=== PATIENT | female | born 1945 | race Caucasian/White ===

== ENCOUNTER 2016-05-12 02:02 | Inpatient (IN) | payer MEDICARE ==
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
[2016-05-12 02:45] LABS: Anisocytosis Slight; Basophils # (A) 0.1 k/uL (0-0.2); Basophils % (A) 1 %; CHCM 29.7; Eosinophils # (A) 0.2 k/uL (0-0.7); Eosinophils % (A) 2 %; HCT 31.5 % (34.0-46.0); HGB 9.1 gm/dL (11.4-16.0); Hypochromasia Marked; Luc # (Auto) 0.08; Luc % (Auto) 1; Lymphocytes # (A) 0.5 k/uL (1.0-4.8); Lymphocytes % (A) 6 %; MCH 24.5 pg (25.0-35.0); MCHC 28.9 g/dL (31.0-37.0); MCV 84.6 fL (80.0-100.0); Mean Platelet Volume 7.8; Monocytes # (A) 0.4 k/uL (0-1.0); Monocytes % (A) 6 %; Neutrophils # (A) 6.1 k/uL (1.3-7.7); Neutrophils % (A) 84 %; Poikilocytosis Moderate; RBC 3.72 m/uL (3.80-5.40); RDW 16.5 % (11.5-15.5); WBC 7.2 k/uL (3.8-10.6); WBC (Perox) 7.31
[2016-05-12 02:51] LABS: Glucose,Whole Blood 188 mg/dL (75-99)
[2016-05-12 02:54] LABS: Calcium 8.5 mg/dL (8.4-10.2); Potassium 5.1 mmol/L (3.5-5.1); Total Bilirubin 0.4 mg/dL (0.2-1.3); Total Protein 6.3 g/dL (6.3-8.2)
[2016-05-12 03:01] LABS: Appearance,Urine Cloudy (Clear); Bacteria,Urine Many /hpf; Bilirubin,Urine Negative (Negative); Glucose,Urine (UA) Negative (Negative); Ketones,Urine Negative (Negative); Leukocyte Esterase,Urine Large (Negative); Mucus,Urine Many /hpf; Nitrite,Urine Negative (Negative); Particle Count 13182; Protein,Urine 1+ (Negative); RBC,Urine 179 /hpf (0-5); Specific Gravity,Urine 1.011 (1.001-1.035); Squamous Epithelial Cell,Urine 2 /hpf (0-4); UA Billing (MACRO vs. MICRO) MICRO; Urobilinogen,Urine <2.0 mg/dL (<2.0); WBC,Urine 42 /hpf (0-5)
[2016-05-12 03:05] LABS: Creatine Kinase 41 U/L (30-135)
[2016-05-12 03:06] LABS: INR 1.1 (<1.1); Partial Thromboplastin Time 22.6 sec (22.0-30.0); Prothrombin Time 10.7 sec (9.0-12.0)
--- NOTE | 2016-05-12 03:16 | CT ---
EXAMINATION TYPE: CT brain wo con DATE OF EXAM: 05/12/2016 3:10 AM COMPARISON: 02/26/2016 HISTORY: AMS Pt. Uncooperative and combative CT DLP: 3308 mGycm Automated exposure control for dose reduction was used. FINDINGS: Exam is limited by motion. There is hypodensity in the large area of the right cerebral hemisphere co nsistent with old right middle cerebral artery infarct. There is no mass effect or midline shift. The re is no sign of intracranial hemorrhage. Calvarium appears intact. IMPRESSION: Old right hemispheric infarct. No acute intracranial abnormality. No change.
--- NOTE | 2016-05-12 03:17 | XR ---
EXAMINATION TYPE: XR chest 1V portable DATE OF EXAM: 05/12/2016 3:10 AM COMPARISON: 04/24/2016 HISTORY: Altered mental status TECHNIQUE: Single frontal view of the chest is obtained. FINDINGS: Heart is enlarged. There is pulmonary vascular mild congestion. There is slight blunting o f costophrenic angles. There are chest leads. IMPRESSION: Mild congestive heart failure with pleural effusions. No change compared to 04/24/2016.
[2016-05-12 03:18] LABS: Creatine Kinase MB 1.3 ng/mL (0.0-2.4); Troponin I <0.012 ng/mL (0.000-0.034)
[2016-05-12] MEDS ORDERED: LORazepam 2 MG/ML SYRINGE IV PRN (03:51)
[2016-05-12] MEDS ORDERED: ALPRAZolam 0.25 MG TAB PO PRN (03:51)
[2016-05-12] MEDS ORDERED: NALOXONE 0.4 MG/ML 1 ML VIAL IV PRN (03:51)
[2016-05-12] MEDS: SODIUM CHLORIDE 0.9% 1,000 ML IV SCH (04:00)
[2016-05-12] MEDS ORDERED: IPRATROPIUM-ALBUTEROL 3 ML NEB INHALATION STA (05:29)
[2016-05-12 05:47] VITALS: BMI 26.8
[2016-05-12] MEDS ORDERED: DAPTOmycin 500 MG in SODIUM CHLORIDE 0.9% 50 ML IV SCH (06:00)
[2016-05-12] MEDS ORDERED: HYDROcodone/APAP 10-325MG 1 EACH TAB PO PRN (08:34)
[2016-05-12] MEDS ORDERED: NON-FORMULARY DRUG (Menthol [Biofreeze] 1 APPLIC) TOPICAL PRN (08:34)
[2016-05-12] MEDS ORDERED: IPRATROPIUM-ALBUTEROL 3 ML NEB INHALATION PRN (08:34)
[2016-05-12] MEDS ORDERED: DOCUSATE 100 MG CAP PO PRN (08:34)
[2016-05-12] MEDS: levETIRAcetam 500 MG TAB PO SCH ×2 (09:31→20:30)
[2016-05-12] MEDS: hydrALAZINE HCL 25 MG TAB PO SCH ×2 (09:31→18:04)
[2016-05-12] MEDS: HEPARIN SODIUM,PORCINE 5,000 UNIT/ML 1 ML VIAL SQ SCH ×2 (09:32→20:30)
[2016-05-12] MEDS: ALLOPURINOL 100 MG TAB PO SCH ×2 (09:32→09:41)
[2016-05-12] MEDS: SODIUM POLYSTYRENE SULFONATE 15 GM/60 ML BOTTLE PO SCH ×2 (09:32→09:42)
[2016-05-12] MEDS: METOPROLOL TARTRATE 50 MG TAB PO SCH ×2 (09:32→20:30)
[2016-05-12] MEDS: SERTRALINE 100 MG TAB PO SCH ×2 (09:32→09:42)
[2016-05-12] MEDS: ASPIRIN 81 MG CHEW PO SCH ×2 (09:32→09:42)
[2016-05-12] MEDS: FAMOTIDINE 20 MG TAB PO SCH ×2 (09:32→09:42)
[2016-05-12] MEDS: DILTIAZEM ORAL 60 MG TAB PO SCH ×3 (09:33→22:52)
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
[2016-05-12] MEDS: IPRATROPIUM-ALBUTEROL 3 ML NEB INHALATION SCH ×2 (10:40→18:54)
[2016-05-12 10:55] LABS: Glucose,Whole Blood 237 mg/dL (75-99)
[2016-05-12 11:49] LABS: % Iron Saturation 8.5 % (20-50)
[2016-05-12] MEDS ORDERED: FUROSEMIDE 10 MG/ML 4 ML VIAL IV STA (11:59)
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
[2016-05-12] MEDS ORDERED: NALOXONE 0.4 MG/ML 1 ML VIAL IV STA (12:12)
[2016-05-12 12:24] LABS: ABG Base Excess 0.4 mmol/L; ABG HCO3 26 mmol/L (21-25); ABG Oxygen Saturation 82.3 % (94-97); ABG PCO2 48 mmHg (35-45); ABG PH 7.34 (7.35-7.45); ABG PO2 50 mmHg (83-108); ABG TCO2 27 mmol/L (19-24)
[2016-05-12] MEDS ORDERED: INSULIN LISPRO (humaLOG) 300 UNIT/3 ML VIAL SQ SCH (12:30)
--- NOTE | 2016-05-12 12:38 | XR ---
EXAMINATION TYPE: XR chest 1V DATE OF EXAM: 05/12/2016 12:32 PM HISTORY: Shortness of breath. COMPARISON: 05/12/2016 TECHNIQUE: Single view of the chest is submitted. FINDINGS: Demonstrated are scattered senescent parenchymal change. I suspect underlying fibrosis. There is increasing patchy density right lower lobe which may reflect atelectasis or developing infil trate. The heart is stable. Hilar and mediastinal structures are within normal limits. Degenerative changes are seen of the dorsal spine. IMPRESSION: 1. There is increasing patchy density right lower lobe which may reflect atelectasis or developing i nfiltrate. Superimposed fibrosis.
[2016-05-12] MEDS: MEROPENEM 1 GM in SODIUM CHLORIDE 0.9% 100 ML IVPB SCH ×3 (12:42→23:08)
[2016-05-12] MEDS ORDERED: HALOPERIDOL LACTATE 5 MG/ML 1 ML VIAL IVP PRN (13:21)
[2016-05-12 13:36] LABS: Hemoglobin A1C 6.6 % (4.2-6.1)
[2016-05-12 13:46] LABS: Glucose,Whole Blood 211 mg/dL (75-99)
[2016-05-12] MEDS ORDERED: HYDROmorphone 1 MG/ML 1 ML SYRINGE ONE (14:39)
[2016-05-12] MEDS: methylPREDNISolone SOD SUCCI 125 MG/2 ML VIAL IV SCH ×3 (15:18→23:26)
[2016-05-12] MEDS: INSULIN LISPRO (humaLOG) 300 UNIT/3 ML VIAL SQ SCH ×3 (16:11→23:26)
[2016-05-12 16:12] LABS: Glucose,Whole Blood 146 mg/dL (75-99)
[2016-05-12] MEDS ORDERED: glipiZIDE 5 MG TAB PO SCH (17:30)
[2016-05-12] MEDS: hydrALAZINE HCL 20 MG/ML 1 ML VIAL IVP PRN ×2 (18:23→23:08)
[2016-05-12] MEDS: BUDESONIDE 0.5 MG/2 ML NEBU INHALATION SCH (18:54)
[2016-05-12 20:30] LABS: Glucose,Whole Blood 178 mg/dL (75-99)
[2016-05-12] MEDS: FUROSEMIDE 10 MG/ML 4 ML VIAL IV SCH (20:30)
[2016-05-12] MEDS ORDERED: INSULIN GLARGINE 100 UNIT/ML 10 ML VIAL SQ SCH (21:00)
[2016-05-12] MEDS: HYDROmorphone 1 MG/ML 1 ML SYRINGE IVP PRN (23:25)
[2016-05-12 23:27] LABS: Glucose,Whole Blood 208 mg/dL (75-99)
[2016-05-13] MEDS: INSULIN LISPRO (humaLOG) 300 UNIT/3 ML VIAL SQ SCH ×5 (03:10→20:49)
[2016-05-13 03:11] LABS: Glucose,Whole Blood 161 mg/dL (75-99)
[2016-05-13] MEDS: SODIUM CHLORIDE 0.9% 1,000 ML IV SCH (03:12)
[2016-05-13] MEDS: hydrALAZINE HCL 20 MG/ML 1 ML VIAL IVP PRN (04:42)
[2016-05-13] MEDS: HYDROmorphone 1 MG/ML 1 ML SYRINGE IVP PRN ×3 (04:42→17:59)
[2016-05-13 05:09] LABS: Anisocytosis Slight; Basophils % (A) 0 %; CH 25.1; CHCM 29.5; Eosinophils # (A) 0.1 k/uL (0-0.7); Eosinophils % (A) 2 %; HCT 36.3 % (34.0-46.0); HDW 3.92; HGB 10.3 gm/dL (11.4-16.0); Hypochromasia Marked; Luc # (Auto) 0.02; Luc % (Auto) 0; Lymphocytes # (A) 0.2 k/uL (1.0-4.8); Lymphocytes % (A) 3 %; MCH 24.3 pg (25.0-35.0); MCHC 28.5 g/dL (31.0-37.0); MCV 85.3 fL (80.0-100.0); Mean Platelet Volume 7.1; Monocytes # (A) 0.1 k/uL (0-1.0); Monocytes % (A) 1 %; Neutrophils # (A) 5.6 k/uL (1.3-7.7); Neutrophils % (A) 94 %; Poikilocytosis Slight; RBC 4.25 m/uL (3.80-5.40); RDW 16.7 % (11.5-15.5); WBC 5.9 k/uL (3.8-10.6); WBC (Perox) 6.59
[2016-05-13 05:23] LABS: ALT 26 U/L (9-52); AST 16 U/L (14-36); Alkaline Phosphatase 103 U/L (38-126); Anion Gap 13 mmol/L; Blood Urea Nitrogen 25 mg/dL (7-17); Calcium 8.9 mg/dL (8.4-10.2); Carbon Dioxide 31 mmol/L (22-30); Chloride 102 mmol/L (98-107); Glucose 140 mg/dL (74-99); Magnesium 1.9 mg/dL (1.6-2.3); Non-African American GFR(MDRD) 55 (>60 ml/min/1.73 sqM); Phosphorous 3.9 mg/dL (2.5-4.5); Potassium 4.2 mmol/L (3.5-5.1); Sodium 146 mmol/L (137-145); Total Bilirubin 0.7 mg/dL (0.2-1.3)
[2016-05-13] MEDS ORDERED: MAGNESIUM SULFATE-D5W PMX 1 GM in DEXTROSE/WATER 1 100ML.BAG IVPB ONE (05:54)
[2016-05-13] MEDS: FERROUS SULFATE 325 MG TAB PO SCH (05:55)
[2016-05-13] MEDS ORDERED: FUROSEMIDE 40 MG TAB PO SCH (06:00)
[2016-05-13] MEDS ORDERED: PANTOPRAZOLE 40 MG TABLET PO SCH (06:00)
[2016-05-13] MEDS: methylPREDNISolone SOD SUCCI 125 MG/2 ML VIAL IV SCH ×3 (06:26→17:54)
--- NOTE | 2016-05-13 07:26 | XR ---
EXAMINATION TYPE: XR chest 1V DATE OF EXAM: 05/13/2016 6:34 AM COMPARISON: 05/12/2016 HISTORY: 70-year-old female CHF TECHNIQUE: Single frontal view of the chest is obtained. FINDINGS: Heart remains moderately enlarged. Atherosclerotic arch calcifications. Diffuse interstitial opacitie s persist. Slight increasing right basilar opacity. IMPRESSION: 1. Continued moderate cardiomegaly and interstitial opacities suggest CHF with pulmonary vascular con gestion. 2. Increasing small right pleural effusion with adjacent atelectasis and/or consolidation.
[2016-05-13] MEDS: BUDESONIDE 0.5 MG/2 ML NEBU INHALATION SCH ×2 (07:49→20:36)
[2016-05-13] MEDS: IPRATROPIUM-ALBUTEROL 3 ML NEB INHALATION SCH ×3 (07:49→20:36)
[2016-05-13 08:37] LABS: Glucose,Whole Blood 112 mg/dL (75-99)
[2016-05-13] MEDS: MEROPENEM 1 GM in SODIUM CHLORIDE 0.9% 100 ML IVPB SCH ×2 (08:40→16:14)
[2016-05-13] MEDS: HEPARIN SODIUM,PORCINE 5,000 UNIT/ML 1 ML VIAL SQ SCH ×2 (08:44→20:43)
[2016-05-13] MEDS: FUROSEMIDE 10 MG/ML 4 ML VIAL IV SCH ×2 (08:44→20:43)
[2016-05-13] MEDS: PANTOPRAZOLE 40 MG/10 ML VIAL IVP SCH (08:44)
[2016-05-13 12:06] LABS: Glucose,Whole Blood 134 mg/dL (75-99)
[2016-05-13] MEDS: DILTIAZEM ORAL 60 MG TAB PO SCH ×3 (12:09→20:45)
[2016-05-13] MEDS: ASPIRIN 81 MG CHEW PO SCH (12:09)
[2016-05-13] MEDS: ALLOPURINOL 100 MG TAB PO SCH (12:09)
[2016-05-13] MEDS: METOPROLOL TARTRATE 50 MG TAB PO SCH ×2 (12:10→20:44)
[2016-05-13] MEDS: levETIRAcetam 500 MG TAB PO SCH ×2 (12:10→20:44)
[2016-05-13] MEDS: SODIUM POLYSTYRENE SULFONATE 15 GM/60 ML BOTTLE PO SCH (12:11)
[2016-05-13] MEDS: SERTRALINE 100 MG TAB PO SCH (12:11)
--- NOTE | 2016-05-13 12:18 | P.PN ---
Subjective Principal diagnosis: Acute metabolic encephalopathy with altered mental status Patient is doing better she is more alert this morning she is answering questions appropriately She had evidence of acute metabolic encephalopathy and acute hypercapnic respiratory failure requiring BiPAP through the night At this time she is doing better she is more alert. She has evidence of urinary tract infection she is maintained on IV antibiotic. Due to her mental status changes and and responsiveness she was admitted to intensive care unit, At this time she is doing better she will be transferred to medical floor with remote telemetry. Objective - Vital Signs Vital signs: Vital Signs Temp 97.7 F 05/13/16 12:00 Pulse 109 H 05/13/16 12:00 Resp 15 05/13/16 12:00 BP 181/97 05/13/16 12:00 Pulse Ox 94 L 05/13/16 12:00 Intake & Output 05/12/16 05/13/16 05/13/16 18:59 06:59 18:59 Intake Total 100 440 200 Output Total 1445 2075 1185 Balance -1345 -1635 -985 Weight 75.4 kg 77.6 kg 77.6 kg Intake: IV 100 440 200 Meropenem 1 gm In Sodium 200 100 Chloride 0.9% 100 ml @ 200 mls/hr IVPB Q8HR МАРИЯ Rx#:[id number] Sodium Chloride 0.9% 1, 100 240 100 000 ml @ 20 mls/hr IV . Q24H МАРИЯ Rx#:[id number] Output: Urine 1445 2075 1160 Stool 25 Other: Voiding Method Indwelling Catheter Indwelling Catheter Indwelling Catheter - Exam HEENT head normocephalic and atraumatic Neck is supple no JVD no goiter no lymphadenopathy Chest exam reveals a few scattered crackles no wheezing Cardiac exam reveals irregular heart sounds no gallops no murmurs Abdomen is soft nontender no organomegaly with normal bowel sounds Extremity exam reveals no edema no cyanosis or clubbing Neurological examination reveals no gross focal deficit. - Labs CBC & Chem 7: 05/13/16 04:55 05/13/16 04:55 Labs: Abnormal Lab Results - Last 24 Hours (Table) 05/12/16 05/12/16 05/12/16 Range/Units 13:44 16:10 20:28 Hgb (11.4-16.0) gm/dL MCH (25.0-35.0) pg MCHC (31.0-37.0) g/dL RDW (11.5-15.5) % Lymphocytes # (1.0-4.8) k/uL Sodium (137-145) mmol/L Carbon Dioxide (22-30) mmol/L BUN (7-17) mg/dL Glucose (74-99) mg/dL POC Glucose (mg/dL) 211 H 146 H 178 H (75-99) mg/dL 05/12/16 05/13/16 05/13/16 Range/Units 23:24 03:09 04:55 Hgb 10.3 L (11.4-16.0) gm/dL MCH 24.3 L (25.0-35.0) pg MCHC 28.5 L (31.0-37.0) g/dL RDW 16.7 H (11.5-15.5) % Lymphocytes # 0.2 L (1.0-4.8) k/uL Sodium (137-145) mmol/L Carbon Dioxide (22-30) mmol/L BUN (7-17) mg/dL Glucose (74-99) mg/dL POC Glucose (mg/dL) 208 H 161 H (75-99) mg/dL 05/13/16 05/13/16 05/13/16 Range/Units 04:55 08:35 12:05 Hgb (11.4-16.0) gm/dL MCH (25.0-35.0) pg MCHC (31.0-37.0) g/dL RDW (11.5-15.5) % Lymphocytes # (1.0-4.8) k/uL Sodium 146 H (137-145) mmol/L Carbon Dioxide 31 H (22-30) mmol/L BUN 25 H (7-17) mg/dL Glucose 140 H (74-99) mg/dL POC Glucose (mg/dL) 112 H 134 H (75-99) mg/dL Assessment and Plan Plan: 1. Altered mental status changes: Possibly a metabolic and toxic metabolic encephalopathy secondary to UTI and medications in the form of Ativan and [place]. 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 Ativan and Xanax discontinued. Drug screen positive for opiates and benzodiazepine. Also check a Keppra level 2. UTI patient started on daptomycin. Await urine culture. 3. Chronic persistent atrial fibrillation: Heart rate stable. Not on anticoagulation due to previous GI bleed. Continue her Cardizem and metoprolol for rate control. We'll place patient on telemetry monitoring 4. History of diabetes mellitus type 2: Continue her Lantus and glipizide. Add sliding scale coverage. 5. Known iron deficiency anemia: Hemoglobin 9.1. Continue iron supplement. Check iron studies 6. Mild acute COPD exacerbation patient does have some wheezing. Continue nebulizer treatments 4 times a day. Chest x-ray showing mild CHF with no change from previous chest x-ray. Check BNP level 7. History of myocardial infarction with coronary artery disease and previous cardiac stents 8. History of chronic kidney disease stage IV. Creatinine close to baseline. Creatinine at admission 1.60 improved today to 0.99 9. History of seizure disorder: Check Keppra level, still pending 10. GI prophylaxis Pepcid and DVT prophylaxis on subcu heparin
--- NOTE | 2016-05-13 14:06 | P.PN ---
Subjective 68-year-old here patient was admitted to the hospital yesterday through emergency department because of change in mental status. The patient was unable to volunteer any information. 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 The patient was admitted to the medical floor and the patient was given daptomycin treating an underlying urine checked infection. Earlier this morning, the patient was found quite unresponsive and and obtunded and in the same time her breathing was quite shallow and agonal. At that point the patient was brought into the intensive care unit where he mutation was placed on a BiPAP at a pressure of 10 over 5 cm of water and FiO2 of 75%. A chest x-ray from 2 AM showed mild CHF with pleural effusion and there was no major significant interval change compared to previous chest x-ray from 04/24/2016. ABGs that was done on 2 L of oxygen nasal cannula showed a pH of 7.34 with a pCO2 of 48 and pO2 of 50. Cardiac enzymes are negative. ProBNP level is elevated at 3720. No hypoglycemia. Renal function is chronically impaired with a creatinine of 1.6. CAT scan of the brain that was done at time of admission showed old hemispheric CVA and there was no acute abnormalities noted. No leukocytosis. No reported aspiration. No emesis. Hemodynamically stable and the patient has developed no hypotension. She is afebrile at this point. On 05/13/2016 the patient is being seen in follow-up in intensive care unit. She is significantly improved. She is off the BiPAP this morning. She is on high flow oxygen 5 L per minute nasal cannula. Less short of breath compared to yesterday. Today's chest x-ray shows improvement in the breath and pulmonary infiltrates discussed earlier. There is obvious improvement in the volume status. The patient has diabetes more than 3 L over the past 24 hours. She is also covered with broad-spectrum antibiotics and she is still on a combination of daptomycin and Merrem. The choice of antibiotics were done to cover for gram-negative, and anaerobes and VRE in the urine. No hypotension. No leukocytosis. Renal function is stable with a creatinine of 0.9. Objective - Vital Signs Vital signs: Vital Signs Temp 97.7 F 05/13/16 12:00 Pulse 132 H 05/13/16 13:00 Resp 44 H 05/13/16 13:00 BP 138/82 05/13/16 13:00 Pulse Ox 90 L 05/13/16 13:00 Intake & Output 05/12/16 05/13/16 05/13/16 18:59 06:59 18:59 Intake Total 100 440 460 Output Total 1445 2075 1245 Balance -7755 -0513 -785 Weight 75.4 kg 77.6 kg 77.6 kg Intake: IV 100 440 220 Meropenem 1 gm In Sodium 200 100 Chloride 0.9% 100 ml @ 200 mls/hr IVPB Q8HR [facility] Rx#:[id number] Sodium Chloride 0.9% 1, 100 240 120 000 ml @ 20 mls/hr IV . Q24H [facility] Rx#:[id number] Oral 240 Output: Urine 1445 2075 1220 Stool 25 Other: Voiding Method Indwelling Catheter Indwelling Catheter Indwelling Catheter - Exam Head exam was generally normal. There was no scleral icterus or corneal arcus. Mucous membranes were moist.Neck was supple and without jugular venous distension, thyromegaly, or carotid bruits. Carotids were easily palpable bilaterally. There was no adenopathy. Lung sounds are diminished bilaterally along with some few scattered external wheeze and crackles in lung bases.Cardiac exam revealed the PMI to be normally situated and sized. The rhythm was regular and no extrasystoles were noted during several minutes of auscultation. The first and second heart sounds were normal and physiologic splitting of the second heart sound was noted. There were no murmurs, rubs, clicks, or gallops.Abdominal exam revealed normal bowel sounds. The abdomen was soft, non-tender, and without masses, organomegaly, or appreciable enlargement of the abdominal aorta.Examination of the extremities revealed easily palpable radial, femoral and pedal pulses. There was no cyanosis, clubbing or edema. Neurologically patient is awake and alert and patient is following commands and answering questions appropriately. - Labs CBC & Chem 7: 05/13/16 04:55 05/13/16 04:55 Labs: Abnormal Lab Results - Last 24 Hours (Table) 05/12/16 05/12/16 05/12/16 Range/Units 16:10 20:28 23:24 Hgb (11.4-16.0) gm/dL MCH (25.0-35.0) pg MCHC (31.0-37.0) g/dL RDW (11.5-15.5) % Lymphocytes # (1.0-4.8) k/uL Sodium (137-145) mmol/L Carbon Dioxide (22-30) mmol/L BUN (7-17) mg/dL Glucose (74-99) mg/dL POC Glucose (mg/dL) 146 H 178 H 208 H (75-99) mg/dL 05/13/16 05/13/16 05/13/16 Range/Units 03:09 04:55 04:55 Hgb 10.3 L (11.4-16.0) gm/dL MCH 24.3 L (25.0-35.0) pg MCHC 28.5 L (31.0-37.0) g/dL RDW 16.7 H (11.5-15.5) % Lymphocytes # 0.2 L (1.0-4.8) k/uL Sodium 146 H (137-145) mmol/L Carbon Dioxide 31 H (22-30) mmol/L BUN 25 H (7-17) mg/dL Glucose 140 H (74-99) mg/dL POC Glucose (mg/dL) 161 H (75-99) mg/dL 05/13/16 05/13/16 Range/Units 08:35 12:05 Hgb (11.4-16.0) gm/dL MCH (25.0-35.0) pg MCHC (31.0-37.0) g/dL RDW (11.5-15.5) % Lymphocytes # (1.0-4.8) k/uL Sodium (137-145) mmol/L Carbon Dioxide (22-30) mmol/L BUN (7-17) mg/dL Glucose (74-99) mg/dL POC Glucose (mg/dL) 112 H 134 H (75-99) mg/dL Assessment and Plan Plan: Assessment 1 acute change in mental status, rule out toxic metabolic encephalopathy probably this patient with an underlying septicemia. On 05/13/2016, the patient's encephalopathy improved and the patient is much more awake and alert and following commands and answering questions appropriately. Neurologic exam is nonfocal. 2 acute hypoxic respiratory failure with a component of hypercapnia. The patient is currently BiPAP dependent. Exact cause is not clear. There may be a component of an underlying CHF, yet I suspect that there is an alternative cause for respiratory failure which is probably sepsis/toxic metabolic encephalopathy. The patient's chest x-ray is revealing a component of CHF with limited infiltration of the lung bases bilaterally. On 05/13/2016 ,The patient is being treated for pneumonia and CHF although CHF is more likely. The patient was diuresis IV Lasix and the patient is negative fluid balance and today's chest examination shows improvement in the volume status. Furthermore the patient was taken off the BiPAP and currently she is on 5 L of oxygen by nasal cannula. 3 acute kidney injury, improved and the patient's creatinine is normalized 4 large anterior abdominal wall hernia 5 obstructive proximal right ureteral calculus status post cystoscopy and insertion of a double-J stent in the right kidney, 6 CVA, history of with a large infarct involving the left hemisphere 7 vertebral fracture involving the C1 and C2 spine with chronic neck pain 8 hypertension 9 diabetes mellitus 10 coronary artery disease with previous coronary intervention and stenting 11 paroxysmal atrial fibrillation 12 severe pulmonary hypertension related to COPD and diastolic dysfunction 13 peptic ulcer disease 14 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 19 recurrent urine checked infection with VRE and the repeat cultures from 05/06 is showing enterococcal infection which is a VRE organism 20 history of MRSA wound infection involving the sacral ulcers. Plan Continue IV Lasix. Repeat chest x-ray in the morning. Continue Merrem and daptomycin. Monitor mental status. May use BiPAP on and off intermittently during the day. Close monitoring of her mental status. Will follow make further recommendations based on her progress.
[2016-05-13] MEDS: DICLOFENAC SODIUM GEL 100 GM TUBE TOPICAL PRN (16:14)
[2016-05-13 17:43] LABS: Glucose,Whole Blood 240 mg/dL (75-99)
[2016-05-13 20:49] LABS: Glucose,Whole Blood 227 mg/dL (75-99)
[2016-05-14 01:03] LABS: Glucose,Whole Blood 225 mg/dL (75-99)
[2016-05-14] MEDS: INSULIN LISPRO (humaLOG) 300 UNIT/3 ML VIAL SQ SCH ×7 (01:04→21:33)
[2016-05-14] MEDS: methylPREDNISolone SOD SUCCI 125 MG/2 ML VIAL IV SCH ×3 (01:05→13:05)
[2016-05-14] MEDS: MEROPENEM 1 GM in SODIUM CHLORIDE 0.9% 100 ML IVPB SCH ×4 (01:05→23:20)
[2016-05-14] MEDS: HYDROmorphone 1 MG/ML 1 ML SYRINGE IVP PRN ×3 (04:52→19:37)
[2016-05-14] MEDS: FERROUS SULFATE 325 MG TAB PO SCH (04:53)
[2016-05-14 04:59] LABS: Glucose,Whole Blood 137 mg/dL (75-99)
[2016-05-14 05:05] LABS: Anisocytosis Slight; Basophils % (A) 0 %; CHCM 29.6; Eosinophils % (A) 0 %; HCT 33.8 % (34.0-46.0); HDW 3.78; HGB 9.7 gm/dL (11.4-16.0); Hypochromasia Marked; Luc # (Auto) 0.02; Luc % (Auto) 0; Lymphocytes # (A) 0.2 k/uL (1.0-4.8); Lymphocytes % (A) 2 %; MCH 24.4 pg (25.0-35.0); MCHC 28.8 g/dL (31.0-37.0); MCV 84.7 fL (80.0-100.0); Mean Platelet Volume 7.9; Monocytes # (A) 0.2 k/uL (0-1.0); Monocytes % (A) 2 %; Neutrophils # (A) 8.1 k/uL (1.3-7.7); Neutrophils % (A) 95 %; Poikilocytosis Slight; RBC 3.99 m/uL (3.80-5.40); RDW 16.6 % (11.5-15.5); WBC 8.5 k/uL (3.8-10.6); WBC (Perox) 9.17
[2016-05-14 05:20] LABS: Phosphorous 4.5 mg/dL (2.5-4.5); Total Bilirubin 0.4 mg/dL (0.2-1.3); Total Protein 6.1 g/dL (6.3-8.2)
[2016-05-14] MEDS: SODIUM CHLORIDE 0.9% 1,000 ML IV SCH (06:00)
[2016-05-14] MEDS ORDERED: DAPTOmycin 500 MG in SODIUM CHLORIDE 0.9% 50 ML IV SCH (06:00)
--- NOTE | 2016-05-14 07:43 | XR ---
EXAMINATION TYPE: XR chest 1V DATE OF EXAM: 05/14/2016 6:31 AM COMPARISON: 05/12/2016 HISTORY: 70-year-old female CHF follow-up TECHNIQUE: Single frontal view of the chest is obtained. FINDINGS: Moderate cardiomegaly persists with diffuse interstitial opacities. Continued small, now small to mod erate right pleural effusion. IMPRESSION: Continued moderate cardiomegaly and findings suggesting CHF with pulmonary vascular congestion. A sma ll to moderate right pleural effusion is slightly increased.
[2016-05-14 07:55] LABS: Glucose,Whole Blood 138 mg/dL (75-99)
[2016-05-14] MEDS: METOPROLOL TARTRATE 50 MG TAB PO SCH ×2 (08:37→20:29)
[2016-05-14] MEDS: HEPARIN SODIUM,PORCINE 5,000 UNIT/ML 1 ML VIAL SQ SCH ×2 (08:38→20:28)
[2016-05-14] MEDS: PANTOPRAZOLE 40 MG/10 ML VIAL IVP SCH (08:38)
[2016-05-14] MEDS: FUROSEMIDE 10 MG/ML 4 ML VIAL IV SCH ×2 (08:38→20:28)
[2016-05-14] MEDS: DILTIAZEM ORAL 60 MG TAB PO SCH ×3 (08:38→21:33)
[2016-05-14] MEDS: ALLOPURINOL 100 MG TAB PO SCH (08:38)
[2016-05-14] MEDS: ASPIRIN 81 MG CHEW PO SCH (08:38)
[2016-05-14] MEDS: levETIRAcetam 500 MG TAB PO SCH ×2 (08:39→20:29)
[2016-05-14] MEDS: SODIUM POLYSTYRENE SULFONATE 15 GM/60 ML BOTTLE PO SCH (08:40)
[2016-05-14] MEDS: SERTRALINE 100 MG TAB PO SCH (08:40)
[2016-05-14] MEDS: BUDESONIDE 0.5 MG/2 ML NEBU INHALATION SCH ×2 (09:03→20:46)
[2016-05-14] MEDS: IPRATROPIUM-ALBUTEROL 3 ML NEB INHALATION SCH ×3 (09:03→20:44)
[2016-05-14 12:13] LABS: Glucose,Whole Blood 231 mg/dL (75-99)
--- NOTE | 2016-05-14 13:20 | P.PN ---
Subjective Principal diagnosis: Acute metabolic encephalopathy with altered mental status Patient is doing better she is more alert this morning she is answering questions appropriately She had evidence of acute metabolic encephalopathy and acute hypercapnic respiratory failure requiring BiPAP through the night At this time she is doing better she is more alert. She has evidence of urinary tract infection she is maintained on IV antibiotic. Due to her mental status changes and and responsiveness she was admitted to intensive care unit, At this time she is doing better she will be transferred to medical floor with remote telemetry. Objective - Vital Signs Vital signs: Vital Signs Temp 97.3 F L 05/14/16 08:00 Pulse 96 05/14/16 13:00 Resp 9 L 05/14/16 13:00 BP 129/59 05/14/16 13:00 Pulse Ox 96 05/14/16 13:00 Intake & Output 05/13/16 05/14/16 05/14/16 18:59 06:59 18:59 Intake Total 1120 540 460 Output Total 1515 780 965 Balance -395 -240 -505 Weight 77.6 kg 79.1 kg 79.1 kg Intake: IV 400 440 220 Meropenem 1 gm In Sodium 200 200 100 Chloride 0.9% 100 ml @ 200 mls/hr IVPB Q8HR [facility] Rx#:[id number] Sodium Chloride 0.9% 1, 200 240 120 000 ml @ 20 mls/hr IV . Q24H [facility] Rx#:[id number] Intake, IV Titration 100 Amount DAPTOmycin 500 mg In 100 Sodium Chloride 0.9% 50 ml @ 100 mls/hr IV Q48H [facility] Rx#:[id number] Oral 720 240 Output: Urine 1490 780 965 Stool 25 Other: Voiding Method Indwelling Catheter Indwelling Catheter Indwelling Catheter - Exam HEENT head normocephalic and atraumatic Neck is supple no JVD no goiter no lymphadenopathy Chest exam reveals a few scattered crackles no wheezing Cardiac exam reveals irregular heart sounds no gallops no murmurs Abdomen is soft nontender no organomegaly with normal bowel sounds Extremity exam reveals no edema no cyanosis or clubbing Neurological examination reveals no gross focal deficit. - Labs CBC & Chem 7: 05/14/16 04:07 05/14/16 04:07 Labs: Abnormal Lab Results - Last 24 Hours (Table) 05/13/16 05/13/16 05/14/16 Range/Units 17:41 20:48 01:02 Hgb (11.4-16.0) gm/dL Hct (34.0-46.0) % MCH (25.0-35.0) pg MCHC (31.0-37.0) g/dL RDW (11.5-15.5) % Neutrophils # (1.3-7.7) k/uL Lymphocytes # (1.0-4.8) k/uL BUN (7-17) mg/dL Creatinine (0.52-1.04) mg/dL Glucose (74-99) mg/dL POC Glucose (mg/dL) 240 H 227 H 225 H (75-99) mg/dL AST (14-36) U/L Total Protein (6.3-8.2) g/dL Albumin (3.5-5.0) g/dL 05/14/16 05/14/16 05/14/16 Range/Units 04:07 04:07 04:57 Hgb 9.7 L (11.4-16.0) gm/dL Hct 33.8 L (34.0-46.0) % MCH 24.4 L (25.0-35.0) pg MCHC 28.8 L (31.0-37.0) g/dL RDW 16.6 H (11.5-15.5) % Neutrophils # 8.1 H (1.3-7.7) k/uL Lymphocytes # 0.2 L (1.0-4.8) k/uL BUN 44 H (7-17) mg/dL Creatinine 1.40 H (0.52-1.04) mg/dL Glucose 149 H (74-99) mg/dL POC Glucose (mg/dL) 137 H (75-99) mg/dL AST 12 L (14-36) U/L Total Protein 6.1 L (6.3-8.2) g/dL Albumin 3.4 L (3.5-5.0) g/dL 05/14/16 05/14/16 Range/Units 07:53 12:11 Hgb (11.4-16.0) gm/dL Hct (34.0-46.0) % MCH (25.0-35.0) pg MCHC (31.0-37.0) g/dL RDW (11.5-15.5) % Neutrophils # (1.3-7.7) k/uL Lymphocytes # (1.0-4.8) k/uL BUN (7-17) mg/dL Creatinine (0.52-1.04) mg/dL Glucose (74-99) mg/dL POC Glucose (mg/dL) 138 H 231 H (75-99) mg/dL AST (14-36) U/L Total Protein (6.3-8.2) g/dL Albumin (3.5-5.0) g/dL Assessment and Plan Plan: 1. Altered mental status changes: Possibly a metabolic and toxic metabolic encephalopathy secondary to UTI and medications in the form of Ativan and [place]. 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 Ativan and Xanax discontinued. Drug screen positive for opiates and benzodiazepine. Also check a Keppra level 2. UTI patient started on daptomycin. And merrem Await urine culture. 3. Chronic persistent atrial fibrillation: Heart rate stable. Not on anticoagulation due to previous GI bleed. Continue her Cardizem and metoprolol for rate control. We'll place patient on telemetry monitoring 4. Acute hypoxic respiratory failure patient required BiPAP treatment in ICU currently she improved she is scheduled to be transferred out of ICU today cause of respiratory failure is multifactorial including congestive heart failure and limited infiltrate in both lung bases. 5. Known iron deficiency anemia: Hemoglobin 9.1. Continue iron supplement. Check iron studies 6. Mild acute COPD exacerbation patient does have some wheezing. Continue nebulizer treatments 4 times a day. Chest x-ray showing mild CHF with no change from previous chest x-ray. Check BNP level 7. History of myocardial infarction with coronary artery disease and previous cardiac stents 8. Acute kidney injury, Creatinine close to baseline. Creatinine at admission 1.60 improved today to 0.99 9. History of seizure disorder: Check Keppra level, still pending 10. Underlying history of diabetes mellitus 11. Underlying history of severe pulmonary hypertension 12. Underlying history of partial colectomy with colostomy placement due to history of perforated gangrenous bowel no history of malignancy 13. GI prophylaxis Pepcid and DVT prophylaxis on subcu heparin
--- NOTE | 2016-05-14 13:44 | P.PN ---
Subjective 68-year-old here patient was admitted to the hospital yesterday through emergency department because of change in mental status. The patient was unable to volunteer any information. 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 The patient was admitted to the medical floor and the patient was given daptomycin treating an underlying urine checked infection. Earlier this morning, the patient was found quite unresponsive and and obtunded and in the same time her breathing was quite shallow and agonal. At that point the patient was brought into the intensive care unit where he mutation was placed on a BiPAP at a pressure of 10 over 5 cm of water and FiO2 of 75%. A chest x-ray from 2 AM showed mild CHF with pleural effusion and there was no major significant interval change compared to previous chest x-ray from 04/24/2016. ABGs that was done on 2 L of oxygen nasal cannula showed a pH of 7.34 with a pCO2 of 48 and pO2 of 50. Cardiac enzymes are negative. ProBNP level is elevated at 3720. No hypoglycemia. Renal function is chronically impaired with a creatinine of 1.6. CAT scan of the brain that was done at time of admission showed old hemispheric CVA and there was no acute abnormalities noted. No leukocytosis. No reported aspiration. No emesis. Hemodynamically stable and the patient has developed no hypotension. She is afebrile at this point. On 05/13/2016 the patient is being seen in follow-up in intensive care unit. She is significantly improved. She is off the BiPAP this morning. She is on high flow oxygen 5 L per minute nasal cannula. Less short of breath compared to yesterday. Today's chest x-ray shows improvement in the breath and pulmonary infiltrates discussed earlier. There is obvious improvement in the volume status. The patient has diabetes more than 3 L over the past 24 hours. She is also covered with broad-spectrum antibiotics and she is still on a combination of daptomycin and Merrem. The choice of antibiotics were done to cover for gram-negative, and anaerobes and VRE in the urine. No hypotension. No leukocytosis. Renal function is stable with a creatinine of 0.9. On 05/14/2016 the patient is being seen in follow-up. There is a remarkable improvement in the patient's chest x-ray. The patient has diabetes nicely with IV Lasix. No significant respiratory distress. Mentation is improved. No cough or sputum production. No chest pain. No swelling in lower extremities. Renal function remains stable. The creatinine today is at 1.4. The patient remains on a combination of Merrem and daptomycin as a broad-spectrum antibiotic coverage covering for pneumonia and VRE urinary tract infection. The patient on IV Lasix 40 mg every 12 hours. The patient is on IV Solu-Medrol 60 every 6 hours. Objective - Vital Signs Vital signs: Vital Signs Temp 97.3 F L 05/14/16 08:00 Pulse 99 05/14/16 13:33 Resp 9 L 05/14/16 13:00 BP 129/59 05/14/16 13:00 Pulse Ox 96 05/14/16 13:00 Intake & Output 05/13/16 05/14/16 05/14/16 18:59 06:59 18:59 Intake Total 1120 540 460 Output Total 1515 780 965 Balance -395 -240 -505 Weight 77.6 kg 79.1 kg 79.1 kg Intake: IV 400 440 220 Meropenem 1 gm In Sodium 200 200 100 Chloride 0.9% 100 ml @ 200 mls/hr IVPB Q8HR [facility] Rx#:[id number] Sodium Chloride 0.9% 1, 200 240 120 000 ml @ 20 mls/hr IV . Q24H [facility] Rx#:[id number] Intake, IV Titration 100 Amount DAPTOmycin 500 mg In 100 Sodium Chloride 0.9% 50 ml @ 100 mls/hr IV Q48H [facility] Rx#:[id number] Oral 720 240 Output: Urine 1490 780 965 Stool 25 Other: Voiding Method Indwelling Catheter Indwelling Catheter Indwelling Catheter - Exam Head exam was generally normal. There was no scleral icterus or corneal arcus. Mucous membranes were moist.Neck was supple and without jugular venous distension, thyromegaly, or carotid bruits. Carotids were easily palpable bilaterally. There was no adenopathy. Lung sounds are diminished bilaterally along with some few scattered external wheeze and crackles in lung bases.Cardiac exam revealed the PMI to be normally situated and sized. The rhythm was regular and no extrasystoles were noted during several minutes of auscultation. The first and second heart sounds were normal and physiologic splitting of the second heart sound was noted. There were no murmurs, rubs, clicks, or gallops.Abdominal exam revealed normal bowel sounds. The abdomen was soft, non-tender, and without masses, organomegaly, or appreciable enlargement of the abdominal aorta.Examination of the extremities revealed easily palpable radial, femoral and pedal pulses. There was no cyanosis, clubbing or edema. Neurologically patient is awake and alert and patient is following commands and answering questions appropriately. - Labs CBC & Chem 7: 05/14/16 04:07 05/14/16 04:07 Labs: Abnormal Lab Results - Last 24 Hours (Table) 05/13/16 05/13/16 05/14/16 Range/Units 17:41 20:48 01:02 Hgb (11.4-16.0) gm/dL Hct (34.0-46.0) % MCH (25.0-35.0) pg MCHC (31.0-37.0) g/dL RDW (11.5-15.5) % Neutrophils # (1.3-7.7) k/uL Lymphocytes # (1.0-4.8) k/uL BUN (7-17) mg/dL Creatinine (0.52-1.04) mg/dL Glucose (74-99) mg/dL POC Glucose (mg/dL) 240 H 227 H 225 H (75-99) mg/dL AST (14-36) U/L Total Protein (6.3-8.2) g/dL Albumin (3.5-5.0) g/dL 05/14/16 05/14/16 05/14/16 Range/Units 04:07 04:07 04:57 Hgb 9.7 L (11.4-16.0) gm/dL Hct 33.8 L (34.0-46.0) % MCH 24.4 L (25.0-35.0) pg MCHC 28.8 L (31.0-37.0) g/dL RDW 16.6 H (11.5-15.5) % Neutrophils # 8.1 H (1.3-7.7) k/uL Lymphocytes # 0.2 L (1.0-4.8) k/uL BUN 44 H (7-17) mg/dL Creatinine 1.40 H (0.52-1.04) mg/dL Glucose 149 H (74-99) mg/dL POC Glucose (mg/dL) 137 H (75-99) mg/dL AST 12 L (14-36) U/L Total Protein 6.1 L (6.3-8.2) g/dL Albumin 3.4 L (3.5-5.0) g/dL 05/14/16 05/14/16 Range/Units 07:53 12:11 Hgb (11.4-16.0) gm/dL Hct (34.0-46.0) % MCH (25.0-35.0) pg MCHC (31.0-37.0) g/dL RDW (11.5-15.5) % Neutrophils # (1.3-7.7) k/uL Lymphocytes # (1.0-4.8) k/uL BUN (7-17) mg/dL Creatinine (0.52-1.04) mg/dL Glucose (74-99) mg/dL POC Glucose (mg/dL) 138 H 231 H (75-99) mg/dL AST (14-36) U/L Total Protein (6.3-8.2) g/dL Albumin (3.5-5.0) g/dL Assessment and Plan Plan: Assessment 1 acute change in mental status, rule out toxic metabolic encephalopathy probably this patient with an underlying septicemia. On 05/13/2016, the patient's encephalopathy improved and the patient is much more awake and alert and following commands and answering questions appropriately. Neurologic exam is nonfocal. 2 acute hypoxic respiratory failure with a component of hypercapnia. The patient is currently BiPAP dependent. Exact cause is not clear. There may be a component of an underlying CHF, yet I suspect that there is an alternative cause for respiratory failure which is probably sepsis/toxic metabolic encephalopathy. The patient's chest x-ray is revealing a component of CHF with limited infiltration of the lung bases bilaterally. On 05/13/2016 ,The patient is being treated for pneumonia and CHF although CHF is more likely. The patient was diuresis IV Lasix and the patient is negative fluid balance and today's chest examination shows improvement in the volume status. Furthermore the patient was taken off the BiPAP and currently she is on 5 L of oxygen by nasal cannula. On 05/14/2016, the patient is significantly improved and the patient is currently off BiPAP. The working diagnosis still remains CHF over pneumonia. The patient was diuresed nicely with IV Lasix and will continue IV Lasix for another 24 hours. Continue the current antibiotic coverage. We'll taper of the Solu-Medrol. 3 acute kidney injury, improved and the patient's creatinine is normalized 4 large anterior abdominal wall hernia 5 obstructive proximal right ureteral calculus status post cystoscopy and insertion of a double-J stent in the right kidney, 6 CVA, history of with a large infarct involving the left hemisphere 7 vertebral fracture involving the C1 and C2 spine with chronic neck pain 8 hypertension 9 diabetes mellitus 10 coronary artery disease with previous coronary intervention and stenting 11 paroxysmal atrial fibrillation 12 severe pulmonary hypertension related to COPD and diastolic dysfunction 13 peptic ulcer disease 14 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 19 recurrent urine checked infection with VRE and the repeat cultures from 05/06 is showing enterococcal infection which is a VRE organism 20 history of MRSA wound infection involving the sacral ulcers. Plan Continue IV Lasix. Continue Merrem and daptomycin. This continued IV Solu- Medrol and put the patient prednisone burst taper. The patient will continue the bronchodilators. Discontinue the BiPAP. Wean off FiO2. Transfer this patient to [facility] with telemetry.
[2016-05-14 15:44] LABS: Glucose,Whole Blood 213 mg/dL (75-99)
[2016-05-14 17:20] LABS: Glucose,Whole Blood 172 mg/dL (75-99)
[2016-05-14 21:38] LABS: Glucose,Whole Blood 255 mg/dL (75-99)
[2016-05-15] MEDS: INSULIN LISPRO (humaLOG) 300 UNIT/3 ML VIAL SQ SCH ×5 (02:11→21:45)
[2016-05-15 02:18] LABS: Glucose,Whole Blood 243 mg/dL (75-99)
[2016-05-15] MEDS: HYDROmorphone 1 MG/ML 1 ML SYRINGE IVP PRN ×2 (04:19→09:46)
[2016-05-15] MEDS: SODIUM CHLORIDE 0.9% 1,000 ML IV SCH (04:22)
[2016-05-15] MEDS: FERROUS SULFATE 325 MG TAB PO SCH (06:19)
[2016-05-15 07:07] LABS: Glucose,Whole Blood 211 mg/dL (75-99)
[2016-05-15 08:13] LABS: Anisocytosis Slight; Basophils % (A) 0 %; CH 24.9; CHCM 29.7; Eosinophils % (A) 0 %; HCT 35.5 % (34.0-46.0); HDW 3.88; HGB 10.2 gm/dL (11.4-16.0); Hypochromasia Marked; Luc # (Auto) 0.09; Luc % (Auto) 1; Lymphocytes # (A) 0.2 k/uL (1.0-4.8); Lymphocytes % (A) 3 %; MCH 24.3 pg (25.0-35.0); MCHC 28.8 g/dL (31.0-37.0); MCV 84.2 fL (80.0-100.0); Mean Platelet Volume 7.8; Monocytes # (A) 0.5 k/uL (0-1.0); Monocytes % (A) 6 %; Neutrophils # (A) 7.6 k/uL (1.3-7.7); Neutrophils % (A) 90 %; Poikilocytosis Slight; RBC 4.22 m/uL (3.80-5.40); RDW 16.2 % (11.5-15.5); WBC 8.4 k/uL (3.8-10.6); WBC (Perox) 9.34
[2016-05-15] MEDS: BUDESONIDE 0.5 MG/2 ML NEBU INHALATION SCH ×2 (08:19→19:40)
[2016-05-15] MEDS: IPRATROPIUM-ALBUTEROL 3 ML NEB INHALATION SCH ×3 (08:19→19:42)
[2016-05-15 08:25] LABS: Magnesium 1.8 mg/dL (1.6-2.3); Phosphorous 4.4 mg/dL (2.5-4.5); Potassium 3.8 mmol/L (3.5-5.1); Total Bilirubin 0.6 mg/dL (0.2-1.3); Total Protein 6.6 g/dL (6.3-8.2)
[2016-05-15] MEDS: FUROSEMIDE 10 MG/ML 4 ML VIAL IV SCH ×2 (09:25→21:42)
[2016-05-15] MEDS: HEPARIN SODIUM,PORCINE 5,000 UNIT/ML 1 ML VIAL SQ SCH ×2 (09:27→21:42)
[2016-05-15] MEDS: levETIRAcetam 500 MG TAB PO SCH ×2 (09:28→21:45)
[2016-05-15] MEDS: ASPIRIN 81 MG CHEW PO SCH (09:28)
[2016-05-15] MEDS: METOPROLOL TARTRATE 50 MG TAB PO SCH ×2 (09:28→21:46)
[2016-05-15] MEDS: SERTRALINE 100 MG TAB PO SCH (09:28)
[2016-05-15] MEDS: SODIUM POLYSTYRENE SULFONATE 15 GM/60 ML BOTTLE PO SCH (09:29)
[2016-05-15] MEDS: predniSONE 20 MG TAB PO SCH (09:29)
[2016-05-15] MEDS: DILTIAZEM ORAL 60 MG TAB PO SCH ×3 (09:29→23:15)
[2016-05-15] MEDS: ALLOPURINOL 100 MG TAB PO SCH (09:29)
[2016-05-15] MEDS: PANTOPRAZOLE 40 MG/10 ML VIAL IVP SCH (09:30)
[2016-05-15] MEDS: MEROPENEM 1 GM in SODIUM CHLORIDE 0.9% 100 ML IVPB SCH ×2 (09:40→21:48)
--- NOTE | 2016-05-15 10:11 | XR ---
EXAMINATION TYPE: XR chest 1V DATE OF EXAM: 05/15/2016 10:05 AM COMPARISON: 05/14/2016 INDICATION: CHF TECHNIQUE: Single frontal view of the chest is obtained. FINDINGS: Heart size is mildly prominent but stable The pulmonary vasculature is normal. Mild right lower lobe infiltrate is present. A small right pleural effusion is likely present. IMPRESSION: 1. Right lower lobe infiltrate and right pleural effusion
[2016-05-15 11:44] LABS: Glucose,Whole Blood 276 mg/dL (75-99)
--- NOTE | 2016-05-15 13:21 | P.PN ---
Subjective Patient is doing well today. No events overnight. Objective - Vital Signs Vital signs: Vital Signs Temp 97.2 F L 05/15/16 07:00 Pulse 100 05/15/16 08:32 Resp 16 05/15/16 07:00 BP 158/94 05/15/16 07:00 Pulse Ox 96 05/15/16 07:00 Intake & Output 05/14/16 05/15/16 05/15/16 18:59 06:59 18:59 Intake Total 460 200 Output Total 965 Balance -505 200 Weight 79.1 kg 72 kg Intake: IV 220 Meropenem 1 gm In Sodium 100 Chloride 0.9% 100 ml @ 200 mls/hr IVPB Q8HR МАРИЯ Rx#:[id number] Sodium Chloride 0.9% 1, 120 000 ml @ 20 mls/hr IV . Q24H МАРИЯ Rx#:[id number] Oral 240 200 Output: Urine 965 Other: Voiding Method Indwelling Catheter Bedside Commode # Voids 2 1 - Exam General: The patient is awake and alert, in no distress Eye: there is normal conjunctiva bilaterally. Neck: The neck is supple, there is no JVD. Cardiovascular: Normal S1-S2, no S3-S4, no murmurs. Respiratory: Lungs clear to auscultation bilaterally Gastrointestinal: Abdomen is soft, nontender Musculoskeletal: There is no pedal edema. Neurological:. Speech is normal. Skin: Skin is warm and dry - Labs CBC & Chem 7: 05/15/16 07:38 05/15/16 07:38 Labs: Abnormal Lab Results - Last 24 Hours (Table) 05/14/16 05/14/16 05/14/16 Range/Units 15:42 17:11 21:05 Hgb (11.4-16.0) gm/dL MCH (25.0-35.0) pg MCHC (31.0-37.0) g/dL RDW (11.5-15.5) % Lymphocytes # (1.0-4.8) k/uL Chloride (98-107) mmol/L Carbon Dioxide (22-30) mmol/L BUN (7-17) mg/dL Creatinine (0.52-1.04) mg/dL Glucose (74-99) mg/dL POC Glucose (mg/dL) 213 H 172 H 255 H (75-99) mg/dL 05/15/16 05/15/16 05/15/16 Range/Units 02:06 06:55 07:38 Hgb 10.2 L (11.4-16.0) gm/dL MCH 24.3 L (25.0-35.0) pg MCHC 28.8 L (31.0-37.0) g/dL RDW 16.2 H (11.5-15.5) % Lymphocytes # 0.2 L (1.0-4.8) k/uL Chloride (98-107) mmol/L Carbon Dioxide (22-30) mmol/L BUN (7-17) mg/dL Creatinine (0.52-1.04) mg/dL Glucose (74-99) mg/dL POC Glucose (mg/dL) 243 H 211 H (75-99) mg/dL 05/15/16 05/15/16 Range/Units 07:38 11:42 Hgb (11.4-16.0) gm/dL MCH (25.0-35.0) pg MCHC (31.0-37.0) g/dL RDW (11.5-15.5) % Lymphocytes # (1.0-4.8) k/uL Chloride 95 L (98-107) mmol/L Carbon Dioxide 35 H (22-30) mmol/L BUN 51 H (7-17) mg/dL Creatinine 1.15 H (0.52-1.04) mg/dL Glucose 201 H (74-99) mg/dL POC Glucose (mg/dL) 276 H (75-99) mg/dL Assessment and Plan Plan: 1. Altered mental status changes: Now resolved back to normal baseline. Possibly a metabolic and toxic metabolic encephalopathy secondary to UTI and medications in the form of Ativan and Sweeny. 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 2. UTI patient started on daptomycin. And merrem: I would consult infectious disease for antibiotic management 3. Chronic persistent atrial fibrillation: Heart rate stable. Not on anticoagulation due to previous GI bleed. Continue her Cardizem and metoprolol for rate control. We'll place patient on telemetry monitoring 4. Acute hypoxic respiratory failure patient required BiPAP on presentation 5. Known iron deficiency anemia: Hemoglobin 9.1. Continue iron supplement 6. Mild acute COPD exacerbation patient does have some wheezing. Continue nebulizer treatments 4 times a day. Chest x-ray showing mild CHF with no change from previous chest x-ray. Check BNP level 7. History of myocardial infarction with coronary artery disease and previous cardiac stents 8. Acute kidney injury, Creatinine close to baseline. Creatinine at admission 1.60 improved today to 0.99 9. History of seizure disorder: Check Keppra level, still pending 10. Underlying history of diabetes mellitus 11. Underlying history of severe pulmonary hypertension 12. Underlying history of partial colectomy with colostomy placement due to history of perforated gangrenous bowel no history of malignancy 13. GI prophylaxis Pepcid and DVT prophylaxis on subcu heparin Plan for today: Consult infectious disease for antibiotic management and recommendations. Continue supportive care otherwise. Repeat lab work in the morning.
[2016-05-15] MEDS ORDERED: DAPTOmycin 500 MG in SODIUM CHLORIDE 0.9% 50 ML IV SCH (16:00)
--- NOTE | 2016-05-15 16:21 | P.PN ---
Subjective Principal diagnosis: Acute hypoxic respiratory failure and acute metabolic encephalopathy. Acute pneumonia and urinary tract infection. 68-year-old here patient was admitted to the hospital yesterday through emergency department because of change in mental status. The patient was unable to volunteer any information. 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 The patient was admitted to the medical floor and the patient was given daptomycin treating an underlying urine checked infection. Earlier this morning, the patient was found quite unresponsive and and obtunded and in the same time her breathing was quite shallow and agonal. At that point the patient was brought into the intensive care unit where he mutation was placed on a BiPAP at a pressure of 10 over 5 cm of water and FiO2 of 75%. A chest x-ray from 2 AM showed mild CHF with pleural effusion and there was no major significant interval change compared to previous chest x-ray from 04/24/2016. ABGs that was done on 2 L of oxygen nasal cannula showed a pH of 7.34 with a pCO2 of 48 and pO2 of 50. Cardiac enzymes are negative. ProBNP level is elevated at 3720. No hypoglycemia. Renal function is chronically impaired with a creatinine of 1.6. CAT scan of the brain that was done at time of admission showed old hemispheric CVA and there was no acute abnormalities noted. No leukocytosis. No reported aspiration. No emesis. Hemodynamically stable and the patient has developed no hypotension. She is afebrile at this point. On 05/14/2016 the patient is being seen in follow-up. There is a remarkable improvement in the patient's chest x-ray. The patient has diabetes nicely with IV Lasix. No significant respiratory distress. Mentation is improved. No cough or sputum production. No chest pain. No swelling in lower extremities. Renal function remains stable. The creatinine today is at 1.4. The patient remains on a combination of Merrem and daptomycin as a broad-spectrum antibiotic coverage covering for pneumonia and VRE urinary tract infection. The patient on IV Lasix 40 mg every 12 hours. The patient is on IV Solu-Medrol 60 every 6 hours. On 05/05/2016, patient continues to do quite well, and responding well to treatment of her pneumonia, and urinary tract infection. Secondary to VRE. Objective - Vital Signs Vital signs: Vital Signs Temp 97.2 F L 05/15/16 07:00 Pulse 100 05/15/16 08:32 Resp 16 05/15/16 07:00 BP 158/94 05/15/16 07:00 Pulse Ox 96 05/15/16 07:00 Intake & Output 05/14/16 05/15/16 05/15/16 18:59 06:59 18:59 Intake Total 460 200 Output Total 965 Balance -505 200 Weight 79.1 kg 72 kg Intake: IV 220 Meropenem 1 gm In Sodium 100 Chloride 0.9% 100 ml @ 200 mls/hr IVPB Q8HR МАРИЯ Rx#:[id number] Sodium Chloride 0.9% 1, 120 000 ml @ 20 mls/hr IV . Q24H МАРИЯ Rx#:[id number] Oral 240 200 Output: Urine 965 Other: Voiding Method Indwelling Catheter Bedside Commode # Voids 2 1 - Exam Head exam was generally normal. There was no scleral icterus or corneal arcus. Mucous membranes were moist.Neck was supple and without jugular venous distension, thyromegaly, or carotid bruits. Carotids were easily palpable bilaterally. There was no adenopathy. Lung sounds are diminished bilaterally along with some few scattered external wheeze and crackles in lung bases.Cardiac exam revealed the PMI to be normally situated and sized. The rhythm was regular and no extrasystoles were noted during several minutes of auscultation. The first and second heart sounds were normal and physiologic splitting of the second heart sound was noted. There were no murmurs, rubs, clicks, or gallops.Abdominal exam revealed normal bowel sounds. The abdomen was soft, non-tender, and without masses, organomegaly, or appreciable enlargement of the abdominal aorta.Examination of the extremities revealed easily palpable radial, femoral and pedal pulses. There was no cyanosis, clubbing or edema. Neurologically patient is awake and alert and patient is following commands and answering questions appropriately. - Labs CBC & Chem 7: 05/15/16 07:38 05/15/16 07:38 Labs: Abnormal Lab Results - Last 24 Hours (Table) 05/14/16 05/14/16 05/15/16 Range/Units 17:11 21:05 02:06 Hgb (11.4-16.0) gm/dL MCH (25.0-35.0) pg MCHC (31.0-37.0) g/dL RDW (11.5-15.5) % Lymphocytes # (1.0-4.8) k/uL Chloride (98-107) mmol/L Carbon Dioxide (22-30) mmol/L BUN (7-17) mg/dL Creatinine (0.52-1.04) mg/dL Glucose (74-99) mg/dL POC Glucose (mg/dL) 172 H 255 H 243 H (75-99) mg/dL 05/15/16 05/15/16 05/15/16 Range/Units 06:55 07:38 07:38 Hgb 10.2 L (11.4-16.0) gm/dL MCH 24.3 L (25.0-35.0) pg MCHC 28.8 L (31.0-37.0) g/dL RDW 16.2 H (11.5-15.5) % Lymphocytes # 0.2 L (1.0-4.8) k/uL Chloride 95 L (98-107) mmol/L Carbon Dioxide 35 H (22-30) mmol/L BUN 51 H (7-17) mg/dL Creatinine 1.15 H (0.52-1.04) mg/dL Glucose 201 H (74-99) mg/dL POC Glucose (mg/dL) 211 H (75-99) mg/dL 05/15/16 Range/Units 11:42 Hgb (11.4-16.0) gm/dL MCH (25.0-35.0) pg MCHC (31.0-37.0) g/dL RDW (11.5-15.5) % Lymphocytes # (1.0-4.8) k/uL Chloride (98-107) mmol/L Carbon Dioxide (22-30) mmol/L BUN (7-17) mg/dL Creatinine (0.52-1.04) mg/dL Glucose (74-99) mg/dL POC Glucose (mg/dL) 276 H (75-99) mg/dL Assessment and Plan Plan: acute hypoxic respiratory failure with a component of hypercapnia. The patient is currently BiPAP dependent. Exact cause is not clear. There may be a component of an underlying CHF, yet I suspect that there is an alternative cause for respiratory failure which is probably sepsis/toxic metabolic encephalopathy. The patient's chest x-ray is revealing a component of CHF with limited infiltration of the lung bases bilaterally. 2 acute change in mental status, rule out toxic metabolic encephalopathy probably this patient with an underlying septicemia. 3 acute kidney injury, improved and the patient's creatinine is normalized 4 large anterior abdominal wall hernia 5 obstructive proximal right ureteral calculus status post cystoscopy and insertion of a double-J stent in the right kidney, 6 CVA, history of with a large infarct involving the left hemisphere 7 vertebral fracture involving the C1 and C2 spine with chronic neck pain 8 hypertension 9 diabetes mellitus 10 coronary artery disease with previous coronary intervention and stenting 11 paroxysmal atrial fibrillation 12 severe pulmonary hypertension related to COPD and diastolic dysfunction 13 peptic ulcer disease 14 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 19 recurrent urine checked infection with VRE and the repeat cultures from 05/06 is showing enterococcal infection which is a VRE organism 20 history of MRSA wound infection involving the sacral ulcers. Plan Continue IV Lasix. Continue Merrem and daptomycin. This continued IV Solu- Medrol and put the patient prednisone burst taper. The patient will continue the bronchodilators. Discontinue the BiPAP. Consult infectious disease was initiated for antibiotics management. We will continue to follow. Time with Patient: Less than 30
[2016-05-15] MEDS: TRIAMCINOLONE 0.1% CREAM 80 GM TUBE TOPICAL SCH ×2 (16:58→21:47)
[2016-05-15 17:40] LABS: Glucose,Whole Blood 211 mg/dL (75-99)
[2016-05-15 21:06] LABS: Glucose,Whole Blood 239 mg/dL (75-99)
[2016-05-15] MEDS: INSULIN GLARGINE 100 UNIT/ML 10 ML VIAL SQ SCH (21:43)
[2016-05-16 01:58] LABS: Glucose,Whole Blood 191 mg/dL (75-99)
[2016-05-16] MEDS: INSULIN LISPRO (humaLOG) 300 UNIT/3 ML VIAL SQ SCH ×6 (02:11→21:05)
[2016-05-16] MEDS: SODIUM CHLORIDE 0.9% 1,000 ML IV SCH (04:16)
[2016-05-16] MEDS: FERROUS SULFATE 325 MG TAB PO SCH (05:04)
[2016-05-16] MEDS: ACETAMINOPHEN TAB 325 MG TAB PO PRN ×2 (05:11→23:53)
[2016-05-16] MEDS: IPRATROPIUM-ALBUTEROL 3 ML NEB INHALATION SCH ×3 (07:31→19:57)
[2016-05-16] MEDS: BUDESONIDE 0.5 MG/2 ML NEBU INHALATION SCH ×2 (07:31→19:57)
[2016-05-16 07:37] LABS: Glucose,Whole Blood 144 mg/dL (75-99)
[2016-05-16] MEDS: HYDROcodone/APAP 5-325MG 1 EACH TAB PO PRN ×3 (08:33→20:20)
[2016-05-16 08:41] LABS: Anisocytosis Slight; Basophils % (A) 0 %; CH 24.7; CHCM 30.1; Eosinophils % (A) 0 %; HCT 37.1 % (34.0-46.0); HDW 4.07; HGB 10.7 gm/dL (11.4-16.0); Hypochromasia Marked; Luc # (Auto) 0.16; Luc % (Auto) 2; Lymphocytes # (A) 0.6 k/uL (1.0-4.8); Lymphocytes % (A) 7 %; MCH 23.8 pg (25.0-35.0); MCHC 28.9 g/dL (31.0-37.0); MCV 82.4 fL (80.0-100.0); Mean Platelet Volume 7.6; Monocytes # (A) 0.7 k/uL (0-1.0); Monocytes % (A) 9 %; Neutrophils # (A) 6.4 k/uL (1.3-7.7); Neutrophils % (A) 81 %; Poikilocytosis Moderate; WBC 7.9 k/uL (3.8-10.6); WBC (Perox) 8.15
--- NOTE | 2016-05-16 09:06 | XR ---
EXAMINATION TYPE: XR chest 1V DATE OF EXAM: 05/16/2016 8:59 AM HISTORY: Shortness of breath. COMPARISON: 05/15/2016 TECHNIQUE: Single view of the chest is submitted. FINDINGS: Demonstrated are scattered senescent parenchymal change. The heart is mildly enlarged. Pulmonary venous congestion persists with small right-sided effusion an d infiltrate and/or atelectasis. Hilar and mediastinal structures are within normal limits. Degenerative changes are seen of the dorsal spine. IMPRESSION: 1. The heart is mildly enlarged. Pulmonary venous congestion persists with small right-sided effusio n and infiltrate and/or atelectasis.
[2016-05-16 09:09] LABS: ALT 29 U/L (9-52); AST 17 U/L (14-36); Alkaline Phosphatase 97 U/L (38-126); Anion Gap 11 mmol/L; Blood Urea Nitrogen 38 mg/dL (7-17); Calcium 9.3 mg/dL (8.4-10.2); Carbon Dioxide 39 mmol/L (22-30); Chloride 94 mmol/L (98-107); Glucose 141 mg/dL (74-99); Magnesium 1.6 mg/dL (1.6-2.3); Non-African American GFR(MDRD) 55 (>60 ml/min/1.73 sqM); Phosphorous 2.9 mg/dL (2.5-4.5); Potassium 3.2 mmol/L (3.5-5.1); Sodium 144 mmol/L (137-145); Total Bilirubin 0.7 mg/dL (0.2-1.3); Total Protein 6.7 g/dL (6.3-8.2)
[2016-05-16] MEDS: ALLOPURINOL 100 MG TAB PO SCH (10:01)
[2016-05-16] MEDS: HEPARIN SODIUM,PORCINE 5,000 UNIT/ML 1 ML VIAL SQ SCH ×2 (10:01→20:05)
[2016-05-16] MEDS: METOPROLOL TARTRATE 50 MG TAB PO SCH ×2 (10:01→20:05)
[2016-05-16] MEDS: DILTIAZEM ORAL 60 MG TAB PO SCH ×3 (10:01→20:05)
[2016-05-16] MEDS: SERTRALINE 100 MG TAB PO SCH (10:01)
[2016-05-16] MEDS: FUROSEMIDE 10 MG/ML 4 ML VIAL IV SCH (10:01)
[2016-05-16] MEDS: SODIUM POLYSTYRENE SULFONATE 15 GM/60 ML BOTTLE PO SCH (10:02)
[2016-05-16] MEDS: predniSONE 20 MG TAB PO SCH (10:02)
[2016-05-16] MEDS: TRIAMCINOLONE 0.1% CREAM 80 GM TUBE TOPICAL SCH ×3 (10:02→21:05)
[2016-05-16] MEDS: PANTOPRAZOLE 40 MG/10 ML VIAL IVP SCH (10:02)
[2016-05-16] MEDS: levETIRAcetam 500 MG TAB PO SCH ×2 (10:02→20:05)
[2016-05-16] MEDS: ASPIRIN 81 MG CHEW PO SCH (10:03)
--- NOTE | 2016-05-16 10:24 | CDI ---
In responding to this query, please exercise your independent professional judgment. The [facility] Coding Staff and Clinical Documentation Specialists appreciate your assistance in clarifying documentation, maintaining compliance with coding guidelines, accurately documenting patients condition and capturing severity of illness. The fact that a question is asked does not imply that any particular answer is desired or expected. Communication forms are a method of clarifying documentation and are not made part of the Legal Health Record. Thank you in advance for your clarification. Last Revision, February 2015 Ericksonalejandra Steward [address] [place] [address] Documentation Clarification Form Date: 05/16/2016 10:06:00 AM From: Sheron Saavedra Admit Date: 05/12/2016 1:12:00 PM Patient Name: Kylah Velazco Visit Number: [id number] Dr. Helen Gonzalez 'Probable Sepsis' and 'Underlying Septicemia' documented by Pulmonary. History/Risk Factors: CHF Atrial Fibrillation Diabetes Mellitus Renal Disease UTI on admission Clinical Indicators: WBC on presentation 7.2 Urine cultures: positive for Enterococcus faecalis Blood cultures: not done Vitals signs on admission: temp 97.9, hr 78, rr 16, bp 137/73, sats 99% on 4L nasal cannula Vitals later on the day of admission: temp 96.6, hr 102, rr 31, bp 184/94, sats 100% on bipap Multi organ failure: Encephalopathy, Acute Respiratory Failure, Acute Kidney Injury Treatment: IV Antibiotics: Daptomycin, Meropenem O2: nasal cannula, Bipap PO Tylenol In your professional opinion, can you please clarify if these findings signify one or more of the following conditions, whether the condition is POA, and cause , if known? Sepsis Severe Sepsis Unable to determine Other, please specify Please document in your progress notes and discharge summary in order to capture severity of illness and risk of mortality. Include clinical findings that support your diagnosis. FYI: Press F11 to launch patient chart. Place X here if this finding has no clinical significance, is not applicable or if you are not able to provide any additional documentation. BETTE
--- NOTE | 2016-05-16 10:40 | CDI ---
In responding to this query, please exercise your independent professional judgment. The [facility] Coding Staff and Clinical Documentation Specialists appreciate your assistance in clarifying documentation, maintaining compliance with coding guidelines, accurately documenting patients condition and capturing severity of illness. The fact that a question is asked does not imply that any particular answer is desired or expected. Communication forms are a method of clarifying documentation and are not made part of the Legal Health Record. Thank you in advance for your clarification. Last Revision, February 2015 Ericksonalejandra Steward [address] [facility] [place] [address] Documentation Clarification Form Date: 05/16/2016 10:26:00 AM From: Sheronafsaneh Arorafarhan Admit Date: 05/12/2016 1:12:00 PM Patient Name: Kylah Velazco Visit Number: [id number] Dr. Helen Gonzalez Patient is receiving IV Lasix. Patient history/risk factors CHF Pleural effusion Diabetes Mellitus CKD stage 4 Clinical Indicators: Lab findings: BNP on 05/12 was 3720 Radiology findings: CXR on 05/12 shows 'mild CHF with pleural effusions. No change compared to 04/14/2016.' Vital Signs on 05/12: temp 96.6, hr 102, rr 31, sats 100% on bipap 'Acute Hypoxic Respiratory Failure' documented by pulmonary on 05/12 Echo on 02/03/2016: ef 50-55%, mild left ventricular hypertrophy, large pleural effusion Treatment: Consults: Pulmonary IV Lasix q 12 hrs In your professional opinion, can you please clarify why the patient is receiving IV Lasix? Acute CHF exacerbation (if yes, please specify if systolic or diastolic) Other Reason? (please specify) Unable to determine Please document in your progress notes and discharge summary in order to capture severity of illness and risk of mortality. Include clinical findings that support your diagnosis. FYI: Press F11 to launch patient chart. Place X here if this finding has no clinical significance, is not applicable or if you are not able to provide any additional documentation. KIRSTEND
[2016-05-16] MEDS: MEROPENEM 1 GM in SODIUM CHLORIDE 0.9% 100 ML IVPB SCH (11:07)
[2016-05-16 12:07] LABS: Glucose,Whole Blood 201 mg/dL (75-99)
--- NOTE | 2016-05-16 12:47 | P.PN ---
Subjective 68-year-old here patient was admitted to the hospital through emergency department because of change in mental status. The patient was unable to volunteer any information. 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 At one point the patient was found quite unresponsive and obtunded and was brought into the intensive care unit where she was placed on a BiPAP at a pressure of 10 over 5 cm of water and FiO2 of 75% . A chest x-ray showed mild CHF with pleural effusion and there was no major significant interval change compared to previous chest x-ray from 04/24/2016. ABGs that was done on 2 L of oxygen nasal cannula showed a pH of 7.34 with a pCO2 of 48 and pO2 of 50. Cardiac enzymes are negative. ProBNP level is elevated at 3720. No hypoglycemia. Renal function is chronically impaired with a creatinine of 1.6. CAT scan of the brain that was done at time of admission showed old hemispheric CVA and there was no acute abnormalities noted. She is seen again today 05/16/2016 in follow-up on the regular medical floor. She is awake and alert in no acute distress. Her mentation is improving. She denies any worsening shortness of breath, cough or congestion. No chest pain dizziness or lightheadedness. She's been maintained on Merrem and daptomycin. She's also been diuresed with IV Lasix. She is currently maintaining good O2 saturations in the upper 90s on 2 L/m per nasal cannula. She is afebrile. Hemodynamically stable. Urine culture was again positive for Enterococcus faecalis. Objective - Vital Signs Vital signs: Vital Signs Temp 97.1 F L 05/16/16 07:00 Pulse 92 05/16/16 07:45 Resp 22 05/16/16 07:00 BP 160/89 05/16/16 07:00 Pulse Ox 99 05/16/16 07:00 Intake & Output 05/15/16 05/16/16 05/16/16 18:59 06:59 18:59 Intake Total 200 Output Total 300 Balance -100 Weight 69 kg Intake: Oral 200 Output: Stool 300 Other: Voiding Method Bedside Commode Bedside Commode # Voids 2 3 # Bowel Movements 1 - Exam GENERAL EXAM: Alert, comfortable in no apparent distress. HEAD: Normocephalic. EYES: Normal reaction of pupils, equal size. NOSE: Clear with pink turbinates. THROAT: No erythema or exudates. NECK: No masses, no JVD. CHEST: No chest wall deformity. LUNGS: Equal air entry with faint crackles in the bilateral posterior bases. Diminished. CVS: S1 and S2 normal with no audible murmurs, regular rhythm. ABDOMEN: Obese, normal bowel sounds, no guarding or rigidity. Extremities there is trace peripheral edema. No clubbing, no cyanosis. Peripheral pulses are intact. - Labs CBC & Chem 7: 05/16/16 07:55 05/16/16 07:55 Labs: Abnormal Lab Results - Last 24 Hours (Table) 05/15/16 05/15/16 05/16/16 Range/Units 17:38 21:04 01:57 Hgb (11.4-16.0) gm/dL MCH (25.0-35.0) pg MCHC (31.0-37.0) g/dL RDW (11.5-15.5) % Lymphocytes # (1.0-4.8) k/uL Potassium (3.5-5.1) mmol/L Chloride (98-107) mmol/L Carbon Dioxide (22-30) mmol/L BUN (7-17) mg/dL Glucose (74-99) mg/dL POC Glucose (mg/dL) 211 H 239 H 191 H (75-99) mg/dL 05/16/16 05/16/16 05/16/16 Range/Units 07:30 07:55 07:55 Hgb 10.7 L (11.4-16.0) gm/dL MCH 23.8 L (25.0-35.0) pg MCHC 28.9 L (31.0-37.0) g/dL RDW 16.0 H (11.5-15.5) % Lymphocytes # 0.6 L (1.0-4.8) k/uL Potassium 3.2 L (3.5-5.1) mmol/L Chloride 94 L (98-107) mmol/L Carbon Dioxide 39 H (22-30) mmol/L BUN 38 H (7-17) mg/dL Glucose 141 H (74-99) mg/dL POC Glucose (mg/dL) 144 H (75-99) mg/dL 01/17/17 Range/Units 12:06 Hgb (11.4-16.0) gm/dL MCH (25.0-35.0) pg MCHC (31.0-37.0) g/dL RDW (11.5-15.5) % Lymphocytes # (1.0-4.8) k/uL Potassium (3.5-5.1) mmol/L Chloride (98-107) mmol/L Carbon Dioxide (22-30) mmol/L BUN (7-17) mg/dL Glucose (74-99) mg/dL POC Glucose (mg/dL) 201 H (75-99) mg/dL Assessment and Plan Plan: 1 acute change in mental status, rule out toxic metabolic encephalopathy probably this patient with an underlying septicemia. Improved and recovered. 2 acute hypoxic respiratory failure with a component of hypercapnia. Improved and maintaining good O2 saturations in the upper 90s on 2 L/m per nasal cannula. 3 acute kidney injury, improved and the patient's creatinine is normalized at 1.00. 4 large anterior abdominal wall hernia 5 obstructive proximal right ureteral calculus status post cystoscopy and insertion of a double-J stent in the right kidney, 6 CVA, history of with a large infarct involving the left hemisphere 7 vertebral fracture involving the C1 and C2 spine with chronic neck pain 8 hypertension 9 diabetes mellitus 10 coronary artery disease with previous coronary intervention and stenting 11 paroxysmal atrial fibrillation 12 severe pulmonary hypertension related to COPD and diastolic dysfunction 13 peptic ulcer disease 14 colostomy for a previous history of perforated/gangrenous bowel 15 chronic anemia 16 peripheral vascular disease 17 previous carotid endarterectomy for carotid artery disease 18 about thickeners and that has been the. 19 recurrent urinary tract infection with VRE and the repeat cultures from 05/12 revealed Enterococcus faecalis 20 history of MRSA wound infection involving the sacral ulcers. Plan: The patient was seen and evaluated by Dr. Garcia. Her chest x-rays and labs were reviewed. The patient is improved clinically and radiographically with both antibiotics and diuretics. We'll continue with her bronchodilators 4 times a day and when necessary along with Pulmicort inhalations twice a day. She remains on antibiotics in the form of daptomycin and meropenem. We'll continue with IV Lasix. She is on subcutaneous heparin for DVT prophylaxis and Protonix for GI prophylaxis. We'll increase her activity as tolerated. We'll continue to follow make further recommendations based on her clinical status.
--- NOTE | 2016-05-16 13:02 | P.PN ---
Subjective Patient is doing well today. No events overnight. Objective - Vital Signs Vital signs: Vital Signs Temp 97.1 F L 05/16/16 07:00 Pulse 92 05/16/16 07:45 Resp 22 05/16/16 07:00 BP 160/89 05/16/16 07:00 Pulse Ox 99 05/16/16 07:00 Intake & Output 05/15/16 05/16/16 05/16/16 18:59 06:59 18:59 Intake Total 200 Output Total 300 Balance -100 Weight 69 kg Intake: Oral 200 Output: Stool 300 Other: Voiding Method Bedside Commode Bedside Commode # Voids 2 3 # Bowel Movements 1 - Exam General: The patient is awake and alert, in no distress Eye: there is normal conjunctiva bilaterally. Neck: The neck is supple, there is no JVD. Cardiovascular: Normal S1-S2, no S3-S4, no murmurs. Respiratory: Lungs clear to auscultation bilaterally Gastrointestinal: Abdomen is soft, nontender Musculoskeletal: There is no pedal edema. Neurological:. Speech is normal. Skin: Skin is warm and dry - Labs CBC & Chem 7: 05/16/16 07:55 05/16/16 07:55 Labs: Abnormal Lab Results - Last 24 Hours (Table) 05/15/16 05/15/16 05/16/16 Range/Units 17:38 21:04 01:57 Hgb (11.4-16.0) gm/dL MCH (25.0-35.0) pg MCHC (31.0-37.0) g/dL RDW (11.5-15.5) % Lymphocytes # (1.0-4.8) k/uL Potassium (3.5-5.1) mmol/L Chloride (98-107) mmol/L Carbon Dioxide (22-30) mmol/L BUN (7-17) mg/dL Glucose (74-99) mg/dL POC Glucose (mg/dL) 211 H 239 H 191 H (75-99) mg/dL 05/16/16 05/16/16 05/16/16 Range/Units 07:30 07:55 07:55 Hgb 10.7 L (11.4-16.0) gm/dL MCH 23.8 L (25.0-35.0) pg MCHC 28.9 L (31.0-37.0) g/dL RDW 16.0 H (11.5-15.5) % Lymphocytes # 0.6 L (1.0-4.8) k/uL Potassium 3.2 L (3.5-5.1) mmol/L Chloride 94 L (98-107) mmol/L Carbon Dioxide 39 H (22-30) mmol/L BUN 38 H (7-17) mg/dL Glucose 141 H (74-99) mg/dL POC Glucose (mg/dL) 144 H (75-99) mg/dL 05/16/16 Range/Units 12:06 Hgb (11.4-16.0) gm/dL MCH (25.0-35.0) pg MCHC (31.0-37.0) g/dL RDW (11.5-15.5) % Lymphocytes # (1.0-4.8) k/uL Potassium (3.5-5.1) mmol/L Chloride (98-107) mmol/L Carbon Dioxide (22-30) mmol/L BUN (7-17) mg/dL Glucose (74-99) mg/dL POC Glucose (mg/dL) 201 H (75-99) mg/dL Assessment and Plan Plan: 1. Altered mental status changes: Now resolved back to normal baseline. Possibly a metabolic and toxic metabolic encephalopathy secondary to UTI and medications in the form of Ativan and Embarrass. 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 2. UTI patient started on daptomycin and merrem: Infectious disease for antibiotic management 3. Chronic persistent atrial fibrillation: Heart rate stable. Not on anticoagulation due to previous GI bleed. Continue her Cardizem and metoprolol for rate control. We'll place patient on telemetry monitoring 4. Acute hypoxic respiratory failure patient required BiPAP on presentation 5. Known iron deficiency anemia: Hemoglobin 9.1. Continue iron supplement 6. Mild acute COPD exacerbation patient does have some wheezing. Continue nebulizer treatments 4 times a day. Chest x-ray showing mild CHF with no change from previous chest x-ray. Check BNP level 7. History of myocardial infarction with coronary artery disease and previous cardiac stents 8. Acute kidney injury, Creatinine close to baseline. Creatinine at admission 1.60 improved today to 0.99 9. History of seizure disorder: Check Keppra level, still pending 10. Underlying history of diabetes mellitus 11. Underlying history of severe pulmonary hypertension/cor pulmonale 12. Underlying history of partial colectomy with colostomy placement due to history of perforated gangrenous bowel no history of malignancy 13. GI prophylaxis Pepcid and DVT prophylaxis on subcu heparin 14. Mild diastolic heart failure exacerbation: Treated with IV Lasix for the past several days. We'll switch Lasix to oral once a day in the morning which is her home dose 15. Sepsis on presentation secondary to underlying UTI improved with IV fluid hydration and antibiotic Plan for today: appreciate infectious disease for antibiotic management and recommendations. Continue supportive care otherwise. Repeat lab work in the morning. Discharge planning back to [facility]
[2016-05-16] MEDS ORDERED: IV VANCOMYCIN PER PHARMACY 1 EACH MISC MISCELLANE PRN (14:24)
[2016-05-16] MEDS ORDERED: VANCOMYCIN 1,250 MG in SODIUM CHLORIDE 0.9% 250 ML IVPB ONE (15:00)
--- NOTE | 2016-05-16 15:55 | CONS ---
DATE OF CONSULTATION: 05/16/2016 REASON FOR CONSULTATION: Recurrent urinary tract infection. HISTORY OF PRESENT ILLNESS: The patient is a 70-year-old female who was brought into the ER on 05/29/2016 with a chief complaints of altered mental status changes, apparently the patient was more lethargic than normal. Patient herself denies any significant symptoms, as to on arrival to the ER. The patient subsequently has been evaluated by the ER physician. The patient did have a chest x-ray which did show pulmonary vascular congestion but no definite pneumonia. She did have a positive UA with large leukocyte esterase, 140, WBC with many bacteria. Cultures finalized with Enterococcus faecalis that was vancomycin sensitive. The patient has been treated with broad spectrum antibiotics in the form of Vanco and Meropenem. I was asked to see the patient last evening for further recommendations regarding antibiotic therapy. The patient remains to be afebrile. She has been breathing comfortably. She has some cough, but denies any sputum production. Denies any chest pain. No abdominal pain. Denies significant burning or frequency of urine and no diarrhea. Apparently, history of right-sided hydronephrosis and right ureteral calculus for which the patient did have cystoscopy with placement of right double-J catheter placement on February 16, 2016. REVIEW OF SYSTEMS: CONSTITUTIONAL: Positive for weakness. No fever has been recorded. EYES: No complaint. ENT: No complaint. RESPIRATORY: As per HPI. CARDIOVASCULAR: No complaint. GENITOURINARY: As per HPI. GASTROINTESTINAL: No complaint. MUSCULOSKELETAL: No complaint. INTEGUMENTARY: No complaint. PSYCHOLOGICAL: No complaint. ENDOCRINE: No complaint. NEUROLOGICAL: No complaint. Past medical history significant for atrial fibrillation, coronary artery disease and heart failure, COPD, CVA, TIA, diabetes mellitus, GI bleed, hypertension, myocardial infarction, osteoarthritis, pneumonia, seizure disorder and right renal calculus. PAST SURGICAL HISTORY: Bowel resection, heart catheterization with stent, hernia repair, hysterectomy, subtotal colectomy and cystoscopy with double-J catheter placement right kidney. SOCIAL HISTORY: Remote history of smoking. No drinking or drug use. FAMILY HISTORY: Mother with history of congestive heart failure, father with history of liver disease, was an alcoholic, in his 90s. ALLERGIES: BENZOCAINE, IODINE, PENICILLIN, AMBIEN. Medications currently include the patient is on: 1. Tylenol. 2. Pollock. 3. DuoNeb. 4. Zyloprim. 5. Aspirin. 6. Pulmicort. 7. Diclofenac. 8. Cardizem. 9. Colace. 10. Lasix. 11. Iron sulfate. 12. Hydralazine. 13. Lantus. 14. Humalog R. 15. Keppra. 16. Narcan. 17. Protonix. 18. Requip. 19. Daptomycin. 20. Meropenem. On examination, blood pressure is 160/89 with a pulse 103, temperature is 97.1. He is 99% on 2 liters nasal cannula. General description is an elderly female lying in bed in no distress. No tachypnea or accessory muscle of respiration use. HEENT examination shows slight pallor. There is no scleral icterus. Oral mucous membrane dry. NECK: Trachea is central. No thyromegaly. LUNGS: Unlabored breathing. Decreased breath sounds at the base. No wheeze or crackles. HEART: S1, S2 regular rate and rhythm. ABDOMEN: Soft, no tenderness. EXTREMITIES: No edema of feet. SKIN: Examination, no rash or mass palpable. NEUROLOGICAL: Patient awake, alert, oriented x2. Mood and affect normal. LABS: Hemoglobin is 10.7, white count 7.9 with a BUN of 38, creatinine 1.0. Admission creatinine was slightly elevated at 1.60. Electrolytes are normal. Liver enzymes are normal. Urine was positive. Culture with enterococcus. Unfortunately no blood cultures was done. DIAGNOSTIC IMPRESSION AND PLAN: 1. Patient with history of recurrent urinary tract infection. The patient also history of the stone on the right side with placement of a double-J catheter placement likely underlying complicated urinary tract infection. 2. The patient did have a PENICILLIN ALLERGY limiting the antibiotics safe to use. PLAN: 1. Discontinue the Daptomycin and Meropenem. 2. Vancomycin pharmacy to dose with a target trough of 15, and watch her kidney function closely. 3. We will repeat a straight catheter UA and culture. 4. Will obtain ultrasound of the kidney to make sure no evidence of any persistent hydronephrosis on the right side. 5. Will follow up with clinical condition and cultures to further adjust the medication if needed. Thank you for this consultation. I will follow this patient along with you. BETTE
[2016-05-16 16:29] LABS: Appearance,Urine Clear (Clear); Bilirubin,Urine Negative (Negative); Glucose,Urine (UA) Negative (Negative); Ketones,Urine Negative (Negative); Leukocyte Esterase,Urine Negative (Negative); Mucus,Urine Rare /hpf; Nitrite,Urine Negative (Negative); Particle Count 1289; Protein,Urine Negative (Negative); RBC,Urine 14 /hpf (0-5); Specific Gravity,Urine 1.007 (1.001-1.035); Squamous Epithelial Cell,Urine <1 /hpf (0-4); UA Billing (MACRO vs. MICRO) MICRO; Urobilinogen,Urine <2.0 mg/dL (<2.0); WBC,Urine 1 /hpf (0-5)
[2016-05-16 17:13] LABS: Glucose,Whole Blood 206 mg/dL (75-99)
[2016-05-16] MEDS: DICLOFENAC SODIUM GEL 100 GM TUBE TOPICAL PRN (20:05)
[2016-05-16 21:00] LABS: Glucose,Whole Blood 249 mg/dL (75-99)
[2016-05-16] MEDS: INSULIN GLARGINE 100 UNIT/ML 10 ML VIAL SQ SCH (21:05)
[2016-05-17 01:51] LABS: Glucose,Whole Blood 196 mg/dL (75-99)
[2016-05-17] MEDS: INSULIN LISPRO (humaLOG) 300 UNIT/3 ML VIAL SQ SCH ×5 (02:01→22:21)
[2016-05-17] MEDS: SODIUM CHLORIDE 0.9% 1,000 ML IV SCH (05:07)
[2016-05-17] MEDS: FERROUS SULFATE 325 MG TAB PO SCH (05:08)
[2016-05-17 07:31] LABS: Glucose,Whole Blood 89 mg/dL (75-99)
[2016-05-17] MEDS: DICLOFENAC SODIUM GEL 100 GM TUBE TOPICAL PRN ×2 (07:54→22:20)
[2016-05-17] MEDS: HYDROcodone/APAP 5-325MG 1 EACH TAB PO PRN ×3 (07:54→21:13)
[2016-05-17] MEDS: SODIUM POLYSTYRENE SULFONATE 15 GM/60 ML BOTTLE PO SCH (07:55)
[2016-05-17] MEDS: levETIRAcetam 500 MG TAB PO SCH ×2 (07:56→22:20)
[2016-05-17] MEDS: SERTRALINE 100 MG TAB PO SCH (07:56)
[2016-05-17] MEDS: DILTIAZEM ORAL 60 MG TAB PO SCH ×3 (07:56→22:20)
[2016-05-17] MEDS: HEPARIN SODIUM,PORCINE 5,000 UNIT/ML 1 ML VIAL SQ SCH ×2 (07:56→22:20)
[2016-05-17] MEDS: PANTOPRAZOLE 40 MG TABLET PO SCH (07:57)
[2016-05-17] MEDS: FUROSEMIDE 40 MG TAB PO SCH (07:57)
[2016-05-17] MEDS: ALLOPURINOL 100 MG TAB PO SCH (07:57)
[2016-05-17] MEDS: METOPROLOL TARTRATE 50 MG TAB PO SCH ×2 (07:57→22:20)
[2016-05-17] MEDS: predniSONE 20 MG TAB PO SCH (07:57)
[2016-05-17] MEDS: ASPIRIN 81 MG CHEW PO SCH (07:57)
[2016-05-17] MEDS: TRIAMCINOLONE 0.1% CREAM 80 GM TUBE TOPICAL SCH ×3 (07:58→22:23)
[2016-05-17] MEDS: BUDESONIDE 0.5 MG/2 ML NEBU INHALATION SCH ×2 (08:29→20:46)
[2016-05-17] MEDS: IPRATROPIUM-ALBUTEROL 3 ML NEB INHALATION SCH ×3 (08:29→20:47)
[2016-05-17 08:45] LABS: Basophils % (A) 0 %; CH 24.9; Eosinophils # (A) 0.1 k/uL (0-0.7); Eosinophils % (A) 1 %; HCT 39.6 % (34.0-46.0); HDW 4.08; HGB 11.4 gm/dL (11.4-16.0); Hypochromasia Marked; Luc # (Auto) 0.15; Luc % (Auto) 2; Lymphocytes # (A) 0.6 k/uL (1.0-4.8); Lymphocytes % (A) 7 %; MCH 23.9 pg (25.0-35.0); MCHC 28.8 g/dL (31.0-37.0); Mean Platelet Volume 7.6; Monocytes # (A) 0.8 k/uL (0-1.0); Monocytes % (A) 9 %; Neutrophils # (A) 6.9 k/uL (1.3-7.7); Neutrophils % (A) 81 %; Poikilocytosis Moderate; RBC 4.77 m/uL (3.80-5.40); RDW 15.8 % (11.5-15.5); WBC 8.4 k/uL (3.8-10.6); WBC (Perox) 9.07
[2016-05-17] MEDS ORDERED: ERGOCALCIFEROL 50,000 UNIT CAP PO SCH (09:00)
--- NOTE | 2016-05-17 10:11 | US ---
EXAMINATION TYPE: US kidneys/renal and bladder DATE OF EXAM: 05/17/2016 8:27 AM COMPARISON: CT abdomen and pelvis February 16, 2016. Renal ultrasound December 27, 2015 CLINICAL HISTORY: . UTI, right sided hydronephrosis EXAM MEASUREMENTS: Right Kidney: 9.1 x 5.0 x 6.0cm Left Kidney: 9.7 x 3.6 x 4.6cm ANATOMY: TECHNOLOGIST IMPRESSION: Right Kidney: no hydronephrosis seen, several shadowing hyperechoic foci centrally are consistent wit h renal calculi seen best on prior recent CT. Left Kidney: A shadowing calculus seen inferior pole on images saved. Additional smaller calculi on CT are less well seen on ultrasound images saved. Bladder: not distended thus suboptimally evaluated. There is no evidence for hydronephrosis at this point in time. No masses are identified on images sa christine. IMPRESSION: Bilateral nephrolithiasis redemonstrated. No hydronephrosis is evident currently.
--- NOTE | 2016-05-17 11:30 | P.PN ---
Subjective This is a very pleasant 70-year-old female patient who was admitted to the hospital through emergency department because of change in mental status. The patient was unable to volunteer any information. 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 At one point the patient was found quite unresponsive and obtunded and was brought into the intensive care unit where she was placed on a BiPAP at a pressure of 10 over 5 cm of water and FiO2 of 75%. A chest x-ray showed mild CHF with pleural effusion and there was no major significant interval change compared to previous chest x-ray from 04/24/2016. ABGs that was done on 2 L of oxygen nasal cannula showed a pH of 7.34 with a pCO2 of 48 and pO2 of 50. Cardiac enzymes are negative. ProBNP level is elevated at 3720. No hypoglycemia. Renal function is chronically impaired with a creatinine of 1.6. CAT scan of the brain that was done at time of admission showed old hemispheric CVA and there was no acute abnormalities noted. She is seen again today 05/17/2016 in follow-up on the regular medical floor. She is more awake and alert in no acute distress. Her mentation is improving. She denies any worsening shortness of breath, cough or congestion. No chest pain dizziness or lightheadedness. She's been maintained on vancomycin. She's been converted to oral Lasix. She is currently maintaining good O2 saturations in the upper 90s on 2 L/m per nasal cannula. She is afebrile. Hemodynamically stable. Urine culture was positive for Enterococcus faecalis. Objective - Vital Signs Vital signs: Vital Signs Temp 97.4 F L 05/17/16 07:00 Pulse 99 05/17/16 07:00 Resp 20 05/17/16 07:00 BP 147/92 05/17/16 07:00 Pulse Ox 98 05/17/16 07:00 Intake & Output 05/16/16 05/17/16 05/17/16 18:59 06:59 18:59 Intake Total 220 360 Balance 220 360 Intake: IV 220 Sodium Chloride 0.9% 1, 220 000 ml @ 20 mls/hr IV . Q24H [facility] Rx#:[id number] Oral 360 Other: Voiding Method Bedside Commode Bedside Commode # Voids 1 - Exam GENERAL EXAM: Alert, comfortable in no apparent distress. HEAD: Normocephalic. EYES: Normal reaction of pupils, equal size. NOSE: Clear with pink turbinates. THROAT: No erythema or exudates. NECK: No masses, no JVD. CHEST: No chest wall deformity. LUNGS: Equal air entry with faint crackles in the bilateral posterior bases. Diminished. CVS: S1 and S2 normal with no audible murmurs, regular rhythm. ABDOMEN: Obese, normal bowel sounds, no guarding or rigidity. Extremities there is trace peripheral edema. No clubbing, no cyanosis. Peripheral pulses are intact. - Labs CBC & Chem 7: 05/17/16 08:14 05/16/16 07:55 Labs: Abnormal Lab Results - Last 24 Hours (Table) 05/16/16 05/16/16 05/16/16 Range/Units 12:06 15:30 17:10 MCH (25.0-35.0) pg MCHC (31.0-37.0) g/dL RDW (11.5-15.5) % Lymphocytes # (1.0-4.8) k/uL POC Glucose (mg/dL) 201 H 206 H (75-99) mg/dL Urine Blood Moderate H (Negative) Urine RBC 14 H (0-5) /hpf Urine Mucus Rare H (None) /hpf 05/16/16 05/17/16 05/17/16 Range/Units 20:59 01:50 08:14 MCH 23.9 L (25.0-35.0) pg MCHC 28.8 L (31.0-37.0) g/dL RDW 15.8 H (11.5-15.5) % Lymphocytes # 0.6 L (1.0-4.8) k/uL POC Glucose (mg/dL) 249 H 196 H (75-99) mg/dL Urine Blood (Negative) Urine RBC (0-5) /hpf Urine Mucus (None) /hpf Microbiology - Last 24 Hours (Table) 05/16/16 15:30 Urine Culture - Preliminary Urine,Catheterized Assessment and Plan Plan: #1 Acute change in mental status, rule out toxic metabolic encephalopathy probably this patient with an underlying septicemia. Improved and recovered. #2 Acute hypoxic respiratory failure with a component of hypercapnia. Improved and maintaining good O2 saturations in the upper 90s on 2 L/m per nasal cannula. #3 Acute kidney injury, improved and the patient's creatinine is normalized at 1.00. An ultrasound of the kidneys and bladder revealed bilateral nephrolithiasis without hydronephrosis. #4 Large anterior abdominal wall hernia #5 Obstructive proximal right ureteral calculus status post cystoscopy and insertion of a double-J stent in the right kidney, #6 CVA, history of with a large infarct involving the left hemisphere #7 Vertebral fracture involving the C1 and C2 spine with chronic neck pain #8 Hypertension #9 Diabetes mellitus #10 Coronary artery disease with previous coronary intervention and stenting #11 Paroxysmal atrial fibrillation #12 Severe pulmonary hypertension related to COPD and diastolic dysfunction #13 Peptic ulcer disease #14 Colostomy for a previous history of perforated/gangrenous bowel #15 Chronic anemia #16 Peripheral vascular disease #17 Previous carotid endarterectomy for carotid artery disease #18 Recurrent urinary tract infection with VRE and the repeat cultures from revealed Enterococcus faecalis #19 History of MRSA wound infection involving the sacral ulcers. Plan: The patient was seen and evaluated by Dr. Garcia. The patient is improved clinically and radiographically with both antibiotics and diuretics. We'll continue with her bronchodilators 4 times a day and when necessary along with Pulmicort inhalations twice a day. She remains on antibiotics in the form of vancomycin per infectious disease. We'll continue with oral Lasix. She is on subcutaneous heparin for DVT prophylaxis and Protonix for GI prophylaxis. We' ll increase her activity as tolerated. If not transferred back to [facility] care facility today we'll continue to follow make further recommendations based on her clinical status.
[2016-05-17 12:15] LABS: Glucose,Whole Blood 296 mg/dL (75-99)
--- NOTE | 2016-05-17 12:56 | P.PN ---
Subjective Patient is doing well today. She does not have any concerns. Objective - Vital Signs Vital signs: Vital Signs Temp 97.4 F L 05/17/16 07:00 Pulse 80 05/17/16 12:28 Resp 20 05/17/16 07:00 BP 147/92 05/17/16 07:00 Pulse Ox 98 05/17/16 07:00 Intake & Output 05/16/16 05/17/16 05/17/16 18:59 06:59 18:59 Intake Total 220 360 Balance 220 360 Intake: IV 220 Sodium Chloride 0.9% 1, 220 000 ml @ 20 mls/hr IV . Q24H [facility] Rx#:[id number] Oral 360 Other: Voiding Method Bedside Commode Bedside Commode # Voids 1 1 - Exam General: The patient is awake and alert, in no distress Eye: there is normal conjunctiva bilaterally. Neck: The neck is supple, there is no JVD. Cardiovascular: Normal S1-S2, no S3-S4, no murmurs. Respiratory: Lungs clear to auscultation bilaterally Gastrointestinal: Abdomen is soft, nontender. Colostomy bag in place Musculoskeletal: There is no pedal edema. Neurological:. Speech is normal. Skin: Skin is warm and dry - Labs CBC & Chem 7: 05/17/16 08:14 05/16/16 07:55 Labs: Abnormal Lab Results - Last 24 Hours (Table) 05/16/16 05/16/16 05/16/16 Range/Units 15:30 17:10 20:59 MCH (25.0-35.0) pg MCHC (31.0-37.0) g/dL RDW (11.5-15.5) % Lymphocytes # (1.0-4.8) k/uL POC Glucose (mg/dL) 206 H 249 H (75-99) mg/dL Urine Blood Moderate H (Negative) Urine RBC 14 H (0-5) /hpf Urine Mucus Rare H (None) /hpf 05/17/16 05/17/16 05/17/16 Range/Units 01:50 08:14 12:09 MCH 23.9 L (25.0-35.0) pg MCHC 28.8 L (31.0-37.0) g/dL RDW 15.8 H (11.5-15.5) % Lymphocytes # 0.6 L (1.0-4.8) k/uL POC Glucose (mg/dL) 196 H 296 H (75-99) mg/dL Urine Blood (Negative) Urine RBC (0-5) /hpf Urine Mucus (None) /hpf Microbiology - Last 24 Hours (Table) 05/16/16 15:30 Urine Culture - Preliminary Urine,Catheterized Assessment and Plan Plan: 1. Altered mental status changes: Now resolved back to normal baseline. Possibly a metabolic and toxic metabolic encephalopathy secondary to UTI and medications in the form of Ativan and Aniwa. 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 2. UTI patient started on daptomycin and merrem: Infectious disease for antibiotic management 3. Chronic persistent atrial fibrillation: Heart rate stable. Not on anticoagulation due to previous GI bleed. Continue her Cardizem and metoprolol for rate control. We'll place patient on telemetry monitoring 4. Acute hypoxic respiratory failure patient required BiPAP on presentation 5. Known iron deficiency anemia: Hemoglobin 9.1. Continue iron supplement 6. Mild acute COPD exacerbation patient does have some wheezing. Continue nebulizer treatments 4 times a day. Chest x-ray showing mild CHF with no change from previous chest x-ray. Check BNP level 7. History of myocardial infarction with coronary artery disease and previous cardiac stents 8. Acute kidney injury, Creatinine close to baseline. Creatinine at admission 1.60 improved today to 0.99 9. History of seizure disorder: Check Keppra level, still pending 10. Underlying history of diabetes mellitus 11. Underlying history of severe pulmonary hypertension/cor pulmonale 12. Underlying history of partial colectomy with colostomy placement due to history of perforated gangrenous bowel no history of malignancy 13. GI prophylaxis Pepcid and DVT prophylaxis on subcu heparin 14. Mild diastolic heart failure exacerbation: Treated with IV Lasix for the past several days. We'll switch Lasix to oral once a day in the morning which is her home dose 15. Sepsis on presentation secondary to underlying UTI improved with IV fluid hydration and antibiotic Plan for today: appreciate infectious disease for antibiotic management and recommendations. Awaiting repeat urine cultures to finalize. Continue supportive care otherwise. Repeat lab work in the morning. Discharge planning back to [facility]
[2016-05-17] MEDS: VANCOMYCIN 1,250 MG in SODIUM CHLORIDE 0.9% 250 ML IVPB SCH (13:24)
[2016-05-17 17:06] LABS: Glucose,Whole Blood 284 mg/dL (75-99)
[2016-05-17] MEDS: ARTIFICIAL TEARS-HYPROMELLOSE DROPS 15 ML BTL BOTH EYES PRN ×2 (17:47→22:36)
--- NOTE | 2016-05-17 20:46 | PN ---
DATE OF SERVICE: 05/17/2016 Reason for follow-up: Enterococcus urinary tract infection. INTERVAL HISTORY: The patient is afebrile. She is breathing slightly comfortably. Denies any chest pain or cough. No abdominal pain or any diarrhea. On examination, blood pressure 147/92 with a pulse of 84, temperature 97.4. She is 98% on 2 L nasal cannula. General description is an elderly female, lying in bed in no distress. RESPIRATORY SYSTEM: Unlabored breathing. Clear to auscultation anteriorly. HEART: S1, S2 regular rate and rhythm. ABDOMEN: Soft, no tenderness. LABS: Hemoglobin is 11.4, white count 8.4. Repeat urine is not significantly positive. Ultrasound was negative for any hydronephrosis. DIAGNOSTIC IMPRESSION AND PLAN: Patient enterococcus urinary tract infection with history of recurrent urinary tract infection and nephrolithiasis that may be contributing to some of the recurrent infection. However, no hydronephrosis has been noticed. Patient organism is sensitive to nitrofurantoin and kidney function is normal. She will be able to finish therapy with p.o. Macrobid for at least 10 more days and cannot use the amoxicillin because of her PENICILLIN ALLERGIES. No need for PICC line or IV antibiotic therapy . MTDD
[2016-05-17 21:28] LABS: Glucose,Whole Blood 250 mg/dL (75-99)
[2016-05-17] MEDS: INSULIN GLARGINE 100 UNIT/ML 10 ML VIAL SQ SCH (22:21)
[2016-05-18 02:09] LABS: Glucose,Whole Blood 238 mg/dL (75-99)
[2016-05-18] MEDS: INSULIN LISPRO (humaLOG) 300 UNIT/3 ML VIAL SQ SCH ×3 (02:25→12:39)
[2016-05-18] MEDS: SODIUM CHLORIDE 0.9% 1,000 ML IV SCH (05:35)
[2016-05-18] MEDS: FERROUS SULFATE 325 MG TAB PO SCH (07:03)
[2016-05-18 07:19] LABS: Glucose,Whole Blood 109 mg/dL (75-99)
[2016-05-18 07:25] VITALS: BP 145/75; RESP 20; TEMP 97.3
[2016-05-18] MEDS: BUDESONIDE 0.5 MG/2 ML NEBU INHALATION SCH (07:32)
[2016-05-18] MEDS: IPRATROPIUM-ALBUTEROL 3 ML NEB INHALATION SCH ×2 (07:32→11:49)
[2016-05-18] MEDS: levETIRAcetam 500 MG TAB PO SCH (07:49)
[2016-05-18] MEDS: METOPROLOL TARTRATE 50 MG TAB PO SCH (07:49)
[2016-05-18] MEDS: SERTRALINE 100 MG TAB PO SCH (07:49)
[2016-05-18] MEDS: ASPIRIN 81 MG CHEW PO SCH (07:50)
[2016-05-18] MEDS: predniSONE 20 MG TAB PO SCH (07:50)
[2016-05-18] MEDS: HEPARIN SODIUM,PORCINE 5,000 UNIT/ML 1 ML VIAL SQ SCH (07:50)
[2016-05-18] MEDS: PANTOPRAZOLE 40 MG TABLET PO SCH (07:50)
[2016-05-18] MEDS: DILTIAZEM ORAL 60 MG TAB PO SCH (07:50)
[2016-05-18] MEDS: FUROSEMIDE 40 MG TAB PO SCH (07:50)
[2016-05-18] MEDS: ALLOPURINOL 100 MG TAB PO SCH (07:50)
[2016-05-18] MEDS: TRIAMCINOLONE 0.1% CREAM 80 GM TUBE TOPICAL SCH (07:50)
[2016-05-18] MEDS: HYDROcodone/APAP 5-325MG 1 EACH TAB PO PRN (08:07)
[2016-05-18 09:07] LABS: Anion Gap 10 mmol/L; Blood Urea Nitrogen 36 mg/dL (7-17); Calcium 9.1 mg/dL (8.4-10.2); Carbon Dioxide 38 mmol/L (22-30); Chloride 94 mmol/L (98-107); Glucose 94 mg/dL (74-99); Non-African American GFR(MDRD) >60 (>60 ml/min/1.73 sqM); Potassium 3.6 mmol/L (3.5-5.1); Sodium 142 mmol/L (137-145)
[2016-05-18 09:40] LABS: Basophils % (A) 0 %; CH 24.3; CHCM 29.1; Eosinophils # (A) 0.1 k/uL (0-0.7); Eosinophils % (A) 1 %; HCT 41.1 % (34.0-46.0); HDW 4.16; HGB 11.8 gm/dL (11.4-16.0); Hypochromasia Marked; Luc # (Auto) 0.16; Luc % (Auto) 2; Lymphocytes # (A) 0.8 k/uL (1.0-4.8); Lymphocytes % (A) 10 %; MCH 24.1 pg (25.0-35.0); MCHC 28.7 g/dL (31.0-37.0); MCV 83.8 fL (80.0-100.0); Mean Platelet Volume 8.1; Monocytes # (A) 0.7 k/uL (0-1.0); Monocytes % (A) 9 %; Neutrophils # (A) 6.3 k/uL (1.3-7.7); Neutrophils % (A) 78 %; Poikilocytosis Moderate; RBC 4.91 m/uL (3.80-5.40); RDW 15.4 % (11.5-15.5); WBC 8.1 k/uL (3.8-10.6)
[2016-05-18] MEDS: VANCOMYCIN 1,250 MG in SODIUM CHLORIDE 0.9% 250 ML IVPB SCH (10:08)
[2016-05-18 11:49] LABS: Glucose,Whole Blood 185 mg/dL (75-99)
[2016-05-18 11:51] VITALS: PULSE 88
--- NOTE | 2016-05-18 12:38 | P.DS ---
Providers Date of admission: 05/12/16 13:12 Expected date of discharge: 05/18/16 Attending physician: Vicky Arreguin Consults: 05/15/16 11:47 Consult Physician Routine Consulting Provider: Teo Du Consult Reason/Comments: abx management Do you want consulting provider notified?: Yes Primary care physician: [facility] Course: 1. Altered mental status changes: Now resolved back to normal baseline. Metabolic and toxic metabolic encephalopathy secondary to UTI and medications in the form of Ativan and [place]. 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 2. UTI patient was seen and evaluated by infectious disease. To finish antibiotic course with Macrobid 3. Chronic persistent atrial fibrillation: Heart rate stable. Not on anticoagulation due to previous GI bleed. 4. Acute hypoxic respiratory failure patient required BiPAP on presentation 5. Known iron deficiency anemia 6. Mild acute COPD exacerbation patient does have some wheezing. Continue nebulizer treatments 4 times a day. Chest x-ray showing mild CHF with no change from previous chest x-ray 7. History of myocardial infarction with coronary artery disease and previous cardiac stents 8. Acute kidney injury, Creatinine close to baseline. 9. History of seizure disorder 10. Underlying history of diabetes mellitus 11. Underlying history of severe pulmonary hypertension/cor pulmonale 12. Underlying history of partial colectomy with colostomy placement due to history of perforated gangrenous bowel no history of malignancy 13. GI prophylaxis Pepcid and DVT prophylaxis on subcu heparin 14. Mild diastolic heart failure exacerbation 15. Sepsis on presentation secondary to underlying UTI improved with IV fluid hydration and antibiotic Patient Condition at Discharge: Stable Plan - Discharge Summary New Discharge Prescriptions: Nitrofurantoin Monohyd/M-Cryst [Macrobid] 100 mg PO Q12HR #20 cap predniSONE 40 mg PO DAILY #10 tab Discharge Medication List Docusate [Colace] 100 mg PO Q24H PRN 08/10/14 [History] Omeprazole [PriLOSEC] 20 mg PO DAILY@0608/10/14 [History] Ferrous Sulfate [Iron (65 MG Elemental)] 325 mg PO DAILY@0608/31/14 [History] Sertraline HCl [Zoloft] 100 mg PO DAILY@0908/31/14 [History] Diclofenac Sodium [Voltaren Gel] 1 gm TOPICAL Q12H PRN 06/27/15 [History] Aspirin 81 mg PO DAILY@0900 08/25/15 [History] Ergocalciferol [Vitamin D2 (DRISDOL)] 50,000 unit PO WE@0908/25/15 [History] levETIRAcetam [Keppra] 500 mg PO BID #60 tab 09/13/15 [Rx] glipiZIDE [Glucotrol XL] 10 mg PO DAILY@0612/24/15 [History] Furosemide [Lasix] 40 mg PO DAILY@0602/02/16 [History] rOPINIRole HCL [Requip] 3 mg PO HS@209902/02/16 [History] Insulin Aspart [NovoLOG Flexpen] See Protocol SQ ACHS PRN 02/16/16 [History] Insulin Glargine,Hum.rec.anlog [Lantus Solostar] 20 unit SQ HS@209902/16/16 [ History] Allopurinol [Zyloprim] 100 mg PO DAILY@0900 04/23/16 [History] Budesonide [Pulmicort] 0.5 mg INHALATION RT-BID 04/23/16 [History] Diltiazem Oral [Cardizem*] 60 mg PO TID tab 04/27/16 [Rx] Metoprolol Tartrate [Lopressor] 50 mg PO BID tab 04/27/16 [Rx] Sodium Polystyrene Sulfonate [Kayexalate] 15 gm PO DAILY 05/12/16 [History] hydrALAZINE HCL [Apresoline] 25 mg PO Q8H 05/12/16 [History] HYDROcodone/APAP 10-325MG [[place] 10-325] 1 tab PO Q8HR PRN #30 tab 05/18/16 [Rx] Ipratropium-Albuterol Nebulize [Duoneb 0.5 mg-3 mg/3 ml Soln] 3 ml INHALATION RT -TID PRN ampul.neb 05/18/16 [Rx] Nitrofurantoin Monohyd/M-Cryst [Macrobid] 100 mg PO Q12HR #20 cap 05/18/16 [Rx] predniSONE 40 mg PO DAILY #10 tab 05/18/16 [Rx] Follow up Appointment(s)/Referral(s): Helen Gonzalez MD [Primary Care Provider] - 1-2 days Patient Instructions/Handouts: Heart Failure (DC), Type 2 Diabetes in Adults ( DC) Discharge Disposition: TRANSFER TO SNF/ECF
--- NOTE | 2016-05-18 13:05 | P.PN ---
Subjective Principal diagnosis: Acute hypoxic respiratory failure and acute metabolic encephalopathy. Acute pneumonia and urinary tract infection. 68-year-old here patient was admitted to the hospital yesterday through emergency department because of change in mental status. The patient was unable to volunteer any information. 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 The patient was admitted to the medical floor and the patient was given daptomycin treating an underlying urine checked infection. Earlier this morning, the patient was found quite unresponsive and and obtunded and in the same time her breathing was quite shallow and agonal. At that point the patient was brought into the intensive care unit where he mutation was placed on a BiPAP at a pressure of 10 over 5 cm of water and FiO2 of 75%. A chest x-ray from 2 AM showed mild CHF with pleural effusion and there was no major significant interval change compared to previous chest x-ray from 04/24/2016. ABGs that was done on 2 L of oxygen nasal cannula showed a pH of 7.34 with a pCO2 of 48 and pO2 of 50. Cardiac enzymes are negative. ProBNP level is elevated at 3720. No hypoglycemia. Renal function is chronically impaired with a creatinine of 1.6. CAT scan of the brain that was done at time of admission showed old hemispheric CVA and there was no acute abnormalities noted. No leukocytosis. No reported aspiration. No emesis. Hemodynamically stable and the patient has developed no hypotension. She is afebrile at this point. On 05/14/2016 the patient is being seen in follow-up. There is a remarkable improvement in the patient's chest x-ray. The patient has diabetes nicely with IV Lasix. No significant respiratory distress. Mentation is improved. No cough or sputum production. No chest pain. No swelling in lower extremities. Renal function remains stable. The creatinine today is at 1.4. The patient remains on a combination of Merrem and daptomycin as a broad-spectrum antibiotic coverage covering for pneumonia and VRE urinary tract infection. The patient on IV Lasix 40 mg every 12 hours. The patient is on IV Solu-Medrol 60 every 6 hours. On 05/15/2016, patient continues to do quite well, and responding well to treatment of her pneumonia, and urinary tract infection. Secondary to VRE. Seen today on 05/18/2016, patient is doing well, and she is being considered for discharge today on Macrodantin. Objective - Vital Signs Vital signs: Vital Signs Temp 97.3 F L 05/18/16 07:00 Pulse 88 05/18/16 12:04 Resp 20 05/18/16 07:00 BP 145/75 05/18/16 07:00 Pulse Ox 91 L 05/18/16 07:00 Intake & Output 05/17/16 05/18/16 05/18/16 18:59 06:59 18:59 Intake Total 600 Output Total 600 300 Balance 0 -300 Weight 66.5 kg Intake: Oral 600 Output: Stool 600 300 Other: Voiding Method Bedside Commode Bedside Commode # Voids 1 1 - Exam Physical Exam: Revealed a 70-year-old female in no distress HEENT:[Neck is supple.] [No neck masses.] [No thyromegaly.] [No JVD.] Chest: [Clear throughout, no crackles, no rhonchi, no wheezes.] Cardiac Exam: [Normal S1 and S2, no S3 gallop, no murmur.] Abdomen: [Soft, nontender, no megaly, no rebound, no guarding, normal bowel sounds.] Extremities: [No clubbing, no edema, no cyanosis.] Neurological Exam: [No focal neurologic deficit.] - Labs CBC & Chem 7: 05/18/16 08:13 05/18/16 08:13 Labs: Abnormal Lab Results - Last 24 Hours (Table) 05/17/16 05/17/16 05/18/16 Range/Units 17:04 21:26 02:05 MCH (25.0-35.0) pg MCHC (31.0-37.0) g/dL Lymphocytes # (1.0-4.8) k/uL Chloride (98-107) mmol/L Carbon Dioxide (22-30) mmol/L BUN (7-17) mg/dL POC Glucose (mg/dL) 284 H 250 H 238 H (75-99) mg/dL 05/18/16 05/18/16 05/18/16 Range/Units 07:16 08:13 08:13 MCH 24.1 L (25.0-35.0) pg MCHC 28.7 L (31.0-37.0) g/dL Lymphocytes # 0.8 L (1.0-4.8) k/uL Chloride 94 L (98-107) mmol/L Carbon Dioxide 38 H (22-30) mmol/L BUN 36 H (7-17) mg/dL POC Glucose (mg/dL) 109 H (75-99) mg/dL 05/18/16 Range/Units 11:41 MCH (25.0-35.0) pg MCHC (31.0-37.0) g/dL Lymphocytes # (1.0-4.8) k/uL Chloride (98-107) mmol/L Carbon Dioxide (22-30) mmol/L BUN (7-17) mg/dL POC Glucose (mg/dL) 185 H (75-99) mg/dL Microbiology - Last 24 Hours (Table) 05/16/16 15:30 Urine Culture - Final Urine,Catheterized Assessment and Plan Plan: #1 Acute change in mental status, rule out toxic metabolic encephalopathy probably this patient with an underlying septicemia. Improved and recovered. #2 Acute hypoxic respiratory failure with a component of hypercapnia. Improved and maintaining good O2 saturations in the upper 90s on 2 L/m per nasal cannula. #3 Acute kidney injury, improved and the patient's creatinine is normalized at 1.00. An ultrasound of the kidneys and bladder revealed bilateral nephrolithiasis without hydronephrosis. #4 Large anterior abdominal wall hernia #5 Obstructive proximal right ureteral calculus status post cystoscopy and insertion of a double-J stent in the right kidney, #6 CVA, history of with a large infarct involving the left hemisphere #7 Vertebral fracture involving the C1 and C2 spine with chronic neck pain #8 Hypertension #9 Diabetes mellitus #10 Coronary artery disease with previous coronary intervention and stenting #11 Paroxysmal atrial fibrillation #12 Severe pulmonary hypertension related to COPD and diastolic dysfunction #13 Peptic ulcer disease #14 Colostomy for a previous history of perforated/gangrenous bowel #15 Chronic anemia #16 Peripheral vascular disease #17 Previous carotid endarterectomy for carotid artery disease #18 Recurrent urinary tract infection with VRE and the repeat cultures from revealed Enterococcus faecalis #19 History of MRSA wound infection involving the sacral ulcers. Plan: Agree with discharge planning today, follow directions of infectious disease regarding antibiotics.
--- NOTE | 2016-05-18 13:47 | PN ---
DATE OF SERVICE: 05/18/2016 Reason for followup is enterococcus urinary tract infection. INTERVAL HISTORY: The patient is afebrile. Has been breathing comfortably, occasional cough. Denies having any chest pain, no abdominal pain or any diarrhea. On examination, her blood pressure is 145/75 with a pulse of 88, temperature 97.3. She is 91% on 2 L nasal cannula. General description is an elderly female, lying in bed in no distress. RESPIRATORY SYSTEM: Unlabored breathing. Clear to auscultation. HEART: S1, S2. Regular rate and rhythm. ABDOMEN: Soft, no tenderness. LABS: Hemoglobin is 11.8, white count 8.1, BUN of 36, creatinine 0.90. DIAGNOSTIC IMPRESSION AND PLAN: Patient with recurrent urinary tract infection found to have evidence of a renal stone, may be due to persistence or recurrence of this infection. Patient may benefit from Urology followup. Antibiotic will be adjusted to Macrobid 100 mg twice a day for another 10 days with close outpatient followup.
[2016-05-19] MEDS ORDERED: VANCOMYCIN TROUGH DUE 1 EACH MISC MISCELLANE ONE (08:00)
== END 2016-05-18 14:02 | DRG 871 ==
LOC: EC 02:02 → INTOOBSV 03:52 → 3SUR 03:52 → 6ICU 11:17 → OBSVTOIN 13:12 → 4MS4W 05-14 16:27
PROVIDERS: ADMIT Internal Medicine; ATTEND Internal Medicine
DX: A41.9 Sepsis, unspecified organism (principal); G92 Toxic encephalopathy; I50.33 Acute on chronic diastolic (congestive) heart failure; N18.4 Chronic kidney disease, stage 4 (severe); J18.9 Pneumonia, unspecified organism; J96.01 Acute respiratory failure with hypoxia; I27.2 Other secondary pulmonary hypertension; J96.02 Acute respiratory failure with hypercapnia; N17.9 Acute kidney failure, unspecified; E11.22 Type 2 diabetes mellitus with diabetic chronic kidney disease; I13.0 Hypertensive heart and chronic kidney disease with heart failure and stage 1 through stage 4 chronic kidney disease, or unspecified chronic kidney disease; I48.1 Persistent atrial fibrillation; J44.1 Chronic obstructive pulmonary disease with (acute) exacerbation; J44.0 Chronic obstructive pulmonary disease with (acute) lower respiratory infection; N20.2 Calculus of kidney with calculus of ureter; N39.0 Urinary tract infection, site not specified; G40.909 Epilepsy, unspecified, not intractable, without status epilepticus; I48.0 Paroxysmal atrial fibrillation; I48.2 Chronic atrial fibrillation; D50.9 Iron deficiency anemia, unspecified; G89.29 Other chronic pain; I25.2 Old myocardial infarction; B95.2 Enterococcus as the cause of diseases classified elsewhere; M54.2 Cervicalgia; I25.10 Atherosclerotic heart disease of native coronary artery without angina pectoris; I27.81 Cor pulmonale (chronic); K27.9 Peptic ulcer, site unspecified, unspecified as acute or chronic, without hemorrhage or perforation; K43.9 Ventral hernia without obstruction or gangrene; M19.90 Unspecified osteoarthritis, unspecified site; Z16.21 Resistance to vancomycin; Z79.4 Long term (current) use of insulin; Z79.82 Long term (current) use of aspirin; Z82.49 Family history of ischemic heart disease and other diseases of the circulatory system; Z86.73 Personal history of transient ischemic attack (TIA), and cerebral infarction without residual deficits; Z87.891 Personal history of nicotine dependence; Z88.0 Allergy status to penicillin; Z90.49 Acquired absence of other specified parts of digestive tract; Z93.3 Colostomy status; Z95.5 Presence of coronary angioplasty implant and graft
CPT/HCPCS: 36415; 36600; 70450; 71010; 76770; 80048; 80053; 80177; 80306; 81001; 82550; 82553; 82728; 82805; 83036; 83540; 83550; 83735; 83880; 84100; 84484; 85025; 85610; 85730; 87077; 87086; 87186; 93005; 94640; 94660; 96367; 96374; 96375; 99285

== ENCOUNTER 2016-05-28 09:57 | Emergency (ER) | payer MEDICARE ==
--- NOTE | 2016-05-28 11:25 | XR ---
EXAMINATION TYPE: XR chest 1V portable DATE OF EXAM: 05/28/2016 11:21 AM COMPARISON: 05/16/2016 HISTORY: Altered mental status TECHNIQUE: Single frontal view of the chest is obtained. FINDINGS: There is no focal air space opacity, pleural effusion, or pneumothorax seen. The cardiac silhouette size is within normal limits. The osseous structures are intact. Cardiomegaly noted. Hyp erinflation suggests COPD. IMPRESSION: 1. Correlate for cardiomegaly and COPD.
[2016-05-28 11:51] LABS: Glucose,Whole Blood 169 mg/dL (75-99)
[2016-05-28 11:55] LABS: Amorphous Sediment,Urine Rare /hpf; Appearance,Urine Clear (Clear); Bacteria,Urine Occasional /hpf; Bilirubin,Urine Negative (Negative); Glucose,Urine (UA) Negative (Negative); Ketones,Urine Negative (Negative); Leukocyte Esterase,Urine Moderate (Negative); Mucus,Urine Rare /hpf; Nitrite,Urine Negative (Negative); Particle Count 3308; Protein,Urine Trace (Negative); RBC,Urine 11 /hpf (0-5); Specific Gravity,Urine 1.005 (1.001-1.035); Squamous Epithelial Cell,Urine <1 /hpf (0-4); UA Billing (MACRO vs. MICRO) MICRO; Urobilinogen,Urine <2.0 mg/dL (<2.0); WBC,Urine 12 /hpf (0-5)
[2016-05-28 12:52] LABS: Calcium 9.2 mg/dL (8.4-10.2); Potassium 5.3 mmol/L (3.5-5.1); Total Bilirubin 0.5 mg/dL (0.2-1.3); Total Protein 6.8 g/dL (6.3-8.2)
[2016-05-28 13:01] LABS: Creatine Kinase 26 U/L (30-135)
[2016-05-28 13:05] LABS: Basophils % (A) 0 %; CH 24.3; CHCM 29.5; Eosinophils # (A) 0.2 k/uL (0-0.7); Eosinophils % (A) 2 %; HCT 43.9 % (34.0-46.0); HDW 3.77; HGB 12.7 gm/dL (11.4-16.0); Hypochromasia Marked; Luc # (Auto) 0.21; Luc % (Auto) 2; Lymphocytes # (A) 0.6 k/uL (1.0-4.8); Lymphocytes % (A) 6 %; MCH 23.9 pg (25.0-35.0); MCV 82.4 fL (80.0-100.0); Mean Platelet Volume 7.7; Monocytes # (A) 0.6 k/uL (0-1.0); Monocytes % (A) 6 %; Neutrophils # (A) 8.4 k/uL (1.3-7.7); Neutrophils % (A) 85 %; Poikilocytosis Slight; RBC 5.32 m/uL (3.80-5.40); RDW 15.5 % (11.5-15.5); WBC 9.9 k/uL (3.8-10.6); WBC (Perox) 10.65
[2016-05-28 13:11] LABS: INR 0.9 (<1.1); Prothrombin Time 9.7 sec (9.0-12.0)
[2016-05-28 13:15] LABS: Creatine Kinase MB 1.7 ng/mL (0.0-2.4); Troponin I <0.012 ng/mL (0.000-0.034)
[2016-05-28 13:22] LABS: Partial Thromboplastin Time 19.7 sec (22.0-30.0)
[2016-05-28] MEDS ORDERED: SULFAMETHOX-TMP 800-160MG 1 EACH TAB PO STA (14:13)
--- NOTE | 2016-05-28 14:37 | CT ---
EXAMINATION TYPE: CT brain wo con DATE OF EXAM: 05/28/2016 2:02 PM COMPARISON: 05/12/2016 HISTORY: Altered mental status CT DLP: 1029.90 mGycm Automated exposure control for dose reduction was used. FINDINGS: There is cerebral cortical atrophy. There is a large right middle cerebral artery old infarct. There is no mass effect nor midline shift. There is no sign of intracranial hemorrhage. The calvarium is in tact. There is mucosal thickening in the maxillary sinuses. IMPRESSION: Large old right hemispheric infarct without change compared to last exam. No hemorrhage.
[2016-05-28] MEDS ORDERED: SODIUM CHLORIDE 0.9% 500 ML IV STA (15:15)
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
[2016-05-28 16:43] VITALS: BP 164/71; PULSE 81; RESP 18; TEMP 97.9
== END 2016-05-28 16:43 | disposition home or self-care (01) ==
LOC: EC 09:57
DX: N39.0 Urinary tract infection, site not specified (principal); E11.9 Type 2 diabetes mellitus without complications; I10 Essential (primary) hypertension; N28.9 Disorder of kidney and ureter, unspecified; G40.909 Epilepsy, unspecified, not intractable, without status epilepticus; Z86.73 Personal history of transient ischemic attack (TIA), and cerebral infarction without residual deficits; Z87.891 Personal history of nicotine dependence; Z95.5 Presence of coronary angioplasty implant and graft; Z79.899 Other long term (current) drug therapy; Z79.84 Long term (current) use of oral hypoglycemic drugs; Z79.82 Long term (current) use of aspirin; Z79.51 Long term (current) use of inhaled steroids; Z91.041 Radiographic dye allergy status; Z79.4 Long term (current) use of insulin; Z88.1 Allergy status to other antibiotic agents; Z88.0 Allergy status to penicillin; Z88.8 Allergy status to other drugs, medicaments and biological substances; Z88.4 Allergy status to anesthetic agent; M19.90 Unspecified osteoarthritis, unspecified site
CPT/HCPCS: 36415; 70450; 71010; 80053; 81001; 82550; 82553; 83605; 84484; 85025; 85610; 85730; 87086; 93005; 96360; 99285

== ENCOUNTER 2016-10-22 03:18 | Emergency (ER) | payer MEDICARE ==
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
--- NOTE | 2016-10-22 04:15 | CT ---
EXAM: CT Head Without Intravenous Contrast CLINICAL HISTORY: Reason: fall Neuro deficits, possible stroke, no previous TECHNIQUE: Axial computed tomography images of the head/brain without intravenous contrast. CTDI is 60.30 mGy and DLP is 1054.20mGy-cm. This CT exam was performed using one or more of the following dose reduction techniques: automated exposure control, adjustment of the mA and/or kV according to patient size, and/or use of iterative reconstruction technique. COMPARISON: 05/19/16. FINDINGS: Brain: Stable large area of encephalomalacia in the right MCA territory. Overall mild volume loss and small vessel disease. No acute intracranial hemorrhage. No edema. Ventricles: Unremarkable. No ventriculomegaly. Bones/joints: Unremarkable. No acute fracture. Soft tissues: Mild frontal scalp swelling. Sinuses: Unremarkable as visualized. No acute sinusitis. Mastoid air cells: Unremarkable as visualized. No mastoid effusion. Orbits: Bilateral cataract surgery. IMPRESSION: 1. No evidence of acute intracranial abnormality or skull fracture. 2. Frontal scalp swelling 3. Stable right MCA territory encephalomalacia from prior infarct
[2016-10-22 04:57] VITALS: BP 173/81; PULSE 83; RESP 18; TEMP 97.9
[2016-10-22] MEDS ORDERED: ACETAMINOPHEN TAB 325 MG TAB PO STA (05:00)
== END 2016-10-22 05:08 | disposition home or self-care (01) ==
LOC: EC 03:18
DX: S00.83XA Contusion of other part of head, initial encounter (principal); W01.0XXA Fall on same level from slipping, tripping and stumbling without subsequent striking against object, initial encounter; I25.2 Old myocardial infarction; E11.9 Type 2 diabetes mellitus without complications; Z86.73 Personal history of transient ischemic attack (TIA), and cerebral infarction without residual deficits; M19.90 Unspecified osteoarthritis, unspecified site; J44.9 Chronic obstructive pulmonary disease, unspecified; I48.91 Unspecified atrial fibrillation; I10 Essential (primary) hypertension; G40.909 Epilepsy, unspecified, not intractable, without status epilepticus; I25.10 Atherosclerotic heart disease of native coronary artery without angina pectoris; Z79.84 Long term (current) use of oral hypoglycemic drugs; Z79.899 Other long term (current) drug therapy; Z79.51 Long term (current) use of inhaled steroids; I50.32 Chronic diastolic (congestive) heart failure; G89.29 Other chronic pain; Z86.14 Personal history of Methicillin resistant Staphylococcus aureus infection; Z88.1 Allergy status to other antibiotic agents; Z88.8 Allergy status to other drugs, medicaments and biological substances; Z88.4 Allergy status to anesthetic agent; Z88.0 Allergy status to penicillin; Z87.891 Personal history of nicotine dependence
CPT/HCPCS: 70450; 93005; 99284

== ENCOUNTER 2016-12-25 05:30 | Emergency (ER) | payer MEDICARE ==
[2016-12-25 05:38] VITALS: TEMP 96.9
[2016-12-25] MEDS ORDERED: HYDROcodone/APAP 5-325MG 1 EACH TAB PO STA (05:57)
[2016-12-25 06:13] LABS: Anisocytosis Slight; Basophils % (A) 1 %; CH 28.9; CHCM 32.1; Eosinophils # (A) 0.2 k/uL (0-0.7); Eosinophils % (A) 4 %; HCT 44.3 % (34.0-46.0); HDW 2.81; HGB 13.6 gm/dL (11.4-16.0); Hypochromasia Slight; Luc # (Auto) 0.17; Luc % (Auto) 3; Lymphocytes # (A) 0.6 k/uL (1.0-4.8); Lymphocytes % (A) 10 %; MCH 27.8 pg (25.0-35.0); MCHC 30.8 g/dL (31.0-37.0); MCV 90.2 fL (80.0-100.0); Mean Platelet Volume 7.9; Monocytes # (A) 0.4 k/uL (0-1.0); Monocytes % (A) 7 %; Neutrophils # (A) 4.5 k/uL (1.3-7.7); Neutrophils % (A) 76 %; RBC 4.91 m/uL (3.80-5.40); RDW 16.4 % (11.5-15.5); WBC 5.8 k/uL (3.8-10.6); WBC (Perox) 5.63
[2016-12-25 06:22] LABS: Calcium 9.3 mg/dL (8.4-10.2); Potassium 5.2 mmol/L (3.5-5.1)
[2016-12-25 06:28] LABS: Prothrombin Time 10.4 sec (9.0-12.0)
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
--- NOTE | 2016-12-25 06:49 | CT ---
EXAM: CT Head Without Intravenous Contrast CLINICAL HISTORY: Reason: Pain TECHNIQUE: Axial computed tomography images of the head/brain without intravenous contrast. DLP is 1090.40 mGy-cm. This CT exam was performed using one or more of the following dose reduction techniques: automated exposure control, adjustment of the mA and/or kV according to patient size, and/or use of iterative reconstruction technique. COMPARISON: 10/22/16 FINDINGS: Brain: Stable large area of encephalomalacia in the right frontal lobe compatible with right MCA territory infarct. No hemorrhage. No significant white matter disease. No edema. Ventricles: Exvacuodilatation of the right lateral ventricle noted. Bones/joints: Unremarkable. No acute fracture. Soft tissues: Unremarkable. Sinuses: Unremarkable as visualized. No acute sinusitis. Mastoid air cells: Unremarkable as visualized. No mastoid effusion. IMPRESSION: No acute findings. Stable right MCA territory infarct. EXAM: CT Cervical Spine Without Intravenous Contrast CLINICAL HISTORY: Reason: Pain TECHNIQUE: Axial computed tomography images of the cervical spine without intravenous contrast. DLP is 536.10 mGy-cm. This CT exam was performed using one or more of the following dose reduction techniques: automated exposure control, adjustment of the mA and/or kV according to patient size, and/or use of iterative reconstruction technique. COMPARISON: No relevant prior studies available. FINDINGS: Vertebrae: Unremarkable. No acute fracture. Discs/spinal canal/neural foramina: Bony fusion noted across C3-4. Disc height loss with posterior disc spur complex seen at C4-5, C5-6, and C6-7 causing bilateral neural foraminal narrowing at these levels. Soft tissues: Unremarkable. Lung apices: Unremarkable as visualized. IMPRESSION: No acute findings. Multilevel spondylotic changes as above.
[2016-12-25 07:45] LABS: Partial Thromboplastin Time 18.5 sec (22.0-30.0)
[2016-12-25 08:49] VITALS: BP 122/67; PULSE 82; RESP 18
== END 2016-12-25 09:54 | disposition home or self-care (01) ==
LOC: EC 05:30
DX: S09.90XA Unspecified injury of head, initial encounter (principal); M54.2 Cervicalgia; I48.91 Unspecified atrial fibrillation; I25.10 Atherosclerotic heart disease of native coronary artery without angina pectoris; I50.9 Heart failure, unspecified; E11.9 Type 2 diabetes mellitus without complications; I25.2 Old myocardial infarction; M19.90 Unspecified osteoarthritis, unspecified site; J44.9 Chronic obstructive pulmonary disease, unspecified; N18.9 Chronic kidney disease, unspecified; I13.0 Hypertensive heart and chronic kidney disease with heart failure and stage 1 through stage 4 chronic kidney disease, or unspecified chronic kidney disease; G40.909 Epilepsy, unspecified, not intractable, without status epilepticus; Z86.73 Personal history of transient ischemic attack (TIA), and cerebral infarction without residual deficits; Z87.11 Personal history of peptic ulcer disease; Z86.14 Personal history of Methicillin resistant Staphylococcus aureus infection; Z87.891 Personal history of nicotine dependence; Z79.4 Long term (current) use of insulin; Z79.51 Long term (current) use of inhaled steroids; Z79.82 Long term (current) use of aspirin; Z79.899 Other long term (current) drug therapy; Z88.0 Allergy status to penicillin; Z88.1 Allergy status to other antibiotic agents; Z88.4 Allergy status to anesthetic agent; Z88.8 Allergy status to other drugs, medicaments and biological substances; Z91.048 Other nonmedicinal substance allergy status; W06.XXXA Fall from bed, initial encounter; Y92.129 Unspecified place in nursing home as the place of occurrence of the external cause
CPT/HCPCS: 36415; 70450; 72125; 80048; 85025; 85610; 85730; 99284

== ENCOUNTER 2017-07-27 14:45 | Inpatient (IN) | payer MEDICARE, OTHER ==
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
[2017-07-27 15:16] LABS: Basophils % (A) 1 %; Eosinophils # (A) 0.2 k/uL (0-0.7); Eosinophils % (A) 3 %; HCT 42.1 % (34.0-46.0); HGB 13.4 gm/dL (11.4-16.0); Hypochromasia Slight; Lymphocytes # (A) 0.5 k/uL (1.0-4.8); Lymphocytes % (A) 7 %; MCH 30.6 pg (25.0-35.0); MCHC 31.9 g/dL (31.0-37.0); Monocytes # (A) 0.4 k/uL (0-1.0); Monocytes % (A) 6 %; Neutrophils # (A) 5.9 k/uL (1.3-7.7); Neutrophils % (A) 82 %; Platelet Count 186 k/uL (150-450); RBC 4.39 m/uL (3.80-5.40); RDW 14.7 % (11.5-15.5); WBC 7.1 k/uL (3.8-10.6)
[2017-07-27 15:24] LABS: Albumin 3.5 g/dL (3.5-5.0); Calcium 8.8 mg/dL (8.4-10.2); Magnesium 1.6 mg/dL (1.6-2.3); Potassium 4.3 mmol/L (3.5-5.1); Total Bilirubin 0.4 mg/dL (0.2-1.3); Total Protein 6.2 g/dL (6.3-8.2)
[2017-07-27 15:30] LABS: Prothrombin Time 10.1 sec (9.0-12.0)
[2017-07-27 15:41] LABS: Partial Thromboplastin Time 21.7 sec (22.0-30.0)
[2017-07-27 15:48] LABS: Troponin I 0.017 ng/mL (0.000-0.034)
[2017-07-27 15:54] LABS: Creatine Kinase MB 2.6 ng/mL (0.0-2.4)
--- NOTE | 2017-07-27 15:58 | XR ---
EXAMINATION TYPE: XR chest 2V DATE OF EXAM: 07/27/2017 COMPARISON: Chest x-ray May 28, 2016. HISTORY: Dyspnea. TECHNIQUE: Frontal and lateral views of the chest are obtained. FINDINGS: There is background chronic emphysematous change. There is cardiomegaly with new tiny bila teral pleural effusions as there is blunting of posterior costophrenic angles. There is atherosclerot ic thoracic aorta. There is focal pleural thickening right lateral mid lung suspected. The osseous s tructures are demineralized. IMPRESSION: Correlate for CHF exacerbation as there is cardiomegaly with new tiny bilateral pleural effusions. There is background chronic emphysematous change felt present.
[2017-07-27] MEDS ORDERED: FUROSEMIDE 10 MG/ML 4 ML VIAL IV STA (15:59)
[2017-07-27] MEDS ORDERED: NYSTATIN 100,000 UNIT/GM POWD 15 GM TOPICAL PRN (17:14)
[2017-07-27] MEDS ORDERED: NITROGLYCERIN SL TABS 0.4 MG TAB SUBLINGUAL PRN (17:14)
[2017-07-27] MEDS ORDERED: DOCUSATE 100 MG CAP PO PRN (17:14)
[2017-07-27] MEDS ORDERED: FUROSEMIDE 10 MG/ML 4 ML VIAL IV SCH (17:15)
[2017-07-27 18:17] LABS: Glucose,Whole Blood 106 mg/dL (75-99)
[2017-07-27] MEDS: INSULIN ASPART 100 UNIT/ML 1 ML 10 ML VIAL SQ SCH ×3 (18:37→20:53)
[2017-07-27] MEDS: HYDROcodone/APAP 10-325MG 1 EACH TAB PO PRN (18:41)
[2017-07-27] MEDS: BUDESONIDE 0.5 MG/2 ML NEBU INHALATION SCH (19:41)
[2017-07-27] MEDS ORDERED: IPRATROPIUM-ALBUTEROL 3 ML NEB INHALATION SCH (20:00)
[2017-07-27] MEDS: FUROSEMIDE 10 MG/ML 4 ML VIAL IV SCH (20:01)
[2017-07-27] MEDS: levETIRAcetam 500 MG TAB PO SCH (20:01)
[2017-07-27] MEDS: LABETALOL 200 MG TAB PO SCH (20:01)
[2017-07-27] MEDS: hydrALAZINE HCL 25 MG TAB PO SCH (20:01)
[2017-07-27] MEDS: clonazePAM 0.5 MG TAB PO SCH (20:04)
[2017-07-27] MEDS ORDERED: IPRATROPIUM-ALBUTEROL 3 ML NEB INHALATION PRN (20:28)
[2017-07-27 20:46] LABS: Glucose,Whole Blood 130 mg/dL (75-99)
[2017-07-27] MEDS ORDERED: predniSONE 10 MG TAB PO SCH (21:00)
[2017-07-27] MEDS ORDERED: INSULIN DETEMIR 100 UNIT/ML 10 ML VIAL SQ SCH (21:00)
[2017-07-28 01:44] LABS: Glucose,Whole Blood 142 mg/dL (75-99)
[2017-07-28] MEDS: HYDROcodone/APAP 10-325MG 1 EACH TAB PO PRN ×3 (02:49→17:53)
[2017-07-28 06:01] LABS: Glucose,Whole Blood 125 mg/dL (75-99)
[2017-07-28] MEDS: INSULIN ASPART 100 UNIT/ML 1 ML 10 ML VIAL SQ SCH ×7 (06:07→21:25)
[2017-07-28] MEDS: hydrALAZINE HCL 25 MG TAB PO SCH ×3 (06:27→19:55)
[2017-07-28] MEDS: PANTOPRAZOLE 40 MG TABLET PO SCH (06:27)
[2017-07-28] MEDS: IPRATROPIUM-ALBUTEROL 3 ML NEB INHALATION SCH ×4 (07:21→20:21)
[2017-07-28] MEDS: BUDESONIDE 0.5 MG/2 ML NEBU INHALATION SCH ×2 (07:21→20:21)
[2017-07-28] MEDS: SERTRALINE 100 MG TAB PO SCH (08:45)
[2017-07-28] MEDS: GLIMEPIRIDE 4 MG TAB PO SCH ×2 (08:45→17:31)
[2017-07-28] MEDS: buPROPion SR 100 MG TABLET.ER PO SCH (08:45)
[2017-07-28] MEDS: LABETALOL 200 MG TAB PO SCH ×2 (08:45→19:56)
[2017-07-28] MEDS: FUROSEMIDE 10 MG/ML 4 ML VIAL IV SCH ×2 (08:45→19:56)
[2017-07-28] MEDS: AMMONIUM LACTATE 12% LOTION 225 GM BTL TOPICAL SCH (08:45)
[2017-07-28] MEDS: levETIRAcetam 500 MG TAB PO SCH ×2 (08:46→21:27)
[2017-07-28] MEDS: ASPIRIN 81 MG PO SCH (08:53)
[2017-07-28] MEDS ORDERED: FUROSEMIDE 40 MG TAB PO SCH (09:00)
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
[2017-07-28] MEDS: ALLOPURINOL 100 MG TAB PO SCH (10:58)
[2017-07-28 11:01] LABS: Basophils % (A) 1 %; Eosinophils % (A) 1 %; HCT 42.6 % (34.0-46.0); HGB 13.3 gm/dL (11.4-16.0); Lymphocytes # (A) 0.3 k/uL (1.0-4.8); Lymphocytes % (A) 7 %; MCH 30.1 pg (25.0-35.0); MCHC 31.3 g/dL (31.0-37.0); MCV 96.3 fL (80.0-100.0); Mean Platelet Volume 7.7; Monocytes # (A) 0.3 k/uL (0-1.0); Monocytes % (A) 7 %; Neutrophils # (A) 4.3 k/uL (1.3-7.7); Neutrophils % (A) 84 %; Platelet Count 157 k/uL (150-450); RBC 4.42 m/uL (3.80-5.40); RDW 14.7 % (11.5-15.5); WBC 5.1 k/uL (3.8-10.6)
[2017-07-28 11:14] LABS: Albumin 3.4 g/dL (3.5-5.0); Calcium 8.6 mg/dL (8.4-10.2); Potassium 3.9 mmol/L (3.5-5.1); Total Bilirubin 0.4 mg/dL (0.2-1.3); Total Protein 6.1 g/dL (6.3-8.2)
[2017-07-28 12:24] LABS: Glucose,Whole Blood 90 mg/dL (75-99)
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
--- NOTE | 2017-07-28 14:24 | ECHOF ---
Referral Reason:chf MEASUREMENTS -------- HEIGHT: 162.6 cm WEIGHT: 73.9 kg BP: 146/93 RVIDd: 3.6 cm (< 3.3) IVSd: 1.3 cm (0.6 - 1.1) LVIDd: 3.7 cm (3.9 - 5.3) LVPWd: 1.3 cm (0.6 - 1.1) IVSs: 1.4 cm LVIDs: 3.3 cm LVPWs: 1.5 cm LAESV Index (A-L): 45.48 ml/m Ao Diam: 3.2 cm (2.0 - 3.7) AV Cusp: 1.5 cm (1.5 - 2.6) LA Diam: 4.8 cm (2.7 - 3.8) MV E [place]: 1.25 m/s MV DecT: 147 ms MV A [place]: 0.00 m/s MV E/A Ratio: 286.42 RAP: 10.00 mmHg RVSP: 46.56 mmHg FINDINGS -------- Atrial fibrillation. This was a technically difficult study with suboptimal views. The left ventricular size is normal. There is mild concentric left ventricular hypertrophy. There is severe global hypokinesis of LV . Overall left ventricular systolic function is severely impair ed with, an EF between 25 - 30 %. The right ventricle is mild to moderately enlarged. LA is severely dilated >40 ml/m2 RA appears enlarged. 3ml of Lumason was utilized for enhancement of images. Aortic valve is trileaflet and is mildly thickened. There is no evidence of aortic regurgitation. There is no evidence of aortic stenosis. The mitral valve leaflets are mildly thickened. There is trace to mild mitral regurgitation. Moderate tricuspid regurgitation present. Right ventricular systolic pressure is normal at < 35 mmH g. There is mild pulmonary hypertension. The pulmonic valve was not well visualized. The aortic root size is normal. The IVC is dilated with normal collapse. There is moderate pericardial effusion located near the left ventricle, with a small, generalized per icardial effusion. CONCLUSIONS -------- 1. Atrial fibrillation. 2. This was a technically difficult study with suboptimal views. 3. The left ventricular size is normal. 4. There is mild concentric left ventricular hypertrophy. 5. There is severe global hypokinesis of LV . 6. Overall left ventricular systolic function is severely impaired with, an EF between 25 - 30 %. 7. The right ventricle is mild to moderately enlarged. 8. LA is severely dilated >40 ml/m2 9. RA appears enlarged. 10. 3ml of Lumason was utilized for enhancement of images. 11. Aortic valve is trileaflet and is mildly thickened. 12. The mitral valve leaflets are mildly thickened. 13. There is trace to mild mitral regurgitation. 14. Moderate tricuspid regurgitation present. 15. Right ventricular systolic pressure is normal at < 35 mmHg. 16. There is mild pulmonary hypertension. 17. The pulmonic valve was not well visualized. 18. The aortic root size is normal. 19. The IVC is dilated with normal collapse. 20. There is moderate pericardial effusion located near the left ventricle, with a small, generalized pericardial effusion. SENIOR CASE MANAGER: Cem Lock RDCS
[2017-07-28] MEDS: FERROUS SULFATE 325 MG TAB PO SCH (15:24)
[2017-07-28 17:06] LABS: Glucose,Whole Blood 49 mg/dL (75-99)
[2017-07-28] MEDS: methylPREDNISolone SOD SUCCI 40 MG/ML 1 ML VIAL IV SCH ×2 (17:14→23:28)
[2017-07-28 17:19] LABS: Glucose,Whole Blood 77 mg/dL (75-99)
[2017-07-28 20:36] LABS: Glucose,Whole Blood 184 mg/dL (75-99)
[2017-07-28] MEDS ORDERED: INSULIN DETEMIR 100 UNIT/ML 10 ML VIAL SQ SCH (21:00)
[2017-07-28] MEDS: APIXABAN 2.5 MG TABLET PO SCH (21:27)
[2017-07-28] MEDS: clonazePAM 0.5 MG TAB PO SCH (21:27)
[2017-07-29] MEDS: HYDROcodone/APAP 10-325MG 1 EACH TAB PO PRN ×3 (02:15→21:27)
[2017-07-29 06:11] LABS: Glucose,Whole Blood 264 mg/dL (75-99)
[2017-07-29] MEDS: hydrALAZINE HCL 25 MG TAB PO SCH ×3 (06:27→21:27)
[2017-07-29] MEDS: PANTOPRAZOLE 40 MG TABLET PO SCH (06:27)
[2017-07-29] MEDS: INSULIN ASPART 100 UNIT/ML 1 ML 10 ML VIAL SQ SCH ×7 (06:30→21:28)
[2017-07-29 06:36] LABS: Basophils % (A) 0 %; Eosinophils % (A) 1 %; HCT 44.6 % (34.0-46.0); HGB 13.5 gm/dL (11.4-16.0); Hypochromasia Slight; Lymphocytes # (A) 0.2 k/uL (1.0-4.8); Lymphocytes % (A) 3 %; MCH 29.1 pg (25.0-35.0); MCHC 30.3 g/dL (31.0-37.0); MCV 95.8 fL (80.0-100.0); Mean Platelet Volume 8.2; Monocytes # (A) 0.2 k/uL (0-1.0); Monocytes % (A) 3 %; Neutrophils # (A) 5.9 k/uL (1.3-7.7); Neutrophils % (A) 93 %; Platelet Count 170 k/uL (150-450); RBC 4.65 m/uL (3.80-5.40); RDW 14.7 % (11.5-15.5); WBC 6.4 k/uL (3.8-10.6)
[2017-07-29 06:46] LABS: Albumin 3.6 g/dL (3.5-5.0); Magnesium 1.6 mg/dL (1.6-2.3); Potassium 4.9 mmol/L (3.5-5.1); Total Bilirubin 0.5 mg/dL (0.2-1.3); Total Protein 6.4 g/dL (6.3-8.2)
[2017-07-29] MEDS: ALLOPURINOL 100 MG TAB PO SCH (07:51)
[2017-07-29] MEDS: ASPIRIN 81 MG PO SCH (07:51)
[2017-07-29] MEDS: AMMONIUM LACTATE 12% LOTION 225 GM BTL TOPICAL SCH (07:51)
[2017-07-29] MEDS: methylPREDNISolone SOD SUCCI 40 MG/ML 1 ML VIAL IV SCH ×2 (07:51→17:32)
[2017-07-29] MEDS: APIXABAN 2.5 MG TABLET PO SCH ×2 (07:51→21:28)
[2017-07-29] MEDS: LABETALOL 200 MG TAB PO SCH ×2 (07:52→21:27)
[2017-07-29] MEDS: levETIRAcetam 500 MG TAB PO SCH ×2 (07:52→21:27)
[2017-07-29] MEDS: FUROSEMIDE 10 MG/ML 4 ML VIAL IV SCH ×2 (07:52→21:27)
[2017-07-29] MEDS: buPROPion SR 100 MG TABLET.ER PO SCH (07:52)
[2017-07-29] MEDS: SERTRALINE 100 MG TAB PO SCH (07:53)
[2017-07-29] MEDS: BUDESONIDE 0.5 MG/2 ML NEBU INHALATION SCH ×2 (08:37→21:21)
[2017-07-29] MEDS: IPRATROPIUM-ALBUTEROL 3 ML NEB INHALATION SCH ×4 (08:37→21:21)
--- NOTE | 2017-07-29 09:45 | P.PN ---
Subjective Progress Note Date: 07/29/17 Principal diagnosis: cardiomyopathy This is a pleasant 72-year-old female patient who sees Dr. KERMIT Harvey in the office on regular basis with a past medical history significant for COPD , diabetes, hypertension, and dyslipidemia was brought from the [facility], where she resides there for the last 2 years, because of shortness of breath. The patient was getting treated for what it seems to be pneumonia for the last few days. She has been experiencing cough productive of sputum. Also she was experiencing fever and chills. She was getting worse for the last 24 hours and she has been experiencing dyspnea. No chest pain or chest discomfort. No bilateral lower extremities edema. We get involved in the care of the patient because of CHF. The chest x-ray showed findings consistent with CHF. More importantly the patient does have bilateral crackles on physical examination. The BNP came in to be elevated and around 4000. The EKG showed sinus rhythm without any significant ST or T-wave abnormalities. The troponin was checked and came in to be within normal limits. The patient was started on Lasix IV and she stated that the shortness of breath is slightly better today. she underwent an echocardiogram and that revealed severe cardiomyopathy. on follow-up with the patient today,she is feeling better indeterminable shortness of breath. She is in A. fib with slightly uncontrolled heart rates. I am going to increase the dose of metoprolol, start the patient on lisinopril, and Aldactone to the current medical treatment, and she is on oral anticoagulation for the atrial fibrillation. Objective - Vital Signs Vital signs: Vital Signs Temp 97.6 F 07/29/17 08:00 Pulse 112 H 07/29/17 08:45 Resp 18 07/29/17 08:00 BP 140/86 07/29/17 08:00 Pulse Ox 99 07/29/17 08:00 Intake & Output 07/28/17 07/29/17 07/29/17 18:59 06:59 18:59 Output Total 560 1200 Balance -560 -1200 Weight 74.1 kg 73.4 kg Output: Urine 560 Stool 1200 Other: Voiding Method Bedside Commode Bedside Commode Bedside Commode Incontinent Incontinent Incontinent # Voids 1 4 - Constitutional General appearance: Present: no acute distress - Respiratory Respiratory: bilateral: CTA - Cardiovascular Rhythm: irregularly irregular Heart sounds: normal: S1, S2 - Labs CBC & Chem 7: 07/29/17 06:05 07/29/17 06:05 Labs: Abnormal Lab Results - Last 24 Hours (Table) 07/28/17 07/28/17 07/28/17 Range/Units 10:39 10:39 16:52 MCHC (31.0-37.0) g/dL Lymphocytes # 0.3 L (1.0-4.8) k/uL Chloride (98-107) mmol/L BUN 29 H (7-17) mg/dL Creatinine 1.09 H (0.52-1.04) mg/dL Glucose 131 H (74-99) mg/dL POC Glucose (mg/dL) 49 L (75-99) mg/dL Total Protein 6.1 L (6.3-8.2) g/dL Albumin 3.4 L (3.5-5.0) g/dL 07/28/17 07/29/17 07/29/17 Range/Units 20:34 06:05 06:05 MCHC 30.3 L (31.0-37.0) g/dL Lymphocytes # 0.2 L (1.0-4.8) k/uL Chloride 97 L (98-107) mmol/L BUN 31 H (7-17) mg/dL Creatinine (0.52-1.04) mg/dL Glucose 292 H (74-99) mg/dL POC Glucose (mg/dL) 184 H (75-99) mg/dL Total Protein (6.3-8.2) g/dL Albumin (3.5-5.0) g/dL 07/29/17 Range/Units 06:09 MCHC (31.0-37.0) g/dL Lymphocytes # (1.0-4.8) k/uL Chloride (98-107) mmol/L BUN (7-17) mg/dL Creatinine (0.52-1.04) mg/dL Glucose (74-99) mg/dL POC Glucose (mg/dL) 264 H (75-99) mg/dL Total Protein (6.3-8.2) g/dL Albumin (3.5-5.0) g/dL Microbiology - Last 24 Hours (Table) 07/27/17 14:35 Blood Culture - Preliminary Blood No Growth after 24 hours Assessment and Plan Assessment: assessment #1 acute respiratory failure #2 pneumonia #3 congestive heart failure exacerbation and known if his to systolic or diastole dysfunction #4 multiple comorbidities including diabetes, hypertension, dyslipidemia #5 chronic kidney disease #6 chronic atrial fibrillation Plan #1 continue the current dose of Lasix with continuous monitoring the kidney function and electrolytes #2 the echocardiogram as described above and showed severe cardiomyopathy #3 add lisinopril and Aldactone #4 increase the dose of metoprolol #5 continue IV Lasix #6 follow-up with the patient
--- NOTE | 2017-07-29 10:17 | P.PN ---
Subjective Progress Note Date: 07/29/17 This is a 72-year-old female one of Dr. Sifuentes with a previous medical history significant for CAD post-PCI with chronic diastolic heart failure, hypertension and hypertensive cardiovascular disease, history of CVA in the past in the left occipital area with significant balance issues requiring the use of a walker and wheelchair on and off, history of diabetes mellitus type 2, hyperlipidemia, history of chronic atrial fibrillation, remote history of ischemic bowel with gangrenous changes and perforated bowel post colectomy and colostomy placement that was done at [facility], patient apparently was in her usual state of health about 2 days ago when she was at [facility] and developed to have an increased shortness of breath and she became somewhat confused,and they ended up sending the patient to the ER for evaluation she was found to have hypoxemia with significant shortness of breath thought to be due to possible combination of COPD exacerbation as well as an acute diastolic heart failure, patient was started on IV diuretics as well as IV Solu-Medrol she was seen in consultation by pulmonary and by cardiology, underwent echocardiogram still pending at the time of dictation. 07/29: Patient is complaining of pain in the lower back and she is feeling itchy as well she denies any chest pain or any shortness breath she is having less she has no abdominal pain, her stoma is working very well. Objective - Vital Signs Vital signs: Vital Signs Temp 96.6 F L 07/29/17 04:00 Pulse 94 07/29/17 04:00 Resp 18 07/29/17 04:00 BP 120/64 07/29/17 04:00 Pulse Ox 92 L 07/29/17 04:00 Intake & Output 07/28/17 07/29/17 07/29/17 18:59 06:59 18:59 Output Total 560 1200 Balance -560 -1200 Weight 74.1 kg 73.4 kg Output: Urine 560 Stool 1200 Other: Voiding Method Bedside Commode Bedside Commode Incontinent Incontinent # Voids 1 4 - Exam - Constitutional General appearance: average body habitus, mild distress - EENT Eyes: anicteric sclerae, EOMI, PERRLA, no ptosis, no scleral icterus, normal appearance ENT: hearing grossly normal, NA/AT, normal oropharynx, no thrush, no tonsillar exudates Ears: bilateral: normal - Neck Neck: no lymphadenopathy, normal ROM, no rigidity, no stridor, no thyromegaly Carotids: bilateral: upstroke delayed Thyroid: bilateral: normal size - Respiratory Respiratory: bilateral: diminished, rhonchi, wheezing, prolonged expiration, negative: dullness, rales - Cardiovascular Rhythm: irregularly irregular Heart sounds: normal: S1, S2 Abnormal Heart Sounds: systolic murmur - Gastrointestinal General gastrointestinal: normal bowel sounds, soft, no splenomegaly, no tenderness (There is colostomy bag in place), ventral hernia (Large abdominal wall hernia.) - Integumentary Integumentary: normal, normal turgor - Neurologic Neurologic: CNII-XII intact - Musculoskeletal Musculoskeletal: no gait normal, generalized weakness, strength equal bilaterally - Psychiatric Psychiatric: A&O x's 3, appropriate affect, intact judgment & insight - Labs CBC & Chem 7: 07/29/17 06:05 07/29/17 06:05 Labs: Abnormal Lab Results - Last 24 Hours (Table) 07/28/17 07/28/17 07/28/17 Range/Units 10:39 10:39 16:52 MCHC (31.0-37.0) g/dL Lymphocytes # 0.3 L (1.0-4.8) k/uL Chloride (98-107) mmol/L BUN 29 H (7-17) mg/dL Creatinine 1.09 H (0.52-1.04) mg/dL Glucose 131 H (74-99) mg/dL POC Glucose (mg/dL) 49 L (75-99) mg/dL Total Protein 6.1 L (6.3-8.2) g/dL Albumin 3.4 L (3.5-5.0) g/dL 07/28/17 07/29/17 07/29/17 Range/Units 20:34 06:05 06:05 MCHC 30.3 L (31.0-37.0) g/dL Lymphocytes # 0.2 L (1.0-4.8) k/uL Chloride 97 L (98-107) mmol/L BUN 31 H (7-17) mg/dL Creatinine (0.52-1.04) mg/dL Glucose 292 H (74-99) mg/dL POC Glucose (mg/dL) 184 H (75-99) mg/dL Total Protein (6.3-8.2) g/dL Albumin (3.5-5.0) g/dL 07/29/17 Range/Units 06:09 MCHC (31.0-37.0) g/dL Lymphocytes # (1.0-4.8) k/uL Chloride (98-107) mmol/L BUN (7-17) mg/dL Creatinine (0.52-1.04) mg/dL Glucose (74-99) mg/dL POC Glucose (mg/dL) 264 H (75-99) mg/dL Total Protein (6.3-8.2) g/dL Albumin (3.5-5.0) g/dL Microbiology - Last 24 Hours (Table) 07/27/17 14:35 Blood Culture - Preliminary Blood No Growth after 24 hours Assessment and Plan Assessment: Assessment and plan: 1. Acute on chronic hypoxemic respiratory failure due to accommodation of acute exacerbation of COPD as well as acute systolic heart failure. Continue the patient on Lasix 40 mg IV push every 12 hours, labetalol 200 mg orally twice every day, continue patient on DuoNeb 3 mg nebulization 4 times every day , Solu-Medrol 40 mg IV push every 8 hours, Pulmicort nebulization twice every day, continue oxygen support, echocardiogram was done awaiting the result, cardiology and pulmonary consultation were in order. 2. Chronic diastolic heart failure with ejection fraction of 55% in the past. Continue labetalol 200 mg orally twice every day, continue patient on Lasix 40 mg IV push every 12 hours. 3. large anterior abdominal wall hernia. Stable at this time. 4. History of obstructive proximal right ureteral calculus status post cystoscopy and insertion of a double-J stent in the right kidney. 5. History of CVA. history of with a large infarct involving the left hemisphere. Continue aspirin 81 mg orally once every day as well as Eliquis 2.5 mg orally twice every day for life. 6. History of vertebral fracture involving the C1 and C2 spine with chronic neck pain 7. Hypertension and hypertensive cardiovascular disease. Continue labetalol 200 mg orally twice every day, hydralazine 25 mg orally 3 times every day. 8. Diabetes mellitus type 2. currently on Levemir insulin 44 units at bedtime in addition to abnormal exercise coverage, continue glyburide 4 mg orally twice every day, continue to monitor blood glucose level before each meal and at bedtime. 9. coronary artery disease with previous coronary intervention and stenting. Continue aspirin 81 mg orally once every day, labetalol 200 mg orally twice every day. 10. paroxysmal atrial fibrillation, currently on long-term and to coagulation with Eliquis. 11. severe pulmonary hypertension related to COPD and diastolic dysfunction. Continue Lasix and labetalol. 12. peptic ulcer disease. Continue patient on Protonix 40 mg orally once every day. 13. 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 14. chronic anemia, current hemoglobin is stable and above 13. 15. peripheral Vascular disease. Continue aspirin 81 mg once every day for secondary prevention. 16. previous carotid endarterectomy for carotid artery disease. 17. recurrent urine checked infection with VRE and the repeat cultures from 10/2016 is showing enterococcal infection which is a VRE organism. 18. History of MRSA wound infection involving the sacral ulcers. 19. Admit to inpatient. Estimated length of stay 2 midnights. 20. DVT prophylaxis. Continue patient on Eliquis 2.5 mg orally twice every day as well as bilateral knee-high DOROTHY hose. 21. GI prophylaxis. Continue PPI. 22. Patient is full code.
--- NOTE | 2017-07-29 11:45 | P.PN ---
Subjective Progress Note Date: 07/29/17 68-year-old female patient referred to the [facility] department from [facility] on the [address] because of increased shortness of breath. Apparently the patient has been having increased dyspnea for the past 2 days. She is coughing and her cough is congested at times she is producing some yellowish sputum. She has also become bronchus spastic and wheezy. She is known to have COPD and tracheal bronchomalacia. She also has an extensive cardiac history. She was desaturating and her pulse ox was also noted to be low. For that reason the patient was sent over to the hospital for further treatment. The patient had some chest discomfort along the right side of the chest and upper body. No altered mentation. No pleurisy. No hemoptysis. She denies having any aspiration. The chest x-ray shows a component of CHF with cardiomegaly and tiny bilateral pleural effusion. There is excellent COPD. Currently, the patient on DuoNeb about treatments around the clock, she is also on a combination of Pulmicort rescue twice a day and Perforomist neb last treatment twice a day, she is on IV Solu Medrol 40 g every 8 hours and she is also on Lasix 40 g IV push every 12 hours. The patient has had multiple hospitalizations in the past. On 1017 the patient is feeling better less short of breath compared to yesterday. Sitting up on a chair. Cough and wheezing and bronchospasm improved compared yesterday and the patient did not have any significant events overnight. Meanwhile, the patient remains on DuoNeb neb last treatment around- the-clock, Pulmicort Respules, IV Lasix 40 mg every 12 hours and the patient has been tapered down to 40 mg of IV Lasix to 8 hours. No other significant events overnight. She did develop some steroid use hyperglycemia and the patient is currently on sliding scale insulin coverage. Objective - Vital Signs Vital signs: Vital Signs Temp 97.2 F L 07/29/17 10:52 Pulse 108 H 07/29/17 11:33 Resp 18 07/29/17 10:52 BP 180/110 07/29/17 10:52 Pulse Ox 98 07/29/17 10:52 Intake & Output 07/28/17 07/29/17 07/29/17 18:59 06:59 18:59 Output Total 560 1200 Balance -560 -1200 Weight 74.1 kg 73.4 kg Output: Urine 560 Stool 1200 Other: Voiding Method Bedside Commode Bedside Commode Bedside Commode Incontinent Incontinent Incontinent # Voids 1 4 - Exam Patient is awake and alert and she is following commands and answering questions appropriately. She has some occasional cough and episodes. This is a barky cough. Unable to bring up much of sputum. No apparent respiratory distress. She is not using excessive muscle breathing. l. There was no scleral icterus or corneal arcus. Mucous membranes were moist. Mucous membranes are quite dry. Mild JVDs and there is no goiter or neck masses at this point. No neck stiffness. Lungs sounds revealed equal and symmetrical breath sounds with some limited crackles at lung bases bilaterally. No wheezes or rhonchi. Heart sounds are irregular, positive S1-S2, no S3, no S4, no murmurs. Abdomen is soft and there is no direct tenderness a month or so guarding. The patient has a functional colostomy site in her right abdominal wall area. In addition, the patient has a large anterior abdominal wall hernia. No rebound tenderness. No guarding.Examination of the extremities revealed easily palpable radial, femoral and pedal pulses. There was no cyanosis , clubbing or edema. Neurologically the patient is awake and alert. She is moving all 4 extremities. She is weak and her weakness is chronic and the patient is unable to ambulate and she has obvious gait dysfunction. - Labs CBC & Chem 7: 07/29/17 06:05 07/29/17 06:05 Labs: Abnormal Lab Results - Last 24 Hours (Table) 07/28/17 07/28/17 07/29/17 Range/Units 16:52 20:34 06:05 MCHC 30.3 L (31.0-37.0) g/dL Lymphocytes # 0.2 L (1.0-4.8) k/uL Chloride (98-107) mmol/L BUN (7-17) mg/dL Glucose (74-99) mg/dL POC Glucose (mg/dL) 49 L 184 H (75-99) mg/dL 07/29/17 07/29/17 Range/Units 06:05 06:09 MCHC (31.0-37.0) g/dL Lymphocytes # (1.0-4.8) k/uL Chloride 97 L (98-107) mmol/L BUN 31 H (7-17) mg/dL Glucose 292 H (74-99) mg/dL POC Glucose (mg/dL) 264 H (75-99) mg/dL Microbiology - Last 24 Hours (Table) 07/27/17 14:35 Blood Culture - Preliminary Blood No Growth after 24 hours Assessment and Plan Plan: Assessment 1 acute shortness of breath secondary to exacerbation of COPD/CHF. No clear indication of an underlying pneumonia based on the chest x-ray findings. Clinically improving as the patient is being treated for both COPD and CHF exacerbation with a combination of bronchodilators steroids and diuretics 2 chronic hypoxic and hypercapnic respiratory failure, along with a history of COPD 3 CHF with mild concentric left ventricular hypertrophy and an ejection fraction of 50-55%, essentially of a diastolic dysfunction 4 large anterior abdominal wall hernia 5 obstructive proximal right ureteral calculus status post cystoscopy and insertion of a double-J stent in the right kidney, 6 CVA, history of with a large infarct involving the left hemisphere 7 vertebral fracture involving the C1 and C2 spine with chronic neck pain 8 hypertension 9 diabetes mellitus, currently on Levemir insulin 44 units at bedtime in addition to abnormal exercise coverage 10 coronary artery disease with previous coronary intervention and stenting 11 paroxysmal atrial fibrillation, currently on long-term and to coagulation with Eliquis 12 severe pulmonary hypertension related to COPD and diastolic dysfunction 13 peptic ulcer disease 14 colostomy for a previous history of perforated/gangrenous bowel 15 chronic anemia, current hemoglobin is stable and above 13 16 peripheral Vascular disease 17 previous carotid endarterectomy for carotid artery disease 18 recurrent urine checked infection with VRE and the repeat cultures from 05/06 is showing enterococcal infection which is a VRE organism 19 history of MRSA wound infection involving the sacral ulcers. Plan Continue same treatment. Continue diuretics. Continue steroids. The vent with this patient in a.m. Possible discharge in a.m.
[2017-07-29] MEDS: FERROUS SULFATE 325 MG TAB PO SCH (12:11)
[2017-07-29 12:25] LABS: Glucose,Whole Blood 301 mg/dL (75-99)
[2017-07-29 17:49] LABS: Glucose,Whole Blood 203 mg/dL (75-99)
[2017-07-29 20:59] LABS: Glucose,Whole Blood 234 mg/dL (75-99)
[2017-07-29 20:59] LABS: Glucose,Whole Blood 500 mg/dL (75-99)
[2017-07-29] MEDS: clonazePAM 0.5 MG TAB PO SCH (21:27)
[2017-07-29] MEDS: INSULIN DETEMIR 100 UNIT/ML 10 ML VIAL SQ SCH (21:28)
[2017-07-29 21:46] LABS: Appearance,Urine Cloudy (Clear); Bacteria,Urine Many /hpf; Bilirubin,Urine Negative (Negative); Blood,Urine Large (Negative); Budding Yeast,Urine Many /hpf; Color,Urine Red; Glucose,Urine (UA) Negative (Negative); Hyaline Casts,Urine 22 /lpf (0-2); Ketones,Urine Negative (Negative); Leukocyte Esterase,Urine Large (Negative); Nitrite,Urine Negative (Negative); PH, Urine 5.5 (5.0-8.0); Protein,Urine 2+ (Negative); RBC,Urine >182 /hpf (0-5); Specific Gravity,Urine 1.016 (1.001-1.035); Urobilinogen,Urine <2.0 mg/dL (<2.0); WBC,Urine 21 /hpf (0-5)
[2017-07-30] MEDS: methylPREDNISolone SOD SUCCI 40 MG/ML 1 ML VIAL IV SCH (00:14)
[2017-07-30] MEDS: LEVOFLOXACIN 250MG-D5W PMX 250 MG in DEXTROSE/WATER 1 50ML.BAG IVPB SCH ×2 (00:15→21:58)
[2017-07-30 05:49] LABS: Glucose,Whole Blood 228 mg/dL (75-99)
[2017-07-30] MEDS: INSULIN ASPART 100 UNIT/ML 1 ML 10 ML VIAL SQ SCH ×8 (06:39→21:14)
[2017-07-30] MEDS: HYDROcodone/APAP 10-325MG 1 EACH TAB PO PRN ×3 (06:40→21:48)
[2017-07-30] MEDS: hydrALAZINE HCL 25 MG TAB PO SCH ×3 (06:40→21:52)
[2017-07-30] MEDS: PANTOPRAZOLE 40 MG TABLET PO SCH (06:40)
[2017-07-30 06:43] LABS: Basophils % (A) 0 %; Eosinophils % (A) 0 %; HCT 44.3 % (34.0-46.0); HGB 14.1 gm/dL (11.4-16.0); Lymphocytes # (A) 0.2 k/uL (1.0-4.8); Lymphocytes % (A) 2 %; MCH 30.1 pg (25.0-35.0); MCHC 31.9 g/dL (31.0-37.0); MCV 94.4 fL (80.0-100.0); Mean Platelet Volume 7.4; Monocytes # (A) 0.3 k/uL (0-1.0); Monocytes % (A) 3 %; Neutrophils % (A) 95 %; Platelet Count 196 k/uL (150-450); RBC 4.69 m/uL (3.80-5.40); RDW 14.6 % (11.5-15.5); WBC 10.6 k/uL (3.8-10.6)
[2017-07-30 06:58] LABS: Albumin 3.7 g/dL (3.5-5.0); Calcium 9.3 mg/dL (8.4-10.2); Potassium 4.1 mmol/L (3.5-5.1); Total Bilirubin 0.6 mg/dL (0.2-1.3); Total Protein 6.5 g/dL (6.3-8.2)
[2017-07-30] MEDS: IPRATROPIUM-ALBUTEROL 3 ML NEB INHALATION SCH ×4 (09:04→20:14)
[2017-07-30] MEDS: BUDESONIDE 0.5 MG/2 ML NEBU INHALATION SCH ×2 (09:04→20:14)
[2017-07-30] MEDS: INSULIN DETEMIR 100 UNIT/ML 10 ML VIAL SQ SCH ×2 (10:09→21:27)
[2017-07-30] MEDS: levETIRAcetam 500 MG TAB PO SCH ×2 (10:13→21:52)
[2017-07-30] MEDS: buPROPion SR 100 MG TABLET.ER PO SCH (10:13)
[2017-07-30] MEDS: ASPIRIN 81 MG PO SCH (10:13)
[2017-07-30] MEDS: LISINOPRIL 5 MG TAB PO SCH (10:13)
[2017-07-30] MEDS: LABETALOL 200 MG TAB PO SCH (10:13)
[2017-07-30] MEDS: SPIRONOLACTONE 25 MG TAB PO SCH (10:14)
[2017-07-30] MEDS: SERTRALINE 100 MG TAB PO SCH (10:14)
[2017-07-30] MEDS: ALLOPURINOL 100 MG TAB PO SCH (10:14)
[2017-07-30] MEDS: FUROSEMIDE 10 MG/ML 4 ML VIAL IV SCH ×2 (10:14→21:27)
[2017-07-30] MEDS: APIXABAN 2.5 MG TABLET PO SCH ×2 (10:14→21:27)
[2017-07-30] MEDS: POTASSIUM CHLORIDE ER 10 MEQ TAB.ER.PRT PO SCH (10:14)
--- NOTE | 2017-07-30 10:37 | P.PN ---
Subjective Progress Note Date: 07/30/17 Principal diagnosis: Acute exacerbation of chronic obstructive pulmonary disease along with acute exacerbation of diastolic congestive heart failure 68-year-old female patient referred to the [facility] department from [facility] on the [address] because of increased shortness of breath. Apparently the patient has been having increased dyspnea for the past 2 days. She is coughing and her cough is congested at times she is producing some yellowish sputum. She has also become bronchus spastic and wheezy. She is known to have COPD and tracheal bronchomalacia. She also has an extensive cardiac history. She was desaturating and her pulse ox was also noted to be low. For that reason the patient was sent over to the hospital for further treatment. The patient had some chest discomfort along the right side of the chest and upper body. No altered mentation. No pleurisy. No hemoptysis. She denies having any aspiration. The chest x-ray shows a component of CHF with cardiomegaly and tiny bilateral pleural effusion. There is excellent COPD. Currently, the patient on DuoNeb about treatments around the clock, she is also on a combination of Pulmicort rescue twice a day and Perforomist neb last treatment twice a day, she is on IV Solu Medrol 40 g every 8 hours and she is also on Lasix 40 g IV push every 12 hours. The patient has had multiple hospitalizations in the past. On 07 29 2017 the patient is feeling better less short of breath compared to yesterday. Sitting up on a chair. Cough and wheezing and bronchospasm improved compared yesterday and the patient did not have any significant events overnight. Meanwhile, the patient remains on DuoNeb neb last treatment around- the-clock, Pulmicort Respules, IV Lasix 40 mg every 12 hours and the patient has been tapered down to 40 mg of IV Lasix to 8 hours. No other significant events overnight. She did develop some steroid use hyperglycemia and the patient is currently on sliding scale insulin coverage. The patient is seen again today 07/30/2017 in follow-up on the selective care unit. She is currently awake and alert in no acute distress. She denies any worsening shortness of breath, cough or congestion. She is maintaining good O2 saturations in the upper 90s on 2 L/m per nasal cannula. She's been afebrile. White count 10.6. Hemoglobin 14.1. Creatinine 0.97. She is continued on bronchodilators, Pulmicort, prednisone. She is diuresing well. Objective - Vital Signs Vital signs: Vital Signs Temp 97.8 F 07/30/17 08:00 Pulse 116 H 07/30/17 09:19 Resp 18 07/30/17 08:00 BP 171/99 07/30/17 08:00 Pulse Ox 97 07/30/17 08:00 Intake & Output 07/29/17 07/30/17 07/30/17 18:59 06:59 18:59 Intake Total 120 Output Total 700 300 200 Balance -700 -300 -80 Weight 73.4 kg 71.8 kg Intake: Oral 120 Output: Urine 700 300 Stool 200 Other: Voiding Method Bedside Commode Bedside Commode Bedside Commode Incontinent # Voids 1 - Exam Patient is awake and alert and she is following commands and answering questions appropriately. She has some occasional cough and episodes. This is a barky cough. Unable to bring up much of sputum. No apparent respiratory distress. She is not using excessive muscle breathing. l. There was no scleral icterus or corneal arcus. Mucous membranes were moist. Mucous membranes are quite dry. Mild JVDs and there is no goiter or neck masses at this point. No neck stiffness. Lungs sounds revealed equal and symmetrical breath sounds with some limited crackles at lung bases bilaterally. No wheezes or rhonchi. Heart sounds are irregular, positive S1-S2, no S3, no S4, no murmurs. Abdomen is soft and there is no direct tenderness a month or so guarding. The patient has a functional colostomy site in her right abdominal wall area. In addition, the patient has a large anterior abdominal wall hernia. No rebound tenderness. No guarding.Examination of the extremities revealed easily palpable radial, femoral and pedal pulses. There was no cyanosis , clubbing or edema. Neurologically the patient is awake and alert. She is moving all 4 extremities. She is weak and her weakness is chronic and the patient is unable to ambulate and she has obvious gait dysfunction. - Labs CBC & Chem 7: 07/30/17 05:53 07/30/17 05:53 Labs: Abnormal Lab Results - Last 24 Hours (Table) 07/29/17 07/29/17 07/29/17 Range/Units 12:09 17:02 20:56 Neutrophils # (1.3-7.7) k/uL Lymphocytes # (1.0-4.8) k/uL Chloride (98-107) mmol/L Carbon Dioxide (22-30) mmol/L BUN (7-17) mg/dL Glucose (74-99) mg/dL POC Glucose (mg/dL) 301 H 203 H 500 H (75-99) mg/dL Urine Appearance (Clear) Urine Protein (Negative) Urine Blood (Negative) Ur Leukocyte Esterase (Negative) Urine RBC (0-5) /hpf Urine WBC (0-5) /hpf Urine Bacteria (None) /hpf Hyaline Casts (0-2) /lpf Urine Yeast (Budding) (None) /hpf 07/29/17 07/29/17 07/30/17 Range/Units 20:57 21:25 05:48 Neutrophils # (1.3-7.7) k/uL Lymphocytes # (1.0-4.8) k/uL Chloride (98-107) mmol/L Carbon Dioxide (22-30) mmol/L BUN (7-17) mg/dL Glucose (74-99) mg/dL POC Glucose (mg/dL) 234 H 228 H (75-99) mg/dL Urine Appearance Cloudy H (Clear) Urine Protein 2+ H (Negative) Urine Blood Large H (Negative) Ur Leukocyte Esterase Large H (Negative) Urine RBC >182 H (0-5) /hpf Urine WBC 21 H (0-5) /hpf Urine Bacteria Many H (None) /hpf Hyaline Casts 22 H (0-2) /lpf Urine Yeast (Budding) Many H (None) /hpf 07/30/17 07/30/17 Range/Units 05:53 05:53 Neutrophils # 10.0 H (1.3-7.7) k/uL Lymphocytes # 0.2 L (1.0-4.8) k/uL Chloride 93 L (98-107) mmol/L Carbon Dioxide 35 H (22-30) mmol/L BUN 38 H (7-17) mg/dL Glucose 251 H (74-99) mg/dL POC Glucose (mg/dL) (75-99) mg/dL Urine Appearance (Clear) Urine Protein (Negative) Urine Blood (Negative) Ur Leukocyte Esterase (Negative) Urine RBC (0-5) /hpf Urine WBC (0-5) /hpf Urine Bacteria (None) /hpf Hyaline Casts (0-2) /lpf Urine Yeast (Budding) (None) /hpf Microbiology - Last 24 Hours (Table) 07/27/17 14:35 Blood Culture - Preliminary Blood No Growth after 48 hours Assessment and Plan Assessment: Assessment 1 acute shortness of breath secondary to exacerbation of COPD/CHF. No clear indication of an underlying pneumonia based on the chest x-ray findings. Clinically improving as the patient is being treated for both COPD and CHF exacerbation with a combination of bronchodilators steroids and diuretics. Improved. 2 chronic hypoxic and hypercapnic respiratory failure, along with a history of COPD 3 CHF with mild concentric left ventricular hypertrophy and an ejection fraction of 50-55%, essentially of a diastolic dysfunction 4 large anterior abdominal wall hernia 5 obstructive proximal right ureteral calculus status post cystoscopy and insertion of a double-J stent in the right kidney, 6 CVA, history of with a large infarct involving the left hemisphere 7 vertebral fracture involving the C1 and C2 spine with chronic neck pain 8 hypertension 9 diabetes mellitus, currently on Levemir insulin 44 units at bedtime in addition to abnormal exercise coverage 10 coronary artery disease with previous coronary intervention and stenting 11 paroxysmal atrial fibrillation, currently on long-term and to coagulation with Eliquis 12 severe pulmonary hypertension related to COPD and diastolic dysfunction 13 peptic ulcer disease 14 colostomy for a previous history of perforated/gangrenous bowel 15 chronic anemia, current hemoglobin is stable and above 13 16 peripheral Vascular disease 17 previous carotid endarterectomy for carotid artery disease 18 recurrent urine checked infection with VRE and the repeat cultures from 05/06 is showing enterococcal infection which is a VRE organism 19 history of MRSA wound infection involving the sacral ulcers. Plan we'll and The patient was seen and evaluated by Dr. Garcia. She is cleared for discharge from the pulmonary standpoint. Complete her course of antibiotics. Complete a prednisone taper. Continue diuretics. She could be seen by Dr. Iniguez at [facility] if needed. I, the cosigning physician, performed a history & physical examination of the patient. Lungs sounds with faint end expiratory wheeze. Fine crackles.. Maintaining good O2 saturations in the 90s on 2 L/m per nasal cannula. I discussed the assessment and plan of care with my nurse practitioner, Carolyn Bridges. I attest to the above note as dictated by her.
--- NOTE | 2017-07-30 10:44 | P.PN ---
Subjective Progress Note Date: 07/30/17 Principal diagnosis: CHF/COPD This is a 72-year-old female with past medical history significant for diabetes, hypertension, hyperlipidemia, COPD, who was admitted to the hospital with symptoms of cough with productive sputum. She had been being treated as an outpatient for pneumonia. Cardiology got involved in the care of this patient because of congestive heart failure. She was initiated on IV Lasix , her weight today is down 2 kg. She had a repeat echocardiogram with Doppler study performed here which revealed an ejection fraction of 25-30%. Medication adjustments for cardiomyopathy and heart failure were made over the weekend. This morning the patient was seen and examined, overall she states her breathing has improved significantly still having some mild shortness of breath. Her blood pressure this morning 164/80, heart rate in the 1 teens to 120s. White blood cell count 10.6, hemoglobin 14.1, platelet count 196. Sodium 139, potassium 4.1, BUN 30, creatinine 0.9. Urine screen also positive for UTI. Patient is complaining of some lower back discomfort to this morning. We will increase her dose of labetalol to 300 mg one tablet by mouth twice a day and increase lisinopril to 10 mg daily. Continue IV Lasix at this time, check lytes BUN and creatinine in the morning, and continue to monitor closely her daily weights and intake and output. Objective - Vital Signs Vital signs: Vital Signs Temp 97.8 F 07/30/17 08:00 Pulse 116 H 07/30/17 09:19 Resp 18 07/30/17 08:00 BP 171/99 07/30/17 08:00 Pulse Ox 97 07/30/17 08:00 Intake & Output 07/29/17 07/30/17 07/30/17 18:59 06:59 18:59 Intake Total 120 Output Total 700 300 200 Balance -700 -300 -80 Weight 73.4 kg 71.8 kg Intake: Oral 120 Output: Urine 700 300 Stool 200 Other: Voiding Method Bedside Commode Bedside Commode Bedside Commode Incontinent # Voids 1 - Exam PHYSICAL EXAMINATION: HEENT: Head is atraumatic, normocephalic. Pupils equal, round. Neck is supple. There is no elevated jugular venous pressure. HEART EXAMINATION: Heart S1 and S2 irregular irregular a systolic murmur is heard. CHEST EXAMINATION: Lungs reveal coarse wheezing throughout with scattered rhonchi, diminished air entry to the bases. ABDOMEN: Soft, nontender. Bowel sounds are heard. No organomegaly noted. EXTREMITIES: 2+ peripheral pulses with evidence of peripheral edema and no calf tenderness noted. NEUROLOGIC patient is awake, alert and oriented -3. . - Labs CBC & Chem 7: 07/30/17 05:53 07/30/17 05:53 Labs: Abnormal Lab Results - Last 24 Hours (Table) 07/29/17 07/29/17 07/29/17 Range/Units 12:09 17:02 20:56 Neutrophils # (1.3-7.7) k/uL Lymphocytes # (1.0-4.8) k/uL Chloride (98-107) mmol/L Carbon Dioxide (22-30) mmol/L BUN (7-17) mg/dL Glucose (74-99) mg/dL POC Glucose (mg/dL) 301 H 203 H 500 H (75-99) mg/dL Urine Appearance (Clear) Urine Protein (Negative) Urine Blood (Negative) Ur Leukocyte Esterase (Negative) Urine RBC (0-5) /hpf Urine WBC (0-5) /hpf Urine Bacteria (None) /hpf Hyaline Casts (0-2) /lpf Urine Yeast (Budding) (None) /hpf 07/29/17 07/29/17 07/30/17 Range/Units 20:57 21:25 05:48 Neutrophils # (1.3-7.7) k/uL Lymphocytes # (1.0-4.8) k/uL Chloride (98-107) mmol/L Carbon Dioxide (22-30) mmol/L BUN (7-17) mg/dL Glucose (74-99) mg/dL POC Glucose (mg/dL) 234 H 228 H (75-99) mg/dL Urine Appearance Cloudy H (Clear) Urine Protein 2+ H (Negative) Urine Blood Large H (Negative) Ur Leukocyte Esterase Large H (Negative) Urine RBC >182 H (0-5) /hpf Urine WBC 21 H (0-5) /hpf Urine Bacteria Many H (None) /hpf Hyaline Casts 22 H (0-2) /lpf Urine Yeast (Budding) Many H (None) /hpf 07/30/17 07/30/17 Range/Units 05:53 05:53 Neutrophils # 10.0 H (1.3-7.7) k/uL Lymphocytes # 0.2 L (1.0-4.8) k/uL Chloride 93 L (98-107) mmol/L Carbon Dioxide 35 H (22-30) mmol/L BUN 38 H (7-17) mg/dL Glucose 251 H (74-99) mg/dL POC Glucose (mg/dL) (75-99) mg/dL Urine Appearance (Clear) Urine Protein (Negative) Urine Blood (Negative) Ur Leukocyte Esterase (Negative) Urine RBC (0-5) /hpf Urine WBC (0-5) /hpf Urine Bacteria (None) /hpf Hyaline Casts (0-2) /lpf Urine Yeast (Budding) (None) /hpf Microbiology - Last 24 Hours (Table) 07/27/17 14:35 Blood Culture - Preliminary Blood No Growth after 48 hours Assessment and Plan Plan: Assessment and plan #1 pneumonia and exacerbation of COPD #2 systolic congestive heart failure acute on chronic #3 hypertension #4 diabetes #5 chronic persistent atrial fibrillation #6 hyperlipidemia #7 chronic kidney disease, stable Plan We will increase the dose of lisinopril to 10 mg daily and will labetalol to 300 mg one tablet by mouth twice a day for more optimal blood pressure and heart rate control. Continue current dose of IV Lasix, check lytes BUN creatinine in the morning and continue to monitor closely the daily weights and intake and output. DNP note has been reviewed, I agree with a documented findings and plan of care. Patient was seen and examined.
--- NOTE | 2017-07-30 11:44 | XR ---
EXAMINATION TYPE: XR abdomen 2V DATE OF EXAM: 07/30/2017 CLINICAL DATA: 72 year-old female abdominal pain, right-sided colostomy, H COMPARISON: 10/29/2013 FINDINGS: Heart appears mildly enlarged. No evidence for free intraperitoneal air. A right ureteral stent is present. There is partial uncoiling of the proximal collecting system loop. Moderate stool burden. Vascular calcifications are present throughout. Bowel gas is noted projecting lateral to the right hip, possibly relating to the decubitus or abdominal wall hernia. No dilated small bowel or air-fluid levels. Scattered air and stool seen throughout the colon extendi ng distally into the rectum. IMPRESSION: 1. A right-sided ureteral stent is present. There is partial uncoiling of the proximal loop incidenta lly noted but the catheter appears to remain appropriately positioned. 2. Moderate stool burden. No evidence for free air or bowel obstruction. 3. Bowel gas projecting lateral to the right hip. This could be secondary to overhanging panniculus o r an abdominal wall hernia. Clinically correlate.
[2017-07-30 12:01] LABS: Glucose,Whole Blood 290 mg/dL (75-99)
[2017-07-30] MEDS: AMMONIUM LACTATE 12% LOTION 225 GM BTL TOPICAL SCH (12:15)
[2017-07-30] MEDS: predniSONE 20 MG TAB PO SCH (12:15)
--- NOTE | 2017-07-30 13:42 | P.PN ---
Subjective Progress Note Date: 07/30/17 This is a 72-year-old female one of Dr. Sifuentes with a previous medical history significant for CAD post-PCI with chronic diastolic heart failure, hypertension and hypertensive cardiovascular disease, history of CVA in the past in the left occipital area with significant balance issues requiring the use of a walker and wheelchair on and off, history of diabetes mellitus type 2, hyperlipidemia, history of chronic atrial fibrillation, remote history of ischemic bowel with gangrenous changes and perforated bowel post colectomy and colostomy placement that was done at [facility], patient apparently was in her usual state of health about 2 days ago when she was at [facility] and developed to have an increased shortness of breath and she became somewhat confused,and they ended up sending the patient to the ER for evaluation she was found to have hypoxemia with significant shortness of breath thought to be due to possible combination of COPD exacerbation as well as an acute diastolic heart failure, patient was started on IV diuretics as well as IV Solu-Medrol she was seen in consultation by pulmonary and by cardiology, underwent echocardiogram still pending at the time of dictation. 4/1: Patient is complaining of pain in the lower back and she is feeling itchy as well she denies any chest pain or any shortness breath she is having less she has no abdominal pain, her stoma is working very well. 4/2: Patient remains on IV Lasix. Her heart rate has been running high around 116 and hypertensive and cardiology has increased metipranolol, increased dose of lisinopril to 10 mg daily and added and labetalol 300 mg twice daily. IV Solu-Medrol will be switched over to oral. Pulmonary medicine has cleared patient for discharge. She had an abdominal x-ray done today for abdominal pain that revealed a right-sided ureteral stent. There is partial uncoiling of the proximal loop but appears to remain appropriately positioned. Moderate stool burden. No evidence of free air or bowel obstruction. Bowel gas projecting lateral to the right hip this could represent overhanging panniculus or abdominal wall hernia. Objective - Vital Signs Vital signs: Vital Signs Temp 97.8 F 07/30/17 08:00 Pulse 116 H 07/30/17 09:19 Resp 18 07/30/17 08:00 BP 171/99 07/30/17 08:00 Pulse Ox 97 07/30/17 08:00 Intake & Output 07/29/17 07/30/17 07/30/17 18:59 06:59 18:59 Intake Total 120 Output Total 700 300 200 Balance -700 -300 -80 Weight 73.4 kg 71.8 kg Intake: Oral 120 Output: Urine 700 300 Stool 200 Other: Voiding Method Bedside Commode Bedside Commode Bedside Commode Incontinent # Voids 1 - Exam - Constitutional General appearance: average body habitus, mild distress - EENT Eyes: anicteric sclerae, EOMI, PERRLA, no ptosis, no scleral icterus, normal appearance ENT: hearing grossly normal, NA/AT, normal oropharynx, no thrush, no tonsillar exudates Ears: bilateral: normal - Neck Neck: no lymphadenopathy, normal ROM, no rigidity, no stridor, no thyromegaly Carotids: bilateral: upstroke delayed Thyroid: bilateral: normal size - Respiratory Respiratory: bilateral: diminished, rhonchi, wheezing, prolonged expiration, negative: dullness, rales - Cardiovascular Rhythm: irregularly irregular Heart sounds: normal: S1, S2 Abnormal Heart Sounds: systolic murmur - Gastrointestinal General gastrointestinal: normal bowel sounds, soft, no splenomegaly, no tenderness (There is colostomy bag in place), ventral hernia (Large abdominal wall hernia.) - Integumentary Integumentary: normal, normal turgor - Neurologic Neurologic: CNII-XII intact - Musculoskeletal Musculoskeletal: no gait normal, generalized weakness, strength equal bilaterally - Psychiatric Psychiatric: A&O x's 3, appropriate affect, intact judgment & insight - Labs CBC & Chem 7: 07/30/17 05:53 07/30/17 05:53 Labs: Abnormal Lab Results - Last 24 Hours (Table) 07/29/17 07/29/17 07/29/17 Range/Units 17:02 20:56 20:57 Neutrophils # (1.3-7.7) k/uL Lymphocytes # (1.0-4.8) k/uL Chloride (98-107) mmol/L Carbon Dioxide (22-30) mmol/L BUN (7-17) mg/dL Glucose (74-99) mg/dL POC Glucose (mg/dL) 203 H 500 H 234 H (75-99) mg/dL Urine Appearance (Clear) Urine Protein (Negative) Urine Blood (Negative) Ur Leukocyte Esterase (Negative) Urine RBC (0-5) /hpf Urine WBC (0-5) /hpf Urine Bacteria (None) /hpf Hyaline Casts (0-2) /lpf Urine Yeast (Budding) (None) /hpf 07/29/17 07/30/17 07/30/17 Range/Units 21:25 05:48 05:53 Neutrophils # 10.0 H (1.3-7.7) k/uL Lymphocytes # 0.2 L (1.0-4.8) k/uL Chloride (98-107) mmol/L Carbon Dioxide (22-30) mmol/L BUN (7-17) mg/dL Glucose (74-99) mg/dL POC Glucose (mg/dL) 228 H (75-99) mg/dL Urine Appearance Cloudy H (Clear) Urine Protein 2+ H (Negative) Urine Blood Large H (Negative) Ur Leukocyte Esterase Large H (Negative) Urine RBC >182 H (0-5) /hpf Urine WBC 21 H (0-5) /hpf Urine Bacteria Many H (None) /hpf Hyaline Casts 22 H (0-2) /lpf Urine Yeast (Budding) Many H (None) /hpf 07/30/17 07/30/17 Range/Units 05:53 11:59 Neutrophils # (1.3-7.7) k/uL Lymphocytes # (1.0-4.8) k/uL Chloride 93 L (98-107) mmol/L Carbon Dioxide 35 H (22-30) mmol/L BUN 38 H (7-17) mg/dL Glucose 251 H (74-99) mg/dL POC Glucose (mg/dL) 290 H (75-99) mg/dL Urine Appearance (Clear) Urine Protein (Negative) Urine Blood (Negative) Ur Leukocyte Esterase (Negative) Urine RBC (0-5) /hpf Urine WBC (0-5) /hpf Urine Bacteria (None) /hpf Hyaline Casts (0-2) /lpf Urine Yeast (Budding) (None) /hpf Microbiology - Last 24 Hours (Table) 07/30/17 00:00 Urine Culture - Preliminary Urine,Clean Catch 07/27/17 14:35 Blood Culture - Preliminary Blood No Growth after 48 hours Assessment and Plan Plan: 1. Acute on chronic hypoxemic respiratory failure due to accommodation of acute exacerbation of COPD as well as acute systolic heart failure. Continue the patient on Lasix 40 mg IV push every 12 hours, labetalol 300 mg orally twice every day, continue patient on DuoNeb 3 mg nebulization 4 times every day , Solu-Medrol changed to prednisone, Pulmicort nebulization twice every day, continue oxygen support, echocardiogram was done awaiting the result, cardiology and pulmonary consultation were in order. 2. Chronic diastolic heart failure with ejection fraction of 55% in the past. Continue labetalol 300 mg orally twice every day, continue patient on Lasix 40 mg IV push every 12 hours. 3. large anterior abdominal wall hernia. Stable at this time. 4. History of obstructive proximal right ureteral calculus status post cystoscopy and insertion of a double-J stent in the right kidney. 5. History of CVA. history of with a large infarct involving the left hemisphere. Continue aspirin 81 mg orally once every day as well as Eliquis 2.5 mg orally twice every day for life. 6. History of vertebral fracture involving the C1 and C2 spine with chronic neck pain 7. Hypertension and hypertensive cardiovascular disease. Continue labetalol 200 mg orally twice every day, hydralazine 25 mg orally 3 times every day. 8. Diabetes mellitus type 2. currently on Levemir insulin 44 units at bedtime in addition to abnormal exercise coverage, continue glyburide 4 mg orally twice every day, continue to monitor blood glucose level before each meal and at bedtime. 9. coronary artery disease with previous coronary intervention and stenting. Continue aspirin 81 mg orally once every day, labetalol 200 mg orally twice every day. 10. paroxysmal atrial fibrillation, currently on long-term and to coagulation with Eliquis. 11. severe pulmonary hypertension related to COPD and diastolic dysfunction. Continue Lasix and labetalol. 12. peptic ulcer disease. Continue patient on Protonix 40 mg orally once every day. 13. 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 14. chronic anemia, current hemoglobin is stable and above 13. 15. peripheral Vascular disease. Continue aspirin 81 mg once every day for secondary prevention. 16. previous carotid endarterectomy for carotid artery disease. 17. recurrent urine checked infection with VRE and the repeat cultures from 10/2016 is showing enterococcal infection which is a VRE organism. 18. History of MRSA wound infection involving the sacral ulcers. 19. Admit to inpatient. Estimated length of stay 2 midnights. 20. DVT prophylaxis. Continue patient on Eliquis 2.5 mg orally twice every day as well as bilateral knee-high DOROTHY hose. 21. GI prophylaxis. Continue PPI. 22. Patient is full code. Discharge plan: Return to [facility] Impression and plan of care have been directed as dictated by the signing physician. Destiny Jones nurse practitioner acting as scribe for signing physician.
[2017-07-30] MEDS: FERROUS SULFATE 325 MG TAB PO SCH (15:24)
[2017-07-30 16:42] LABS: Glucose,Whole Blood 213 mg/dL (75-99)
[2017-07-30 21:11] LABS: Glucose,Whole Blood 264 mg/dL (75-99)
[2017-07-30] MEDS: clonazePAM 0.5 MG TAB PO SCH (21:27)
[2017-07-30] MEDS: LABETALOL 100 MG TAB PO SCH (21:52)
[2017-07-31] MEDS: HYDROcodone/APAP 10-325MG 1 EACH TAB PO PRN ×3 (05:35→20:27)
[2017-07-31 06:00] LABS: Glucose,Whole Blood 201 mg/dL (75-99)
[2017-07-31 06:36] LABS: Basophils % (A) 0 %; Eosinophils # (A) 0.1 k/uL (0-0.7); Eosinophils % (A) 1 %; HCT 43.7 % (34.0-46.0); HGB 13.7 gm/dL (11.4-16.0); Lymphocytes # (A) 0.3 k/uL (1.0-4.8); Lymphocytes % (A) 2 %; MCH 29.8 pg (25.0-35.0); MCHC 31.4 g/dL (31.0-37.0); MCV 94.8 fL (80.0-100.0); Mean Platelet Volume 7.9; Monocytes # (A) 0.4 k/uL (0-1.0); Monocytes % (A) 3 %; Neutrophils # (A) 11.3 k/uL (1.3-7.7); Neutrophils % (A) 93 %; Platelet Count 202 k/uL (150-450); RBC 4.61 m/uL (3.80-5.40); RDW 14.5 % (11.5-15.5); WBC 12.2 k/uL (3.8-10.6)
[2017-07-31 06:43] LABS: Albumin 3.6 g/dL (3.5-5.0); Calcium 9.4 mg/dL (8.4-10.2); Potassium 3.9 mmol/L (3.5-5.1); Total Bilirubin 0.6 mg/dL (0.2-1.3); Total Protein 6.2 g/dL (6.3-8.2)
[2017-07-31] MEDS ORDERED: diphenhydrAMINE 50 MG CAP PO PRN (07:02)
[2017-07-31] MEDS: PANTOPRAZOLE 40 MG TABLET PO SCH (07:10)
[2017-07-31] MEDS: hydrALAZINE HCL 25 MG TAB PO SCH ×3 (07:10→22:55)
[2017-07-31] MEDS: INSULIN ASPART 100 UNIT/ML 1 ML 10 ML VIAL SQ SCH ×7 (07:10→21:42)
[2017-07-31] MEDS: BUDESONIDE 0.5 MG/2 ML NEBU INHALATION SCH ×2 (08:12→20:22)
[2017-07-31] MEDS: IPRATROPIUM-ALBUTEROL 3 ML NEB INHALATION SCH ×4 (08:12→20:22)
[2017-07-31] MEDS: FUROSEMIDE 10 MG/ML 4 ML VIAL IV SCH ×2 (08:42→22:53)
[2017-07-31] MEDS: ASPIRIN 81 MG PO SCH (08:42)
[2017-07-31] MEDS: AMMONIUM LACTATE 12% LOTION 225 GM BTL TOPICAL SCH (08:42)
[2017-07-31] MEDS: buPROPion SR 100 MG TABLET.ER PO SCH (08:42)
[2017-07-31] MEDS: APIXABAN 2.5 MG TABLET PO SCH ×2 (08:42→22:55)
[2017-07-31] MEDS: ALLOPURINOL 100 MG TAB PO SCH (08:42)
[2017-07-31] MEDS: LABETALOL 100 MG TAB PO SCH ×2 (08:43→22:54)
[2017-07-31] MEDS: LISINOPRIL 5 MG TAB PO SCH (08:43)
[2017-07-31] MEDS: levETIRAcetam 500 MG TAB PO SCH ×2 (08:43→22:55)
[2017-07-31] MEDS: SERTRALINE 100 MG TAB PO SCH (08:44)
[2017-07-31] MEDS: predniSONE 20 MG TAB PO SCH (08:44)
[2017-07-31] MEDS: SPIRONOLACTONE 25 MG TAB PO SCH (08:45)
[2017-07-31] MEDS: INSULIN DETEMIR 100 UNIT/ML 10 ML VIAL SQ SCH ×2 (08:46→21:43)
[2017-07-31] MEDS ORDERED: MAG HYDROX/AL HYDROX/SIMETH 30 ML, LIDOCAINE VISCOUS 30 ML, NYSTATIN 100,000 UNIT/ML SU... PO SCH ×3 (09:00)
[2017-07-31 12:02] LABS: Glucose,Whole Blood 256 mg/dL (75-99)
[2017-07-31] MEDS: guaiFENesin 600 MG TABLET.ER PO SCH ×2 (13:48→22:54)
[2017-07-31] MEDS: FERROUS SULFATE 325 MG TAB PO SCH (13:48)
[2017-07-31] MEDS: methylPREDNISolone SOD SUCCI 40 MG/ML 1 ML VIAL IV SCH ×2 (13:50→22:54)
--- NOTE | 2017-07-31 15:21 | P.PN ---
Subjective Progress Note Date: 07/31/17 Principal diagnosis: Acute exacerbation of chronic obstructive pulmonary disease along with acute exacerbation of diastolic congestive heart failure 68-year-old female patient referred to the [facility] department from [facility] [place] the [place] because of increased shortness of breath. Apparently the patient has been having increased dyspnea for the past 2 days. She is coughing and her cough is congested at times she is producing some yellowish sputum. She has also become bronchus spastic and wheezy. She is known to have COPD and tracheal bronchomalacia. She also has an extensive cardiac history. She was desaturating and her pulse ox was also noted to be low. For that reason the patient was sent over to the hospital for further treatment. The patient had some chest discomfort along the right side of the chest and upper body. No altered mentation. No pleurisy. No hemoptysis. She denies having any aspiration. The chest x-ray shows a component of CHF with cardiomegaly and tiny bilateral pleural effusion. There is excellent COPD. Currently, the patient on DuoNeb about treatments around the clock, she is also on a combination of Pulmicort rescue twice a day and Perforomist neb last treatment twice a day, she is on IV Solu Medrol 40 g every 8 hours and she is also on Lasix 40 g IV push every 12 hours. The patient has had multiple hospitalizations in the past. On 07 29 2017 the patient is feeling better less short of breath compared to yesterday. Sitting up on a chair. Cough and wheezing and bronchospasm improved compared yesterday and the patient did not have any significant events overnight. Meanwhile, the patient remains on DuoNeb neb last treatment around- the-clock, Pulmicort Respules, IV Lasix 40 mg every 12 hours and the patient has been tapered down to 40 mg of IV Lasix to 8 hours. No other significant events overnight. She did develop some steroid use hyperglycemia and the patient is currently on sliding scale insulin coverage. The patient is seen again today 07/30/2017 in follow-up on the selective care unit. She is currently awake and alert in no acute distress. She denies any worsening shortness of breath, cough or congestion. She is maintaining good O2 saturations in the upper 90s on 2 L/m per nasal cannula. She's been afebrile. White count 10.6. Hemoglobin 14.1. Creatinine 0.97. She is continued on bronchodilators, Pulmicort, prednisone. She is diuresing well. Patient is seen again today 07/31/2017 in follow-up on the selective care unit. She is currently resting fairly comfortably in bed. She denies any worsening shortness of breath, cough or congestion. Is maintaining good O2 saturations in the upper 90s on 2 L/m per nasal cannula. She's currently afebrile. Slightly tachycardic. White count 12.2. Hemoglobin 13.7. Creatinine 1.10. Urine cultures positive for group D enterococcus. Currently on Levaquin. Objective - Vital Signs Vital signs: Vital Signs Temp 96.7 F L 07/31/17 11:22 Pulse 116 H 07/31/17 13:31 Resp 24 07/31/17 11:22 BP 106/68 07/31/17 11:22 Pulse Ox 98 07/31/17 11:22 Intake & Output 07/30/17 07/31/17 07/31/17 18:59 06:59 18:59 Intake Total 120 200 830 Output Total 200 1100 200 Balance -80 -900 630 Weight 71.8 kg Intake: Oral 120 200 830 Output: Urine 200 Stool 200 900 200 Other: Voiding Method Bedside Commode Bedside Commode Bedside Commode # Voids 1 - Exam Patient is awake and alert and she is following commands and answering questions appropriately. She has some occasional cough and episodes. This is a barky cough. Unable to bring up much of sputum. No apparent respiratory distress. She is not using excessive muscle breathing. l. There was no scleral icterus or corneal arcus. Mucous membranes were moist. Mucous membranes are quite dry. Mild JVDs and there is no goiter or neck masses at this point. No neck stiffness. Lungs sounds revealed equal and symmetrical breath sounds with some limited crackles at lung bases bilaterally. No wheezes or rhonchi. Heart sounds are irregular, positive S1-S2, no S3, no S4, no murmurs. Abdomen is soft and there is no direct tenderness a month or so guarding. The patient has a functional colostomy site in her right abdominal wall area. In addition, the patient has a large anterior abdominal wall hernia. No rebound tenderness. No guarding.Examination of the extremities revealed easily palpable radial, femoral and pedal pulses. There was no cyanosis , clubbing or edema. Neurologically the patient is awake and alert. She is moving all 4 extremities. She is weak and her weakness is chronic and the patient is unable to ambulate and she has obvious gait dysfunction. - Labs CBC & Chem 7: 07/31/17 06:16 07/31/17 06:16 Labs: Abnormal Lab Results - Last 24 Hours (Table) 07/30/17 07/30/17 07/31/17 Range/Units 16:34 20:59 05:58 WBC (3.8-10.6) k/uL Neutrophils # (1.3-7.7) k/uL Lymphocytes # (1.0-4.8) k/uL Chloride (98-107) mmol/L Carbon Dioxide (22-30) mmol/L BUN (7-17) mg/dL Creatinine (0.52-1.04) mg/dL Glucose (74-99) mg/dL POC Glucose (mg/dL) 213 H 264 H 201 H (75-99) mg/dL Total Protein (6.3-8.2) g/dL 07/31/17 07/31/17 07/31/17 Range/Units 06:16 06:16 11:40 WBC 12.2 H (3.8-10.6) k/uL Neutrophils # 11.3 H (1.3-7.7) k/uL Lymphocytes # 0.3 L (1.0-4.8) k/uL Chloride 94 L (98-107) mmol/L Carbon Dioxide 34 H (22-30) mmol/L BUN 47 H (7-17) mg/dL Creatinine 1.10 H (0.52-1.04) mg/dL Glucose 218 H (74-99) mg/dL POC Glucose (mg/dL) 256 H (75-99) mg/dL Total Protein 6.2 L (6.3-8.2) g/dL Microbiology - Last 24 Hours (Table) 07/30/17 00:00 Urine Culture - Preliminary Urine,Clean Catch Group D Enterococcus 07/27/17 14:35 Blood Culture - Preliminary Blood No Growth after 72 hours Assessment and Plan Assessment: Assessment 1 acute shortness of breath secondary to exacerbation of COPD/CHF. No clear indication of an underlying pneumonia based on the chest x-ray findings. Clinically improving as the patient is being treated for both COPD and CHF exacerbation with a combination of bronchodilators steroids and diuretics. Improved. 2 chronic hypoxic and hypercapnic respiratory failure, along with a history of COPD 3 CHF with mild concentric left ventricular hypertrophy and an ejection fraction of 50-55%, essentially of a diastolic dysfunction 4 large anterior abdominal wall hernia 5 obstructive proximal right ureteral calculus status post cystoscopy and insertion of a double-J stent in the right kidney, 6 CVA, history of with a large infarct involving the left hemisphere 7 vertebral fracture involving the C1 and C2 spine with chronic neck pain 8 hypertension 9 diabetes mellitus, currently on Levemir insulin 44 units at bedtime in addition to abnormal exercise coverage 10 coronary artery disease with previous coronary intervention and stenting 11 paroxysmal atrial fibrillation, currently on long-term and to coagulation with Eliquis 12 severe pulmonary hypertension related to COPD and diastolic dysfunction 13 peptic ulcer disease 14 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 Plan: The patient was seen and evaluated by Dr. Garcia. She remains stable from the pulmonary standpoint. Complete her course of antibiotics. Complete a prednisone taper. Continue diuretics. She could be seen by Dr. Iniguez at [facility] if needed. If not transferred today we will continue to follow make further recommendations based on her clinical status. I, the cosigning physician, performed a history & physical examination of the patient. Lungs sounds with faint end expiratory wheeze. Fine crackles.. Maintaining good O2 saturations in the 90s on 2 L/m per nasal cannula. I discussed the assessment and plan of care with my nurse practitioner, Carolyn Bridges. I attest to the above note as dictated by her.
--- NOTE | 2017-07-31 15:27 | P.PN ---
Subjective Progress Note Date: 07/31/17 Principal diagnosis: CHF/COPD This is a 72-year-old female with past medical history significant for diabetes, hypertension, hyperlipidemia, COPD, who was admitted to the hospital with symptoms of cough with productive sputum. She had been being treated as an outpatient for pneumonia. Cardiology got involved in the care of this patient because of congestive heart failure. She was initiated on IV Lasix , her weight today is down 2 kg. She had a repeat echocardiogram with Doppler study performed here which revealed an ejection fraction of 25-30%. Medication adjustments for cardiomyopathy and heart failure were made over the weekend. This morning the patient was seen and examined, overall she states her breathing has improved significantly still having some mild shortness of breath. Her blood pressure this morning 164/80, heart rate in the 1 teens to 120s. White blood cell count 10.6, hemoglobin 14.1, platelet count 196. Sodium 139, potassium 4.1, BUN 30, creatinine 0.9. Urine screen also positive for UTI. Patient is complaining of some lower back discomfort to this morning. We will increase her dose of labetalol to 300 mg one tablet by mouth twice a day and increase lisinopril to 10 mg daily. Continue IV Lasix at this time, check lytes BUN and creatinine in the morning, and continue to monitor closely her daily weights and intake and output. 07/31/2017 Patient seen and examined today, resting comfortably in bed, complaining of mild abdominal discomfort, overall breathing is stable. Maintaining good oxygenation. Hemodynamically stable, heart rate in the 1 teens. Urine cultures positive for group D enterococcus, currently on Levaquin. Objective - Vital Signs Vital signs: Vital Signs Temp 96.7 F L 07/31/17 11:22 Pulse 116 H 07/31/17 13:31 Resp 24 07/31/17 11:22 BP 106/68 07/31/17 11:22 Pulse Ox 98 07/31/17 11:22 Intake & Output 07/30/17 07/31/17 07/31/17 18:59 06:59 18:59 Intake Total 120 200 830 Output Total 200 1100 200 Balance -80 -900 630 Weight 71.8 kg Intake: Oral 120 200 830 Output: Urine 200 Stool 200 900 200 Other: Voiding Method Bedside Commode Bedside Commode Bedside Commode # Voids 1 - Exam PHYSICAL EXAMINATION: HEENT: Head is atraumatic, normocephalic. Pupils equal, round. Neck is supple. There is no elevated jugular venous pressure. HEART EXAMINATION: Heart S1 and S2 irregular irregular a systolic murmur is heard. CHEST EXAMINATION: Lungs reveal coarse wheezing throughout with scattered rhonchi, diminished air entry to the bases. ABDOMEN: Soft, nontender. Bowel sounds are heard. No organomegaly noted. EXTREMITIES: 2+ peripheral pulses with evidence of peripheral edema and no calf tenderness noted. NEUROLOGIC patient is awake, alert and oriented -3. . - Labs CBC & Chem 7: 07/31/17 06:16 07/31/17 06:16 Labs: Abnormal Lab Results - Last 24 Hours (Table) 07/30/17 07/30/17 07/31/17 Range/Units 16:34 20:59 05:58 WBC (3.8-10.6) k/uL Neutrophils # (1.3-7.7) k/uL Lymphocytes # (1.0-4.8) k/uL Chloride (98-107) mmol/L Carbon Dioxide (22-30) mmol/L BUN (7-17) mg/dL Creatinine (0.52-1.04) mg/dL Glucose (74-99) mg/dL POC Glucose (mg/dL) 213 H 264 H 201 H (75-99) mg/dL Total Protein (6.3-8.2) g/dL 07/31/17 07/31/17 07/31/17 Range/Units 06:16 06:16 11:40 WBC 12.2 H (3.8-10.6) k/uL Neutrophils # 11.3 H (1.3-7.7) k/uL Lymphocytes # 0.3 L (1.0-4.8) k/uL Chloride 94 L (98-107) mmol/L Carbon Dioxide 34 H (22-30) mmol/L BUN 47 H (7-17) mg/dL Creatinine 1.10 H (0.52-1.04) mg/dL Glucose 218 H (74-99) mg/dL POC Glucose (mg/dL) 256 H (75-99) mg/dL Total Protein 6.2 L (6.3-8.2) g/dL Microbiology - Last 24 Hours (Table) 07/30/17 00:00 Urine Culture - Preliminary Urine,Clean Catch Group D Enterococcus 07/27/17 14:35 Blood Culture - Preliminary Blood No Growth after 72 hours Assessment and Plan Plan: Assessment and plan #1 pneumonia and exacerbation of COPD #2 systolic congestive heart failure acute on chronic #3 hypertension #4 diabetes #5 chronic persistent atrial fibrillation #6 hyperlipidemia #7 chronic kidney disease, stable Plan From cardiology's perspective, we'll continue current dose of IV Lasix. Check lytes BUN and creatinine in the morning. DNP note has been reviewed, I agree with a documented findings and plan of care. Patient was seen and examined.
[2017-07-31 21:22] LABS: Glucose,Whole Blood 265 mg/dL (75-99)
[2017-07-31] MEDS: LEVOFLOXACIN 250 MG TAB PO SCH (23:00)
[2017-07-31] MEDS: clonazePAM 0.5 MG TAB PO SCH (23:00)
[2017-08-01] MEDS ORDERED: diphenhydrAMINE 25 MG CAP ONE (01:23)
[2017-08-01 06:06] LABS: Glucose,Whole Blood 231 mg/dL (75-99)
[2017-08-01] MEDS: PANTOPRAZOLE 40 MG TABLET PO SCH (06:36)
[2017-08-01] MEDS: hydrALAZINE HCL 25 MG TAB PO SCH ×2 (06:36→20:48)
[2017-08-01] MEDS: HYDROcodone/APAP 10-325MG 1 EACH TAB PO PRN ×3 (06:36→19:05)
[2017-08-01] MEDS: INSULIN ASPART 100 UNIT/ML 1 ML 10 ML VIAL SQ SCH ×6 (06:37→21:34)
[2017-08-01] MEDS: guaiFENesin 600 MG TABLET.ER PO SCH ×2 (08:05→20:49)
[2017-08-01] MEDS: levETIRAcetam 500 MG TAB PO SCH ×2 (08:05→20:48)
[2017-08-01] MEDS: APIXABAN 2.5 MG TABLET PO SCH ×2 (08:05→20:49)
[2017-08-01] MEDS: FUROSEMIDE 10 MG/ML 4 ML VIAL IV SCH (08:05)
[2017-08-01] MEDS: LABETALOL 100 MG TAB PO SCH (08:06)
[2017-08-01] MEDS: buPROPion SR 100 MG TABLET.ER PO SCH (08:07)
[2017-08-01] MEDS: POTASSIUM CHLORIDE ER 10 MEQ TAB.ER.PRT PO SCH (08:07)
[2017-08-01] MEDS: SERTRALINE 100 MG TAB PO SCH (08:07)
[2017-08-01] MEDS: ASPIRIN 81 MG PO SCH (08:08)
[2017-08-01] MEDS: ALLOPURINOL 100 MG TAB PO SCH (08:08)
[2017-08-01] MEDS: LISINOPRIL 5 MG TAB PO SCH (08:08)
[2017-08-01] MEDS: SPIRONOLACTONE 25 MG TAB PO SCH (08:09)
[2017-08-01] MEDS: methylPREDNISolone SOD SUCCI 40 MG/ML 1 ML VIAL IV SCH ×2 (08:10→20:59)
--- NOTE | 2017-08-01 08:11 | P.PN ---
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, patient apparently was in her usual state of health about 2 days ago when she was at [facility] and developed to have an increased shortness of breath and she became somewhat confused,and they ended up sending the patient to the ER for evaluation she was found to have hypoxemia with significant shortness of breath thought to be due to possible combination of COPD exacerbation as well as an acute diastolic heart failure, patient was started on IV diuretics as well as IV Solu-Medrol she was seen in consultation by pulmonary and by cardiology, underwent echocardiogram still pending at the time of dictation. 4/1: Patient is complaining of pain in the lower back and she is feeling itchy as well she denies any chest pain or any shortness breath she is having less she has no abdominal pain, her stoma is working very well. 4/2: Patient remains on IV Lasix. Her heart rate has been running high around 116 and hypertensive and cardiology has increased metipranolol, increased dose of lisinopril to 10 mg daily and added and labetalol 300 mg twice daily. IV Solu-Medrol will be switched over to oral. Pulmonary medicine has cleared patient for discharge. She had an abdominal x-ray done today for abdominal pain that revealed a right-sided ureteral stent. There is partial uncoiling of the proximal loop but appears to remain appropriately positioned. Moderate stool burden. No evidence of free air or bowel obstruction. Bowel gas projecting lateral to the right hip this could represent overhanging panniculus or abdominal wall hernia. 4/3: Patient's heart rate continues to be elevated at 116-124. She is complaining of some shortness of breath this morning and she is currently on Lasix 40 mg IV every 12 hours. Patient will be resumed back on Solu-Medrol at 40 mg. Her white count is at 12.2, hemoglobin 13.7, creatinine 1.1. Urine cultures are showing group D enterococcus. Patient is on Levaquin. Weight is down 2.5 kg since admission. Objective - Vital Signs Vital signs: Vital Signs Temp 96.8 F L 07/31/17 08:00 Pulse 124 H 07/31/17 08:32 Resp 24 07/31/17 08:00 BP 104/52 07/31/17 08:00 Pulse Ox 100 07/31/17 08:00 Intake & Output 07/30/17 07/31/17 07/31/17 18:59 06:59 18:59 Intake Total 120 200 350 Output Total 200 1100 Balance -80 -900 350 Weight 71.8 kg Intake: Oral 120 200 350 Output: Urine 200 Stool 200 900 Other: Voiding Method Bedside Commode Bedside Commode Bedside Commode # Voids 1 - Exam - Constitutional General appearance: average body habitus, mild distress - EENT Eyes: anicteric sclerae, EOMI, PERRLA, no ptosis, no scleral icterus, normal appearance ENT: hearing grossly normal, NA/AT, normal oropharynx, no thrush, no tonsillar exudates Ears: bilateral: normal - Neck Neck: no lymphadenopathy, normal ROM, no rigidity, no stridor, no thyromegaly Carotids: bilateral: upstroke delayed Thyroid: bilateral: normal size - Respiratory Respiratory: bilateral: diminished, rhonchi, wheezing, prolonged expiration, negative: dullness, rales - Cardiovascular Rhythm: irregularly irregular Heart sounds: normal: S1, S2 Abnormal Heart Sounds: systolic murmur - Gastrointestinal General gastrointestinal: normal bowel sounds, soft, no splenomegaly, no tenderness (There is colostomy bag in place), ventral hernia (Large abdominal wall hernia.) - Integumentary Integumentary: normal, normal turgor - Neurologic Neurologic: CNII-XII intact - Musculoskeletal Musculoskeletal: no gait normal, generalized weakness, strength equal bilaterally - Psychiatric Psychiatric: A&O x's 3, appropriate affect, intact judgment & insight - Labs CBC & Chem 7: 07/31/17 06:16 07/31/17 06:16 Labs: Abnormal Lab Results - Last 24 Hours (Table) 07/30/17 07/30/17 07/30/17 Range/Units 11:59 16:34 20:59 WBC (3.8-10.6) k/uL Neutrophils # (1.3-7.7) k/uL Lymphocytes # (1.0-4.8) k/uL Chloride (98-107) mmol/L Carbon Dioxide (22-30) mmol/L BUN (7-17) mg/dL Creatinine (0.52-1.04) mg/dL Glucose (74-99) mg/dL POC Glucose (mg/dL) 290 H 213 H 264 H (75-99) mg/dL Total Protein (6.3-8.2) g/dL 07/31/17 07/31/17 07/31/17 Range/Units 05:58 06:16 06:16 WBC 12.2 H (3.8-10.6) k/uL Neutrophils # 11.3 H (1.3-7.7) k/uL Lymphocytes # 0.3 L (1.0-4.8) k/uL Chloride 94 L (98-107) mmol/L Carbon Dioxide 34 H (22-30) mmol/L BUN 47 H (7-17) mg/dL Creatinine 1.10 H (0.52-1.04) mg/dL Glucose 218 H (74-99) mg/dL POC Glucose (mg/dL) 201 H (75-99) mg/dL Total Protein 6.2 L (6.3-8.2) g/dL Microbiology - Last 24 Hours (Table) 07/27/17 14:35 Blood Culture - Preliminary Blood No Growth after 72 hours 07/30/17 00:00 Urine Culture - Preliminary Urine,Clean Catch Assessment and Plan Plan: 1. Acute on chronic hypoxemic respiratory failure due to accommodation of acute exacerbation of COPD as well as acute systolic heart failure. Continue the patient on Lasix 40 mg IV push every 12 hours, labetalol 300 mg orally twice every day, continue patient on DuoNeb 3 mg nebulization 4 times every day , Solu-Medrol 40 mg every 12 hours, Pulmicort nebulization twice every day, continue oxygen support, echocardiogram was done awaiting the result, cardiology and pulmonary consultation were in order. 2. Chronic diastolic heart failure with ejection fraction of 55% in the past. Continue labetalol 300 mg orally twice every day, continue patient on Lasix 40 mg IV push every 12 hours. 3. large anterior abdominal wall hernia. Stable at this time. 4. History of obstructive proximal right ureteral calculus status post cystoscopy and insertion of a double-J stent in the right kidney. 5. History of CVA. history of with a large infarct involving the left hemisphere. Continue aspirin 81 mg orally once every day as well as Eliquis 2.5 mg orally twice every day for life. 6. History of vertebral fracture involving the C1 and C2 spine with chronic neck pain 7. Hypertension and hypertensive cardiovascular disease. Continue labetalol 200 mg orally twice every day, hydralazine 25 mg orally 3 times every day. 8. Diabetes mellitus type 2. currently on Levemir insulin 44 units at bedtime in addition to abnormal exercise coverage, continue glyburide 4 mg orally twice every day, continue to monitor blood glucose level before each meal and at bedtime. 9. coronary artery disease with previous coronary intervention and stenting. Continue aspirin 81 mg orally once every day, labetalol 200 mg orally twice every day. 10. paroxysmal atrial fibrillation, currently on long-term and to coagulation with Eliquis. 11. severe pulmonary hypertension related to COPD and diastolic dysfunction. Continue Lasix and labetalol. 12. peptic ulcer disease. Continue patient on Protonix 40 mg orally once every day. 13. 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 14. chronic anemia, current hemoglobin is stable and above 13. 15. peripheral Vascular disease. Continue aspirin 81 mg once every day for secondary prevention. 16. previous carotid endarterectomy for carotid artery disease. 17. recurrent urine checked infection with VRE and the repeat cultures from 10/2016 is showing enterococcal infection which is a VRE organism. 18. History of MRSA wound infection involving the sacral ulcers. 19. Admit to inpatient. Estimated length of stay 2 midnights. 20. DVT prophylaxis. Continue patient on Eliquis 2.5 mg orally twice every day as well as bilateral knee-high DOROTHY hose. 21. GI prophylaxis. Continue PPI. 22. Patient is full code. Discharge plan: Return to [facility] Impression and plan of care have been directed as dictated by the signing physician. Destiny Jones nurse practitioner acting as scribe for signing physician.
[2017-08-01] MEDS: INSULIN DETEMIR 100 UNIT/ML 10 ML VIAL SQ SCH ×2 (08:26→20:47)
[2017-08-01] MEDS: BUDESONIDE 0.5 MG/2 ML NEBU INHALATION SCH (08:48)
[2017-08-01] MEDS: IPRATROPIUM-ALBUTEROL 3 ML NEB INHALATION SCH ×4 (08:48→20:26)
[2017-08-01] MEDS ORDERED: BUPRENORPHINE TRANSDERM SCH (09:00)
[2017-08-01 10:40] LABS: Calcium 9.4 mg/dL (8.4-10.2); Potassium 4.1 mmol/L (3.5-5.1)
[2017-08-01 12:04] LABS: Glucose,Whole Blood 261 mg/dL (75-99)
--- NOTE | 2017-08-01 12:16 | P.PN ---
Subjective Progress Note Date: 08/01/17 Principal diagnosis: CHF/COPD This is a 72-year-old female with past medical history significant for diabetes, hypertension, hyperlipidemia, COPD, who was admitted to the hospital with symptoms of cough with productive sputum. She had been being treated as an outpatient for pneumonia. Cardiology got involved in the care of this patient because of congestive heart failure. She was initiated on IV Lasix , her weight today is down 2 kg. She had a repeat echocardiogram with Doppler study performed here which revealed an ejection fraction of 25-30%. Medication adjustments for cardiomyopathy and heart failure were made over the weekend. This morning the patient was seen and examined, overall she states her breathing has improved significantly still having some mild shortness of breath. Her blood pressure this morning 164/80, heart rate in the 1 teens to 120s. White blood cell count 10.6, hemoglobin 14.1, platelet count 196. Sodium 139, potassium 4.1, BUN 30, creatinine 0.9. Urine screen also positive for UTI. Patient is complaining of some lower back discomfort to this morning. We will increase her dose of labetalol to 300 mg one tablet by mouth twice a day and increase lisinopril to 10 mg daily. Continue IV Lasix at this time, check lytes BUN and creatinine in the morning, and continue to monitor closely her daily weights and intake and output. 07/31/2017 Patient seen and examined today, resting comfortably in bed, complaining of mild abdominal discomfort, overall breathing is stable. Maintaining good oxygenation. Hemodynamically stable, heart rate in the 1 teens. Urine cultures positive for group D enterococcus, currently on Levaquin. 08/01/2017 Patient seen and examined this morning, stable overall, denies any worsening in her breathing. Blood pressure 135/114, heart rate up in the 120s today. Sodium 142, potassium 4.1, BUN 57, creatinine 1.1. Objective - Vital Signs Vital signs: Vital Signs Temp 97.2 F L 08/01/17 04:00 Pulse 114 H 08/01/17 12:01 Resp 20 08/01/17 08:00 BP 135/114 08/01/17 04:00 Pulse Ox 99 08/01/17 04:00 Intake & Output 07/31/17 08/01/17 08/01/17 18:59 06:59 18:59 Intake Total 1560 300 600 Output Total 400 600 200 Balance 1160 -300 400 Weight 72.8 kg Intake: Oral 1560 300 600 Output: Stool 400 600 200 Other: Voiding Method Bedside Commode Bedside Commode Bedside Commode # Voids 1 - Exam PHYSICAL EXAMINATION: HEENT: Head is atraumatic, normocephalic. Pupils equal, round. Neck is supple. There is no elevated jugular venous pressure. HEART EXAMINATION: Heart S1 and S2 irregular irregular a systolic murmur is heard. CHEST EXAMINATION: Lungs reveal coarse wheezing throughout with scattered rhonchi, diminished air entry to the bases. ABDOMEN: Soft, nontender. Bowel sounds are heard. No organomegaly noted. EXTREMITIES: 2+ peripheral pulses with evidence of peripheral edema and no calf tenderness noted. NEUROLOGIC patient is awake, alert and oriented -3. . - Labs CBC & Chem 7: 07/31/17 06:16 08/01/17 10:04 Labs: Abnormal Lab Results - Last 24 Hours (Table) 07/31/17 08/01/17 08/01/17 Range/Units 21:02 06:05 10:04 Chloride 95 L (98-107) mmol/L Carbon Dioxide 35 H (22-30) mmol/L BUN 57 H (7-17) mg/dL Creatinine 1.18 H (0.52-1.04) mg/dL Glucose 253 H (74-99) mg/dL POC Glucose (mg/dL) 265 H 231 H (75-99) mg/dL 08/01/17 Range/Units 11:46 Chloride (98-107) mmol/L Carbon Dioxide (22-30) mmol/L BUN (7-17) mg/dL Creatinine (0.52-1.04) mg/dL Glucose (74-99) mg/dL POC Glucose (mg/dL) 261 H (75-99) mg/dL Microbiology - Last 24 Hours (Table) 07/27/17 14:35 Blood Culture - Preliminary Blood No Growth after 96 hours 07/30/17 00:00 Urine Culture - Preliminary Urine,Clean Catch Group D Enterococcus Assessment and Plan Plan: Assessment and plan #1 pneumonia and exacerbation of COPD #2 systolic congestive heart failure acute on chronic #3 hypertension #4 diabetes #5 chronic persistent atrial fibrillation #6 hyperlipidemia #7 chronic kidney disease, stable Plan From cardiology's perspective, we'll continue current dose of IV Lasix. Check lytes BUN and creatinine in the morning. DNP note has been reviewed, I agree with a documented findings and plan of care. Patient was seen and examined.
[2017-08-01] MEDS: AMMONIUM LACTATE 12% LOTION 225 GM BTL TOPICAL SCH (13:14)
[2017-08-01] MEDS: BUPRENORPHINE TRANSDERM SCH (13:16)
[2017-08-01] MEDS: FERROUS SULFATE 325 MG TAB PO SCH (13:18)
--- NOTE | 2017-08-01 13:44 | P.PN ---
Subjective Progress Note Date: 08/01/17 This is a 72-year-old female one of Dr. Sifuentes with a previous medical history significant for CAD post-PCI with chronic diastolic heart failure, hypertension and hypertensive cardiovascular disease, history of CVA in the past in the left occipital area with significant balance issues requiring the use of a walker and wheelchair on and off, history of diabetes mellitus type 2, hyperlipidemia, history of chronic atrial fibrillation, remote history of ischemic bowel with gangrenous changes and perforated bowel post colectomy and colostomy placement that was done at [facility], patient apparently was in her usual state of health about 2 days ago when she was at [facility] and developed to have an increased shortness of breath and she became somewhat confused,and they ended up sending the patient to the ER for evaluation she was found to have hypoxemia with significant shortness of breath thought to be due to possible combination of COPD exacerbation as well as an acute diastolic heart failure, patient was started on IV diuretics as well as IV Solu-Medrol she was seen in consultation by pulmonary and by cardiology, underwent echocardiogram still pending at the time of dictation. 4/1: Patient is complaining of pain in the lower back and she is feeling itchy as well she denies any chest pain or any shortness breath she is having less she has no abdominal pain, her stoma is working very well. 4/2: Patient remains on IV Lasix. Her heart rate has been running high around 116 and hypertensive and cardiology has increased metipranolol, increased dose of lisinopril to 10 mg daily and added and labetalol 300 mg twice daily. IV Solu-Medrol will be switched over to oral. Pulmonary medicine has cleared patient for discharge. She had an abdominal x-ray done today for abdominal pain that revealed a right-sided ureteral stent. There is partial uncoiling of the proximal loop but appears to remain appropriately positioned. Moderate stool burden. No evidence of free air or bowel obstruction. Bowel gas projecting lateral to the right hip this could represent overhanging panniculus or abdominal wall hernia. 4/3: Patient's heart rate continues to be elevated at 116-124. She is complaining of some shortness of breath this morning and she is currently on Lasix 40 mg IV every 12 hours. Patient will be resumed back on Solu-Medrol at 40 mg. Her white count is at 12.2, hemoglobin 13.7, creatinine 1.1. Urine cultures are showing group D enterococcus. Patient is on Levaquin. Weight is down 2.5 kg since admission. 08/01: Heart rate is running 110s to 120s. We have increased her labetalol to 400 mg twice daily, change Lasix to oral and decreased hydralazine which could impact her tachycardia. Patient continues to have shortness of breath. She denies any choking with eating. Pulmicort increased 1 mg twice daily and perform a missed added. Blood sugars have been elevated so NovoLog increased to 7 units 3 times day and Levemir to 28 units at bedtime. Solu-Medrol remains at 40 mg every 12 hours Objective - Vital Signs Vital signs: Vital Signs Temp 97.2 F L 08/01/17 04:00 Pulse 120 H 08/01/17 04:00 Resp 24 08/01/17 04:00 BP 135/114 08/01/17 04:00 Pulse Ox 99 08/01/17 04:00 Intake & Output 07/31/17 08/01/17 08/01/17 18:59 06:59 18:59 Intake Total 1560 300 Output Total 400 600 Balance 1160 -300 Weight 72.8 kg Intake: Oral 1560 300 Output: Stool 400 600 Other: Voiding Method Bedside Commode Bedside Commode # Voids 1 - Exam - Constitutional General appearance: average body habitus, mild distress - EENT Eyes: anicteric sclerae, EOMI, PERRLA, no ptosis, no scleral icterus, normal appearance ENT: hearing grossly normal, NA/AT, normal oropharynx, no thrush, no tonsillar exudates Ears: bilateral: normal - Neck Neck: no lymphadenopathy, normal ROM, no rigidity, no stridor, no thyromegaly Carotids: bilateral: upstroke delayed Thyroid: bilateral: normal size - Respiratory Respiratory: bilateral: diminished, rhonchi, wheezing, prolonged expiration, negative: dullness, rales - Cardiovascular Rhythm: irregularly irregular Heart sounds: normal: S1, S2 Abnormal Heart Sounds: systolic murmur - Gastrointestinal General gastrointestinal: normal bowel sounds, soft, no splenomegaly, no tenderness (There is colostomy bag in place), ventral hernia (Large abdominal wall hernia.) - Integumentary Integumentary: normal, normal turgor - Neurologic Neurologic: CNII-XII intact - Musculoskeletal Musculoskeletal: no gait normal, generalized weakness, strength equal bilaterally - Psychiatric Psychiatric: A&O x's 3, appropriate affect, intact judgment & insight - Labs CBC & Chem 7: 07/31/17 06:16 08/01/17 10:04 Labs: Abnormal Lab Results - Last 24 Hours (Table) 07/31/17 07/31/17 08/01/17 Range/Units 11:40 21:02 06:05 POC Glucose (mg/dL) 256 H 265 H 231 H (75-99) mg/dL Microbiology - Last 24 Hours (Table) 07/27/17 14:35 Blood Culture - Preliminary Blood No Growth after 96 hours 07/30/17 00:00 Urine Culture - Preliminary Urine,Clean Catch Group D Enterococcus Assessment and Plan Plan: 1. Acute on chronic hypoxemic respiratory failure due to accommodation of acute exacerbation of COPD as well as acute systolic heart failure. Continue the patient on Lasix 40 mg po every 12 hours, labetalol 300 mg orally twice every day, continue patient on DuoNeb 3 mg nebulization 4 times every day, Solu- Medrol 40 mg every 12 hours, Pulmicort nebulization twice every day, Perforomist added continue oxygen support, echocardiogram was done awaiting the result, cardiology and pulmonary consultation were in order. 2. Chronic diastolic heart failure with ejection fraction of 55% in the past. Continue labetalol 300 mg orally twice every day, continue patient on Lasix 40 mg po every 12 hours. 3. large anterior abdominal wall hernia. Stable at this time. 4. History of obstructive proximal right ureteral calculus status post cystoscopy and insertion of a double-J stent in the right kidney. 5. History of CVA. history of with a large infarct involving the left hemisphere. Continue aspirin 81 mg orally once every day as well as Eliquis 2.5 mg orally twice every day for life. 6. History of vertebral fracture involving the C1 and C2 spine with chronic neck pain 7. Hypertension and hypertensive cardiovascular disease. Continue labetalol 200 mg orally twice every day, hydralazine 25 mg orally 3 times every day. 8. Diabetes mellitus type 2. Levemir 28 units twice daily, NovoLog 7 units with meals and NovoLog scale. 9. coronary artery disease with previous coronary intervention and stenting. Continue aspirin 81 mg orally once every day, labetalol 200 mg orally twice every day. 10. paroxysmal atrial fibrillation, currently on long-term and to coagulation with Eliquis. 11. severe pulmonary hypertension related to COPD and diastolic dysfunction. Continue Lasix and labetalol. 12. peptic ulcer disease. Continue patient on Protonix 40 mg orally once every day. 13. 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 14. chronic anemia, current hemoglobin is stable and above 13. 15. peripheral Vascular disease. Continue aspirin 81 mg once every day for secondary prevention. 16. previous carotid endarterectomy for carotid artery disease. 17. recurrent urine checked infection with VRE and the repeat cultures from 10/2016 is showing enterococcal infection which is a VRE organism. 18. History of MRSA wound infection involving the sacral ulcers. 19. Admit to inpatient. Estimated length of stay 2 midnights. 20. DVT prophylaxis. Continue patient on Eliquis 2.5 mg orally twice every day as well as bilateral knee-high DOROTHY hose. 21. GI prophylaxis. Continue PPI. 22. Patient is full code. Discharge plan: Return to [facility] Impression and plan of care have been directed as dictated by the signing physician. Destiny Jones nurse practitioner acting as scribe for signing physician.
--- NOTE | 2017-08-01 15:15 | P.PN ---
Subjective Progress Note Date: 08/01/17 Principal diagnosis: Acute exacerbation of chronic obstructive pulmonary disease along with acute exacerbation of diastolic congestive heart failure 68-year-old female patient referred to the [facility] department from [facility] on the [place] because of increased shortness of breath. Apparently the patient has been having increased dyspnea for the past 2 days. She is coughing and her cough is congested at times she is producing some yellowish sputum. She has also become bronchus spastic and wheezy. She is known to have COPD and tracheal bronchomalacia. She also has an extensive cardiac history. She was desaturating and her pulse ox was also noted to be low. For that reason the patient was sent over to the hospital for further treatment. The patient had some chest discomfort along the right side of the chest and upper body. No altered mentation. No pleurisy. No hemoptysis. She denies having any aspiration. The chest x-ray shows a component of CHF with cardiomegaly and tiny bilateral pleural effusion. There is excellent COPD. Currently, the patient on DuoNeb about treatments around the clock, she is also on a combination of Pulmicort rescue twice a day and Perforomist neb last treatment twice a day, she is on IV Solu Medrol 40 g every 8 hours and she is also on Lasix 40 g IV push every 12 hours. The patient has had multiple hospitalizations in the past. On 07 29 2017 the patient is feeling better less short of breath compared to yesterday. Sitting up on a chair. Cough and wheezing and bronchospasm improved compared yesterday and the patient did not have any significant events overnight. Meanwhile, the patient remains on DuoNeb neb last treatment around- the-clock, Pulmicort Respules, IV Lasix 40 mg every 12 hours and the patient has been tapered down to 40 mg of IV Lasix to 8 hours. No other significant events overnight. She did develop some steroid use hyperglycemia and the patient is currently on sliding scale insulin coverage. The patient is seen again today 07/30/2017 in follow-up on the selective care unit. She is currently awake and alert in no acute distress. She denies any worsening shortness of breath, cough or congestion. She is maintaining good O2 saturations in the upper 90s on 2 L/m per nasal cannula. She's been afebrile. White count 10.6. Hemoglobin 14.1. Creatinine 0.97. She is continued on bronchodilators, Pulmicort, prednisone. She is diuresing well. Patient is seen again today 07/31/2017 in follow-up on the selective care unit. She is currently resting fairly comfortably in bed. She denies any worsening shortness of breath, cough or congestion. Is maintaining good O2 saturations in the upper 90s on 2 L/m per nasal cannula. She's currently afebrile. Slightly tachycardic. White count 12.2. Hemoglobin 13.7. Creatinine 1.10. Urine cultures positive for group D enterococcus. Currently on Levaquin. The patient is seen again today 08/01/2017 in follow-up on the selective care unit. She is currently resting quite comfortably in bed. She is awake and alert in no acute distress. She is breathing easier today as compared to yesterday. She is maintaining good O2 saturations up to 100% on 2 L/m per nasal cannula. She's afebrile. Still tachycardic. Creatinine 1.18. Objective - Vital Signs Vital signs: Vital Signs Temp 97.4 F L 08/01/17 08:00 Pulse 114 H 08/01/17 12:01 Resp 24 08/01/17 12:00 BP 157/90 08/01/17 12:00 Pulse Ox 91 L 08/01/17 12:00 Intake & Output 07/31/17 08/01/17 08/01/17 18:59 06:59 18:59 Intake Total 1560 300 600 Output Total 400 600 200 Balance 1160 -300 400 Weight 72.8 kg Intake: Oral 1560 300 600 Output: Stool 400 600 200 Other: Voiding Method Bedside Commode Bedside Commode Bedside Commode # Voids 1 - Exam Patient is awake and alert and she is following commands and answering questions appropriately. She has some occasional cough and episodes. This is a barky cough. Unable to bring up much of sputum. No apparent respiratory distress. She is not using excessive muscle breathing. l. There was no scleral icterus or corneal arcus. Mucous membranes were moist. Mucous membranes are quite dry. Mild JVDs and there is no goiter or neck masses at this point. No neck stiffness. Lungs sounds revealed equal and symmetrical breath sounds with some limited crackles at lung bases bilaterally. No wheezes or rhonchi. Heart sounds are irregular, positive S1-S2, no S3, no S4, no murmurs. Abdomen is soft and there is no direct tenderness a month or so guarding. The patient has a functional colostomy site in her right abdominal wall area. In addition, the patient has a large anterior abdominal wall hernia. No rebound tenderness. No guarding.Examination of the extremities revealed easily palpable radial, femoral and pedal pulses. There was no cyanosis , clubbing or edema. Neurologically the patient is awake and alert. She is moving all 4 extremities. She is weak and her weakness is chronic and the patient is unable to ambulate and she has obvious gait dysfunction. - Labs CBC & Chem 7: 07/31/17 06:16 08/01/17 10:04 Labs: Abnormal Lab Results - Last 24 Hours (Table) 07/31/17 08/01/17 08/01/17 Range/Units 21:02 06:05 10:04 Chloride 95 L (98-107) mmol/L Carbon Dioxide 35 H (22-30) mmol/L BUN 57 H (7-17) mg/dL Creatinine 1.18 H (0.52-1.04) mg/dL Glucose 253 H (74-99) mg/dL POC Glucose (mg/dL) 265 H 231 H (75-99) mg/dL 08/01/17 Range/Units 11:46 Chloride (98-107) mmol/L Carbon Dioxide (22-30) mmol/L BUN (7-17) mg/dL Creatinine (0.52-1.04) mg/dL Glucose (74-99) mg/dL POC Glucose (mg/dL) 261 H (75-99) mg/dL Microbiology - Last 24 Hours (Table) 07/27/17 14:35 Blood Culture - Preliminary Blood No Growth after 96 hours Assessment and Plan Assessment: Assessment 1 acute shortness of breath secondary to exacerbation of COPD/CHF. No clear indication of an underlying pneumonia based on the chest x-ray findings. Clinically improving as the patient is being treated for both COPD and CHF exacerbation with a combination of bronchodilators steroids and diuretics. Improved. 2 chronic hypoxic and hypercapnic respiratory failure, along with a history of COPD 3 CHF with mild concentric left ventricular hypertrophy and an ejection fraction of 50-55%, essentially of a diastolic dysfunction 4 large anterior abdominal wall hernia 5 obstructive proximal right ureteral calculus status post cystoscopy and insertion of a double-J stent in the right kidney, 6 CVA, history of with a large infarct involving the left hemisphere 7 vertebral fracture involving the C1 and C2 spine with chronic neck pain 8 hypertension 9 diabetes mellitus, currently on Levemir insulin 44 units at bedtime in addition to abnormal exercise coverage 10 coronary artery disease with previous coronary intervention and stenting 11 paroxysmal atrial fibrillation, currently on long-term and to coagulation with Eliquis 12 severe pulmonary hypertension related to COPD and diastolic dysfunction 13 peptic ulcer disease 14 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 Plan: The patient was seen and evaluated by Dr. Garcia. She remains stable from the pulmonary standpoint. Complete her course of antibiotics. Complete a prednisone taper upon discharge. Continue diuretics. Repeat a chest x-ray in the a.m. She could be seen by Dr. Iniguez at [facility] if needed. We will continue to follow and make further recommendations based on her clinical status. I, the cosigning physician, performed a history & physical examination of the patient. Lungs sounds with faint end expiratory wheeze. Fine crackles.. Maintaining good O2 saturations in the 90s on 2 L/m per nasal cannula. I discussed the assessment and plan of care with my nurse practitioner, Carolyn Bridges. I attest to the above note as dictated by her.
[2017-08-01] MEDS: FUROSEMIDE 40 MG TAB PO SCH (16:25)
[2017-08-01 16:50] LABS: Glucose,Whole Blood 273 mg/dL (75-99)
[2017-08-01] MEDS: FORMOTEROL FUMARATE 20 MCG/2 ML NEBU INHALATION SCH (20:26)
[2017-08-01] MEDS: BUDESONIDE 1 MG/2 ML NEBU INHALATION SCH (20:27)
[2017-08-01] MEDS: clonazePAM 0.5 MG TAB PO SCH (20:47)
[2017-08-01] MEDS: LEVOFLOXACIN 250 MG TAB PO SCH (20:49)
[2017-08-01] MEDS: LABETALOL 200 MG TAB PO SCH (20:50)
[2017-08-01 20:54] LABS: Hemoglobin A1C 7.8 % (4.0-6.0)
[2017-08-01 21:02] LABS: Glucose,Whole Blood 249 mg/dL (75-99)
[2017-08-01] MEDS ORDERED: FUROSEMIDE 10 MG/ML 10 ML VIAL IV STA (21:13)
--- NOTE | 2017-08-01 21:32 | XR ---
EXAMINATION: XR chest 1V portable DATE AND TIME: 08/01/2017 9:24 PM ORDERING PROVIDER: Malathi Banks CLINICAL INDICATION: increased tightness TECHNIQUE: portable AP upright COMPARISON: 07/27/2017 DESCRIPTION: The lungs are predominantly clear, with the exception of the right lung base where there is a 3 cm zone of consolidation which is ill-defined. This can correlate with early developing bronc hopneumonia if clinically supported. There is no pulmonary edema. Moderately enlarged cardiac silhouette, unchanged. The pleural spaces are negative. No acute bony or soft tissue findings. IMPRESSION: NEW RIGHT LUNG BASE CONSOLIDATIVE OPACITY, SUSPECT DEVELOPING BRONCHOPNEUMONIA. Unless indicated soon er on a clinical basis, would suggest six-week follow-up PA and lateral chest radiographs.
[2017-08-02 01:23] LABS: Glucose,Whole Blood 125 mg/dL (75-99)
[2017-08-02] MEDS: INSULIN ASPART 100 UNIT/ML 1 ML 10 ML VIAL SQ SCH ×8 (03:31→22:05)
[2017-08-02 05:54] LABS: Glucose,Whole Blood 184 mg/dL (75-99)
[2017-08-02] MEDS: HYDROcodone/APAP 10-325MG 1 EACH TAB PO PRN ×3 (06:01→16:05)
[2017-08-02] MEDS: PANTOPRAZOLE 40 MG TABLET PO SCH (06:01)
[2017-08-02] MEDS: IPRATROPIUM-ALBUTEROL 3 ML NEB INHALATION SCH ×4 (06:27→20:15)
[2017-08-02 06:30] LABS: Calcium 9.6 mg/dL (8.4-10.2)
[2017-08-02 06:36] LABS: Potassium 4.7 mmol/L (3.5-5.1)
[2017-08-02] MEDS: FORMOTEROL FUMARATE 20 MCG/2 ML NEBU INHALATION SCH ×2 (07:41→20:15)
[2017-08-02] MEDS: BUDESONIDE 1 MG/2 ML NEBU INHALATION SCH ×2 (07:41→20:15)
--- NOTE | 2017-08-02 07:43 | XR ---
EXAMINATION TYPE: XR chest 1V portable DATE OF EXAM: 08/02/2017 Comparison: 08/01/2012 Clinical History: 72-year-old female follow-up CHF Findings: Heart remains mild to moderately enlarged. Diffuse interstitial prominence persists. 7 the patchy rig ht basilar density shows some improvement. No new consolidation or significant pleural effusion on th e frontal view. Impression: 1. Similar moderate cardiomegaly. 2. Some of the patchy right basilar density shows improvement. There may be residual mild pulmonary v ascular congestion.
[2017-08-02] MEDS: AMMONIUM LACTATE 12% LOTION 225 GM BTL TOPICAL SCH (08:05)
[2017-08-02] MEDS: ASPIRIN 81 MG PO SCH (08:06)
[2017-08-02] MEDS: buPROPion SR 100 MG TABLET.ER PO SCH (08:06)
[2017-08-02] MEDS: APIXABAN 2.5 MG TABLET PO SCH ×2 (08:06→20:15)
[2017-08-02] MEDS: guaiFENesin 600 MG TABLET.ER PO SCH ×2 (08:07→20:15)
[2017-08-02] MEDS: ALLOPURINOL 100 MG TAB PO SCH (08:07)
[2017-08-02] MEDS: FUROSEMIDE 40 MG TAB PO SCH ×2 (08:07→16:05)
[2017-08-02] MEDS: LABETALOL 200 MG TAB PO SCH ×2 (08:08→20:22)
[2017-08-02] MEDS: methylPREDNISolone SOD SUCCI 40 MG/ML 1 ML VIAL IV SCH ×2 (08:08→20:22)
[2017-08-02] MEDS: hydrALAZINE HCL 25 MG TAB PO SCH ×2 (08:08→20:15)
[2017-08-02] MEDS: LISINOPRIL 5 MG TAB PO SCH (08:09)
[2017-08-02] MEDS: SERTRALINE 100 MG TAB PO SCH (08:09)
[2017-08-02] MEDS: levETIRAcetam 500 MG TAB PO SCH ×2 (08:09→20:22)
[2017-08-02] MEDS: SPIRONOLACTONE 25 MG TAB PO SCH (08:09)
[2017-08-02] MEDS: INSULIN DETEMIR 100 UNIT/ML 10 ML VIAL SQ SCH ×2 (09:03→20:41)
[2017-08-02 11:23] LABS: Glucose,Whole Blood 153 mg/dL (75-99)
--- NOTE | 2017-08-02 13:44 | P.PN ---
Subjective Progress Note Date: 08/02/17 Principal diagnosis: Acute exacerbation of chronic obstructive pulmonary disease along with acute exacerbation of diastolic congestive heart failure 68-year-old female patient referred to the [facility] department from [facility] [place] because of increased shortness of breath. Apparently the patient has been having increased dyspnea for the past 2 days. She is coughing and her cough is congested at times she is producing some yellowish sputum. She has also become bronchus spastic and wheezy. She is known to have COPD and tracheal bronchomalacia. She also has an extensive cardiac history. She was desaturating and her pulse ox was also noted to be low. For that reason the patient was sent over to the hospital for further treatment. The patient had some chest discomfort along the right side of the chest and upper body. No altered mentation. No pleurisy. No hemoptysis. She denies having any aspiration. The chest x-ray shows a component of CHF with cardiomegaly and tiny bilateral pleural effusion. There is excellent COPD. Currently, the patient on DuoNeb about treatments around the clock, she is also on a combination of Pulmicort rescue twice a day and Perforomist neb last treatment twice a day, she is on IV Solu Medrol 40 g every 8 hours and she is also on Lasix 40 g IV push every 12 hours. The patient has had multiple hospitalizations in the past. On 07 29 2017 the patient is feeling better less short of breath compared to yesterday. Sitting up on a chair. Cough and wheezing and bronchospasm improved compared yesterday and the patient did not have any significant events overnight. Meanwhile, the patient remains on DuoNeb neb last treatment around- the-clock, Pulmicort Respules, IV Lasix 40 mg every 12 hours and the patient has been tapered down to 40 mg of IV Lasix to 8 hours. No other significant events overnight. She did develop some steroid use hyperglycemia and the patient is currently on sliding scale insulin coverage. The patient is seen again today 07/30/2017 in follow-up on the selective care unit. She is currently awake and alert in no acute distress. She denies any worsening shortness of breath, cough or congestion. She is maintaining good O2 saturations in the upper 90s on 2 L/m per nasal cannula. She's been afebrile. White count 10.6. Hemoglobin 14.1. Creatinine 0.97. She is continued on bronchodilators, Pulmicort, prednisone. She is diuresing well. Patient is seen again today 07/31/2017 in follow-up on the selective care unit. She is currently resting fairly comfortably in bed. She denies any worsening shortness of breath, cough or congestion. Is maintaining good O2 saturations in the upper 90s on 2 L/m per nasal cannula. She's currently afebrile. Slightly tachycardic. White count 12.2. Hemoglobin 13.7. Creatinine 1.10. Urine cultures positive for group D enterococcus. Currently on Levaquin. The patient is seen again today 08/01/2017 in follow-up on the selective care unit. She is currently resting quite comfortably in bed. She is awake and alert in no acute distress. She is breathing easier today as compared to yesterday. She is maintaining good O2 saturations up to 100% on 2 L/m per nasal cannula. She's afebrile. Still tachycardic. Creatinine 1.18. Patient is seen again today 08/02/2017 in follow-up on the selective care unit. She is awake and alert in no acute distress. She denies any worsening shortness of breath, cough or congestion. No chills or night sweats. She is afebrile. Hemodynamically stable. Maintaining good O2 saturations in the mid 90s on 2 L/m per nasal cannula. Chest x-ray reveals moderate cardiomegaly. There is improvement in the patchy basilar density on the right. Creatinine 1.30. Objective - Vital Signs Vital signs: Vital Signs Temp 97 F L 08/02/17 08:00 Pulse 116 H 08/02/17 08:00 Resp 20 08/02/17 12:00 BP 145/81 08/02/17 08:00 Pulse Ox 94 L 08/02/17 08:00 Intake & Output 08/01/17 08/02/17 08/02/17 18:59 06:59 18:59 Intake Total 600 480 Output Total 200 200 150 Balance 400 -200 330 Weight 69.9 kg Intake: Oral 600 480 Output: Urine 150 Stool 200 200 Other: Voiding Method Bedside Commode Bedside Commode Toilet Bedside Commode # Voids 2 1 1 # Bowel Movements 0 - Exam Patient is awake and alert and she is following commands and answering questions appropriately. She has some occasional cough and episodes. This is a barky cough. Unable to bring up much of sputum. No apparent respiratory distress. She is not using excessive muscle breathing. l. There was no scleral icterus or corneal arcus. Mucous membranes were moist. Mucous membranes are quite dry. Mild JVDs and there is no goiter or neck masses at this point. No neck stiffness. Lungs sounds revealed equal and symmetrical breath sounds with some limited crackles at lung bases bilaterally. No wheezes or rhonchi. Heart sounds are irregular, positive S1-S2, no S3, no S4, no murmurs. Abdomen is soft and there is no direct tenderness a month or so guarding. The patient has a functional colostomy site in her right abdominal wall area. In addition, the patient has a large anterior abdominal wall hernia. No rebound tenderness. No guarding.Examination of the extremities revealed easily palpable radial, femoral and pedal pulses. There was no cyanosis , clubbing or edema. Neurologically the patient is awake and alert. She is moving all 4 extremities. She is weak and her weakness is chronic and the patient is unable to ambulate and she has obvious gait dysfunction. - Labs CBC & Chem 7: 07/31/17 06:16 08/02/17 05:54 Labs: Abnormal Lab Results - Last 24 Hours (Table) 07/31/17 08/01/17 08/01/17 Range/Units 06:16 16:32 21:00 Chloride (98-107) mmol/L Carbon Dioxide (22-30) mmol/L BUN (7-17) mg/dL Creatinine (0.52-1.04) mg/dL Glucose (74-99) mg/dL POC Glucose (mg/dL) 273 H 249 H (75-99) mg/dL Hemoglobin A1c 7.8 H (4.0-6.0) % 08/02/17 08/02/17 08/02/17 Range/Units 01:21 05:52 05:54 Chloride 95 L (98-107) mmol/L Carbon Dioxide 31 H (22-30) mmol/L BUN 65 H (7-17) mg/dL Creatinine 1.30 H (0.52-1.04) mg/dL Glucose 159 H (74-99) mg/dL POC Glucose (mg/dL) 125 H 184 H (75-99) mg/dL Hemoglobin A1c (4.0-6.0) % 08/02/17 Range/Units 11:22 Chloride (98-107) mmol/L Carbon Dioxide (22-30) mmol/L BUN (7-17) mg/dL Creatinine (0.52-1.04) mg/dL Glucose (74-99) mg/dL POC Glucose (mg/dL) 153 H (75-99) mg/dL Hemoglobin A1c (4.0-6.0) % Microbiology - Last 24 Hours (Table) 07/27/17 14:35 Blood Culture - Preliminary Blood No Growth after 120 hours Assessment and Plan Assessment: Assessment 1 acute shortness of breath secondary to exacerbation of COPD/CHF. No clear indication of an underlying pneumonia based on the chest x-ray findings. Clinically improving as the patient is being treated for both COPD and CHF exacerbation with a combination of bronchodilators steroids and diuretics. Improved. 2 chronic hypoxic and hypercapnic respiratory failure, along with a history of COPD 3 CHF with mild concentric left ventricular hypertrophy and an ejection fraction of 50-55%, essentially of a diastolic dysfunction 4 large anterior abdominal wall hernia 5 obstructive proximal right ureteral calculus status post cystoscopy and insertion of a double-J stent in the right kidney, 6 CVA, history of with a large infarct involving the left hemisphere 7 vertebral fracture involving the C1 and C2 spine with chronic neck pain 8 hypertension 9 diabetes mellitus, currently on Levemir insulin 44 units at bedtime in addition to abnormal exercise coverage 10 coronary artery disease with previous coronary intervention and stenting 11 paroxysmal atrial fibrillation, currently on long-term and to coagulation with Eliquis 12 severe pulmonary hypertension related to COPD and diastolic dysfunction 13 peptic ulcer disease 14 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 Plan: The patient was seen and evaluated by Dr. Garcia. Chest x-ray shows improvement in the density of the right lower lobe. Complete her course of antibiotics. Complete a prednisone taper upon discharge. Continue diuretics. She could be seen by Dr. Iniguez at [facility] if needed. We will continue to follow and make further recommendations based on her clinical status. I, the cosigning physician, performed a history & physical examination of the patient. Lungs sounds with faint end expiratory wheeze. Fine crackles.. Maintaining good O2 saturations in the 90s on 2 L/m per nasal cannula. I discussed the assessment and plan of care with my nurse practitioner, Carolyn Bridges. I attest to the above note as dictated by her.
--- NOTE | 2017-08-02 14:30 | P.PN ---
Subjective Progress Note Date: 08/02/17 Principal diagnosis: CHF/COPD This is a 72-year-old female with past medical history significant for diabetes, hypertension, hyperlipidemia, COPD, who was admitted to the hospital with symptoms of cough with productive sputum. She had been being treated as an outpatient for pneumonia. Cardiology got involved in the care of this patient because of congestive heart failure. She was initiated on IV Lasix , her weight today is down 2 kg. She had a repeat echocardiogram with Doppler study performed here which revealed an ejection fraction of 25-30%. Medication adjustments for cardiomyopathy and heart failure were made over the weekend. This morning the patient was seen and examined, overall she states her breathing has improved significantly still having some mild shortness of breath. Her blood pressure this morning 164/80, heart rate in the 1 teens to 120s. White blood cell count 10.6, hemoglobin 14.1, platelet count 196. Sodium 139, potassium 4.1, BUN 30, creatinine 0.9. Urine screen also positive for UTI. Patient is complaining of some lower back discomfort to this morning. We will increase her dose of labetalol to 300 mg one tablet by mouth twice a day and increase lisinopril to 10 mg daily. Continue IV Lasix at this time, check lytes BUN and creatinine in the morning, and continue to monitor closely her daily weights and intake and output. 07/31/2017 Patient seen and examined today, resting comfortably in bed, complaining of mild abdominal discomfort, overall breathing is stable. Maintaining good oxygenation. Hemodynamically stable, heart rate in the 1 teens. Urine cultures positive for group D enterococcus, currently on Levaquin. 08/01/2017 Patient seen and examined this morning, stable overall, denies any worsening in her breathing. Blood pressure 135/114, heart rate up in the 120s today. Sodium 142, potassium 4.1, BUN 57, creatinine 1.1. 08/02/2017 Patient seen and examined this morning, denies any worsening in her shortness of breath, afebrile, hemodynamically stable. Chest x-ray reveals moderate cardiomegaly, with improvement in patchy basilar density on the right. Creatinine 1.3. Objective - Vital Signs Vital signs: Vital Signs Temp 97 F L 08/02/17 08:00 Pulse 116 H 08/02/17 08:00 Resp 20 04/05/18 12:00 BP 145/81 08/02/17 08:00 Pulse Ox 94 L 08/02/17 08:00 Intake & Output 08/01/17 08/02/17 08/02/17 18:59 06:59 18:59 Intake Total 600 480 Output Total 200 200 150 Balance 400 -200 330 Weight 69.9 kg Intake: Oral 600 480 Output: Urine 150 Stool 200 200 Other: Voiding Method Bedside Commode Bedside Commode Toilet Bedside Commode # Voids 2 1 1 # Bowel Movements 0 - Exam PHYSICAL EXAMINATION: HEENT: Head is atraumatic, normocephalic. Pupils equal, round. Neck is supple. There is no elevated jugular venous pressure. HEART EXAMINATION: Heart S1 and S2 irregular irregular a systolic murmur is heard. CHEST EXAMINATION: Lungs reveal coarse wheezing throughout with scattered rhonchi, diminished air entry to the bases. ABDOMEN: Soft, nontender. Bowel sounds are heard. No organomegaly noted. EXTREMITIES: 2+ peripheral pulses with evidence of peripheral edema and no calf tenderness noted. NEUROLOGIC patient is awake, alert and oriented -3. . - Labs CBC & Chem 7: 07/31/17 06:16 08/02/17 05:54 Labs: Abnormal Lab Results - Last 24 Hours (Table) 07/31/17 08/01/17 08/01/17 Range/Units 06:16 16:32 21:00 Chloride (98-107) mmol/L Carbon Dioxide (22-30) mmol/L BUN (7-17) mg/dL Creatinine (0.52-1.04) mg/dL Glucose (74-99) mg/dL POC Glucose (mg/dL) 273 H 249 H (75-99) mg/dL Hemoglobin A1c 7.8 H (4.0-6.0) % 08/02/17 08/02/17 08/02/17 Range/Units 01:21 05:52 05:54 Chloride 95 L (98-107) mmol/L Carbon Dioxide 31 H (22-30) mmol/L BUN 65 H (7-17) mg/dL Creatinine 1.30 H (0.52-1.04) mg/dL Glucose 159 H (74-99) mg/dL POC Glucose (mg/dL) 125 H 184 H (75-99) mg/dL Hemoglobin A1c (4.0-6.0) % 08/02/17 Range/Units 11:22 Chloride (98-107) mmol/L Carbon Dioxide (22-30) mmol/L BUN (7-17) mg/dL Creatinine (0.52-1.04) mg/dL Glucose (74-99) mg/dL POC Glucose (mg/dL) 153 H (75-99) mg/dL Hemoglobin A1c (4.0-6.0) % Microbiology - Last 24 Hours (Table) 07/27/17 14:35 Blood Culture - Preliminary Blood No Growth after 120 hours Assessment and Plan Plan: Assessment and plan #1 pneumonia and exacerbation of COPD #2 systolic congestive heart failure acute on chronic #3 hypertension #4 diabetes #5 chronic persistent atrial fibrillation #6 hyperlipidemia #7 chronic kidney disease, stable Plan From cardiology's perspective, IV Lasix can be discontinued and patient can be changed over to oral diuretics today. She may be able to be discharged once cleared by primary. We will make her a follow-up appointment in the office post discharge. DNP note has been reviewed, I agree with a documented findings and plan of care. Patient was seen and examined.
[2017-08-02 14:47] VITALS: BMI 26.4
[2017-08-02] MEDS: FERROUS SULFATE 325 MG TAB PO SCH (16:05)
[2017-08-02 16:43] LABS: Glucose,Whole Blood 208 mg/dL (75-99)
[2017-08-02] MEDS: clonazePAM 0.5 MG TAB PO SCH (20:15)
[2017-08-02 21:09] LABS: Glucose,Whole Blood 213 mg/dL (75-99)
[2017-08-02] MEDS: LEVOFLOXACIN 250 MG TAB PO SCH (22:04)
[2017-08-03] MEDS: HYDROcodone/APAP 10-325MG 1 EACH TAB PO PRN ×4 (03:42→17:44)
[2017-08-03 06:15] LABS: Glucose,Whole Blood 181 mg/dL (75-99)
[2017-08-03] MEDS: PANTOPRAZOLE 40 MG TABLET PO SCH (06:35)
[2017-08-03] MEDS: INSULIN ASPART 100 UNIT/ML 1 ML 10 ML VIAL SQ SCH ×7 (07:43→22:43)
[2017-08-03] MEDS: IPRATROPIUM-ALBUTEROL 3 ML NEB INHALATION SCH ×4 (08:33→19:27)
[2017-08-03] MEDS: BUDESONIDE 1 MG/2 ML NEBU INHALATION SCH ×2 (08:33→19:27)
[2017-08-03] MEDS: FORMOTEROL FUMARATE 20 MCG/2 ML NEBU INHALATION SCH ×2 (08:33→19:25)
--- NOTE | 2017-08-03 09:21 | P.PN ---
Subjective Progress Note Date: 08/02/17 This is a 72-year-old female one of Dr. Sifuentes with a previous medical history significant for CAD post-PCI with chronic diastolic heart failure, hypertension and hypertensive cardiovascular disease, history of CVA in the past in the left occipital area with significant balance issues requiring the use of a walker and wheelchair on and off, history of diabetes mellitus type 2, hyperlipidemia, history of chronic atrial fibrillation, remote history of ischemic bowel with gangrenous changes and perforated bowel post colectomy and colostomy placement that was done at [facility], patient apparently was in her usual state of health about 2 days ago when she was at [facility] and developed to have an increased shortness of breath and she became somewhat confused,and they ended up sending the patient to the ER for evaluation she was found to have hypoxemia with significant shortness of breath thought to be due to possible combination of COPD exacerbation as well as an acute diastolic heart failure, patient was started on IV diuretics as well as IV Solu-Medrol she was seen in consultation by pulmonary and by cardiology, underwent echocardiogram still pending at the time of dictation. 4/1: Patient is complaining of pain in the lower back and she is feeling itchy as well she denies any chest pain or any shortness breath she is having less she has no abdominal pain, her stoma is working very well. 4/2: Patient remains on IV Lasix. Her heart rate has been running high around 116 and hypertensive and cardiology has increased metipranolol, increased dose of lisinopril to 10 mg daily and added and labetalol 300 mg twice daily. IV Solu-Medrol will be switched over to oral. Pulmonary medicine has cleared patient for discharge. She had an abdominal x-ray done today for abdominal pain that revealed a right-sided ureteral stent. There is partial uncoiling of the proximal loop but appears to remain appropriately positioned. Moderate stool burden. No evidence of free air or bowel obstruction. Bowel gas projecting lateral to the right hip this could represent overhanging panniculus or abdominal wall hernia. 4/3: Patient's heart rate continues to be elevated at 116-124. She is complaining of some shortness of breath this morning and she is currently on Lasix 40 mg IV every 12 hours. Patient will be resumed back on Solu-Medrol at 40 mg. Her white count is at 12.2, hemoglobin 13.7, creatinine 1.1. Urine cultures are showing group D enterococcus. Patient is on Levaquin. Weight is down 2.5 kg since admission. 08/01: Heart rate is running 110s to 120s. We have increased her labetalol to 400 mg twice daily, change Lasix to oral and decreased hydralazine which could impact her tachycardia. Patient continues to have shortness of breath. She denies any choking with eating. Pulmicort increased 1 mg twice daily and perform a missed added. Blood sugars have been elevated so NovoLog increased to 7 units 3 times day and Levemir to 28 units at bedtime. Solu-Medrol remains at 40 mg every 12 hours 08/02: Last evening, patient had increasing difficulty with breathing and a chest x-ray was done that revealed new right lung consolidation obesity. Suspect developing bronchopneumonia. Patient did receive 60 of IV Lasix. Repeat chest x-ray this morning showed moderate cardiomegaly. Patchy right basilar density shows improvement. There may be residual mild pulmonary vascular congestion. Her BUN is 65 with creatinine 1.3. Patient states her shortness of breath is better today and that she was very scared yesterday. She is eating okay. Cardiology has recommended changing IV Lasix to oral and she has been cleared for discharge today. Patient's discharge plan is to return to [facility]. Pulmonary medicine is recommended prednisone taper, antibiotics and follow-up with Dr. Iniguez at the [facility]. Objective - Vital Signs Vital signs: Vital Signs Temp 97.4 F L 08/02/17 04:00 Pulse 114 H 08/02/17 06:37 Resp 20 08/02/17 04:00 BP 138/62 08/02/17 04:00 Pulse Ox 93 L 08/02/17 07:42 Intake & Output 08/01/17 08/02/17 08/02/17 18:59 06:59 18:59 Intake Total 600 480 Output Total 200 200 150 Balance 400 -200 330 Weight 69.9 kg Intake: Oral 600 480 Output: Urine 150 Stool 200 200 Other: Voiding Method Bedside Commode Bedside Commode # Voids 2 1 1 # Bowel Movements 0 - Exam - Constitutional General appearance: average body habitus, mild distress - EENT Eyes: anicteric sclerae, EOMI, PERRLA, no ptosis, no scleral icterus, normal appearance ENT: hearing grossly normal, NA/AT, normal oropharynx, no thrush, no tonsillar exudates Ears: bilateral: normal - Neck Neck: no lymphadenopathy, normal ROM, no rigidity, no stridor, no thyromegaly Carotids: bilateral: upstroke delayed Thyroid: bilateral: normal size - Respiratory Respiratory: bilateral: diminished, rhonchi, wheezing, prolonged expiration, negative: dullness, rales - Cardiovascular Rhythm: irregularly irregular Heart sounds: normal: S1, S2 Abnormal Heart Sounds: systolic murmur - Gastrointestinal General gastrointestinal: normal bowel sounds, soft, no splenomegaly, no tenderness (There is colostomy bag in place), ventral hernia (Large abdominal wall hernia.) - Integumentary Integumentary: normal, normal turgor - Neurologic Neurologic: CNII-XII intact - Musculoskeletal Musculoskeletal: no gait normal, generalized weakness, strength equal bilaterally - Psychiatric Psychiatric: A&O x's 3, appropriate affect, intact judgment & insight - Labs CBC & Chem 7: 07/31/17 06:16 08/02/17 05:54 Labs: Abnormal Lab Results - Last 24 Hours (Table) 07/31/17 08/01/17 08/01/17 Range/Units 06:16 11:46 16:32 Chloride (98-107) mmol/L Carbon Dioxide (22-30) mmol/L BUN (7-17) mg/dL Creatinine (0.52-1.04) mg/dL Glucose (74-99) mg/dL POC Glucose (mg/dL) 261 H 273 H (75-99) mg/dL Hemoglobin A1c 7.8 H (4.0-6.0) % 08/01/17 08/02/17 08/02/17 Range/Units 21:00 01:21 05:52 Chloride (98-107) mmol/L Carbon Dioxide (22-30) mmol/L BUN (7-17) mg/dL Creatinine (0.52-1.04) mg/dL Glucose (74-99) mg/dL POC Glucose (mg/dL) 249 H 125 H 184 H (75-99) mg/dL Hemoglobin A1c (4.0-6.0) % 08/02/17 Range/Units 05:54 Chloride 95 L (98-107) mmol/L Carbon Dioxide 31 H (22-30) mmol/L BUN 65 H (7-17) mg/dL Creatinine 1.30 H (0.52-1.04) mg/dL Glucose 159 H (74-99) mg/dL POC Glucose (mg/dL) (75-99) mg/dL Hemoglobin A1c (4.0-6.0) % Microbiology - Last 24 Hours (Table) 07/27/17 14:35 Blood Culture - Preliminary Blood No Growth after 120 hours Assessment and Plan Plan: 1. Acute on chronic hypoxemic respiratory failure due to accommodation of acute exacerbation of COPD as well as acute systolic heart failure. Continue the patient on Lasix 40 mg po every 12 hours, labetalol 300 mg orally twice every day, continue patient on DuoNeb 3 mg nebulization 4 times every day, Solu- Medrol 40 mg every 12 hours, Pulmicort nebulization twice every day, Perforomist added continue oxygen support, echocardiogram was done awaiting the result, cardiology and pulmonary consultation were in order. 2. Chronic diastolic heart failure with ejection fraction of 55% in the past. Continue labetalol 300 mg orally twice every day, continue patient on Lasix 40 mg po every 12 hours. 3. large anterior abdominal wall hernia. Stable at this time. 4. History of obstructive proximal right ureteral calculus status post cystoscopy and insertion of a double-J stent in the right kidney. 5. History of CVA. history of with a large infarct involving the left hemisphere. Continue aspirin 81 mg orally once every day as well as Eliquis 2.5 mg orally twice every day for life. 6. History of vertebral fracture involving the C1 and C2 spine with chronic neck pain 7. Hypertension and hypertensive cardiovascular disease. Continue labetalol 200 mg orally twice every day, hydralazine 25 mg orally 3 times every day. 8. Diabetes mellitus type 2. Levemir 28 units twice daily, NovoLog 7 units with meals and NovoLog scale. 9. coronary artery disease with previous coronary intervention and stenting. Continue aspirin 81 mg orally once every day, labetalol 200 mg orally twice every day. 10. paroxysmal atrial fibrillation, currently on long-term and to coagulation with Eliquis. 11. severe pulmonary hypertension related to COPD and diastolic dysfunction. Continue Lasix and labetalol. 12. peptic ulcer disease. Continue patient on Protonix 40 mg orally once every day. 13. 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 14. chronic anemia, current hemoglobin is stable and above 13. 15. peripheral Vascular disease. Continue aspirin 81 mg once every day for secondary prevention. 16. previous carotid endarterectomy for carotid artery disease. 17. recurrent urine checked infection with VRE and the repeat cultures from 10/2016 is showing enterococcal infection which is a VRE organism. 18. History of MRSA wound infection involving the sacral ulcers. 19. Admit to inpatient. Estimated length of stay 2 midnights. 20. DVT prophylaxis. Continue patient on Eliquis 2.5 mg orally twice every day as well as bilateral knee-high DOROTHY hose. 21. GI prophylaxis. Continue PPI. 22. Patient is full code. Discharge plan: Return to [facility] Impression and plan of care have been directed as dictated by the signing physician. Destiny Jones nurse practitioner acting as scribe for signing physician.
[2017-08-03] MEDS: INSULIN DETEMIR 100 UNIT/ML 10 ML VIAL SQ SCH ×2 (09:29→22:42)
[2017-08-03] MEDS: LABETALOL 200 MG TAB PO SCH (09:29)
[2017-08-03] MEDS: AMMONIUM LACTATE 12% LOTION 225 GM BTL TOPICAL SCH (09:29)
[2017-08-03] MEDS: APIXABAN 2.5 MG TABLET PO SCH ×2 (09:29→20:36)
[2017-08-03] MEDS: guaiFENesin 600 MG TABLET.ER PO SCH ×2 (09:30→20:36)
[2017-08-03] MEDS: POTASSIUM CHLORIDE ER 10 MEQ TAB.ER.PRT PO SCH (09:30)
[2017-08-03] MEDS: buPROPion SR 100 MG TABLET.ER PO SCH (09:30)
[2017-08-03] MEDS: methylPREDNISolone SOD SUCCI 40 MG/ML 1 ML VIAL IV SCH ×2 (09:30→17:44)
[2017-08-03] MEDS: SPIRONOLACTONE 25 MG TAB PO SCH (09:31)
[2017-08-03] MEDS: levETIRAcetam 500 MG TAB PO SCH ×2 (09:31→20:37)
[2017-08-03] MEDS: SERTRALINE 100 MG TAB PO SCH (09:31)
[2017-08-03] MEDS: LISINOPRIL 5 MG TAB PO SCH (09:31)
[2017-08-03] MEDS: ASPIRIN 81 MG PO SCH (09:33)
[2017-08-03] MEDS: ALLOPURINOL 100 MG TAB PO SCH (09:33)
[2017-08-03] MEDS: FUROSEMIDE 40 MG TAB PO SCH (09:34)
[2017-08-03] MEDS: hydrALAZINE HCL 25 MG TAB PO SCH (09:34)
[2017-08-03 11:54] LABS: Calcium 9.1 mg/dL (8.4-10.2)
[2017-08-03 11:54] LABS: Glucose,Whole Blood 189 mg/dL (75-99)
--- NOTE | 2017-08-03 13:00 | P.PN ---
Subjective Progress Note Date: 08/03/17 Principal diagnosis: Acute exacerbation of chronic obstructive pulmonary disease along with acute exacerbation of diastolic congestive heart failure 68-year-old female patient referred to the [facility] department from [facility] on the [place] because of increased shortness of breath. Apparently the patient has been having increased dyspnea for the past 2 days. She is coughing and her cough is congested at times she is producing some yellowish sputum. She has also become bronchus spastic and wheezy. She is known to have COPD and tracheal bronchomalacia. She also has an extensive cardiac history. She was desaturating and her pulse ox was also noted to be low. For that reason the patient was sent over to the hospital for further treatment. The patient had some chest discomfort along the right side of the chest and upper body. No altered mentation. No pleurisy. No hemoptysis. She denies having any aspiration. The chest x-ray shows a component of CHF with cardiomegaly and tiny bilateral pleural effusion. There is excellent COPD. Currently, the patient on DuoNeb about treatments around the clock, she is also on a combination of Pulmicort rescue twice a day and Perforomist neb last treatment twice a day, she is on IV Solu Medrol 40 g every 8 hours and she is also on Lasix 40 g IV push every 12 hours. The patient has had multiple hospitalizations in the past. On 07 29 2017 the patient is feeling better less short of breath compared to yesterday. Sitting up on a chair. Cough and wheezing and bronchospasm improved compared yesterday and the patient did not have any significant events overnight. Meanwhile, the patient remains on DuoNeb neb last treatment around- the-clock, Pulmicort Respules, IV Lasix 40 mg every 12 hours and the patient has been tapered down to 40 mg of IV Lasix to 8 hours. No other significant events overnight. She did develop some steroid use hyperglycemia and the patient is currently on sliding scale insulin coverage. The patient is seen again today 07/30/2017 in follow-up on the selective care unit. She is currently awake and alert in no acute distress. She denies any worsening shortness of breath, cough or congestion. She is maintaining good O2 saturations in the upper 90s on 2 L/m per nasal cannula. She's been afebrile. White count 10.6. Hemoglobin 14.1. Creatinine 0.97. She is continued on bronchodilators, Pulmicort, prednisone. She is diuresing well. Patient is seen again today 07/31/2017 in follow-up on the selective care unit. She is currently resting fairly comfortably in bed. She denies any worsening shortness of breath, cough or congestion. Is maintaining good O2 saturations in the upper 90s on 2 L/m per nasal cannula. She's currently afebrile. Slightly tachycardic. White count 12.2. Hemoglobin 13.7. Creatinine 1.10. Urine cultures positive for group D enterococcus. Currently on Levaquin. The patient is seen again today 08/01/2017 in follow-up on the selective care unit. She is currently resting quite comfortably in bed. She is awake and alert in no acute distress. She is breathing easier today as compared to yesterday. She is maintaining good O2 saturations up to 100% on 2 L/m per nasal cannula. She's afebrile. Still tachycardic. Creatinine 1.18. Patient is seen again today 08/02/2017 in follow-up on the selective care unit. She is awake and alert in no acute distress. She denies any worsening shortness of breath, cough or congestion. No chills or night sweats. She is afebrile. Hemodynamically stable. Maintaining good O2 saturations in the mid 90s on 2 L/m per nasal cannula. Chest x-ray reveals moderate cardiomegaly. There is improvement in the patchy basilar density on the right. Creatinine 1.30. The patient is seen again today 08/03/2017 in follow-up on the selective care unit. She is currently resting quite comfortably in bed. She denies any worsening shortness of breath, cough or congestion. He does get occasional headaches. She is maintaining good O2 saturations in the 90s on 4 L/m per nasal cannula. Bicarb 36. Creatinine 1.25. Objective - Vital Signs Vital signs: Vital Signs Temp 96.7 F L 08/03/17 04:00 Pulse 100 08/03/17 11:50 Resp 20 08/03/17 04:00 BP 135/74 08/03/17 04:00 Pulse Ox 94 L 08/03/17 04:00 Intake & Output 08/02/17 08/03/17 08/03/17 18:59 06:59 18:59 Intake Total 942 360 180 Output Total 150 200 Balance 792 160 180 Weight 69.9 kg 70 kg Intake: Oral 942 360 180 Output: Urine 150 0 Stool 200 Other: Voiding Method Toilet Toilet Bedside Commode Bedside Commode # Voids 1 1 # Bowel Movements 0 - Exam Patient is awake and alert and she is following commands and answering questions appropriately. She has some occasional cough and episodes. This is a barky cough. Unable to bring up much of sputum. No apparent respiratory distress. She is not using excessive muscle breathing. l. There was no scleral icterus or corneal arcus. Mucous membranes were moist. Mucous membranes are quite dry. Mild JVDs and there is no goiter or neck masses at this point. No neck stiffness. Lungs sounds revealed equal and symmetrical breath sounds with some limited crackles at lung bases bilaterally. No wheezes or rhonchi. Heart sounds are irregular, positive S1-S2, no S3, no S4, no murmurs. Abdomen is soft and there is no direct tenderness a month or so guarding. The patient has a functional colostomy site in her right abdominal wall area. In addition, the patient has a large anterior abdominal wall hernia. No rebound tenderness. No guarding.Examination of the extremities revealed easily palpable radial, femoral and pedal pulses. There was no cyanosis , clubbing or edema. Neurologically the patient is awake and alert. She is moving all 4 extremities. She is weak and her weakness is chronic and the patient is unable to ambulate and she has obvious gait dysfunction. - Labs CBC & Chem 7: 07/31/17 06:16 08/03/17 11:06 Labs: Abnormal Lab Results - Last 24 Hours (Table) 08/02/17 08/02/17 08/03/17 Range/Units 16:39 21:07 06:13 Chloride (98-107) mmol/L Carbon Dioxide (22-30) mmol/L BUN (7-17) mg/dL Creatinine (0.52-1.04) mg/dL Glucose (74-99) mg/dL POC Glucose (mg/dL) 208 H 213 H 181 H (75-99) mg/dL 08/03/17 08/03/17 Range/Units 11:06 11:46 Chloride 90 L (98-107) mmol/L Carbon Dioxide 36 H (22-30) mmol/L BUN 76 H (7-17) mg/dL Creatinine 1.25 H (0.52-1.04) mg/dL Glucose 204 H (74-99) mg/dL POC Glucose (mg/dL) 189 H (75-99) mg/dL Microbiology - Last 24 Hours (Table) 07/27/17 14:35 Blood Culture - Final Blood No Growth after 144 hours 07/30/17 00:00 Urine Culture - Final Urine,Clean Catch Enterococcus faecalis Assessment and Plan Assessment: Assessment 1 acute shortness of breath secondary to exacerbation of COPD/CHF. No clear indication of an underlying pneumonia based on the chest x-ray findings. Clinically improving as the patient is being treated for both COPD and CHF exacerbation with a combination of bronchodilators steroids and diuretics. Improved. 2 chronic hypoxic and hypercapnic respiratory failure, along with a history of COPD 3 CHF with mild concentric left ventricular hypertrophy and an ejection fraction of 50-55%, essentially of a diastolic dysfunction 4 large anterior abdominal wall hernia 5 obstructive proximal right ureteral calculus status post cystoscopy and insertion of a double-J stent in the right kidney, 6 CVA, history of with a large infarct involving the left hemisphere 7 vertebral fracture involving the C1 and C2 spine with chronic neck pain 8 hypertension 9 diabetes mellitus, currently on Levemir insulin 44 units at bedtime in addition to abnormal exercise coverage 10 coronary artery disease with previous coronary intervention and stenting 11 paroxysmal atrial fibrillation, currently on long-term and to coagulation with Eliquis 12 severe pulmonary hypertension related to COPD and diastolic dysfunction 13 peptic ulcer disease 14 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 Plan: The patient was seen and evaluated by Dr. Garcia. Plan is to return to [facility]. Complete her course of antibiotics. Complete a prednisone taper upon discharge. Continue diuretics. She could be seen by Dr. Iniguez at [facility] if needed. If not transferred today, we will continue to follow and make further recommendations based on her clinical status. I, the cosigning physician, performed a history & physical examination of the patient. Lungs sounds with faint end expiratory wheeze. Fine crackles.. Maintaining good O2 saturations in the 90s on 4 L/m per nasal cannula. I discussed the assessment and plan of care with my nurse practitioner, Carolyn Bridges. I attest to the above note as dictated by her.
--- NOTE | 2017-08-03 13:04 | P.PN ---
Subjective Progress Note Date: 08/03/17 This is a 72-year-old female one of Dr. Sifuentes with a previous medical history significant for CAD post-PCI with chronic diastolic heart failure, hypertension and hypertensive cardiovascular disease, history of CVA in the past in the left occipital area with significant balance issues requiring the use of a walker and wheelchair on and off, history of diabetes mellitus type 2, hyperlipidemia, history of chronic atrial fibrillation, remote history of ischemic bowel with gangrenous changes and perforated bowel post colectomy and colostomy placement that was done at [facility], patient apparently was in her usual state of health about 2 days ago when she was at [facility] and developed to have an increased shortness of breath and she became somewhat confused,and they ended up sending the patient to the ER for evaluation she was found to have hypoxemia with significant shortness of breath thought to be due to possible combination of COPD exacerbation as well as an acute diastolic heart failure, patient was started on IV diuretics as well as IV Solu-Medrol she was seen in consultation by pulmonary and by cardiology, underwent echocardiogram still pending at the time of dictation. 4/1: Patient is complaining of pain in the lower back and she is feeling itchy as well she denies any chest pain or any shortness breath she is having less she has no abdominal pain, her stoma is working very well. 4/2: Patient remains on IV Lasix. Her heart rate has been running high around 116 and hypertensive and cardiology has increased metipranolol, increased dose of lisinopril to 10 mg daily and added and labetalol 300 mg twice daily. IV Solu-Medrol will be switched over to oral. Pulmonary medicine has cleared patient for discharge. She had an abdominal x-ray done today for abdominal pain that revealed a right-sided ureteral stent. There is partial uncoiling of the proximal loop but appears to remain appropriately positioned. Moderate stool burden. No evidence of free air or bowel obstruction. Bowel gas projecting lateral to the right hip this could represent overhanging panniculus or abdominal wall hernia. 4/3: Patient's heart rate continues to be elevated at 116-124. She is complaining of some shortness of breath this morning and she is currently on Lasix 40 mg IV every 12 hours. Patient will be resumed back on Solu-Medrol at 40 mg. Her white count is at 12.2, hemoglobin 13.7, creatinine 1.1. Urine cultures are showing group D enterococcus. Patient is on Levaquin. Weight is down 2.5 kg since admission. 08/01: Heart rate is running 110s to 120s. We have increased her labetalol to 400 mg twice daily, change Lasix to oral and decreased hydralazine which could impact her tachycardia. Patient continues to have shortness of breath. She denies any choking with eating. Pulmicort increased 1 mg twice daily and perform a missed added. Blood sugars have been elevated so NovoLog increased to 7 units 3 times day and Levemir to 28 units at bedtime. Solu-Medrol remains at 40 mg every 12 hours 08/02: Last evening, patient had increasing difficulty with breathing and a chest x-ray was done that revealed new right lung consolidation obesity. Suspect developing bronchopneumonia. Patient did receive 60 of IV Lasix. Repeat chest x-ray this morning showed moderate cardiomegaly. Patchy right basilar density shows improvement. There may be residual mild pulmonary vascular congestion. Her BUN is 65 with creatinine 1.3. Patient states her shortness of breath is better today and that she was very scared yesterday. She is eating okay. Cardiology has recommended changing IV Lasix to oral and she has been cleared for discharge today. Patient's discharge plan is to return to [facility]. Pulmonary medicine is recommended prednisone taper, antibiotics and [facility] Patient continues to have sure he difficulty in discharge most likely will occur on Sunday. She continues to have wheezing. She complains of headache. Objective - Vital Signs Vital signs: Vital Signs Temp 96.7 F L 08/03/17 04:00 Pulse 92 08/03/17 09:06 Resp 20 08/03/17 04:00 BP 135/74 08/03/17 04:00 Pulse Ox 94 L 08/03/17 04:00 Intake & Output 08/02/17 08/03/17 08/03/17 18:59 06:59 18:59 Intake Total 942 360 180 Output Total 150 200 Balance 792 160 180 Weight 69.9 kg 70 kg Intake: Oral 942 360 180 Output: Urine 150 0 Stool 200 Other: Voiding Method Toilet Toilet Bedside Commode Bedside Commode # Voids 1 1 # Bowel Movements 0 - Exam - Constitutional General appearance: average body habitus, mild distress - EENT Eyes: anicteric sclerae, EOMI, PERRLA, no ptosis, no scleral icterus, normal appearance ENT: hearing grossly normal, NA/AT, normal oropharynx, no thrush, no tonsillar exudates Ears: bilateral: normal - Neck Neck: no lymphadenopathy, normal ROM, no rigidity, no stridor, no thyromegaly Carotids: bilateral: upstroke delayed Thyroid: bilateral: normal size - Respiratory Respiratory: bilateral: diminished, rhonchi, wheezing, prolonged expiration, negative: dullness, rales - Cardiovascular Rhythm: irregularly irregular Heart sounds: normal: S1, S2 Abnormal Heart Sounds: systolic murmur - Gastrointestinal General gastrointestinal: normal bowel sounds, soft, no splenomegaly, no tenderness (There is colostomy bag in place), ventral hernia (Large abdominal wall hernia.) - Integumentary Integumentary: normal, normal turgor - Neurologic Neurologic: CNII-XII intact - Musculoskeletal Musculoskeletal: no gait normal, generalized weakness, strength equal bilaterally - Psychiatric Psychiatric: A&O x's 3, appropriate affect, intact judgment & insight - Labs CBC & Chem 7: 07/31/17 06:16 08/03/17 11:06 Labs: Abnormal Lab Results - Last 24 Hours (Table) 08/02/17 08/02/17 08/02/17 Range/Units 11:22 16:39 21:07 POC Glucose (mg/dL) 153 H 208 H 213 H (75-99) mg/dL 08/03/17 Range/Units 06:13 POC Glucose (mg/dL) 181 H (75-99) mg/dL Microbiology - Last 24 Hours (Table) 07/27/17 14:35 Blood Culture - Final Blood No Growth after 144 hours 07/30/17 00:00 Urine Culture - Final Urine,Clean Catch Enterococcus faecalis Assessment and Plan Plan: 1. Acute on chronic hypoxemic respiratory failure due to accommodation of acute exacerbation of COPD as well as acute systolic heart failure. Continue the patient on Lasix 40 mg po every 12 hours, labetalol 300 mg orally twice every day, continue patient on DuoNeb 3 mg nebulization 4 times every day, Solu- Medrol 40 mg every 12 hours, Pulmicort nebulization twice every day, Perforomist added continue oxygen support, echocardiogram was done awaiting the result, cardiology and pulmonary consultation were in order. 2. Chronic diastolic heart failure with ejection fraction of 55% in the past. Continue labetalol 300 mg orally twice every day, continue patient on Lasix 40 mg po every 12 hours. 3. large anterior abdominal wall hernia. Stable at this time. 4. History of obstructive proximal right ureteral calculus status post cystoscopy and insertion of a double-J stent in the right kidney. 5. History of CVA. history of with a large infarct involving the left hemisphere. Continue aspirin 81 mg orally once every day as well as Eliquis 2.5 mg orally twice every day for life. 6. History of vertebral fracture involving the C1 and C2 spine with chronic neck pain 7. Hypertension and hypertensive cardiovascular disease. Continue labetalol 200 mg orally twice every day, hydralazine 25 mg orally 3 times every day. 8. Diabetes mellitus type 2. Levemir 28 units twice daily, NovoLog 7 units with meals and NovoLog scale. 9. coronary artery disease with previous coronary intervention and stenting. Continue aspirin 81 mg orally once every day, labetalol 200 mg orally twice every day. 10. paroxysmal atrial fibrillation, currently on long-term and to coagulation with Eliquis. 11. severe pulmonary hypertension related to COPD and diastolic dysfunction. Continue Lasix and labetalol. 12. peptic ulcer disease. Continue patient on Protonix 40 mg orally once every day. 13. 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 14. chronic anemia, current hemoglobin is stable and above 13. 15. peripheral Vascular disease. Continue aspirin 81 mg once every day for secondary prevention. 16. previous carotid endarterectomy for carotid artery disease. 17. recurrent urine checked infection with VRE and the repeat cultures from 10/2016 is showing enterococcal infection which is a VRE organism. 18. History of MRSA wound infection involving the sacral ulcers. 19. Admit to inpatient. Estimated length of stay 2 midnights. 20. DVT prophylaxis. Continue patient on Eliquis 2.5 mg orally twice every day as well as bilateral knee-high DOROTHY hose. 21. GI prophylaxis. Continue PPI. 22. Oral thrush. Start nystatin swish and swallow. Patient is full code. Discharge plan: Return to [facility] on Sunday Impression and plan of care have been directed as dictated by the signing physician. Destiny Jones nurse practitioner acting as scribe for signing physician.
[2017-08-03] MEDS: NYSTATIN 100,000 UNIT/ML SUSP 500,000 UNIT/5 ML CUP PO SCH ×3 (14:42→22:56)
[2017-08-03] MEDS: FERROUS SULFATE 325 MG TAB PO SCH (14:42)
[2017-08-03 16:45] LABS: Glucose,Whole Blood 121 mg/dL (75-99)
[2017-08-03] MEDS: clonazePAM 0.5 MG TAB PO SCH (20:36)
[2017-08-03 20:57] LABS: Glucose,Whole Blood 66 mg/dL (75-99)
[2017-08-03 20:58] LABS: Glucose,Whole Blood 66 mg/dL (75-99)
[2017-08-03] MEDS: LEVOFLOXACIN 250 MG TAB PO SCH (22:54)
[2017-08-04] MEDS: methylPREDNISolone SOD SUCCI 40 MG/ML 1 ML VIAL IV SCH ×4 (00:04→17:57)
[2017-08-04] MEDS: hydrALAZINE HCL 25 MG TAB PO SCH ×3 (00:05→19:56)
[2017-08-04] MEDS: LABETALOL 200 MG TAB PO SCH ×3 (00:05→19:56)
[2017-08-04] MEDS: HYDROcodone/APAP 10-325MG 1 EACH TAB PO PRN ×4 (01:34→23:59)
[2017-08-04 06:35] LABS: Glucose,Whole Blood 135 mg/dL (75-99)
[2017-08-04 06:43] LABS: HCT 42.2 % (34.0-46.0); HGB 13.3 gm/dL (11.4-16.0); MCH 29.4 pg (25.0-35.0); MCHC 31.4 g/dL (31.0-37.0); MCV 93.4 fL (80.0-100.0); Mean Platelet Volume 8.3; Platelet Count 175 k/uL (150-450); RBC 4.52 m/uL (3.80-5.40); RDW 14.1 % (11.5-15.5); WBC 13.3 k/uL (3.8-10.6)
[2017-08-04] MEDS: PANTOPRAZOLE 40 MG TABLET PO SCH (07:00)
[2017-08-04 07:06] LABS: Calcium 9.2 mg/dL (8.4-10.2); Potassium 4.2 mmol/L (3.5-5.1)
[2017-08-04] MEDS: FORMOTEROL FUMARATE 20 MCG/2 ML NEBU INHALATION SCH ×2 (08:54→20:10)
[2017-08-04] MEDS: BUDESONIDE 1 MG/2 ML NEBU INHALATION SCH ×2 (08:54→20:10)
[2017-08-04] MEDS: IPRATROPIUM-ALBUTEROL 3 ML NEB INHALATION SCH ×4 (08:54→20:10)
[2017-08-04] MEDS: ALLOPURINOL 100 MG TAB PO SCH (09:00)
[2017-08-04] MEDS: buPROPion SR 100 MG TABLET.ER PO SCH (09:00)
[2017-08-04] MEDS: NYSTATIN 100,000 UNIT/ML SUSP 500,000 UNIT/5 ML CUP PO SCH ×4 (09:00→21:59)
[2017-08-04] MEDS: ASPIRIN 81 MG PO SCH (09:00)
[2017-08-04] MEDS: APIXABAN 2.5 MG TABLET PO SCH ×2 (09:01→19:55)
[2017-08-04] MEDS: FUROSEMIDE 40 MG TAB PO SCH (09:01)
[2017-08-04] MEDS: levETIRAcetam 500 MG TAB PO SCH ×2 (09:01→19:57)
[2017-08-04] MEDS: SPIRONOLACTONE 25 MG TAB PO SCH (09:01)
[2017-08-04] MEDS: guaiFENesin 600 MG TABLET.ER PO SCH ×2 (09:01→19:56)
[2017-08-04] MEDS: SERTRALINE 100 MG TAB PO SCH (09:01)
[2017-08-04] MEDS: LISINOPRIL 5 MG TAB PO SCH (09:04)
[2017-08-04] MEDS: AMMONIUM LACTATE 12% LOTION 225 GM BTL TOPICAL SCH (09:05)
[2017-08-04] MEDS: INSULIN ASPART 100 UNIT/ML 1 ML 10 ML VIAL SQ SCH ×7 (09:12→22:13)
[2017-08-04] MEDS: INSULIN DETEMIR 100 UNIT/ML 10 ML VIAL SQ SCH ×2 (09:28→20:00)
--- NOTE | 2017-08-04 10:39 | P.PN ---
Subjective Progress Note Date: 08/04/17 This is a 72-year-old female one of Dr. Sifuentes with a previous medical history significant for CAD post-PCI with chronic diastolic heart failure, hypertension and hypertensive cardiovascular disease, history of CVA in the past in the left occipital area with significant balance issues requiring the use of a walker and wheelchair on and off, history of diabetes mellitus type 2, hyperlipidemia, history of chronic atrial fibrillation, remote history of ischemic bowel with gangrenous changes and perforated bowel post colectomy and colostomy placement that was done at [facility], patient apparently was in her usual state of health about 2 days ago when she was at [facility] and developed to have an increased shortness of breath and she became somewhat confused,and they ended up sending the patient to the ER for evaluation she was found to have hypoxemia with significant shortness of breath thought to be due to possible combination of COPD exacerbation as well as an acute diastolic heart failure, patient was started on IV diuretics as well as IV Solu-Medrol she was seen in consultation by pulmonary and by cardiology, underwent echocardiogram still pending at the time of dictation. 4/1: Patient is complaining of pain in the lower back and she is feeling itchy as well she denies any chest pain or any shortness breath she is having less she has no abdominal pain, her stoma is working very well. 4/2: Patient remains on IV Lasix. Her heart rate has been running high around 116 and hypertensive and cardiology has increased metipranolol, increased dose of lisinopril to 10 mg daily and added and labetalol 300 mg twice daily. IV Solu-Medrol will be switched over to oral. Pulmonary medicine has cleared patient for discharge. She had an abdominal x-ray done today for abdominal pain that revealed a right-sided ureteral stent. There is partial uncoiling of the proximal loop but appears to remain appropriately positioned. Moderate stool burden. No evidence of free air or bowel obstruction. Bowel gas projecting lateral to the right hip this could represent overhanging panniculus or abdominal wall hernia. 4/3: Patient's heart rate continues to be elevated at 116-124. She is complaining of some shortness of breath this morning and she is currently on Lasix 40 mg IV every 12 hours. Patient will be resumed back on Solu-Medrol at 40 mg. Her white count is at 12.2, hemoglobin 13.7, creatinine 1.1. Urine cultures are showing group D enterococcus. Patient is on Levaquin. Weight is down 2.5 kg since admission. 08/01: Heart rate is running 110s to 120s. We have increased her labetalol to 400 mg twice daily, change Lasix to oral and decreased hydralazine which could impact her tachycardia. Patient continues to have shortness of breath. She denies any choking with eating. Pulmicort increased 1 mg twice daily and perform a missed added. Blood sugars have been elevated so NovoLog increased to 7 units 3 times day and Levemir to 28 units at bedtime. Solu-Medrol remains at 40 mg every 12 hours 08/02: Last evening, patient had increasing difficulty with breathing and a chest x-ray was done that revealed new right lung consolidation obesity. Suspect developing bronchopneumonia. Patient did receive 60 of IV Lasix. Repeat chest x-ray this morning showed moderate cardiomegaly. Patchy right basilar density shows improvement. There may be residual mild pulmonary vascular congestion. Her BUN is 65 with creatinine 1.3. Patient states her shortness of breath is better today and that she was very scared yesterday. She is eating okay. Cardiology has recommended changing IV Lasix to oral and she has been cleared for discharge today. Patient's discharge plan is to return to [facility]. Pulmonary medicine is recommended prednisone taper, antibiotics and follow-up with Dr. Iniguez at the halfway. 08/03: Patient continues to have difficulty breathing and discharge most likely will occur on Sunday. She continues to have wheezing. She complains of headache. Solu-Medrol will remain the same. Lasix will be decreased to once daily as her BUN is 76 and creatinine 1.25. 08/04: Repeat BUN is increasing to 91 most likely due to steroids and creatinine 1.6. Hemoglobin is stable at 13.3. Patient had one blood sugar reading of 66 and otherwise improved. Her morning 7030 will be decreased to 14 units and meals will be decreased to 5 units 3 times daily. No change in Solu-Medrol as patient continues to have some wheezing and difficulty breathing. Solu-Medrol is currently at 40 mg every 6 hours which was increased yesterday by Dr. Garcia. There is small amount of bleeding with a few clots from her colostomy for which a surgical evaluation will be requested. Patient had her colostomy surgery at [facility] but Dr. Yin is known to the patient. Objective - Vital Signs Vital signs: Vital Signs Temp 97.6 F 08/04/17 04:00 Pulse 112 H 08/04/17 04:00 Resp 21 08/04/17 04:00 BP 132/76 08/04/17 04:00 Pulse Ox 95 08/04/17 04:00 Intake & Output 08/03/17 08/04/17 08/04/17 18:59 06:59 18:59 Intake Total 180 Output Total 400 Balance 180 -400 Weight 69.8 kg Intake: Oral 180 Output: Urine 0 Stool 400 Other: Voiding Method Toilet Toilet Bedside Commode Bedside Commode # Voids 4 1 - Exam - Constitutional General appearance: average body habitus, mild distress - EENT Eyes: anicteric sclerae, EOMI, PERRLA, no ptosis, no scleral icterus, normal appearance ENT: hearing grossly normal, NA/AT, normal oropharynx, no thrush, no tonsillar exudates Ears: bilateral: normal - Neck Neck: no lymphadenopathy, normal ROM, no rigidity, no stridor, no thyromegaly Carotids: bilateral: upstroke delayed Thyroid: bilateral: normal size - Respiratory Respiratory: bilateral: diminished, rhonchi, wheezing, prolonged expiration, negative: dullness, rales - Cardiovascular Rhythm: irregularly irregular Heart sounds: normal: S1, S2 Abnormal Heart Sounds: systolic murmur - Gastrointestinal General gastrointestinal: normal bowel sounds, soft, no splenomegaly, no tenderness (There is colostomy bag in place), ventral hernia (Large abdominal wall hernia.) - Integumentary Integumentary: normal, normal turgor - Neurologic Neurologic: CNII-XII intact - Musculoskeletal Musculoskeletal: no gait normal, generalized weakness, strength equal bilaterally - Psychiatric Psychiatric: A&O x's 3, appropriate affect, intact judgment & insight - Labs CBC & Chem 7: 08/04/17 06:08 08/04/17 06:08 Labs: Abnormal Lab Results - Last 24 Hours (Table) 08/03/17 08/03/17 08/03/17 Range/Units 11:06 11:46 16:34 WBC (3.8-10.6) k/uL Chloride 90 L (98-107) mmol/L Carbon Dioxide 36 H (22-30) mmol/L BUN 76 H (7-17) mg/dL Creatinine 1.25 H (0.52-1.04) mg/dL Glucose 204 H (74-99) mg/dL POC Glucose (mg/dL) 189 H 121 H (75-99) mg/dL 08/03/17 08/03/17 08/04/17 Range/Units 20:55 20:56 06:08 WBC 13.3 H (3.8-10.6) k/uL Chloride (98-107) mmol/L Carbon Dioxide (22-30) mmol/L BUN (7-17) mg/dL Creatinine (0.52-1.04) mg/dL Glucose (74-99) mg/dL POC Glucose (mg/dL) 66 L 66 L (75-99) mg/dL 08/04/17 08/04/17 Range/Units 06:08 06:33 WBC (3.8-10.6) k/uL Chloride 92 L (98-107) mmol/L Carbon Dioxide 33 H (22-30) mmol/L BUN 91 H* (7-17) mg/dL Creatinine 1.60 H (0.52-1.04) mg/dL Glucose 136 H (74-99) mg/dL POC Glucose (mg/dL) 135 H (75-99) mg/dL Assessment and Plan Plan: 1. Acute on chronic hypoxemic respiratory failure due to accommodation of acute exacerbation of COPD as well as acute systolic heart failure. Continue the patient on Lasix 40 mg po every day, labetalol 400 mg orally twice every day , continue patient on DuoNeb 3 mg nebulization 4 times every day, Solu-Medrol 40 mg every 6 hours, Pulmicort nebulization twice every day, Perforomist, continue oxygen support, echocardiogram, cardiology and pulmonary consultation. 2. Acute on chronic diastolic heart failure with ejection fraction of 55% in the past. Continue labetalol 300 mg orally twice every day, continue patient on Lasix 40 mg po every 12 hours. 3. Acute kidney injury with chronic kidney disease stage III. 4. History of obstructive proximal right ureteral calculus status post cystoscopy and insertion of a double-J stent in the right kidney. 5. History of CVA. history of with a large infarct involving the left hemisphere. Continue aspirin 81 mg orally once every day as well as Eliquis 2.5 mg orally twice every day for life. 6. History of vertebral fracture involving the C1 and C2 spine with chronic neck pain 7. Hypertension and hypertensive cardiovascular disease. Continue labetalol 200 mg orally twice every day, hydralazine 25 mg orally 3 times every day. 8. Diabetes mellitus type 2. Levemir 14 units in the morning and 28 units in the evening, NovoLog 5 units with meals and NovoLog scale. 9. coronary artery disease with previous coronary intervention and stenting. Continue aspirin 81 mg orally once every day, labetalol 10. paroxysmal atrial fibrillation, currently on long-term and to coagulation with Eliquis. 11. severe pulmonary hypertension related to COPD and diastolic dysfunction. Continue Lasix and labetalol. 12. peptic ulcer disease. Continue patient on Protonix 40 mg orally once every day. 13. 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 Patient does have small amount of bleeding from colostomy for which a consult will be placed with Dr. Yin. Hemoglobin is stable. 14. chronic anemia, current hemoglobin is stable and above 13. 15. peripheral Vascular disease. Continue aspirin 81 mg once every day for secondary prevention. 16. previous carotid endarterectomy for carotid artery disease. 17. recurrent urine checked infection with VRE and the repeat cultures from 10/2016 is showing enterococcal infection which is a VRE organism. 18. History of MRSA wound infection involving the sacral ulcers. 19. large anterior abdominal wall hernia. Stable at this time. 20. DVT prophylaxis. Continue patient on Eliquis 2.5 mg orally twice every day as well as bilateral knee-high DOROTHY hose. 21. GI prophylaxis. Continue PPI. 22. Oral thrush. Start nystatin swish and swallow. Patient is full code. Discharge plan: Return to [facility] on Sunday Impression and plan of care have been directed as dictated by the signing physician. Destiny Jones nurse practitioner acting as scribe for signing physician.
--- NOTE | 2017-08-04 12:11 | P.PN ---
Subjective Progress Note Date: 08/04/17 Principal diagnosis: Acute exacerbation of chronic obstructive pulmonary disease along with acute exacerbation of diastolic congestive heart failure 68-year-old female patient referred to the [facility] department from [facility] [place] the [place] because of increased shortness of breath. Apparently the patient has been having increased dyspnea for the past 2 days. She is coughing and her cough is congested at times she is producing some yellowish sputum. She has also become bronchus spastic and wheezy. She is known to have COPD and tracheal bronchomalacia. She also has an extensive cardiac history. She was desaturating and her pulse ox was also noted to be low. For that reason the patient was sent over to the hospital for further treatment. The patient had some chest discomfort along the right side of the chest and upper body. No altered mentation. No pleurisy. No hemoptysis. She denies having any aspiration. The chest x-ray shows a component of CHF with cardiomegaly and tiny bilateral pleural effusion. There is excellent COPD. Currently, the patient on DuoNeb about treatments around the clock, she is also on a combination of Pulmicort rescue twice a day and Perforomist neb last treatment twice a day, she is on IV Solu Medrol 40 g every 8 hours and she is also on Lasix 40 g IV push every 12 hours. The patient has had multiple hospitalizations in the past. On 07 29 2017 the patient is feeling better less short of breath compared to yesterday. Sitting up on a chair. Cough and wheezing and bronchospasm improved compared yesterday and the patient did not have any significant events overnight. Meanwhile, the patient remains on DuoNeb neb last treatment around- the-clock, Pulmicort Respules, IV Lasix 40 mg every 12 hours and the patient has been tapered down to 40 mg of IV Lasix to 8 hours. No other significant events overnight. She did develop some steroid use hyperglycemia and the patient is currently on sliding scale insulin coverage. The patient is seen again today 07/30/2017 in follow-up on the selective care unit. She is currently awake and alert in no acute distress. She denies any worsening shortness of breath, cough or congestion. She is maintaining good O2 saturations in the upper 90s on 2 L/m per nasal cannula. She's been afebrile. White count 10.6. Hemoglobin 14.1. Creatinine 0.97. She is continued on bronchodilators, Pulmicort, prednisone. She is diuresing well. Patient is seen again today 07/31/2017 in follow-up on the selective care unit. She is currently resting fairly comfortably in bed. She denies any worsening shortness of breath, cough or congestion. Is maintaining good O2 saturations in the upper 90s on 2 L/m per nasal cannula. She's currently afebrile. Slightly tachycardic. White count 12.2. Hemoglobin 13.7. Creatinine 1.10. Urine cultures positive for group D enterococcus. Currently on Levaquin. The patient is seen again today 08/01/2017 in follow-up on the selective care unit. She is currently resting quite comfortably in bed. She is awake and alert in no acute distress. She is breathing easier today as compared to yesterday. She is maintaining good O2 saturations up to 100% on 2 L/m per nasal cannula. She's afebrile. Still tachycardic. Creatinine 1.18. Patient is seen again today 08/02/2017 in follow-up on the selective care unit. She is awake and alert in no acute distress. She denies any worsening shortness of breath, cough or congestion. No chills or night sweats. She is afebrile. Hemodynamically stable. Maintaining good O2 saturations in the mid 90s on 2 L/m per nasal cannula. Chest x-ray reveals moderate cardiomegaly. There is improvement in the patchy basilar density on the right. Creatinine 1.30. The patient is seen again today 08/03/2017 in follow-up on the selective care unit. She is currently resting quite comfortably in bed. She denies any worsening shortness of breath, cough or congestion. He does get occasional headaches. She is maintaining good O2 saturations in the 90s on 4 L/m per nasal cannula. Bicarb 36. Creatinine 1.25. The patient is seen again today 08/04/2017 in follow-up on the selective care unit. She is awake and alert in no acute distress. She is breathing easier today as compared to yesterday. Continues to maintain O2 saturations in the 90s on 4 L/m per nasal cannula. She's been afebrile. Slightly tachycardic. White count 13.3. Hemoglobin 13.3. Creatinine 1.60. Objective - Vital Signs Vital signs: Vital Signs Temp 97.6 F 08/04/17 04:00 Pulse 112 H 08/04/17 09:19 Resp 20 08/04/17 08:00 BP 134/74 08/04/17 08:00 Pulse Ox 97 08/04/17 08:00 Intake & Output 08/03/17 08/04/17 08/04/17 18:59 06:59 18:59 Intake Total 180 Output Total 400 300 Balance 180 -400 -300 Weight 69.8 kg Intake: Oral 180 Output: Urine 0 300 Stool 400 Other: Voiding Method Toilet Toilet Toilet Bedside Commode Bedside Commode Bedside Commode # Voids 4 1 - Exam Patient is awake and alert and she is following commands and answering questions appropriately. She has some occasional cough and episodes. This is a barky cough. Unable to bring up much of sputum. No apparent respiratory distress. She is not using excessive muscle breathing. l. There was no scleral icterus or corneal arcus. Mucous membranes were moist. Mucous membranes are quite dry. Mild JVDs and there is no goiter or neck masses at this point. No neck stiffness. Lungs sounds revealed equal and symmetrical breath sounds with some limited crackles at lung bases bilaterally. No wheezes or rhonchi. Heart sounds are irregular, positive S1-S2, no S3, no S4, no murmurs. Abdomen is soft and there is no direct tenderness a month or so guarding. The patient has a functional colostomy site in her right abdominal wall area. In addition, the patient has a large anterior abdominal wall hernia. No rebound tenderness. No guarding.Examination of the extremities revealed easily palpable radial, femoral and pedal pulses. There was no cyanosis , clubbing or edema. Neurologically the patient is awake and alert. She is moving all 4 extremities. She is weak and her weakness is chronic and the patient is unable to ambulate and she has obvious gait dysfunction. - Labs CBC & Chem 7: 08/04/17 06:08 08/04/17 06:08 Labs: Abnormal Lab Results - Last 24 Hours (Table) 08/03/17 08/03/17 08/03/17 Range/Units 16:34 20:55 20:56 WBC (3.8-10.6) k/uL Chloride (98-107) mmol/L Carbon Dioxide (22-30) mmol/L BUN (7-17) mg/dL Creatinine (0.52-1.04) mg/dL Glucose (74-99) mg/dL POC Glucose (mg/dL) 121 H 66 L 66 L (75-99) mg/dL 08/04/17 08/04/17 08/04/17 Range/Units 06:08 06:08 06:33 WBC 13.3 H (3.8-10.6) k/uL Chloride 92 L (98-107) mmol/L Carbon Dioxide 33 H (22-30) mmol/L BUN 91 H* (7-17) mg/dL Creatinine 1.60 H (0.52-1.04) mg/dL Glucose 136 H (74-99) mg/dL POC Glucose (mg/dL) 135 H (75-99) mg/dL Assessment and Plan Assessment: Assessment 1 acute shortness of breath secondary to exacerbation of COPD/CHF. No clear indication of an underlying pneumonia based on the chest x-ray findings. Clinically improving as the patient is being treated for both COPD and CHF exacerbation with a combination of bronchodilators steroids and diuretics. Improved. 2 chronic hypoxic and hypercapnic respiratory failure, along with a history of COPD 3 CHF with mild concentric left ventricular hypertrophy and an ejection fraction of 50-55%, essentially of a diastolic dysfunction 4 large anterior abdominal wall hernia 5 obstructive proximal right ureteral calculus status post cystoscopy and insertion of a double-J stent in the right kidney, 6 CVA, history of with a large infarct involving the left hemisphere 7 vertebral fracture involving the C1 and C2 spine with chronic neck pain 8 hypertension 9 diabetes mellitus, currently on Levemir insulin 44 units at bedtime in addition to abnormal exercise coverage 10 coronary artery disease with previous coronary intervention and stenting 11 paroxysmal atrial fibrillation, currently on long-term and to coagulation with Eliquis 12 severe pulmonary hypertension related to COPD and diastolic dysfunction 13 peptic ulcer disease 14 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 Plan: The patient was seen and evaluated by Dr. Garcia. Complete her course of antibiotics. Complete a prednisone taper upon discharge. Continue diuretics. She could be seen by Dr. Iniguez at [facility] if needed. We will continue to follow and make further recommendations based on her clinical status. I, the cosigning physician, performed a history & physical examination of the patient. Lungs sounds with faint end expiratory wheeze. Fine crackles.. Maintaining good O2 saturations in the 90s on 4 L/m per nasal cannula. I discussed the assessment and plan of care with my nurse practitioner, Carolyn Bridges. I attest to the above note as dictated by her.
[2017-08-04 12:19] LABS: Glucose,Whole Blood 188 mg/dL (75-99)
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
[2017-08-04] MEDS: FERROUS SULFATE 325 MG TAB PO SCH (16:22)
[2017-08-04 17:36] LABS: Glucose,Whole Blood 242 mg/dL (75-99)
[2017-08-04] MEDS: clonazePAM 0.5 MG TAB PO SCH (20:00)
[2017-08-04] MEDS: LEVOFLOXACIN 250 MG TAB PO SCH (21:59)
[2017-08-04 22:10] LABS: Glucose,Whole Blood 217 mg/dL (75-99)
[2017-08-05] MEDS: methylPREDNISolone SOD SUCCI 40 MG/ML 1 ML VIAL IV SCH ×4 (00:01→17:45)
[2017-08-05 06:11] LABS: Glucose,Whole Blood 173 mg/dL (75-99)
[2017-08-05] MEDS: PANTOPRAZOLE 40 MG TABLET PO SCH (06:19)
[2017-08-05 06:59] LABS: Calcium 9.2 mg/dL (8.4-10.2); Potassium 3.9 mmol/L (3.5-5.1)
[2017-08-05] MEDS: FORMOTEROL FUMARATE 20 MCG/2 ML NEBU INHALATION SCH ×2 (08:28→19:52)
[2017-08-05] MEDS: BUDESONIDE 1 MG/2 ML NEBU INHALATION SCH ×2 (08:28→19:52)
[2017-08-05] MEDS: IPRATROPIUM-ALBUTEROL 3 ML NEB INHALATION SCH ×4 (08:28→19:52)
[2017-08-05] MEDS: INSULIN ASPART 100 UNIT/ML 1 ML 10 ML VIAL SQ SCH ×7 (08:53→21:33)
[2017-08-05] MEDS: buPROPion SR 100 MG TABLET.ER PO SCH (09:09)
[2017-08-05] MEDS: FUROSEMIDE 40 MG TAB PO SCH (09:09)
[2017-08-05] MEDS: ASPIRIN 81 MG PO SCH (09:09)
[2017-08-05] MEDS: hydrALAZINE HCL 25 MG TAB PO SCH ×2 (09:09→20:15)
[2017-08-05] MEDS: APIXABAN 2.5 MG TABLET PO SCH ×2 (09:09→20:15)
[2017-08-05] MEDS: SPIRONOLACTONE 25 MG TAB PO SCH (09:09)
[2017-08-05] MEDS: SERTRALINE 100 MG TAB PO SCH (09:09)
[2017-08-05] MEDS: guaiFENesin 600 MG TABLET.ER PO SCH ×2 (09:09→20:15)
[2017-08-05] MEDS: LISINOPRIL 5 MG TAB PO SCH (09:09)
[2017-08-05] MEDS: LABETALOL 200 MG TAB PO SCH ×2 (09:09→20:15)
[2017-08-05] MEDS: ALLOPURINOL 100 MG TAB PO SCH (09:09)
[2017-08-05] MEDS: levETIRAcetam 500 MG TAB PO SCH ×2 (09:10→20:15)
[2017-08-05] MEDS: INSULIN DETEMIR 100 UNIT/ML 10 ML VIAL SQ SCH ×2 (09:10→21:26)
[2017-08-05] MEDS: NYSTATIN 100,000 UNIT/ML SUSP 500,000 UNIT/5 ML CUP PO SCH ×4 (09:10→22:19)
[2017-08-05] MEDS: HYDROcodone/APAP 10-325MG 1 EACH TAB PO PRN ×2 (09:10→15:33)
[2017-08-05] MEDS: AMMONIUM LACTATE 12% LOTION 225 GM BTL TOPICAL SCH (09:11)
--- NOTE | 2017-08-05 10:47 | P.PN ---
Subjective Progress Note Date: 08/05/17 This is a 72-year-old female one of Dr. Sifuentes with a previous medical history significant for CAD post-PCI with chronic diastolic heart failure, hypertension and hypertensive cardiovascular disease, history of CVA in the past in the left occipital area with significant balance issues requiring the use of a walker and wheelchair on and off, history of diabetes mellitus type 2, hyperlipidemia, history of chronic atrial fibrillation, remote history of ischemic bowel with gangrenous changes and perforated bowel post colectomy and colostomy placement that was done at [facility], patient apparently was in her usual state of health about 2 days ago when she was at [facility] and developed to have an increased shortness of breath and she became somewhat confused,and they ended up sending the patient to the ER for evaluation she was found to have hypoxemia with significant shortness of breath thought to be due to possible combination of COPD exacerbation as well as an acute diastolic heart failure, patient was started on IV diuretics as well as IV Solu-Medrol she was seen in consultation by pulmonary and by cardiology, underwent echocardiogram still pending at the time of dictation. 4/1: Patient is complaining of pain in the lower back and she is feeling itchy as well she denies any chest pain or any shortness breath she is having less she has no abdominal pain, her stoma is working very well. 4/2: Patient remains on IV Lasix. Her heart rate has been running high around 116 and hypertensive and cardiology has increased metipranolol, increased dose of lisinopril to 10 mg daily and added and labetalol 300 mg twice daily. IV Solu-Medrol will be switched over to oral. Pulmonary medicine has cleared patient for discharge. She had an abdominal x-ray done today for abdominal pain that revealed a right-sided ureteral stent. There is partial uncoiling of the proximal loop but appears to remain appropriately positioned. Moderate stool burden. No evidence of free air or bowel obstruction. Bowel gas projecting lateral to the right hip this could represent overhanging panniculus or abdominal wall hernia. 4/3: Patient's heart rate continues to be elevated at 116-124. She is complaining of some shortness of breath this morning and she is currently on Lasix 40 mg IV every 12 hours. Patient will be resumed back on Solu-Medrol at 40 mg. Her white count is at 12.2, hemoglobin 13.7, creatinine 1.1. Urine cultures are showing group D enterococcus. Patient is on Levaquin. Weight is down 2.5 kg since admission. 08/01: Heart rate is running 110s to 120s. We have increased her labetalol to 400 mg twice daily, change Lasix to oral and decreased hydralazine which could impact her tachycardia. Patient continues to have shortness of breath. She denies any choking with eating. Pulmicort increased 1 mg twice daily and perform a missed added. Blood sugars have been elevated so NovoLog increased to 7 units 3 times day and Levemir to 28 units at bedtime. Solu-Medrol remains at 40 mg every 12 hours 08/02: Last evening, patient had increasing difficulty with breathing and a chest x-ray was done that revealed new right lung consolidation obesity. Suspect developing bronchopneumonia. Patient did receive 60 of IV Lasix. Repeat chest x-ray this morning showed moderate cardiomegaly. Patchy right basilar density shows improvement. There may be residual mild pulmonary vascular congestion. Her BUN is 65 with creatinine 1.3. Patient states her shortness of breath is better today and that she was very scared yesterday. She is eating okay. Cardiology has recommended changing IV Lasix to oral and she has been cleared for discharge today. Patient's discharge plan is to return to [facility]. Pulmonary medicine is recommended prednisone taper, antibiotics and follow-up with Dr. Iniguez at the intermediate. 08/03: Patient continues to have difficulty breathing and discharge most likely will occur on Sunday. She continues to have wheezing. She complains of headache. Solu-Medrol will remain the same. Lasix will be decreased to once daily as her BUN is 76 and creatinine 1.25. 08/04: Repeat BUN is increasing to 91 most likely due to steroids and creatinine 1.6. Hemoglobin is stable at 13.3. Patient had one blood sugar reading of 66 and otherwise improved. Her morning 7030 will be decreased to 14 units and meals will be decreased to 5 units 3 times daily. No change in Solu-Medrol as patient continues to have some wheezing and difficulty breathing. Solu-Medrol is currently at 40 mg every 6 hours which was increased yesterday by Dr. Garcia. There is small amount of bleeding with a few clots from her colostomy for which a surgical evaluation will be requested. Patient had her colostomy surgery at [facility] but Dr. Yin is known to the patient. 08/05: Dr. Bernal saw the patient yesterday regarding bleeding from the stoma which is stopped. If she has continued bleeding patient may require scope done. Pulse ox is 91% on 3 L, heart rate is running 1 11/28/2010. BUN 95 and creatinine is 1.2 which creatinine is improved from yesterday. Patient continues to have wheezing and difficulty breathing for which no changes will be made to Solu-Medrol. We will increase Lasix to 40 mg IV daily. Objective - Vital Signs Vital signs: Vital Signs Temp 97.3 F L 08/05/17 04:00 Pulse 111 H 08/05/17 08:28 Resp 18 08/05/17 08:28 BP 127/74 08/05/17 07:47 Pulse Ox 91 L 08/05/17 07:47 Intake & Output 08/04/17 08/05/17 08/05/17 18:59 06:59 18:59 Intake Total 462 240 222 Output Total 1450 100 Balance -988 140 222 Weight 70 kg Intake: Oral 462 240 222 Output: Urine 1450 100 Other: Voiding Method Toilet Toilet Toilet Bedside Commode Bedside Commode Bedside Commode # Voids 2 - Exam - Constitutional General appearance: average body habitus, mild distress - EENT Eyes: anicteric sclerae, EOMI, PERRLA, no ptosis, no scleral icterus, normal appearance ENT: hearing grossly normal, NA/AT, normal oropharynx, no thrush, no tonsillar exudates Ears: bilateral: normal - Neck Neck: no lymphadenopathy, normal ROM, no rigidity, no stridor, no thyromegaly Carotids: bilateral: upstroke delayed Thyroid: bilateral: normal size - Respiratory Respiratory: bilateral: diminished, rhonchi, wheezing, prolonged expiration, negative: dullness, rales - Cardiovascular Rhythm: irregularly irregular Heart sounds: normal: S1, S2 Abnormal Heart Sounds: systolic murmur - Gastrointestinal General gastrointestinal: normal bowel sounds, soft, no splenomegaly, no tenderness (There is colostomy bag in place), ventral hernia (Large abdominal wall hernia.) - Integumentary Integumentary: normal, normal turgor - Neurologic Neurologic: CNII-XII intact - Musculoskeletal Musculoskeletal: no gait normal, generalized weakness, strength equal bilaterally - Psychiatric Psychiatric: A&O x's 3, appropriate affect, intact judgment & insight - Labs CBC & Chem 7: 08/04/17 06:08 08/05/17 06:11 Labs: Abnormal Lab Results - Last 24 Hours (Table) 08/04/17 08/04/17 08/04/17 Range/Units 11:41 17:16 22:09 Chloride (98-107) mmol/L Carbon Dioxide (22-30) mmol/L BUN (7-17) mg/dL Creatinine (0.52-1.04) mg/dL Glucose (74-99) mg/dL POC Glucose (mg/dL) 188 H 242 H 217 H (75-99) mg/dL 08/05/17 08/05/17 Range/Units 06:09 06:11 Chloride 94 L (98-107) mmol/L Carbon Dioxide 34 H (22-30) mmol/L BUN 95 H* (7-17) mg/dL Creatinine 1.20 H (0.52-1.04) mg/dL Glucose 150 H (74-99) mg/dL POC Glucose (mg/dL) 173 H (75-99) mg/dL Assessment and Plan Plan: 1. Acute on chronic hypoxemic respiratory failure due to accommodation of acute exacerbation of COPD as well as acute systolic heart failure. Continue the patient on Lasix 40 mg IV every day, labetalol 400 mg orally twice every day , continue patient on DuoNeb 3 mg nebulization 4 times every day, Solu-Medrol 40 mg every 6 hours, Pulmicort nebulization twice every day, Perforomist, continue oxygen support, echocardiogram, cardiology and pulmonary consultation. 2. Acute on chronic diastolic heart failure with ejection fraction of 55% in the past. Continue labetalol 400 mg orally twice every day, continue patient on Lasix 40 mg IVP every day. 3. Acute kidney injury with chronic kidney disease stage III. 4. History of obstructive proximal right ureteral calculus status post cystoscopy and insertion of a double-J stent in the right kidney. 5. History of CVA. history of with a large infarct involving the left hemisphere. Continue aspirin 81 mg orally once every day as well as Eliquis 2.5 mg orally twice every day for life. 6. History of vertebral fracture involving the C1 and C2 spine with chronic neck pain 7. Hypertension and hypertensive cardiovascular disease. Continue labetalol 400 mg orally twice every day, hydralazine 25 mg orally 2 times every day. 8. Diabetes mellitus type 2. Levemir 14 units in the morning and 28 units in the evening, NovoLog 5 units with meals and NovoLog scale. 9. coronary artery disease with previous coronary intervention and stenting. Continue aspirin 81 mg orally once every day, labetalol 10. paroxysmal atrial fibrillation, currently on long-term and to coagulation with Eliquis. 11. severe pulmonary hypertension related to COPD and diastolic dysfunction. Continue Lasix and labetalol. 12. peptic ulcer disease. Continue patient on Protonix 40 mg orally once every day. 13. 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 Patient does have small amount of bleeding from colostomy for which a consult will be placed with Dr. Yin. Hemoglobin is stable. 14. chronic anemia, current hemoglobin is stable and above 13. 15. peripheral Vascular disease. Continue aspirin 81 mg once every day for secondary prevention. 16. previous carotid endarterectomy for carotid artery disease. 17. recurrent urine checked infection with VRE and the repeat cultures from 10/2016 is showing enterococcal infection which is a VRE organism. 18. History of MRSA wound infection involving the sacral ulcers. 19. large anterior abdominal wall hernia. Stable at this time. 20. DVT prophylaxis. Continue patient on Eliquis 2.5 mg orally twice every day as well as bilateral knee-high DOROTHY hose. 21. GI prophylaxis. Continue PPI. 22. Oral thrush. Start nystatin swish and swallow. Patient is full code. Discharge plan: Return to [facility] on Sunday Impression and plan of care have been directed as dictated by the signing physician. Destiny Jones nurse practitioner acting as scribe for signing physician.
[2017-08-05 11:22] LABS: Glucose,Whole Blood 271 mg/dL (75-99)
--- NOTE | 2017-08-05 11:54 | P.PN ---
Subjective Progress Note Date: 08/05/17 Principal diagnosis: Acute exacerbation of COPD, and acute diastolic congestive heart failure. 68-year-old female patient referred to the [facility] department from [facility] on the [place] because of increased shortness of breath. Apparently the patient has been having increased dyspnea for the past 2 days. She is coughing and her cough is congested at times she is producing some yellowish sputum. She has also become bronchus spastic and wheezy. She is known to have COPD and tracheal bronchomalacia. She also has an extensive cardiac history. She was desaturating and her pulse ox was also noted to be low. For that reason the patient was sent over to the hospital for further treatment. The patient had some chest discomfort along the right side of the chest and upper body. No altered mentation. No pleurisy. No hemoptysis. She denies having any aspiration. The chest x-ray shows a component of CHF with cardiomegaly and tiny bilateral pleural effusion. There is excellent COPD. Currently, the patient on DuoNeb about treatments around the clock, she is also on a combination of Pulmicort rescue twice a day and Perforomist neb last treatment twice a day, she is on IV Solu Medrol 40 g every 8 hours and she is also on Lasix 40 g IV push every 12 hours. The patient has had multiple hospitalizations in the past. On 07 29 2017 the patient is feeling better less short of breath compared to yesterday. Sitting up on a chair. Cough and wheezing and bronchospasm improved compared yesterday and the patient did not have any significant events overnight. Meanwhile, the patient remains on DuoNeb neb last treatment around- the-clock, Pulmicort Respules, IV Lasix 40 mg every 12 hours and the patient has been tapered down to 40 mg of IV Lasix to 8 hours. No other significant events overnight. She did develop some steroid use hyperglycemia and the patient is currently on sliding scale insulin coverage. The patient is seen again today 07/30/2017 in follow-up on the selective care unit. She is currently awake and alert in no acute distress. She denies any worsening shortness of breath, cough or congestion. She is maintaining good O2 saturations in the upper 90s on 2 L/m per nasal cannula. She's been afebrile. White count 10.6. Hemoglobin 14.1. Creatinine 0.97. She is continued on bronchodilators, Pulmicort, prednisone. She is diuresing well. Patient is seen again today 07/31/2017 in follow-up on the selective care unit. She is currently resting fairly comfortably in bed. She denies any worsening shortness of breath, cough or congestion. Is maintaining good O2 saturations in the upper 90s on 2 L/m per nasal cannula. She's currently afebrile. Slightly tachycardic. White count 12.2. Hemoglobin 13.7. Creatinine 1.10. Urine cultures positive for group D enterococcus. Currently on Levaquin. The patient is seen again today 08/01/2017 in follow-up on the selective care unit. She is currently resting quite comfortably in bed. She is awake and alert in no acute distress. She is breathing easier today as compared to yesterday. She is maintaining good O2 saturations up to 100% on 2 L/m per nasal cannula. She's afebrile. Still tachycardic. Creatinine 1.18. Patient is seen again today 08/02/2017 in follow-up on the selective care unit. She is awake and alert in no acute distress. She denies any worsening shortness of breath, cough or congestion. No chills or night sweats. She is afebrile. Hemodynamically stable. Maintaining good O2 saturations in the mid 90s on 2 L/m per nasal cannula. Chest x-ray reveals moderate cardiomegaly. There is improvement in the patchy basilar density on the right. Creatinine 1.30. The patient is seen again today 08/03/2017 in follow-up on the selective care unit. She is currently resting quite comfortably in bed. She denies any worsening shortness of breath, cough or congestion. He does get occasional headaches. She is maintaining good O2 saturations in the 90s on 4 L/m per nasal cannula. Bicarb 36. Creatinine 1.25. The patient is seen again today 08/04/2017 in follow-up on the selective care unit. She is awake and alert in no acute distress. She is breathing easier today as compared to yesterday. Continues to maintain O2 saturations in the 90s on 4 L/m per nasal cannula. She's been afebrile. Slightly tachycardic. White count 13.3. Hemoglobin 13.3. Creatinine 1.60. Reevaluated today on 08/05/2017, patient is relatively asymptomatic, however on physical examination she has diffuse rhonchi and wheezes bilaterally. Her left chest x-ray was negative for congestive heart failure and for pneumonia, patient remains on diuretics and on bronchodilators, she is on Solu-Medrol, I plan to repeat her chest x-ray in a.m., she may even have to be considered for bronchoscopy. BUN is 95 creatinine is 1.20, bicarb is 34. Last chest x-ray 3 days ago showed moderate cardiomegaly, and improvement in her right base left findings and vascular congestion. Objective - Vital Signs Vital signs: Vital Signs Temp 97.3 F L 08/05/17 04:00 Pulse 110 H 08/05/17 08:49 Resp 18 08/05/17 08:49 BP 127/74 08/05/17 07:47 Pulse Ox 91 L 08/05/17 07:47 Intake & Output 08/04/17 08/05/17 08/05/17 18:59 06:59 18:59 Intake Total 462 240 222 Output Total 1450 100 Balance -988 140 222 Weight 70 kg Intake: Oral 462 240 222 Output: Urine 1450 100 Other: Voiding Method Toilet Toilet Toilet Bedside Commode Bedside Commode Bedside Commode # Voids 2 - Exam Physical Exam: Revealed a 72-year-old female in no distress. Noted to have intermittent cough. However the patient is asymptomatic when asked about symptoms. States that she feels fine. Head: Atraumatic, normocephalic. Eyes: PERRLA, EOMI, no icterus, HEENT: Moist mucous membranes. [Neck is supple.] [No neck masses.] [No thyromegaly.] [No JVD.] Chest: [Diffuse crackles or rhonchi and wheezes noted throughout. Cardiac Exam: Irregular irregular [Normal S1 and S2, no S3 gallop, no murmur.] Abdomen: [Soft, nontender, no megaly, no rebound, no guarding, normal bowel sounds.] Functional colostomy is noted in the right abdominal wall area. Large anterior wall hernia noted. Extremities: [No clubbing, no edema, no cyanosis.] Neurological Exam: [No focal neurologic deficit.] Lymphatics: No lymphadenopathy. Musko skeletal: Normal range of motion, no deformities. - Labs CBC & Chem 7: 08/04/17 06:08 08/05/17 06:11 Labs: Abnormal Lab Results - Last 24 Hours (Table) 08/04/17 08/04/17 08/04/17 Range/Units 11:41 17:16 22:09 Chloride (98-107) mmol/L Carbon Dioxide (22-30) mmol/L BUN (7-17) mg/dL Creatinine (0.52-1.04) mg/dL Glucose (74-99) mg/dL POC Glucose (mg/dL) 188 H 242 H 217 H (75-99) mg/dL 08/05/17 08/05/17 08/05/17 Range/Units 06:09 06:11 11:19 Chloride 94 L (98-107) mmol/L Carbon Dioxide 34 H (22-30) mmol/L BUN 95 H* (7-17) mg/dL Creatinine 1.20 H (0.52-1.04) mg/dL Glucose 150 H (74-99) mg/dL POC Glucose (mg/dL) 173 H 271 H (75-99) mg/dL Assessment and Plan Assessment: 1 acute shortness of breath secondary to exacerbation of COPD/CHF. No clear indication of an underlying pneumonia based on the chest x-ray findings. Clinically improving as the patient is being treated for both COPD and CHF exacerbation with a combination of bronchodilators steroids and diuretics. Improved. 2 chronic hypoxic and hypercapnic respiratory failure, along with a history of COPD 3 CHF with mild concentric left ventricular hypertrophy and an ejection fraction of 50-55%, essentially of a diastolic dysfunction 4 large anterior abdominal wall hernia 5 obstructive proximal right ureteral calculus status post cystoscopy and insertion of a double-J stent in the right kidney, 6 CVA, history of with a large infarct involving the left hemisphere 7 vertebral fracture involving the C1 and C2 spine with chronic neck pain 8 hypertension 9 diabetes mellitus, currently on Levemir insulin 10 coronary artery disease with previous coronary intervention and stenting 11 paroxysmal atrial fibrillation, currently on long-term and to coagulation with Eliquis 12 severe pulmonary hypertension related to COPD and diastolic dysfunction 13 peptic ulcer disease 14 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 Recommendation: Continue diuretics, bronchodilators, Solu-Medrol, repeat chest x -ray in a.m., not quite ready for discharge today. Time with Patient: Less than 30
[2017-08-05] MEDS: FUROSEMIDE 10 MG/ML 4 ML VIAL IV SCH (12:12)
--- NOTE | 2017-08-05 12:55 | P.PN ---
Subjective Progress Note Date: 08/05/17 Patient is laying comfortably in bed. No reports of abdominal pain. She is tolerating regular diet. Minimal bleeding from her ostomy as compared to yesterday. Her is at bedside. Objective - Vital Signs Vital signs: Vital Signs Temp 97.3 F L 08/05/17 04:00 Pulse 110 H 08/05/17 08:49 Resp 18 08/05/17 08:49 BP 127/74 08/05/17 07:47 Pulse Ox 91 L 08/05/17 07:47 Intake & Output 08/04/17 08/05/17 08/05/17 18:59 06:59 18:59 Intake Total 462 240 222 Output Total 1450 100 Balance -988 140 222 Weight 70 kg Intake: Oral 462 240 222 Output: Urine 1450 100 Other: Voiding Method Toilet Toilet Toilet Bedside Commode Bedside Commode Bedside Commode # Voids 2 - Exam GENERAL: Well developed and in no acute distress. Pleasant. HEENT: No sclera icterus. Extraocular movements grossly intact. Moist buccal mucosa. Head is atraumatic, normocephalic. Hears conversational speech. No nasal drainage. NECK: Supple without lymphadenopathy. CHEST: Non-labored respirations and equal bilateral excursions. CARDIOVASCULAR: Regular rate and rhythm. Palpable 2+ radial pulses. ABDOMEN: Soft, nontender. Nondistended. Ostomy pink and functioning. No large blood clot identified. MUSCULOSKELETAL: No clubbing, cyanosis or edema. NEUROLOGIC: No focal or lateralizing signs. PSYCH: Appropriate affect. Alert and oriented to person, place and time. SKIN: Multiple ecchymosis along the forearm. - Labs CBC & Chem 7: 08/04/17 06:08 08/05/17 06:11 Labs: Abnormal Lab Results - Last 24 Hours (Table) 08/04/17 08/04/17 08/05/17 Range/Units 17:16 22:09 06:09 Chloride (98-107) mmol/L Carbon Dioxide (22-30) mmol/L BUN (7-17) mg/dL Creatinine (0.52-1.04) mg/dL Glucose (74-99) mg/dL POC Glucose (mg/dL) 242 H 217 H 173 H (75-99) mg/dL 08/05/17 08/05/17 Range/Units 06:11 11:19 Chloride 94 L (98-107) mmol/L Carbon Dioxide 34 H (22-30) mmol/L BUN 95 H* (7-17) mg/dL Creatinine 1.20 H (0.52-1.04) mg/dL Glucose 150 H (74-99) mg/dL POC Glucose (mg/dL) 271 H (75-99) mg/dL Assessment and Plan (1) COPD (chronic obstructive pulmonary disease) Current Visit: Yes Status: Acute Code(s): J44.9 - CHRONIC OBSTRUCTIVE PULMONARY DISEASE, UNSPECIFIED SNOMED Code(s): 67656794 (2) Acute exacerbation of chronic obstructive airways disease Current Visit: No Status: Acute Code(s): J44.1 - CHRONIC OBSTRUCTIVE PULMONARY DISEASE W (ACUTE) EXACERBATION SNOMED Code(s): 376143335 (3) GI bleed Current Visit: No Status: Acute Code(s): K92.2 - GASTROINTESTINAL HEMORRHAGE , UNSPECIFIED SNOMED Code(s): 55296594 Plan: 1. Clinically, her symptoms are improving. 2. No acute surgical intervention at this time. 3. I discussed possibility of scopes however patient is clinically improving. We'll observe.
[2017-08-05] MEDS: FERROUS SULFATE 325 MG TAB PO SCH (15:33)
[2017-08-05 16:13] LABS: Glucose,Whole Blood 373 mg/dL (75-99)
[2017-08-05] MEDS: clonazePAM 0.5 MG TAB PO SCH (20:15)
[2017-08-05 21:06] LABS: Glucose,Whole Blood 308 mg/dL (75-99)
[2017-08-05] MEDS: LEVOFLOXACIN 250 MG TAB PO SCH (22:19)
[2017-08-06] MEDS: methylPREDNISolone SOD SUCCI 40 MG/ML 1 ML VIAL IV SCH ×4 (00:41→17:43)
[2017-08-06 05:58] LABS: Glucose,Whole Blood 115 mg/dL (75-99)
[2017-08-06] MEDS: PANTOPRAZOLE 40 MG TABLET PO SCH (06:39)
--- NOTE | 2017-08-06 07:19 | XR ---
EXAMINATION TYPE: XR chest 1V portable DATE OF EXAM: 08/06/2017 COMPARISON: 08/02/2017 HISTORY: Shortness of breath TECHNIQUE: Single portable view of the chest is obtained. FINDINGS: Scattered senescent parenchymal changes noted. Patchy perihilar and right basilar infiltrates are new in the interval. Correlate for pneumonia. Heart size is stable. Mediastinal structures are stable and grossly unremarkable. No evidence for hilar prominence. Degenerative changes dorsal spine. IMPRESSION: 1. Patchy perihilar and right basilar infiltrates are new in the interval. Correlate for pneumonia.
[2017-08-06] MEDS: HYDROcodone/APAP 10-325MG 1 EACH TAB PO PRN ×3 (08:10→21:33)
[2017-08-06] MEDS: INSULIN ASPART 100 UNIT/ML 1 ML 10 ML VIAL SQ SCH ×7 (08:10→21:35)
[2017-08-06] MEDS: levETIRAcetam 500 MG TAB PO SCH ×2 (08:12→21:31)
[2017-08-06] MEDS: hydrALAZINE HCL 25 MG TAB PO SCH ×2 (08:12→21:30)
[2017-08-06] MEDS: SERTRALINE 100 MG TAB PO SCH (08:15)
[2017-08-06] MEDS: ASPIRIN 81 MG PO SCH (08:15)
[2017-08-06] MEDS: LISINOPRIL 5 MG TAB PO SCH (08:15)
[2017-08-06] MEDS: POTASSIUM CHLORIDE ER 10 MEQ TAB.ER.PRT PO SCH (08:15)
[2017-08-06] MEDS: FUROSEMIDE 10 MG/ML 4 ML VIAL IV SCH (08:15)
[2017-08-06] MEDS: APIXABAN 2.5 MG TABLET PO SCH ×2 (08:15→21:30)
[2017-08-06] MEDS: LABETALOL 200 MG TAB PO SCH (08:15)
[2017-08-06] MEDS: SPIRONOLACTONE 25 MG TAB PO SCH (08:15)
[2017-08-06] MEDS: buPROPion SR 100 MG TABLET.ER PO SCH (08:15)
[2017-08-06] MEDS: ALLOPURINOL 100 MG TAB PO SCH (08:15)
[2017-08-06] MEDS: BUDESONIDE 1 MG/2 ML NEBU INHALATION SCH ×2 (08:54→20:56)
[2017-08-06] MEDS: FORMOTEROL FUMARATE 20 MCG/2 ML NEBU INHALATION SCH ×3 (08:54→21:15)
[2017-08-06] MEDS: IPRATROPIUM-ALBUTEROL 3 ML NEB INHALATION SCH ×4 (08:54→20:56)
[2017-08-06] MEDS: AMMONIUM LACTATE 12% LOTION 225 GM BTL TOPICAL SCH (09:17)
[2017-08-06] MEDS: guaiFENesin 600 MG TABLET.ER PO SCH ×2 (09:17→21:30)
[2017-08-06] MEDS: NYSTATIN 100,000 UNIT/ML SUSP 500,000 UNIT/5 ML CUP PO SCH ×4 (09:17→21:31)
[2017-08-06 11:20] LABS: Basophils # (A) 0.1 k/uL (0-0.2); Basophils % (A) 0 %; Eosinophils % (A) 0 %; HGB 14.3 gm/dL (11.4-16.0); Hypochromasia Moderate; Lymphocytes # (A) 0.4 k/uL (1.0-4.8); Lymphocytes % (A) 2 %; MCH 28.7 pg (25.0-35.0); MCHC 29.7 g/dL (31.0-37.0); MCV 96.7 fL (80.0-100.0); Mean Platelet Volume 8.8; Monocytes # (A) 0.9 k/uL (0-1.0); Monocytes % (A) 5 %; Neutrophils # (A) 18.5 k/uL (1.3-7.7); Neutrophils % (A) 92 %; Platelet Count 222 k/uL (150-450); RBC 4.97 m/uL (3.80-5.40); RDW 14.1 % (11.5-15.5); WBC 20.2 k/uL (3.8-10.6)
[2017-08-06 11:36] LABS: Potassium 4.7 mmol/L (3.5-5.1); Total Bilirubin 1.1 mg/dL (0.2-1.3)
[2017-08-06 11:45] LABS: Glucose,Whole Blood 189 mg/dL (75-99)
[2017-08-06] MEDS: INSULIN DETEMIR 100 UNIT/ML 10 ML VIAL SQ SCH ×2 (12:02→21:34)
[2017-08-06] MEDS: FERROUS SULFATE 325 MG TAB PO SCH (13:41)
--- NOTE | 2017-08-06 13:48 | FL ---
Modified barium swallow HISTORY: Shortness of breath 1 minute 25 seconds fluoroscopy time, no intraoperative images Patient was evaluated in real-time in the lateral projection under fluoroscopy during ingestion of li quids mixed with barium. Some laryngeal penetration noted. No joie aspiration. Some delay in initiation of swallowing noted. See dictated report of speech pathology. No solids administered.
--- NOTE | 2017-08-06 13:58 | P.PN ---
Subjective Progress Note Date: 08/06/17 This is a 72-year-old female one of Dr. Sifuentes with a previous medical history significant for CAD post-PCI with chronic diastolic heart failure, hypertension and hypertensive cardiovascular disease, history of CVA in the past in the left occipital area with significant balance issues requiring the use of a walker and wheelchair on and off, history of diabetes mellitus type 2, hyperlipidemia, history of chronic atrial fibrillation, remote history of ischemic bowel with gangrenous changes and perforated bowel post colectomy and colostomy placement that was done at [facility], patient apparently was in her usual state of health about 2 days ago when she was at [facility] and developed to have an increased shortness of breath and she became somewhat confused,and they ended up sending the patient to the ER for evaluation she was found to have hypoxemia with significant shortness of breath thought to be due to possible combination of COPD exacerbation as well as an acute diastolic heart failure, patient was started on IV diuretics as well as IV Solu-Medrol she was seen in consultation by pulmonary and by cardiology, underwent echocardiogram still pending at the time of dictation. 4/1: Patient is complaining of pain in the lower back and she is feeling itchy as well she denies any chest pain or any shortness breath she is having less she has no abdominal pain, her stoma is working very well. 4/2: Patient remains on IV Lasix. Her heart rate has been running high around 116 and hypertensive and cardiology has increased metipranolol, increased dose of lisinopril to 10 mg daily and added and labetalol 300 mg twice daily. IV Solu-Medrol will be switched over to oral. Pulmonary medicine has cleared patient for discharge. She had an abdominal x-ray done today for abdominal pain that revealed a right-sided ureteral stent. There is partial uncoiling of the proximal loop but appears to remain appropriately positioned. Moderate stool burden. No evidence of free air or bowel obstruction. Bowel gas projecting lateral to the right hip this could represent overhanging panniculus or abdominal wall hernia. 4/3: Patient's heart rate continues to be elevated at 116-124. She is complaining of some shortness of breath this morning and she is currently on Lasix 40 mg IV every 12 hours. Patient will be resumed back on Solu-Medrol at 40 mg. Her white count is at 12.2, hemoglobin 13.7, creatinine 1.1. Urine cultures are showing group D enterococcus. Patient is on Levaquin. Weight is down 2.5 kg since admission. 08/01: Heart rate is running 110s to 120s. We have increased her labetalol to 400 mg twice daily, change Lasix to oral and decreased hydralazine which could impact her tachycardia. Patient continues to have shortness of breath. She denies any choking with eating. Pulmicort increased 1 mg twice daily and perform a missed added. Blood sugars have been elevated so NovoLog increased to 7 units 3 times day and Levemir to 28 units at bedtime. Solu-Medrol remains at 40 mg every 12 hours 08/02: Last evening, patient had increasing difficulty with breathing and a chest x-ray was done that revealed new right lung consolidation obesity. Suspect developing bronchopneumonia. Patient did receive 60 of IV Lasix. Repeat chest x-ray this morning showed moderate cardiomegaly. Patchy right basilar density shows improvement. There may be residual mild pulmonary vascular congestion. Her BUN is 65 with creatinine 1.3. Patient states her shortness of breath is better today and that she was very scared yesterday. She is eating okay. Cardiology has recommended changing IV Lasix to oral and she has been cleared for discharge today. Patient's discharge plan is to return to [facility]. Pulmonary medicine is recommended prednisone taper, antibiotics and follow-up with Dr. Iniugez at the [facility]. 08/03: Patient continues to have difficulty breathing and discharge most likely will occur on Sunday. She continues to have wheezing. She complains of headache. Solu-Medrol will remain the same. Lasix will be decreased to once daily as her BUN is 76 and creatinine 1.25. 08/04: Repeat BUN is increasing to 91 most likely due to steroids and creatinine 1.6. Hemoglobin is stable at 13.3. Patient had one blood sugar reading of 66 and otherwise improved. Her morning 70/30 will be decreased to 14 units and meals will be decreased to 5 units 3 times daily. No change in Solu-Medrol as patient continues to have some wheezing and difficulty breathing. Solu-Medrol is currently at 40 mg every 6 hours which was increased yesterday by Dr. Garcia. There is small amount of bleeding with a few clots from her colostomy for which a surgical evaluation will be requested. Patient had her colostomy surgery at [facility] but Dr. Yin is known to the patient. 08/05: Dr. Lazar saw the patient yesterday regarding bleeding from the stoma which is stopped. If she has continued bleeding patient may require scope done. Pulse ox is 91% on 3 L, heart rate is running 108-111. BUN 95 and creatinine is 1.2 which creatinine is improved from yesterday. Patient continues to have wheezing and difficulty breathing for which no changes will be made to Solu-Medrol. We will increase Lasix to 40 mg IV daily. 08/06: Patient had melena stool in her colostomy and surgery has been requested to reassess. There is concern for aspiration as patient has been coughing with eating and modified barium swallow is scheduled for today. Levaquin will be changed to 500 mg daily. Labetalol changed to Coreg his heart rate is been elevated. Heart rate is now running around 1:15. White count is 20, BUN 104 and creatinine 1.69. Objective - Vital Signs Vital signs: Vital Signs Temp 97.3 F L 08/06/17 08:00 Pulse 111 H 08/06/17 09:45 Resp 18 08/06/17 09:45 BP 141/69 08/06/17 08:00 Pulse Ox 95 08/06/17 09:45 Intake & Output 08/05/17 08/06/17 08/06/17 18:59 06:59 18:59 Intake Total 666 Output Total 200 Balance 666 -200 Weight 71.5 kg Intake: Oral 666 Output: Stool 200 Other: Voiding Method Toilet Toilet Toilet Bedside Commode Bedside Commode Bedside Commode # Voids 1 1 - Exam - Constitutional General appearance: average body habitus, mild distress - EENT Eyes: anicteric sclerae, EOMI, PERRLA, no ptosis, no scleral icterus, normal appearance ENT: hearing grossly normal, NA/AT, normal oropharynx, no thrush, no tonsillar exudates Ears: bilateral: normal - Neck Neck: no lymphadenopathy, normal ROM, no rigidity, no stridor, no thyromegaly Carotids: bilateral: upstroke delayed Thyroid: bilateral: normal size - Respiratory Respiratory: bilateral: diminished, rhonchi, wheezing, prolonged expiration, negative: dullness, rales - Cardiovascular Rhythm: irregularly irregular Heart sounds: normal: S1, S2 Abnormal Heart Sounds: systolic murmur - Gastrointestinal General gastrointestinal: normal bowel sounds, soft, no splenomegaly, no tenderness (There is colostomy bag in place), ventral hernia (Large abdominal wall hernia.) - Integumentary Integumentary: normal, normal turgor - Neurologic Neurologic: CNII-XII intact - Musculoskeletal Musculoskeletal: no gait normal, generalized weakness, strength equal bilaterally - Psychiatric Psychiatric: A&O x's 3, appropriate affect, intact judgment & insight - Labs CBC & Chem 7: 08/06/17 10:55 08/06/17 10:55 Labs: Abnormal Lab Results - Last 24 Hours (Table) 08/05/17 08/05/17 08/06/17 Range/Units 16:10 21:05 05:57 WBC (3.8-10.6) k/uL Hct (34.0-46.0) % MCHC (31.0-37.0) g/dL Neutrophils # (1.3-7.7) k/uL Lymphocytes # (1.0-4.8) k/uL POC Glucose (mg/dL) 373 H 308 H 115 H (75-99) mg/dL 08/06/17 Range/Units 10:55 WBC 20.2 H (3.8-10.6) k/uL Hct 48.0 H (34.0-46.0) % MCHC 29.7 L (31.0-37.0) g/dL Neutrophils # 18.5 H (1.3-7.7) k/uL Lymphocytes # 0.4 L (1.0-4.8) k/uL POC Glucose (mg/dL) (75-99) mg/dL Assessment and Plan Plan: 1. Acute on chronic hypoxemic respiratory failure due to accommodation of acute exacerbation of COPD as well as acute systolic heart failure. Continue the patient on Lasix 40 mg IV every day, labetalol discontinued and Coreg 12.5 mg twice daily started, continue patient on DuoNeb 3 mg nebulization 4 times every day, Solu-Medrol 40 mg every 6 hours, Pulmicort nebulization twice every day, Perforomist, continue oxygen support, echocardiogram, cardiology and pulmonary consultation. 2. Acute on chronic diastolic heart failure with ejection fraction of 55% in the past. Continue labetalol discontinued and Coreg 12.5 mg twice daily started , continue patient on Lasix 40 mg IVP every day. 3. Acute kidney injury with chronic kidney disease stage III. 4. History of obstructive proximal right ureteral calculus status post cystoscopy and insertion of a double-J stent in the right kidney. 5. History of CVA. history of with a large infarct involving the left hemisphere. Continue aspirin 81 mg orally once every day as well as Eliquis 2.5 mg orally twice every day for life. 6. History of vertebral fracture involving the C1 and C2 spine with chronic neck pain 7. Hypertension and hypertensive cardiovascular disease. Continue labetalol discontinued and Coreg 12.5 mg twice daily started, hydralazine 25 mg orally 2 times every day. 8. Diabetes mellitus type 2. Levemir 14 units in the morning and 28 units in the evening, NovoLog 5 units with meals and NovoLog scale. 9. coronary artery disease with previous coronary intervention and stenting. Continue aspirin 81 mg orally once every day, labetalol 10. paroxysmal atrial fibrillation, currently on long-term and to coagulation with Eliquis. 11. severe pulmonary hypertension related to COPD and diastolic dysfunction. Continue Lasix and coreg. 12. peptic ulcer disease. Continue patient on Protonix 40 mg orally once every day. 13. 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 Patient does have small amount of bleeding from colostomy for which a consult will be placed with Dr. Yin. Hemoglobin is stable. 14. chronic anemia, current hemoglobin is stable and above 13. 15. peripheral Vascular disease. Continue aspirin 81 mg once every day for secondary prevention. 16. previous carotid endarterectomy for carotid artery disease. 17. recurrent urine checked infection with VRE and the repeat cultures from 10/2016 is showing enterococcal infection which is a VRE organism. 18. History of MRSA wound infection involving the sacral ulcers. 19. large anterior abdominal wall hernia. Stable at this time. 20. DVT prophylaxis. Continue patient on Eliquis 2.5 mg orally twice every day as well as bilateral knee-high DOROTHY hose. 21. GI prophylaxis. Continue PPI. 22. Oral thrush. Start nystatin swish and swallow. Patient is full code. Discharge plan: Return to [facility] Impression and plan of care have been directed as dictated by the signing physician. Destiny Jones nurse practitioner acting as scribe for signing physician.
--- NOTE | 2017-08-06 14:28 | P.PN ---
Subjective Progress Note Date: 08/06/17 Principal diagnosis: Acute exacerbation of COPD, and acute diastolic congestive heart failure. 68-year-old female patient referred to the [facility] department from [facility] on the [place] because of increased shortness of breath. Apparently the patient has been having increased dyspnea for the past 2 days. She is coughing and her cough is congested at times she is producing some yellowish sputum. She has also become bronchus spastic and wheezy. She is known to have COPD and tracheal bronchomalacia. She also has an extensive cardiac history. She was desaturating and her pulse ox was also noted to be low. For that reason the patient was sent over to the hospital for further treatment. The patient had some chest discomfort along the right side of the chest and upper body. No altered mentation. No pleurisy. No hemoptysis. She denies having any aspiration. The chest x-ray shows a component of CHF with cardiomegaly and tiny bilateral pleural effusion. There is excellent COPD. Currently, the patient on DuoNeb about treatments around the clock, she is also on a combination of Pulmicort rescue twice a day and Perforomist neb last treatment twice a day, she is on IV Solu Medrol 40 g every 8 hours and she is also on Lasix 40 g IV push every 12 hours. The patient has had multiple hospitalizations in the past. On 07 29 2017 the patient is feeling better less short of breath compared to yesterday. Sitting up on a chair. Cough and wheezing and bronchospasm improved compared yesterday and the patient did not have any significant events overnight. Meanwhile, the patient remains on DuoNeb neb last treatment around- the-clock, Pulmicort Respules, IV Lasix 40 mg every 12 hours and the patient has been tapered down to 40 mg of IV Lasix to 8 hours. No other significant events overnight. She did develop some steroid use hyperglycemia and the patient is currently on sliding scale insulin coverage. The patient is seen again today 07/30/2017 in follow-up on the selective care unit. She is currently awake and alert in no acute distress. She denies any worsening shortness of breath, cough or congestion. She is maintaining good O2 saturations in the upper 90s on 2 L/m per nasal cannula. She's been afebrile. White count 10.6. Hemoglobin 14.1. Creatinine 0.97. She is continued on bronchodilators, Pulmicort, prednisone. She is diuresing well. Patient is seen again today 07/31/2017 in follow-up on the selective care unit. She is currently resting fairly comfortably in bed. She denies any worsening shortness of breath, cough or congestion. Is maintaining good O2 saturations in the upper 90s on 2 L/m per nasal cannula. She's currently afebrile. Slightly tachycardic. White count 12.2. Hemoglobin 13.7. Creatinine 1.10. Urine cultures positive for group D enterococcus. Currently on Levaquin. The patient is seen again today 08/01/2017 in follow-up on the selective care unit. She is currently resting quite comfortably in bed. She is awake and alert in no acute distress. She is breathing easier today as compared to yesterday. She is maintaining good O2 saturations up to 100% on 2 L/m per nasal cannula. She's afebrile. Still tachycardic. Creatinine 1.18. Patient is seen again today 08/02/2017 in follow-up on the selective care unit. She is awake and alert in no acute distress. She denies any worsening shortness of breath, cough or congestion. No chills or night sweats. She is afebrile. Hemodynamically stable. Maintaining good O2 saturations in the mid 90s on 2 L/m per nasal cannula. Chest x-ray reveals moderate cardiomegaly. There is improvement in the patchy basilar density on the right. Creatinine 1.30. The patient is seen again today 08/03/2017 in follow-up on the selective care unit. She is currently resting quite comfortably in bed. She denies any worsening shortness of breath, cough or congestion. He does get occasional headaches. She is maintaining good O2 saturations in the 90s on 4 L/m per nasal cannula. Bicarb 36. Creatinine 1.25. The patient is seen again today 08/04/2017 in follow-up on the selective care unit. She is awake and alert in no acute distress. She is breathing easier today as compared to yesterday. Continues to maintain O2 saturations in the 90s on 4 L/m per nasal cannula. She's been afebrile. Slightly tachycardic. White count 13.3. Hemoglobin 13.3. Creatinine 1.60. Reevaluated today on 08/05/2017, patient is relatively asymptomatic, however on physical examination she has diffuse rhonchi and wheezes bilaterally. Her left chest x-ray was negative for congestive heart failure and for pneumonia, patient remains on diuretics and on bronchodilators, she is on Solu-Medrol, I plan to repeat her chest x-ray in a.m., she may even have to be considered for bronchoscopy. BUN is 95 creatinine is 1.20, bicarb is 34. Last chest x-ray 3 days ago showed moderate cardiomegaly, and improvement in her right base left findings and vascular congestion. On 08/06/2017 patient is seen in follow-up. Denies any acute distress, lung sounds are positive for scattered rhonchi and wheezes. Remains on 4 L per nasal cannula with O2 sat at 92%, patient is a bit tachycardic with a heart rate up to 117 BPM. Dyspneic on exertion. Afebrile, today's chest x-ray still shows evidence of left upper lobe and right base infiltrates. Today's lab work shows worsening leukocytosis, WBC of 20.2, BUN is 104, creatinine is 1.69. Urine culture was positive for Enterococcus faecalis, blood cultures remain negative since admission. Patient also developed melena stool in her colostomy , and surgery was requested to reassess the patient. Patient underwent modified barium swallow which showed some laryngeal penetration, but no joie aspiration, some delay in initiation of swallowing was noted. We recommend starting Macrobid for the evidence of enterococcus in the urine, continue with Levaquin. Objective - Vital Signs Vital signs: Vital Signs Temp 97.1 F L 08/06/17 12:00 Pulse 117 H 08/06/17 12:10 Resp 20 08/06/17 12:00 BP 121/70 08/06/17 12:00 Pulse Ox 92 L 08/06/17 12:00 Intake & Output 08/05/17 08/06/17 08/06/17 18:59 06:59 18:59 Intake Total 666 Output Total 200 Balance 666 -200 Weight 71.5 kg Intake: Oral 666 Output: Stool 200 Other: Voiding Method Toilet Toilet Toilet Bedside Commode Bedside Commode Bedside Commode # Voids 1 1 - Exam Physical Exam: Revealed a 72-year-old female in no distress. Noted to have intermittent cough. However the patient is asymptomatic when asked about symptoms. States that she feels fine. Head: Atraumatic, normocephalic. Eyes: PERRLA, EOMI, no icterus, HEENT: Moist mucous membranes. [Neck is supple.] [No neck masses.] [No thyromegaly.] [No JVD.] Chest: [Diffuse coarse crackles or rhonchi and wheezes noted throughout. Cardiac Exam: Irregular irregular [Normal S1 and S2, no S3 gallop, no murmur.] Abdomen: [Soft, nontender, no megaly, no rebound, no guarding, normal bowel sounds.] Functional colostomy is noted in the right abdominal wall area. Large anterior wall hernia noted. Extremities: [No clubbing, no edema, no cyanosis.] Neurological Exam: [No focal neurologic deficit.] Lymphatics: No lymphadenopathy. [place] skeletal: Normal range of motion, no deformities. - Labs CBC & Chem 7: 08/06/17 10:55 08/06/17 10:55 Labs: Abnormal Lab Results - Last 24 Hours (Table) 08/05/17 08/05/17 08/06/17 Range/Units 16:10 21:05 05:57 WBC (3.8-10.6) k/uL Hct (34.0-46.0) % MCHC (31.0-37.0) g/dL Neutrophils # (1.3-7.7) k/uL Lymphocytes # (1.0-4.8) k/uL Chloride (98-107) mmol/L BUN (7-17) mg/dL Creatinine (0.52-1.04) mg/dL Glucose (74-99) mg/dL POC Glucose (mg/dL) 373 H 308 H 115 H (75-99) mg/dL Total Protein (6.3-8.2) g/dL Albumin (3.5-5.0) g/dL 08/06/17 08/06/17 08/06/17 Range/Units 10:55 10:55 11:39 WBC 20.2 H (3.8-10.6) k/uL Hct 48.0 H (34.0-46.0) % MCHC 29.7 L (31.0-37.0) g/dL Neutrophils # 18.5 H (1.3-7.7) k/uL Lymphocytes # 0.4 L (1.0-4.8) k/uL Chloride 97 L (98-107) mmol/L BUN 104 H* (7-17) mg/dL Creatinine 1.69 H (0.52-1.04) mg/dL Glucose 191 H (74-99) mg/dL POC Glucose (mg/dL) 189 H (75-99) mg/dL Total Protein 6.0 L (6.3-8.2) g/dL Albumin 3.0 L (3.5-5.0) g/dL Assessment and Plan Plan: Assessment: 1 acute shortness of breath secondary to exacerbation of COPD/CHF. Today's chest x-ray shows left upper lobe and right base infiltrate Clinically improving as the patient is being treated for both COPD and CHF exacerbation with a combination of bronchodilators steroids and diuretics. Improved. 2 chronic hypoxic and hypercapnic respiratory failure, along with a history of COPD 3 CHF with mild concentric left ventricular hypertrophy and an ejection fraction of 50-55%, essentially of a diastolic dysfunction 4 large anterior abdominal wall hernia 5 obstructive proximal right ureteral calculus status post cystoscopy and insertion of a double-J stent in the right kidney, 6 CVA, history of with a large infarct involving the left hemisphere 7 vertebral fracture involving the C1 and C2 spine with chronic neck pain 8 hypertension 9 diabetes mellitus, currently on Levemir insulin 10 coronary artery disease with previous coronary intervention and stenting 11 paroxysmal atrial fibrillation, currently on long-term and to coagulation with Eliquis 12 severe pulmonary hypertension related to COPD and diastolic dysfunction 13 peptic ulcer disease 14 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 Plan: We'll discontinue the Levaquin and initiate Unasyn 1.5 mg every 6 hours IV piggyback for the left upper lobe and right base infiltrate and evidence of the Enterococcus faecalis in the urine. Patient has a remote ALLERGIC reaction to penicillin which was mainly at the injection site. Continue with IV Solu-Medrol , nebulized treatments, and IV diuretics. I performed a history & physical examination of the patient and discussed their management with my nurse practitioner, Yoly Saravia. I reviewed the nurse practitioner's note and agree with the documented findings and plan of care. Lung sounds are diffuse wheezes, and rhonchi and coarse rales. The findings and the impression was discussed with the patient. I attest to the documentation by the nurse practitioner. Time with Patient: Less than 30
--- NOTE | 2017-08-06 14:59 | P.PN ---
Subjective Progress Note Date: 08/06/17 Principal diagnosis: GI bleed Surgery was consulted see this patient regarding bleeding coming from the ostomy. The patient has an ileostomy in the right lower quadrant. She is on Plavix for hypercoagulable state. She thinks that the stoma was scratched during one of her recent ostomy appliance changes. No further bleeding today. No pain. Objective - Vital Signs Vital signs: Vital Signs Temp 97.1 F L 08/06/17 12:00 Pulse 117 H 08/06/17 12:10 Resp 20 08/06/17 12:00 BP 121/70 08/06/17 12:00 Pulse Ox 92 L 08/06/17 12:00 Intake & Output 08/05/17 08/06/17 08/06/17 18:59 06:59 18:59 Intake Total 666 Output Total 200 Balance 666 -200 Weight 71.5 kg Intake: Oral 666 Output: Stool 200 Other: Voiding Method Toilet Toilet Toilet Bedside Commode Bedside Commode Bedside Commode # Voids 1 1 - Exam Abdomen: Soft, nondistended, large abdominal hernias, ostomy right lower quadrant pink without bleeding - Labs CBC & Chem 7: 08/06/17 10:55 08/06/17 10:55 Labs: Abnormal Lab Results - Last 24 Hours (Table) 08/05/17 08/05/17 08/06/17 Range/Units 16:10 21:05 05:57 WBC (3.8-10.6) k/uL Hct (34.0-46.0) % MCHC (31.0-37.0) g/dL Neutrophils # (1.3-7.7) k/uL Lymphocytes # (1.0-4.8) k/uL Chloride (98-107) mmol/L BUN (7-17) mg/dL Creatinine (0.52-1.04) mg/dL Glucose (74-99) mg/dL POC Glucose (mg/dL) 373 H 308 H 115 H (75-99) mg/dL Total Protein (6.3-8.2) g/dL Albumin (3.5-5.0) g/dL 08/06/17 08/06/17 08/06/17 Range/Units 10:55 10:55 11:39 WBC 20.2 H (3.8-10.6) k/uL Hct 48.0 H (34.0-46.0) % MCHC 29.7 L (31.0-37.0) g/dL Neutrophils # 18.5 H (1.3-7.7) k/uL Lymphocytes # 0.4 L (1.0-4.8) k/uL Chloride 97 L (98-107) mmol/L BUN 104 H* (7-17) mg/dL Creatinine 1.69 H (0.52-1.04) mg/dL Glucose 191 H (74-99) mg/dL POC Glucose (mg/dL) 189 H (75-99) mg/dL Total Protein 6.0 L (6.3-8.2) g/dL Albumin 3.0 L (3.5-5.0) g/dL Assessment and Plan (1) GI bleed Narrative/Plan: Continue to monitor ostomy site. No active bleeding. May continue anticoagulation. Current Visit: No Status: Acute Code(s): K92.2 - GASTROINTESTINAL HEMORRHAGE , UNSPECIFIED SNOMED Code(s): 02394867
[2017-08-06] MEDS: AMPICILLIN-SULBACTAM 1.5 GM in SODIUM CHLORIDE 0.9% 50 ML IVPB SCH ×2 (15:40→21:48)
[2017-08-06] MEDS: CARVEDILOL 12.5 MG TAB PO SCH (16:40)
[2017-08-06 16:49] LABS: Glucose,Whole Blood 212 mg/dL (75-99)
[2017-08-06 20:53] LABS: Glucose,Whole Blood 233 mg/dL (75-99)
[2017-08-06] MEDS ORDERED: NITROFURANTOIN MONOHYD/M-CRYST 100 MG CAP PO SCH (21:00)
[2017-08-06] MEDS ORDERED: LEVOFLOXACIN 500MG-D5W PMX 500 MG in DEXTROSE/WATER 1 100ML.BAG IVPB SCH (21:00)
[2017-08-06] MEDS: clonazePAM 0.5 MG TAB PO SCH (21:34)
[2017-08-07] MEDS: methylPREDNISolone SOD SUCCI 40 MG/ML 1 ML VIAL IV SCH ×5 (00:20→23:28)
[2017-08-07] MEDS: HYDROcodone/APAP 10-325MG 1 EACH TAB PO PRN ×4 (01:46→18:46)
[2017-08-07] MEDS: AMPICILLIN-SULBACTAM 1.5 GM in SODIUM CHLORIDE 0.9% 50 ML IVPB SCH ×4 (05:12→21:14)
[2017-08-07 06:06] LABS: Glucose,Whole Blood 88 mg/dL (75-99)
[2017-08-07 07:03] LABS: Basophils # (A) 0.1 k/uL (0-0.2); Basophils % (A) 0 %; Eosinophils % (A) 0 %; HCT 45.1 % (34.0-46.0); HGB 13.7 gm/dL (11.4-16.0); Hypochromasia Slight; Lymphocytes # (A) 0.2 k/uL (1.0-4.8); Lymphocytes % (A) 1 %; MCH 28.9 pg (25.0-35.0); MCHC 30.4 g/dL (31.0-37.0); MCV 94.9 fL (80.0-100.0); Mean Platelet Volume 8.9; Monocytes # (A) 0.6 k/uL (0-1.0); Monocytes % (A) 4 %; Neutrophils # (A) 16.4 k/uL (1.3-7.7); Neutrophils % (A) 94 %; Platelet Count 213 k/uL (150-450); RBC 4.75 m/uL (3.80-5.40); RDW 14.3 % (11.5-15.5); WBC 17.5 k/uL (3.8-10.6)
[2017-08-07] MEDS: INSULIN ASPART 100 UNIT/ML 1 ML 10 ML VIAL SQ SCH ×7 (07:04→21:14)
[2017-08-07] MEDS: CARVEDILOL 12.5 MG TAB PO SCH ×2 (07:07→16:57)
[2017-08-07] MEDS: PANTOPRAZOLE 40 MG TABLET PO SCH (07:07)
[2017-08-07 07:08] LABS: Albumin 2.9 g/dL (3.5-5.0); Total Bilirubin 1.1 mg/dL (0.2-1.3); Total Protein 5.9 g/dL (6.3-8.2)
[2017-08-07 07:23] LABS: Calcium 9.9 mg/dL (8.4-10.2)
[2017-08-07] MEDS: SPIRONOLACTONE 25 MG TAB PO SCH (08:13)
[2017-08-07] MEDS: FUROSEMIDE 10 MG/ML 4 ML VIAL IV SCH (08:13)
[2017-08-07] MEDS: APIXABAN 2.5 MG TABLET PO SCH ×2 (08:13→20:15)
[2017-08-07] MEDS: guaiFENesin 600 MG TABLET.ER PO SCH ×2 (08:13→20:15)
[2017-08-07] MEDS: levETIRAcetam 500 MG TAB PO SCH ×2 (08:13→20:15)
[2017-08-07] MEDS: hydrALAZINE HCL 25 MG TAB PO SCH ×2 (08:13→20:16)
[2017-08-07] MEDS: buPROPion SR 100 MG TABLET.ER PO SCH (08:13)
[2017-08-07] MEDS: ASPIRIN 81 MG PO SCH (08:13)
[2017-08-07] MEDS: ALLOPURINOL 100 MG TAB PO SCH (08:13)
[2017-08-07] MEDS: NYSTATIN 100,000 UNIT/ML SUSP 500,000 UNIT/5 ML CUP PO SCH ×4 (08:13→21:40)
[2017-08-07] MEDS: SERTRALINE 100 MG TAB PO SCH (08:13)
[2017-08-07] MEDS: AMMONIUM LACTATE 12% LOTION 225 GM BTL TOPICAL SCH (08:14)
[2017-08-07] MEDS: BUDESONIDE 1 MG/2 ML NEBU INHALATION SCH ×2 (08:26→19:28)
[2017-08-07] MEDS: FORMOTEROL FUMARATE 20 MCG/2 ML NEBU INHALATION SCH ×2 (08:26→19:28)
[2017-08-07] MEDS: IPRATROPIUM-ALBUTEROL 3 ML NEB INHALATION SCH ×4 (08:26→19:28)
[2017-08-07 12:04] LABS: Glucose,Whole Blood 147 mg/dL (75-99)
[2017-08-07] MEDS: INSULIN DETEMIR 100 UNIT/ML 10 ML VIAL SQ SCH ×2 (12:38→20:15)
--- NOTE | 2017-08-07 13:33 | P.PN ---
Subjective Progress Note Date: 08/07/17 Principal diagnosis: Acute exacerbation of chronic obstructive pulmonary disease along with acute exacerbation of diastolic congestive heart failure 68-year-old female patient referred to the [facility] department from [facility] on the [place] because of increased shortness of breath. Apparently the patient has been having increased dyspnea for the past 2 days. She is coughing and her cough is congested at times she is producing some yellowish sputum. She has also become bronchus spastic and wheezy. She is known to have COPD and tracheal bronchomalacia. She also has an extensive cardiac history. She was desaturating and her pulse ox was also noted to be low. For that reason the patient was sent over to the hospital for further treatment. The patient had some chest discomfort along the right side of the chest and upper body. No altered mentation. No pleurisy. No hemoptysis. She denies having any aspiration. The chest x-ray shows a component of CHF with cardiomegaly and tiny bilateral pleural effusion. There is excellent COPD. Currently, the patient on DuoNeb about treatments around the clock, she is also on a combination of Pulmicort rescue twice a day and Perforomist neb last treatment twice a day, she is on IV Solu Medrol 40 g every 8 hours and she is also on Lasix 40 g IV push every 12 hours. The patient has had multiple hospitalizations in the past. On 07 29 2017 the patient is feeling better less short of breath compared to yesterday. Sitting up on a chair. Cough and wheezing and bronchospasm improved compared yesterday and the patient did not have any significant events overnight. Meanwhile, the patient remains on DuoNeb neb last treatment around- the-clock, Pulmicort Respules, IV Lasix 40 mg every 12 hours and the patient has been tapered down to 40 mg of IV Lasix to 8 hours. No other significant events overnight. She did develop some steroid use hyperglycemia and the patient is currently on sliding scale insulin coverage. The patient is seen again today 07/30/2017 in follow-up on the selective care unit. She is currently awake and alert in no acute distress. She denies any worsening shortness of breath, cough or congestion. She is maintaining good O2 saturations in the upper 90s on 2 L/m per nasal cannula. She's been afebrile. White count 10.6. Hemoglobin 14.1. Creatinine 0.97. She is continued on bronchodilators, Pulmicort, prednisone. She is diuresing well. Patient is seen again today 07/31/2017 in follow-up on the selective care unit. She is currently resting fairly comfortably in bed. She denies any worsening shortness of breath, cough or congestion. Is maintaining good O2 saturations in the upper 90s on 2 L/m per nasal cannula. She's currently afebrile. Slightly tachycardic. White count 12.2. Hemoglobin 13.7. Creatinine 1.10. Urine cultures positive for group D enterococcus. Currently on Levaquin. The patient is seen again today 08/01/2017 in follow-up on the selective care unit. She is currently resting quite comfortably in bed. She is awake and alert in no acute distress. She is breathing easier today as compared to yesterday. She is maintaining good O2 saturations up to 100% on 2 L/m per nasal cannula. She's afebrile. Still tachycardic. Creatinine 1.18. Patient is seen again today 08/02/2017 in follow-up on the selective care unit. She is awake and alert in no acute distress. She denies any worsening shortness of breath, cough or congestion. No chills or night sweats. She is afebrile. Hemodynamically stable. Maintaining good O2 saturations in the mid 90s on 2 L/m per nasal cannula. Chest x-ray reveals moderate cardiomegaly. There is improvement in the patchy basilar density on the right. Creatinine 1.30. The patient is seen again today 08/03/2017 in follow-up on the selective care unit. She is currently resting quite comfortably in bed. She denies any worsening shortness of breath, cough or congestion. He does get occasional headaches. She is maintaining good O2 saturations in the 90s on 4 L/m per nasal cannula. Bicarb 36. Creatinine 1.25. The patient is seen again today 08/04/2017 in follow-up on the selective care unit. She is awake and alert in no acute distress. She is breathing easier today as compared to yesterday. Continues to maintain O2 saturations in the 90s on 4 L/m per nasal cannula. She's been afebrile. Slightly tachycardic. White count 13.3. Hemoglobin 13.3. Creatinine 1.60. Reevaluated today on 08/05/2017, patient is relatively asymptomatic, however on physical examination she has diffuse rhonchi and wheezes bilaterally. Her left chest x-ray was negative for congestive heart failure and for pneumonia, patient remains on diuretics and on bronchodilators, she is on Solu-Medrol, I plan to repeat her chest x-ray in a.m., she may even have to be considered for bronchoscopy. BUN is 95 creatinine is 1.20, bicarb is 34. Last chest x-ray 3 days ago showed moderate cardiomegaly, and improvement in her right base left findings and vascular congestion. On 08/06/2017 patient is seen in follow-up. Denies any acute distress, lung sounds are positive for scattered rhonchi and wheezes. Remains on 4 L per nasal cannula with O2 sat at 92%, patient is a bit tachycardic with a heart rate up to 117 BPM. Dyspneic on exertion. Afebrile, today's chest x-ray still shows evidence of left upper lobe and right base infiltrates. Today's lab work shows worsening leukocytosis, WBC of 20.2, BUN is 104, creatinine is 1.69. Urine culture was positive for Enterococcus faecalis, blood cultures remain negative since admission. Patient also developed melena stool in her colostomy , and surgery was requested to reassess the patient. Patient underwent modified barium swallow which showed some laryngeal penetration, but no joie aspiration, some delay in initiation of swallowing was noted. We recommend starting Macrobid for the evidence of enterococcus in the urine, continue with Levaquin. The patient is seen again today 08/07/2017 in follow-up in the selective care unit. She is currently resting quite comfortably in bed. She is awake and alert in no acute distress. She is on 4 L nasal cannula to maintain O2 saturations in the 90s. She's been afebrile. White count 17.5. Hemoglobin 13.7. Creatinine 1.73. Objective - Vital Signs Vital signs: Vital Signs Temp 97.2 F L 08/07/17 11:29 Pulse 122 H 08/07/17 11:35 Resp 24 08/07/17 11:29 BP 160/98 08/07/17 11:29 Pulse Ox 90 L 08/07/17 11:29 Intake & Output 08/06/17 08/07/17 08/07/17 18:59 06:59 18:59 Intake Total 100 60 140 Output Total 100 950 100 Balance 0 -890 40 Weight 71.5 kg Intake: IV 60 0.9 10 Ampicillin-Sulbactam 1.5 50 gm In Sodium Chloride 0.9 % 50 ml @ 100 mls/hr IVPB Q6H [facility] Rx#:[id number] Oral 100 140 Output: Urine 100 950 100 Uretheral (Huynh) 350 Other: Voiding Method Toilet Toilet Bedpan Bedside Commode Bedside Commode # Voids 1 - Exam Patient is awake and alert and she is following commands and answering questions appropriately. She has some occasional cough and episodes. This is a barky cough. Unable to bring up much of sputum. No apparent respiratory distress. She is not using excessive muscle breathing. l. There was no scleral icterus or corneal arcus. Mucous membranes were moist. Mucous membranes are quite dry. Mild JVDs and there is no goiter or neck masses at this point. No neck stiffness. Lungs sounds revealed equal and symmetrical breath sounds with some limited crackles at lung bases bilaterally. No wheezes or rhonchi. Heart sounds are irregular, positive S1-S2, no S3, no S4, no murmurs. Abdomen is soft and there is no direct tenderness a month or so guarding. The patient has a functional colostomy site in her right abdominal wall area. In addition, the patient has a large anterior abdominal wall hernia. No rebound tenderness. No guarding.Examination of the extremities revealed easily palpable radial, femoral and pedal pulses. There was no cyanosis , clubbing or edema. Neurologically the patient is awake and alert. She is moving all 4 extremities. She is weak and her weakness is chronic and the patient is unable to ambulate and she has obvious gait dysfunction. - Labs CBC & Chem 7: 08/07/17 06:10 08/07/17 06:10 Labs: Abnormal Lab Results - Last 24 Hours (Table) 08/06/17 08/06/17 08/07/17 Range/Units 16:37 20:51 06:10 WBC 17.5 H (3.8-10.6) k/uL MCHC 30.4 L (31.0-37.0) g/dL Neutrophils # 16.4 H (1.3-7.7) k/uL Lymphocytes # 0.2 L (1.0-4.8) k/uL Sodium (137-145) mmol/L Carbon Dioxide (22-30) mmol/L BUN (7-17) mg/dL Creatinine (0.52-1.04) mg/dL Glucose (74-99) mg/dL POC Glucose (mg/dL) 212 H 233 H (75-99) mg/dL Total Protein (6.3-8.2) g/dL Albumin (3.5-5.0) g/dL 08/07/17 08/07/17 Range/Units 06:10 11:39 WBC (3.8-10.6) k/uL MCHC (31.0-37.0) g/dL Neutrophils # (1.3-7.7) k/uL Lymphocytes # (1.0-4.8) k/uL Sodium 147 H (137-145) mmol/L Carbon Dioxide 33 H (22-30) mmol/L BUN 126 H* (7-17) mg/dL Creatinine 1.73 H (0.52-1.04) mg/dL Glucose 73 L (74-99) mg/dL POC Glucose (mg/dL) 147 H (75-99) mg/dL Total Protein 5.9 L (6.3-8.2) g/dL Albumin 2.9 L (3.5-5.0) g/dL Microbiology - Last 24 Hours (Table) 08/06/17 22:00 Urine Culture - Preliminary Urine,Catheterized Assessment and Plan Assessment: Assessment 1 acute shortness of breath secondary to exacerbation of COPD/CHF. No clear indication of an underlying pneumonia based on the chest x-ray findings. Clinically improving as the patient is being treated for both COPD and CHF exacerbation with a combination of bronchodilators steroids and diuretics. Improved. 2 chronic hypoxic and hypercapnic respiratory failure, along with a history of COPD 3 CHF with mild concentric left ventricular hypertrophy and an ejection fraction of 50-55%, essentially of a diastolic dysfunction 4 large anterior abdominal wall hernia 5 obstructive proximal right ureteral calculus status post cystoscopy and insertion of a double-J stent in the right kidney, 6 CVA, history of with a large infarct involving the left hemisphere 7 vertebral fracture involving the C1 and C2 spine with chronic neck pain 8 hypertension 9 diabetes mellitus, currently on Levemir insulin 44 units at bedtime in addition to abnormal exercise coverage 10 coronary artery disease with previous coronary intervention and stenting 11 paroxysmal atrial fibrillation, currently on long-term and to coagulation with Eliquis 12 severe pulmonary hypertension related to COPD and diastolic dysfunction 13 peptic ulcer disease 14 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 Plan: The patient was seen and evaluated by Dr. Iniguez. Complete her course of antibiotics. Complete a prednisone taper upon discharge. Continue diuretics. She could be seen by Dr. Iniguez at [facility] if needed. We will continue to follow and make further recommendations based on her clinical status. I, the cosigning physician, performed a history & physical examination of the patient. Lungs sounds with faint end expiratory wheeze. Fine crackles.. Maintaining good O2 saturations in the 90s on 4 L/m per nasal cannula. I discussed the assessment and plan of care with my nurse practitioner, Carolyn Bridges. I attest to the above note as dictated by her.
--- NOTE | 2017-08-07 14:30 | P.PN ---
Subjective Progress Note Date: 08/07/17 This is a 72-year-old female one of Dr. Sifuentes with a previous medical history significant for CAD post-PCI with chronic diastolic heart failure, hypertension and hypertensive cardiovascular disease, history of CVA in the past in the left occipital area with significant balance issues requiring the use of a walker and wheelchair on and off, history of diabetes mellitus type 2, hyperlipidemia, history of chronic atrial fibrillation, remote history of ischemic bowel with gangrenous changes and perforated bowel post colectomy and colostomy placement that was done at [facility], patient apparently was in her usual state of health about 2 days ago when she was at [facility] and developed to have an increased shortness of breath and she became somewhat confused,and they ended up sending the patient to the ER for evaluation she was found to have hypoxemia with significant shortness of breath thought to be due to possible combination of COPD exacerbation as well as an acute diastolic heart failure, patient was started on IV diuretics as well as IV Solu-Medrol she was seen in consultation by pulmonary and by cardiology, underwent echocardiogram still pending at the time of dictation. 4/1: Patient is complaining of pain in the lower back and she is feeling itchy as well she denies any chest pain or any shortness breath she is having less she has no abdominal pain, her stoma is working very well. 4/2: Patient remains on IV Lasix. Her heart rate has been running high around 116 and hypertensive and cardiology has increased metipranolol, increased dose of lisinopril to 10 mg daily and added and labetalol 300 mg twice daily. IV Solu-Medrol will be switched over to oral. Pulmonary medicine has cleared patient for discharge. She had an abdominal x-ray done today for abdominal pain that revealed a right-sided ureteral stent. There is partial uncoiling of the proximal loop but appears to remain appropriately positioned. Moderate stool burden. No evidence of free air or bowel obstruction. Bowel gas projecting lateral to the right hip this could represent overhanging panniculus or abdominal wall hernia. 4/3: Patient's heart rate continues to be elevated at 116-124. She is complaining of some shortness of breath this morning and she is currently on Lasix 40 mg IV every 12 hours. Patient will be resumed back on Solu-Medrol at 40 mg. Her white count is at 12.2, hemoglobin 13.7, creatinine 1.1. Urine cultures are showing group D enterococcus. Patient is on Levaquin. Weight is down 2.5 kg since admission. 08/01: Heart rate is running 110s to 120s. We have increased her labetalol to 400 mg twice daily, change Lasix to oral and decreased hydralazine which could impact her tachycardia. Patient continues to have shortness of breath. She denies any choking with eating. Pulmicort increased 1 mg twice daily and perform a missed added. Blood sugars have been elevated so NovoLog increased to 7 units 3 times day and Levemir to 28 units at bedtime. Solu-Medrol remains at 40 mg every 12 hours 08/02: Last evening, patient had increasing difficulty with breathing and a chest x-ray was done that revealed new right lung consolidation obesity. Suspect developing bronchopneumonia. Patient did receive 60 of IV Lasix. Repeat chest x-ray this morning showed moderate cardiomegaly. Patchy right basilar density shows improvement. There may be residual mild pulmonary vascular congestion. Her BUN is 65 with creatinine 1.3. Patient states her shortness of breath is better today and that she was very scared yesterday. She is eating okay. Cardiology has recommended changing IV Lasix to oral and she has been cleared for discharge today. Patient's discharge plan is to return to [facility]. Pulmonary medicine is recommended prednisone taper, antibiotics and follow-up with Dr. Iniguez at the [facility]. 08/03: Patient continues to have difficulty breathing and discharge most likely will occur on Sunday. She continues to have wheezing. She complains of headache. Solu-Medrol will remain the same. Lasix will be decreased to once daily as her BUN is 76 and creatinine 1.25. 08/04: Repeat BUN is increasing to 91 most likely due to steroids and creatinine 1.6. Hemoglobin is stable at 13.3. Patient had one blood sugar reading of 66 and otherwise improved. Her morning 70/30 will be decreased to 14 units and meals will be decreased to 5 units 3 times daily. No change in Solu-Medrol as patient continues to have some wheezing and difficulty breathing. Solu-Medrol is currently at 40 mg every 6 hours which was increased yesterday by Dr. Garcia. There is small amount of bleeding with a few clots from her colostomy for which a surgical evaluation will be requested. Patient had her colostomy surgery at [facility] but Dr. Yin is known to the patient. 08/05: Dr. Lazar saw the patient yesterday regarding bleeding from the stoma which is stopped. If she has continued bleeding patient may require scope done. Pulse ox is 91% on 3 L, heart rate is running 108-111. BUN 95 and creatinine is 1.2 which creatinine is improved from yesterday. Patient continues to have wheezing and difficulty breathing for which no changes will be made to Solu-Medrol. We will increase Lasix to 40 mg IV daily. 08/06: Patient had melena stool in her colostomy and surgery has been requested to reassess. There is concern for aspiration as patient has been coughing with eating and modified barium swallow is scheduled for today. Levaquin will be changed to 500 mg daily. Labetalol changed to Coreg his heart rate is been elevated. Heart rate is now running around 1:15. White count is 20, BUN 104 and creatinine 1.69. 08/07: Modified barium swallow done yesterday with recommendations for pured diet with thin liquids, chin tuck, no straws, liquids via spoon only with upright positioning and small bites and sips. Patient was reevaluated by general surgery with finding of no active bleeding, may continue anticoagulation. Dr. Yin will recheck the patient today for the melenic stools. Antibiotics were changed by Dr. Iniguez to Unasyn due to urine culture positive for Enterococcus faecalis and for pneumonia coverage. Heart rate is running 112-118. Coreg will be increased to 25 mg twice daily. Breathing seems to be about the same today. Patient denies any chest pain. Stool for occult blood will be sent. Noted the BUN is up to 126 and creatinine 1.73. Hemoglobin remained stable. Objective - Vital Signs Vital signs: Vital Signs Temp 98.1 F 08/07/17 03:47 Pulse 118 H 08/07/17 08:49 Resp 20 08/07/17 03:47 BP 155/90 08/07/17 03:47 Pulse Ox 94 L 08/07/17 08:31 Intake & Output 08/06/17 08/07/17 08/07/17 18:59 06:59 18:59 Intake Total 100 60 50 Output Total 100 950 Balance 0 -890 50 Weight 71.5 kg Intake: IV 60 0.9 10 Ampicillin-Sulbactam 1.5 50 gm In Sodium Chloride 0.9 % 50 ml @ 100 mls/hr IVPB Q6H [facility] Rx#:[id number] Oral 100 50 Output: Urine 100 950 Uretheral (Huynh) 350 Other: Voiding Method Toilet Toilet Bedside Commode Bedside Commode # Voids 1 - Exam - Constitutional General appearance: average body habitus, mild distress - EENT Eyes: anicteric sclerae, EOMI, PERRLA, no ptosis, no scleral icterus, normal appearance ENT: hearing grossly normal, NA/AT, normal oropharynx, no thrush, no tonsillar exudates Ears: bilateral: normal - Neck Neck: no lymphadenopathy, normal ROM, no rigidity, no stridor, no thyromegaly Carotids: bilateral: upstroke delayed Thyroid: bilateral: normal size - Respiratory Respiratory: bilateral: diminished, rhonchi, wheezing, prolonged expiration, negative: dullness, rales - Cardiovascular Rhythm: irregularly irregular Heart sounds: normal: S1, S2 Abnormal Heart Sounds: systolic murmur - Gastrointestinal General gastrointestinal: normal bowel sounds, soft, no splenomegaly, no tenderness (There is colostomy bag in place), ventral hernia (Large abdominal wall hernia.) - Integumentary Integumentary: normal, normal turgor - Neurologic Neurologic: CNII-XII intact - Musculoskeletal Musculoskeletal: no gait normal, generalized weakness, strength equal bilaterally - Psychiatric Psychiatric: A&O x's 3, appropriate affect, intact judgment & insight - Labs CBC & Chem 7: 08/07/17 06:10 08/07/17 06:10 Labs: Abnormal Lab Results - Last 24 Hours (Table) 08/06/17 08/06/17 08/06/17 Range/Units 10:55 10:55 11:39 WBC 20.2 H (3.8-10.6) k/uL Hct 48.0 H (34.0-46.0) % MCHC 29.7 L (31.0-37.0) g/dL Neutrophils # 18.5 H (1.3-7.7) k/uL Lymphocytes # 0.4 L (1.0-4.8) k/uL Sodium (137-145) mmol/L Chloride 97 L (98-107) mmol/L Carbon Dioxide (22-30) mmol/L BUN 104 H* (7-17) mg/dL Creatinine 1.69 H (0.52-1.04) mg/dL Glucose 191 H (74-99) mg/dL POC Glucose (mg/dL) 189 H (75-99) mg/dL Total Protein 6.0 L (6.3-8.2) g/dL Albumin 3.0 L (3.5-5.0) g/dL 08/06/17 08/06/17 08/07/17 Range/Units 16:37 20:51 06:10 WBC 17.5 H (3.8-10.6) k/uL Hct (34.0-46.0) % MCHC 30.4 L (31.0-37.0) g/dL Neutrophils # 16.4 H (1.3-7.7) k/uL Lymphocytes # 0.2 L (1.0-4.8) k/uL Sodium (137-145) mmol/L Chloride (98-107) mmol/L Carbon Dioxide (22-30) mmol/L BUN (7-17) mg/dL Creatinine (0.52-1.04) mg/dL Glucose (74-99) mg/dL POC Glucose (mg/dL) 212 H 233 H (75-99) mg/dL Total Protein (6.3-8.2) g/dL Albumin (3.5-5.0) g/dL 08/07/17 Range/Units 06:10 WBC (3.8-10.6) k/uL Hct (34.0-46.0) % MCHC (31.0-37.0) g/dL Neutrophils # (1.3-7.7) k/uL Lymphocytes # (1.0-4.8) k/uL Sodium 147 H (137-145) mmol/L Chloride (98-107) mmol/L Carbon Dioxide 33 H (22-30) mmol/L BUN 126 H* (7-17) mg/dL Creatinine 1.73 H (0.52-1.04) mg/dL Glucose 73 L (74-99) mg/dL POC Glucose (mg/dL) (75-99) mg/dL Total Protein 5.9 L (6.3-8.2) g/dL Albumin 2.9 L (3.5-5.0) g/dL Assessment and Plan Plan: 1. Acute on chronic hypoxemic respiratory failure due to a combination of acute exacerbation of COPD as well as acute systolic heart failure and gram negative pneumonia all present on admission. Continue the patient on Lasix 40 mg IV every day, labetalol discontinued and Coreg 25 mg twice daily, continue patient on DuoNeb 3 mg nebulization 4 times every day, Solu-Medrol 40 mg every 6 hours, Pulmicort nebulization twice every day, Perforomist, continue oxygen support, Unasyn, cardiology and pulmonary consultation. 2. Acute on chronic diastolic heart failure with ejection fraction of 55% in the past. Continue labetalol discontinued and Coreg 12.5 mg twice daily started , continue patient on Lasix 40 mg IVP every day. 3. Acute kidney injury with chronic kidney disease stage III. 4. History of obstructive proximal right ureteral calculus status post cystoscopy and insertion of a double-J stent in the right kidney. 5. History of CVA. history of with a large infarct involving the left hemisphere. Continue aspirin 81 mg orally once every day as well as Eliquis 2.5 mg orally twice every day for life. 6. History of vertebral fracture involving the C1 and C2 spine with chronic neck pain 7. Hypertension and hypertensive cardiovascular disease. Continue labetalol discontinued and Coreg 12.5 mg twice daily started, hydralazine 25 mg orally 2 times every day. 8. Diabetes mellitus type 2. Levemir 14 units in the morning and 28 units in the evening, NovoLog 5 units with meals and NovoLog scale. 9. Coronary artery disease with previous coronary intervention and stenting. Continue aspirin 81 mg orally once every day, labetalol 10. Paroxysmal atrial fibrillation, currently on long-term and to coagulation with Eliquis. 11. Severe pulmonary hypertension related to COPD and diastolic dysfunction. Continue Lasix and coreg. 12. Peptic ulcer disease. Continue patient on Protonix 40 mg orally once every day. 13. Colostomy for a previous history of perforated/gangrenous bowel. Patient does have small amount of bleeding from colostomy for which a consult will be placed with Dr. Yin. Hemoglobin is stable. 14. Anemia of chronic disease, current hemoglobin is stable. 15. Peripheral Vascular disease. Continue aspirin 81 mg once every day for secondary prevention. 16. Previous carotid endarterectomy for carotid artery disease. 17. Recurrent enterococcus urinary tract infection present on admission. Unasyn. 18. History of MRSA wound infection involving the sacral ulcers. 19. Large anterior abdominal wall hernia. Stable at this time. 20. DVT prophylaxis. Continue patient on Eliquis 2.5 mg orally twice every day as well as bilateral knee-high DOROTHY hose. 21. GI prophylaxis. Continue PPI. 22. Oral thrush. Start nystatin swish and swallow. Patient is full code. Discharge plan: Return to [facility] Impression and plan of care have been directed as dictated by the signing physician. Destiny Jones nurse practitioner acting as scribe for signing physician.
[2017-08-07] MEDS: FERROUS SULFATE 325 MG TAB PO SCH (16:57)
[2017-08-07 17:02] LABS: Glucose,Whole Blood 184 mg/dL (75-99)
--- NOTE | 2017-08-07 17:39 | P.PN ---
Subjective Progress Note Date: 08/07/17 Principal diagnosis: GI bleed Patient continues to be short of breath. She feels weak. Complaining of buttock pain. No bleeding from stoma today. I spoke with the medical service was concerned about the rising BUN and the recent reports of melanotic stools. Objective - Vital Signs Vital signs: Vital Signs Temp 97 F L 08/07/17 16:00 Pulse 147 H 08/07/17 16:00 Resp 24 08/07/17 16:00 BP 151/94 08/07/17 16:00 Pulse Ox 89 L 08/07/17 16:00 Intake & Output 08/06/17 08/07/17 08/07/17 18:59 06:59 18:59 Intake Total 100 60 240 Output Total 100 950 200 Balance 0 -890 40 Weight 71.5 kg Intake: IV 60 100 0.9 10 Ampicillin-Sulbactam 1.5 50 100 gm In Sodium Chloride 0.9 % 50 ml @ 100 mls/hr IVPB Q6H [facility] Rx#:[id number] Oral 100 140 Output: Urine 100 950 200 Uretheral (Huynh) 350 Other: Voiding Method Toilet Toilet Bedpan Bedside Commode Bedside Commode # Voids 1 1 - Exam Abdomen: Soft, nontender, nondistended, hernia is noted, stoma pink with bilious fluid in the ostomy appliance - Labs CBC & Chem 7: 08/07/17 06:10 08/07/17 06:10 Labs: Abnormal Lab Results - Last 24 Hours (Table) 08/06/17 08/07/17 08/07/17 Range/Units 20:51 06:10 06:10 WBC 17.5 H (3.8-10.6) k/uL MCHC 30.4 L (31.0-37.0) g/dL Neutrophils # 16.4 H (1.3-7.7) k/uL Lymphocytes # 0.2 L (1.0-4.8) k/uL Sodium 147 H (137-145) mmol/L Carbon Dioxide 33 H (22-30) mmol/L BUN 126 H* (7-17) mg/dL Creatinine 1.73 H (0.52-1.04) mg/dL Glucose 73 L (74-99) mg/dL POC Glucose (mg/dL) 233 H (75-99) mg/dL Total Protein 5.9 L (6.3-8.2) g/dL Albumin 2.9 L (3.5-5.0) g/dL 08/07/17 08/07/17 Range/Units 11:39 16:45 WBC (3.8-10.6) k/uL MCHC (31.0-37.0) g/dL Neutrophils # (1.3-7.7) k/uL Lymphocytes # (1.0-4.8) k/uL Sodium (137-145) mmol/L Carbon Dioxide (22-30) mmol/L BUN (7-17) mg/dL Creatinine (0.52-1.04) mg/dL Glucose (74-99) mg/dL POC Glucose (mg/dL) 147 H 184 H (75-99) mg/dL Total Protein (6.3-8.2) g/dL Albumin (3.5-5.0) g/dL Microbiology - Last 24 Hours (Table) 08/06/17 22:00 Urine Culture - Preliminary Urine,Catheterized Assessment and Plan (1) GI bleed Narrative/Plan: When I saw the patient yesterday I was informed that there were issues regarding bright red blood from the stoma. I was unaware that there were is a history of melanotic stools. No active bleeding however is seen at this time. The patient is high risk for upper endoscopy at this point. I believe she has a history of bleeding AVM in the small bowel. I will review the records from GI regarding her prior workup. Continue to hold anticoagulation. We'll follow closely with you. Current Visit: No Status: Acute Code(s): K92.2 - GASTROINTESTINAL HEMORRHAGE , UNSPECIFIED SNOMED Code(s): 87040518
[2017-08-07] MEDS: clonazePAM 0.5 MG TAB PO SCH (20:15)
--- NOTE | 2017-08-07 20:58 | CONS ---
CONSULTATION REASON FOR CONSULT: Renal failure. HISTORY OF PRESENT ILLNESS: Patient is a 72-year-old female who was initially admitted to the hospital on 07/27/2017 with complaints of shortness of breath. Patient had chest pain. Chest x-ray showed bilateral pleural effusions and evidence of CHF on initial admission. The patient has been diuresed. She was also found to have a urinary tract infection with Enterococcus faecalis. Serum creatinine was 1.4 mg/dL on initial admission, and it went down to 0.97 on 07/30/2017. Subsequently it started to increase back up, and it is at 1.7 mg/dL today. Review of previous labs shows creatinine as low as 0.9 in April of 2016. Patient's heart rate has been high at 122 to 140. She is currently not on any nephrotoxic medications. Patient has not received any IV contrast. Echocardiogram showed ejection fraction 25% to 30% with severely dilated left atrium. Urine output is not accurately charted. It looks like a Huynh catheter was placed, and we have had about 350 mL of urine. Patient has been quite short of breath recently. Her blood pressure has not been low. Lasix is at 40 mg IV daily. PAST MEDICAL HISTORY: 1. History of hypertension. 2. COPD. 3. Coronary artery disease. 4. Chronic atrial fibrillation. 5. History of CVA. 6. Previously diastolic dysfunction. Currently echocardiogram shows ejection fraction 25% to 30% only. 7. Type 2 diabetes. 8. Gastroesophageal reflux disease. 9. History of GI bleed. 10.Osteoarthritis. 11.Previous history of pneumonia. 12.History of right ureteral calculus and right double-J catheter placement by Urology. 13.Abdominal aortic aneurysm. 14.Previous history of VRE urinary tract infection and MRSA infection. PAST SURGICAL HISTORY: 1. Bowel resection. 2. Colostomy. 3. Hysterectomy. 4. Hernia repair. 5. Cardiac catheterization. 6. Coronary stent placement. 7. Carotid endarterectomy. 8. Fem-fem bypass. 9. Cataract surgery. 10.Vein stripping. 11.Abdominal aortic aneurysm repair. 12.EGD. 13.Rotator cuff repair. 14.ORIF. 15.D&C. SOCIAL HISTORY: Patient is a former smoker. No history of drug abuse or alcohol abuse. HOME MEDICATIONS: 1. Colace. 2. Prilosec. 3. Zoloft. 4. Iron. 5. Lasix. 6. Zyloprim. 7. Hydralazine. 8. Insulin. 9. Keppra. 10.Tylenol. 11.Klonopin. 12.Pulmicort. 13.Amaryl. 14.Insulin. 15.Labetalol. 16.Prednisone. 17.Wellbutrin. ALLERGIES: 1. BACITRACIN. 2. IODINE. 3. PENICILLIN. 4. AMBIEN. REVIEW OF SYSTEMS: Currently positive for shortness of breath, cough. No acute GI bleed. PHYSICAL EXAMINATION: Patient is currently short of breath. She is not in any acute distress. Blood pressure this morning was 141/84. Patient is afebrile. Heart rate earlier was 118 per minute. She is afebrile. EXAMINATION OF THE HEART: S1, S2. EXAMINATION OF LUNGS: Bilateral breath sounds are heard. ABDOMEN: Soft, non-tender. Examination of lower extremities shows no edema 1+ bilaterally. [employer] exam is grossly intact. LABS: Sodium 147, potassium 4.0, BUN 126, serum creatinine 1.73 mg/dL. Hemoglobin 13.7, albumin 2.9. UA shows 2+ protein, RBCs more than 182 on 07/29/2017. ASSESSMENT: 1. Acute kidney injury, mainly cardiorenal. It looks like patient also had obstructive uropathy. She did have 950 mL of urine and a Huynh catheter was placed. I will continue with the current dose of Lasix. Patient may need to be more aggressively diuresed; however, currently her sodium is slightly on the higher side. I will repeat another chest x-ray. No nephrotoxic medications noted on board at this time. Blood pressure is not significantly low. The BUN is disproportionately elevated secondary to steroids and CHF. 2. Systolic heart failure, acute on top of chronic, ejection fraction 30% to 35%. 3. Hyperuricemia, maintained on allopurinol. 4. Hypertension, currently with fair control. Patient's blood pressure has been high. 5. Urinary tract infection with Enterococcus faecalis, maintained on ampicillin. PLAN: Continue current dose of Lasix. Rule out repeat labs in a.m. and repeat chest x- ray. Continue with Eliquis. Thank you for this consultation. Will continue to follow the patient with you during her hospitalization. MMODL / IJN: [id number] /
[2017-08-07 21:01] LABS: Glucose,Whole Blood 155 mg/dL (75-99)
--- NOTE | 2017-08-07 22:22 | XR ---
EXAMINATION TYPE: XR chest 1V DATE OF EXAM: 08/07/2017 COMPARISON: 08/06/2017 HISTORY: Short of breath TECHNIQUE: Single frontal view of the chest is obtained. FINDINGS: Heart is enlarged. There is pulmonary vascular congestion. There is patchy infiltrates in both lungs and more on the right side. There are chest leads. IMPRESSION: Congestive heart failure with bilateral pulmonary infiltrates as well. This infiltrate i s worse in the right upper lobe compared to last exam and unchanged in the other regions.
[2017-08-08 00:03] LABS: ABG Base Excess 16.5 mmol/L; ABG PCO2 52 mmHg (35-45); ABG PH 7.49 (7.35-7.45); ABG PO2 53 mmHg (83-108); ABG TCO2 41 mmol/L (19-24)
[2017-08-08 00:05] LABS: ABG HCO3 40 mmol/L (21-25)
[2017-08-08] MEDS: HYDROcodone/APAP 10-325MG 1 EACH TAB PO PRN ×3 (00:48→16:35)
[2017-08-08] MEDS ORDERED: traMADol 50 MG TAB PO PRN (02:59)
[2017-08-08] MEDS: methylPREDNISolone SOD SUCCI 40 MG/ML 1 ML VIAL IV SCH ×2 (05:29→11:47)
[2017-08-08] MEDS: AMPICILLIN-SULBACTAM 1.5 GM in SODIUM CHLORIDE 0.9% 50 ML IVPB SCH ×4 (05:29→21:00)
[2017-08-08] MEDS: CARVEDILOL 12.5 MG TAB PO SCH ×2 (05:50→16:57)
[2017-08-08] MEDS: PANTOPRAZOLE 40 MG TABLET PO SCH (05:56)
[2017-08-08 06:04] LABS: Glucose,Whole Blood 186 mg/dL (75-99)
[2017-08-08 06:47] LABS: HCT 42.5 % (34.0-46.0); HGB 13.6 gm/dL (11.4-16.0); MCH 29.9 pg (25.0-35.0); MCHC 31.9 g/dL (31.0-37.0); MCV 93.9 fL (80.0-100.0); Mean Platelet Volume 8.6; Platelet Count 237 k/uL (150-450); RBC 4.53 m/uL (3.80-5.40); RDW 14.3 % (11.5-15.5); WBC 19.4 k/uL (3.8-10.6)
[2017-08-08 06:57] LABS: Calcium 9.7 mg/dL (8.4-10.2); Potassium 4.5 mmol/L (3.5-5.1); Total Bilirubin 1.6 mg/dL (0.2-1.3); Total Protein 6.3 g/dL (6.3-8.2)
[2017-08-08] MEDS: INSULIN ASPART 100 UNIT/ML 1 ML 10 ML VIAL SQ SCH ×7 (07:10→20:58)
[2017-08-08 07:13] LABS: Lymphocytes # (M) 0.58 k/uL (1.0-4.8); Monocytes # (M) 0.58 k/uL (0-1.0); Neutrophils # (M) 18.24 k/uL (1.3-7.7); Neutrophils % (M) 94 %; Nucleated Red Blood Cells 0 /100 WBC (0-0); Total Cells Counted 100
[2017-08-08] MEDS: FORMOTEROL FUMARATE 20 MCG/2 ML NEBU INHALATION SCH (07:55)
[2017-08-08] MEDS: BUDESONIDE 1 MG/2 ML NEBU INHALATION SCH (07:55)
[2017-08-08] MEDS: IPRATROPIUM-ALBUTEROL 3 ML NEB INHALATION SCH ×4 (07:56→20:13)
[2017-08-08] MEDS: levETIRAcetam 500 MG TAB PO SCH ×2 (08:01→20:59)
[2017-08-08] MEDS: ASPIRIN 81 MG PO SCH (08:01)
[2017-08-08] MEDS: APIXABAN 2.5 MG TABLET PO SCH ×2 (08:01→20:57)
[2017-08-08] MEDS: FUROSEMIDE 10 MG/ML 4 ML VIAL IV SCH (08:04)
[2017-08-08] MEDS ORDERED: DEXTROSE 5% IN WATER 100 ML with AMIODARONE 150 MG IV ONE (08:38)
[2017-08-08] MEDS: INSULIN DETEMIR 100 UNIT/ML 10 ML VIAL SQ SCH ×2 (09:25→20:59)
[2017-08-08] MEDS: AMIODARONE 450 MG in DEXTROSE 5% IN WATER 250 ML IV SCH ×4 (09:27→15:17)
[2017-08-08] MEDS ORDERED: DEXTROSE 5% IN WATER 1,000 ML IV ONE (10:02)
[2017-08-08] MEDS: guaiFENesin 600 MG TABLET.ER PO SCH (10:43)
[2017-08-08] MEDS: buPROPion SR 100 MG TABLET.ER PO SCH (10:43)
[2017-08-08] MEDS: POTASSIUM CHLORIDE ER 10 MEQ TAB.ER.PRT PO SCH (10:43)
[2017-08-08] MEDS: AMMONIUM LACTATE 12% LOTION 225 GM BTL TOPICAL SCH (10:43)
[2017-08-08] MEDS: ALLOPURINOL 100 MG TAB PO SCH (10:43)
[2017-08-08] MEDS: NYSTATIN 100,000 UNIT/ML SUSP 500,000 UNIT/5 ML CUP PO SCH ×4 (10:43→21:00)
[2017-08-08] MEDS: SERTRALINE 100 MG TAB PO SCH (10:43)
[2017-08-08] MEDS: SPIRONOLACTONE 25 MG TAB PO SCH (10:44)
--- NOTE | 2017-08-08 10:44 | P.PN ---
Subjective Progress Note Date: 08/08/17 Principal diagnosis: CHF/COPD This is a 72-year-old female with past medical history significant for diabetes, hypertension, hyperlipidemia, COPD, who was admitted to the hospital with symptoms of cough with productive sputum. She had been being treated as an outpatient for pneumonia. Cardiology got involved in the care of this patient because of congestive heart failure. She was initiated on IV Lasix , her weight today is down 2 kg. She had a repeat echocardiogram with Doppler study performed here which revealed an ejection fraction of 25-30%. Medication adjustments for cardiomyopathy and heart failure were made over the weekend. This morning the patient was seen and examined, overall she states her breathing has improved significantly still having some mild shortness of breath. Her blood pressure this morning 164/80, heart rate in the 1 teens to 120s. White blood cell count 10.6, hemoglobin 14.1, platelet count 196. Sodium 139, potassium 4.1, BUN 30, creatinine 0.9. Urine screen also positive for UTI. Patient is complaining of some lower back discomfort to this morning. We will increase her dose of labetalol to 300 mg one tablet by mouth twice a day and increase lisinopril to 10 mg daily. Continue IV Lasix at this time, check lytes BUN and creatinine in the morning, and continue to monitor closely her daily weights and intake and output. 07/31/2017 Patient seen and examined today, resting comfortably in bed, complaining of mild abdominal discomfort, overall breathing is stable. Maintaining good oxygenation. Hemodynamically stable, heart rate in the 1 teens. Urine cultures positive for group D enterococcus, currently on Levaquin. 08/01/2017 Patient seen and examined this morning, stable overall, denies any worsening in her breathing. Blood pressure 135/114, heart rate up in the 120s today. Sodium 142, potassium 4.1, BUN 57, creatinine 1.1. 08/02/2017 Patient seen and examined this morning, denies any worsening in her shortness of breath, afebrile, hemodynamically stable. Chest x-ray reveals moderate cardiomegaly, with improvement in patchy basilar density on the right. Creatinine 1.3. 08/08/2017 We were asked to see the patient in follow-up again today, she had significant difficulty in breathing through the night last night, went into rapid A. fib. The family was actually called in at one point. Yesterday the patient was on 4 L of O2 satting 91%, she was put on BiPAP through the night last night, currently satting 98%. Her blood pressure this morning 156/60 with a heart rate in the 140s. She is also febrile with a temperature of 99.9. White blood cell count 19.4, hemoglobin 13.6, platelet count 237. ABGs were also performed , pH 7.49, pCO2 52, pO2 53, HCO3 40, oxygen saturation 86%. Sodium 156, potassium 4.5, BUN 126, creatinine 1.6. Repeat chest x-ray performed today showed congestive heart failure with bilateral pulmonary infiltrates as well. Infiltrate is worse in the right upper lobe as compared with prior exam. Family is at bedside this morning, patient desaturates significantly when her BiPAP is removed. Objective - Vital Signs Vital signs: Vital Signs Temp 99.9 F H 08/08/17 08:00 Pulse 133 H 08/08/17 08:20 Resp 32 H 08/08/17 08:00 BP 157/62 08/08/17 08:00 Pulse Ox 98 08/08/17 08:00 Intake & Output 08/07/17 08/08/17 08/08/17 18:59 06:59 18:59 Intake Total 330 Output Total 400 500 Balance -70 -500 Weight 71 kg Intake: IV 100 Ampicillin-Sulbactam 1.5 100 gm In Sodium Chloride 0.9 % 50 ml @ 100 mls/hr IVPB Q6H [facility] Rx#:[id number] Oral 230 Output: Urine 400 500 Other: Voiding Method Bedpan Indwelling Catheter # Voids 1 1 - Exam PHYSICAL EXAMINATION: HEENT: Head is atraumatic, normocephalic. Pupils equal, round. Neck is supple. There is no elevated jugular venous pressure. HEART EXAMINATION: Heart S1 and S2 irregular irregular a systolic murmur is heard. CHEST EXAMINATION: Lungs reveal significantly decreased air exchange with coarse wheezing and rhonchi throughout. ABDOMEN: Soft, nontender. Bowel sounds are heard. No organomegaly noted. EXTREMITIES: 1+ peripheral pulses with evidence of peripheral edema and no calf tenderness noted. NEUROLOGIC patient is awake, in mild distress. - Labs CBC & Chem 7: 08/08/17 06:31 08/08/17 06:31 Labs: Abnormal Lab Results - Last 24 Hours (Table) 08/07/17 08/07/17 08/07/17 Range/Units 11:39 16:45 20:57 WBC (3.8-10.6) k/uL Neutrophils # (Manual) (1.3-7.7) k/uL Lymphocytes # (Manual) (1.0-4.8) k/uL ABG pH (7.35-7.45) ABG pCO2 (35-45) mmHg ABG pO2 (83-108) mmHg ABG HCO3 (21-25) mmol/L ABG Total CO2 (19-24) mmol/L ABG O2 Saturation (94-97) % Sodium (137-145) mmol/L Carbon Dioxide (22-30) mmol/L BUN (7-17) mg/dL Creatinine (0.52-1.04) mg/dL Glucose (74-99) mg/dL POC Glucose (mg/dL) 147 H 184 H 155 H (75-99) mg/dL Total Bilirubin (0.2-1.3) mg/dL AST (14-36) U/L Albumin (3.5-5.0) g/dL 08/08/17 08/08/17 08/08/17 Range/Units 00:00 06:02 06:31 WBC 19.4 H (3.8-10.6) k/uL Neutrophils # (Manual) 18.24 H (1.3-7.7) k/uL Lymphocytes # (Manual) 0.58 L (1.0-4.8) k/uL ABG pH 7.49 H (7.35-7.45) ABG pCO2 52 H (35-45) mmHg ABG pO2 53 L (83-108) mmHg ABG HCO3 40 H* (21-25) mmol/L ABG Total CO2 41 H (19-24) mmol/L ABG O2 Saturation 86.0 L (94-97) % Sodium (137-145) mmol/L Carbon Dioxide (22-30) mmol/L BUN (7-17) mg/dL Creatinine (0.52-1.04) mg/dL Glucose (74-99) mg/dL POC Glucose (mg/dL) 186 H (75-99) mg/dL Total Bilirubin (0.2-1.3) mg/dL AST (14-36) U/L Albumin (3.5-5.0) g/dL 08/08/17 Range/Units 06:31 WBC (3.8-10.6) k/uL Neutrophils # (Manual) (1.3-7.7) k/uL Lymphocytes # (Manual) (1.0-4.8) k/uL ABG pH (7.35-7.45) ABG pCO2 (35-45) mmHg ABG pO2 (83-108) mmHg ABG HCO3 (21-25) mmol/L ABG Total CO2 (19-24) mmol/L ABG O2 Saturation (94-97) % Sodium 156 H (137-145) mmol/L Carbon Dioxide 35 H (22-30) mmol/L BUN 126 H* (7-17) mg/dL Creatinine 1.61 H (0.52-1.04) mg/dL Glucose 207 H (74-99) mg/dL POC Glucose (mg/dL) (75-99) mg/dL Total Bilirubin 1.6 H (0.2-1.3) mg/dL AST 42 H (14-36) U/L Albumin 3.0 L (3.5-5.0) g/dL Microbiology - Last 24 Hours (Table) 08/06/17 22:00 Urine Culture - Preliminary Urine,Catheterized Assessment and Plan Plan: Assessment and plan #1 pneumonia and exacerbation of COPD #2 systolic congestive heart failure acute on chronic #3 hypertension #4 diabetes #5 chronic persistent atrial fibrillation #6 hyperlipidemia #7 chronic kidney disease, stable Plan We will start the patient on IV amiodarone drip for better control of heart rate. Patient continues to be on IV Lasix. There also appears to be a new infiltrate on chest x-ray as well as congestive heart failure. Overall prognosis is guarded, continue current therapy. We will continue to follow. DNP note has been reviewed, I agree with a documented findings and plan of care. Patient was seen and examined.
--- NOTE | 2017-08-08 11:00 | P.PN ---
Subjective Progress Note Date: 08/08/17 Principal diagnosis: GI bleed Patient with progressive shortness of breath over the last day or so. She seems slightly more confused. Still complaining of pain in the buttock region. No further ostomy bleeding at this time. BUN remains elevated. Currently on BiPAP. Objective - Vital Signs Vital signs: Vital Signs Temp 99.9 F H 08/08/17 08:00 Pulse 133 H 08/08/17 08:20 Resp 32 H 08/08/17 08:00 BP 157/62 08/08/17 08:00 Pulse Ox 98 08/08/17 08:00 Intake & Output 08/07/17 08/08/17 08/08/17 18:59 06:59 18:59 Intake Total 330 Output Total 400 500 Balance -70 -500 Weight 71 kg Intake: IV 100 Ampicillin-Sulbactam 1.5 100 gm In Sodium Chloride 0.9 % 50 ml @ 100 mls/hr IVPB Q6H [facility] Rx#:[id number] Oral 230 Output: Urine 400 500 Other: Voiding Method Bedpan Indwelling Catheter # Voids 1 1 - Exam Abdomen: Soft, nondistended, hernia is noted, ostomy without bleeding - Labs CBC & Chem 7: 08/08/17 06:31 08/08/17 06:31 Labs: Abnormal Lab Results - Last 24 Hours (Table) 08/07/17 08/07/17 08/07/17 Range/Units 11:39 16:45 20:57 WBC (3.8-10.6) k/uL Neutrophils # (Manual) (1.3-7.7) k/uL Lymphocytes # (Manual) (1.0-4.8) k/uL ABG pH (7.35-7.45) ABG pCO2 (35-45) mmHg ABG pO2 (83-108) mmHg ABG HCO3 (21-25) mmol/L ABG Total CO2 (19-24) mmol/L ABG O2 Saturation (94-97) % Sodium (137-145) mmol/L Carbon Dioxide (22-30) mmol/L BUN (7-17) mg/dL Creatinine (0.52-1.04) mg/dL Glucose (74-99) mg/dL POC Glucose (mg/dL) 147 H 184 H 155 H (75-99) mg/dL Total Bilirubin (0.2-1.3) mg/dL AST (14-36) U/L Albumin (3.5-5.0) g/dL 08/08/17 08/08/17 08/08/17 Range/Units 00:00 06:02 06:31 WBC 19.4 H (3.8-10.6) k/uL Neutrophils # (Manual) 18.24 H (1.3-7.7) k/uL Lymphocytes # (Manual) 0.58 L (1.0-4.8) k/uL ABG pH 7.49 H (7.35-7.45) ABG pCO2 52 H (35-45) mmHg ABG pO2 53 L (83-108) mmHg ABG HCO3 40 H* (21-25) mmol/L ABG Total CO2 41 H (19-24) mmol/L ABG O2 Saturation 86.0 L (94-97) % Sodium (137-145) mmol/L Carbon Dioxide (22-30) mmol/L BUN (7-17) mg/dL Creatinine (0.52-1.04) mg/dL Glucose (74-99) mg/dL POC Glucose (mg/dL) 186 H (75-99) mg/dL Total Bilirubin (0.2-1.3) mg/dL AST (14-36) U/L Albumin (3.5-5.0) g/dL 08/08/17 Range/Units 06:31 WBC (3.8-10.6) k/uL Neutrophils # (Manual) (1.3-7.7) k/uL Lymphocytes # (Manual) (1.0-4.8) k/uL ABG pH (7.35-7.45) ABG pCO2 (35-45) mmHg ABG pO2 (83-108) mmHg ABG HCO3 (21-25) mmol/L ABG Total CO2 (19-24) mmol/L ABG O2 Saturation (94-97) % Sodium 156 H (137-145) mmol/L Carbon Dioxide 35 H (22-30) mmol/L BUN 126 H* (7-17) mg/dL Creatinine 1.61 H (0.52-1.04) mg/dL Glucose 207 H (74-99) mg/dL POC Glucose (mg/dL) (75-99) mg/dL Total Bilirubin 1.6 H (0.2-1.3) mg/dL AST 42 H (14-36) U/L Albumin 3.0 L (3.5-5.0) g/dL Microbiology - Last 24 Hours (Table) 08/06/17 22:00 Urine Culture - Final Urine,Catheterized Assessment and Plan (1) GI bleed Narrative/Plan: Patient clinically is doing poorly. 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 No plans for endoscopy at this time given her general condition. Will follow. Current Visit: No Status: Acute Code(s): K92.2 - GASTROINTESTINAL HEMORRHAGE , UNSPECIFIED SNOMED Code(s): 32526637
[2017-08-08 11:53] LABS: Glucose,Whole Blood 252 mg/dL (75-99)
[2017-08-08 12:52] LABS: ABG Base Excess 16.3 mmol/L; ABG HCO3 39 mmol/L (21-25); ABG Oxygen Saturation 90.2 % (94-97); ABG PCO2 49 mmHg (35-45); ABG PH 7.51 (7.35-7.45); ABG PO2 60 mmHg (83-108); ABG TCO2 41 mmol/L (19-24)
[2017-08-08] MEDS: hydrALAZINE HCL 25 MG TAB PO SCH ×2 (12:57→20:58)
[2017-08-08] MEDS: LIDOCAINE 5% PATCH TOPICAL SCH (12:57)
[2017-08-08] MEDS: BUPRENORPHINE TRANSDERM SCH (13:10)
--- NOTE | 2017-08-08 14:10 | P.PN ---
Subjective Progress Note Date: 08/08/17 Principal diagnosis: Heart failure Progress note dated 08/08/2017 This is a 72-year-old female with history of multiple medical problems including severe heart failure and COPD. Chest x-ray has evidence of CHF and pneumonia. 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 She also has a previous history of MRSA wound infection involving the sacral ulcers. Last night, she developed significant respiratory distress and we placed her on BiPAP. Today I had a conversation with the and the daughter. I also talked to both sisters. They agree that the patient should be a DO NOT RESUSCITATE. I think this is appropriate. Apparently her son-in-law who works here in the hospital was a IT [employer], also spoke to them about this. I think this is the appropriate thing to do at this point. She doesn't seem to be very comfortable right now. She seems very agitated. She is wishing for things as if she is hallucinating. I think appropriate care would be hospice and palliative care consultation. Objective - Vital Signs Vital signs: Vital Signs Temp 98.6 F 08/08/17 11:29 Pulse 130 H 08/08/17 11:52 Resp 27 H 08/08/17 11:29 BP 152/90 08/08/17 11:45 Pulse Ox 98 08/08/17 11:29 Intake & Output 08/07/17 08/08/17 08/08/17 18:59 06:59 18:59 Intake Total 330 0 Output Total 400 500 400 Balance -70 -500 -400 Weight 71 kg Intake: IV 100 Ampicillin-Sulbactam 1.5 100 gm In Sodium Chloride 0.9 % 50 ml @ 100 mls/hr IVPB Q6H [facility] Rx#:[id number] Oral 230 0 Output: Urine 400 500 400 Uretheral (Huynh) 400 Other: Voiding Method Bedpan Indwelling Catheter Indwelling Catheter # Voids 1 1 - Exam Patient appears to be dyspneic and confused. BiPAP mask in place. Patient does not respond appropriately. HEENT examination is grossly unremarkable. Exam is limited because of BiPAP device Neck supple. Full range of motion. No adenopathy thyromegaly or neck vein distention. Cardiovascular examination reveals irregular rhythm rate. S1-S2 normal. No S3 or S4. No discernible murmur noted. Lungs reveal coarse bilateral breath sounds. There is some bibasilar crackles. No wheezes are noted. Breath sounds are equal bilaterally.. Abdomen soft bowel sounds are heard. No masses or tenderness. Extremities are intact. No cyanosis clubbing or edema. Skin is without rash or lesion. Neurologic examination could not be adequately performed. - Labs CBC & Chem 7: 08/08/17 06:31 08/08/17 06:31 Labs: Abnormal Lab Results - Last 24 Hours (Table) 08/07/17 08/07/17 08/08/17 Range/Units 16:45 20:57 00:00 WBC (3.8-10.6) k/uL Neutrophils # (Manual) (1.3-7.7) k/uL Lymphocytes # (Manual) (1.0-4.8) k/uL ABG pH 7.49 H (7.35-7.45) ABG pCO2 52 H (35-45) mmHg ABG pO2 53 L (83-108) mmHg ABG HCO3 40 H* (21-25) mmol/L ABG Total CO2 41 H (19-24) mmol/L ABG O2 Saturation 86.0 L (94-97) % Sodium (137-145) mmol/L Carbon Dioxide (22-30) mmol/L BUN (7-17) mg/dL Creatinine (0.52-1.04) mg/dL Glucose (74-99) mg/dL POC Glucose (mg/dL) 184 H 155 H (75-99) mg/dL Total Bilirubin (0.2-1.3) mg/dL AST (14-36) U/L Albumin (3.5-5.0) g/dL 08/08/17 08/08/17 08/08/17 Range/Units 06:02 06:31 06:31 WBC 19.4 H (3.8-10.6) k/uL Neutrophils # (Manual) 18.24 H (1.3-7.7) k/uL Lymphocytes # (Manual) 0.58 L (1.0-4.8) k/uL ABG pH (7.35-7.45) ABG pCO2 (35-45) mmHg ABG pO2 (83-108) mmHg ABG HCO3 (21-25) mmol/L ABG Total CO2 (19-24) mmol/L ABG O2 Saturation (94-97) % Sodium 156 H (137-145) mmol/L Carbon Dioxide 35 H (22-30) mmol/L BUN 126 H* (7-17) mg/dL Creatinine 1.61 H (0.52-1.04) mg/dL Glucose 207 H (74-99) mg/dL POC Glucose (mg/dL) 186 H (75-99) mg/dL Total Bilirubin 1.6 H (0.2-1.3) mg/dL AST 42 H (14-36) U/L Albumin 3.0 L (3.5-5.0) g/dL 08/08/17 08/08/17 Range/Units 11:31 12:49 WBC (3.8-10.6) k/uL Neutrophils # (Manual) (1.3-7.7) k/uL Lymphocytes # (Manual) (1.0-4.8) k/uL ABG pH 7.51 H (7.35-7.45) ABG pCO2 49 H (35-45) mmHg ABG pO2 60 L (83-108) mmHg ABG HCO3 39 H (21-25) mmol/L ABG Total CO2 41 H (19-24) mmol/L ABG O2 Saturation 90.2 L (94-97) % Sodium (137-145) mmol/L Carbon Dioxide (22-30) mmol/L BUN (7-17) mg/dL Creatinine (0.52-1.04) mg/dL Glucose (74-99) mg/dL POC Glucose (mg/dL) 252 H (75-99) mg/dL Total Bilirubin (0.2-1.3) mg/dL AST (14-36) U/L Albumin (3.5-5.0) g/dL Microbiology - Last 24 Hours (Table) 08/06/17 22:00 Urine Culture - Final Urine,Catheterized Assessment and Plan Assessment: Assessment Shortness of breath, secondary to COPD exacerbation, pneumonia, in congestive heart failure. Chronic hypoxemic and hypercapnic respiratory failure, secondary to above. Diastolic heart failure with preserved ejection fraction Large abdominal wall hernia Obstructed proximal right ureteral calculus status post cystoscopy and insertion of a double-J stent History of CVA involving the left hemisphere C1-C2 vertebral fractures. 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 I also spoke to 2 sisters. They agree that the patient should be a DO NOT RESUSCITATE. I'll put the order in. We should focus more on comfort measures and palliation. A hospice consultation would not be a bad idea. We'll continue to follow. Additional recommendations suggestions forthcoming. Prognosis is guarded. Time with Patient: Less than 30
--- NOTE | 2017-08-08 14:29 | P.PN ---
Subjective Progress Note Date: 08/08/17 This is a 72-year-old female one of Dr. Sifuentes with a previous medical history significant for CAD post-PCI with chronic diastolic heart failure, hypertension and hypertensive cardiovascular disease, history of CVA in the past in the left occipital area with significant balance issues requiring the use of a walker and wheelchair on and off, history of diabetes mellitus type 2, hyperlipidemia, history of chronic atrial fibrillation, remote history of ischemic bowel with gangrenous changes and perforated bowel post colectomy and colostomy placement that was done at [facility], patient apparently was in her usual state of health about 2 days ago when she was at [facility] and developed to have an increased shortness of breath and she became somewhat confused,and they ended up sending the patient to the ER for evaluation she was found to have hypoxemia with significant shortness of breath thought to be due to possible combination of COPD exacerbation as well as an acute diastolic heart failure, patient was started on IV diuretics as well as IV Solu-Medrol she was seen in consultation by pulmonary and by cardiology, underwent echocardiogram still pending at the time of dictation. 4/1: Patient is complaining of pain in the lower back and she is feeling itchy as well she denies any chest pain or any shortness breath she is having less she has no abdominal pain, her stoma is working very well. 4/2: Patient remains on IV Lasix. Her heart rate has been running high around 116 and hypertensive and cardiology has increased metipranolol, increased dose of lisinopril to 10 mg daily and added and labetalol 300 mg twice daily. IV Solu-Medrol will be switched over to oral. Pulmonary medicine has cleared patient for discharge. She had an abdominal x-ray done today for abdominal pain that revealed a right-sided ureteral stent. There is partial uncoiling of the proximal loop but appears to remain appropriately positioned. Moderate stool burden. No evidence of free air or bowel obstruction. Bowel gas projecting lateral to the right hip this could represent overhanging panniculus or abdominal wall hernia. 4/3: Patient's heart rate continues to be elevated at 116-124. She is complaining of some shortness of breath this morning and she is currently on Lasix 40 mg IV every 12 hours. Patient will be resumed back on Solu-Medrol at 40 mg. Her white count is at 12.2, hemoglobin 13.7, creatinine 1.1. Urine cultures are showing group D enterococcus. Patient is on Levaquin. Weight is down 2.5 kg since admission. 08/01: Heart rate is running 110s to 120s. We have increased her labetalol to 400 mg twice daily, change Lasix to oral and decreased hydralazine which could impact her tachycardia. Patient continues to have shortness of breath. She denies any choking with eating. Pulmicort increased 1 mg twice daily and perform a missed added. Blood sugars have been elevated so NovoLog increased to 7 units 3 times day and Levemir to 28 units at bedtime. Solu-Medrol remains at 40 mg every 12 hours 08/02: Last evening, patient had increasing difficulty with breathing and a chest x-ray was done that revealed new right lung consolidation obesity. Suspect developing bronchopneumonia. Patient did receive 60 of IV Lasix. Repeat chest x-ray this morning showed moderate cardiomegaly. Patchy right basilar density shows improvement. There may be residual mild pulmonary vascular congestion. Her BUN is 65 with creatinine 1.3. Patient states her shortness of breath is better today and that she was very scared yesterday. She is eating okay. Cardiology has recommended changing IV Lasix to oral and she has been cleared for discharge today. Patient's discharge plan is to return to [facility]. Pulmonary medicine is recommended prednisone taper, antibiotics and follow-up with [facility]iguez [facility]. 08/03: Patient continues to have difficulty breathing and discharge most likely will occur on Sunday. She continues to have wheezing. She complains of headache. Solu-Medrol will remain the same. Lasix will be decreased to once daily as her BUN is 76 and creatinine 1.25. 08/04: Repeat BUN is increasing to 91 most likely due to steroids and creatinine 1.6. Hemoglobin is stable at 13.3. Patient had one blood sugar reading of 66 and otherwise improved. Her morning 70/30 will be decreased to 14 units and meals will be decreased to 5 units 3 times daily. No change in Solu-Medrol as patient continues to have some wheezing and difficulty breathing. Solu-Medrol is currently at 40 mg every 6 hours which was increased yesterday by Dr. Garcia. There is small amount of bleeding with a few clots from her colostomy for which a surgical evaluation will be requested. Patient had her colostomy surgery at [facility] but Dr. Yin is known to the patient. 08/05: Dr. Lazar saw the patient yesterday regarding bleeding from the stoma which is stopped. If she has continued bleeding patient may require scope done. Pulse ox is 91% on 3 L, heart rate is running 108-111. BUN 95 and creatinine is 1.2 which creatinine is improved from yesterday. Patient continues to have wheezing and difficulty breathing for which no changes will be made to Solu-Medrol. We will increase Lasix to 40 mg IV daily. 08/06: Patient had melena stool in her colostomy and surgery has been requested to reassess. There is concern for aspiration as patient has been coughing with eating and modified barium swallow is scheduled for today. Levaquin will be changed to 500 mg daily. Labetalol changed to Coreg his heart rate is been elevated. Heart rate is now running around 1:15. White count is 20, BUN 104 and creatinine 1.69. 08/07: Modified barium swallow done yesterday with recommendations for pured diet with thin liquids, chin tuck, no straws, liquids via spoon only with upright positioning and small bites and sips. Patient was reevaluated by general surgery with finding of no active bleeding, may continue anticoagulation. Dr. Yin will recheck the patient today for the melenic stools. Antibiotics were changed by Dr. Iniguez to Unasyn due to urine culture positive for Enterococcus faecalis and for pneumonia coverage. Heart rate is running 112-118. Coreg will be increased to 25 mg twice daily. Breathing seems to be about the same today. Patient denies any chest pain. Stool for occult blood will be sent. Noted the BUN is up to 126 and creatinine 1.73. Hemoglobin remained stable. 08/08: Dr. Yin has been reevaluated with no plan for any intervention. Patient 's hemoglobin remained stable at 13.6. BUN is 126 and creatinine 1.61. Sodium is up to 156 today. ABGs were done at midnight that showed a pH of 7.49, pCO2 52, pO2 53, bicarb 40, total CO2 41, O2 saturation 86, base excess 16.5. FiO2 was at 36. Heart rate is gone up into the 160s and patient started on amiodarone drip. Consult for nephrology was added yesterday and patient was seen by Dr. Syed acute kidney injury, mainly cardiorenal and possibly some obstructive uropathy. She recommended continuing Lasix but increase to 3 times daily and added and D5 at KVO. Repeat chest x-ray shows congestive heart failure and bilateral pulmonary infiltrates. Infiltrate is worse in the right upper lobe compared to last exam and unchanged and the other regions. Patient has had increased confusion and lethargy today. Patient becomes more dyspneic when BiPAP is removed. Discussed prognosis and CODE STATUS with the patient's and family have made her no code. Family meeting is to take place later today to discuss comfort care. Objective - Vital Signs Vital signs: Vital Signs Temp 98.6 F 08/08/17 11:29 Pulse 126 H 08/08/17 11:35 Resp 27 H 08/08/17 11:29 BP 158/88 08/08/17 11:29 Pulse Ox 98 08/08/17 11:29 Intake & Output 08/07/17 08/08/17 08/08/17 18:59 06:59 18:59 Intake Total 330 0 Output Total 400 500 400 Balance -70 -500 -400 Weight 71 kg Intake: IV 100 Ampicillin-Sulbactam 1.5 100 gm In Sodium Chloride 0.9 % 50 ml @ 100 mls/hr IVPB Q6H [facility] Rx#:[id number] Oral 230 0 Output: Urine 400 500 400 Uretheral (Huynh) 400 Other: Voiding Method Bedpan Indwelling Catheter Indwelling Catheter # Voids 1 1 - Exam - Constitutional General appearance: average body habitus, moderate distress - EENT Eyes: anicteric sclerae, EOMI, PERRLA, no ptosis, no scleral icterus, normal appearance ENT: hearing grossly normal, NA/AT, normal oropharynx, no thrush, no tonsillar exudates Ears: bilateral: normal - Neck Neck: no lymphadenopathy, normal ROM, no rigidity, no stridor, no thyromegaly Carotids: bilateral: upstroke delayed Thyroid: bilateral: normal size - Respiratory Respiratory: bilateral: diminished, rhonchi, wheezing, prolonged expiration, negative: dullness, rales - Cardiovascular Rhythm: irregularly irregular Heart sounds: normal: S1, S2 Abnormal Heart Sounds: systolic murmur - Gastrointestinal General gastrointestinal: normal bowel sounds, soft, no splenomegaly, no tenderness (There is colostomy bag in place), ventral hernia (Large abdominal wall hernia.) - Integumentary Integumentary: normal, normal turgor - Neurologic Neurologic: CNII-XII intact - Musculoskeletal Musculoskeletal: no gait normal, generalized weakness, strength equal bilaterally - Psychiatric Psychiatric: A&O x's1, no appropriate affect, no intact judgment & insight - Labs CBC & Chem 7: 08/08/17 06:31 08/08/17 06:31 Labs: Abnormal Lab Results - Last 24 Hours (Table) 08/07/17 08/07/17 08/07/17 Range/Units 11:39 16:45 20:57 WBC (3.8-10.6) k/uL Neutrophils # (Manual) (1.3-7.7) k/uL Lymphocytes # (Manual) (1.0-4.8) k/uL ABG pH (7.35-7.45) ABG pCO2 (35-45) mmHg ABG pO2 (83-108) mmHg ABG HCO3 (21-25) mmol/L ABG Total CO2 (19-24) mmol/L ABG O2 Saturation (94-97) % Sodium (137-145) mmol/L Carbon Dioxide (22-30) mmol/L BUN (7-17) mg/dL Creatinine (0.52-1.04) mg/dL Glucose (74-99) mg/dL POC Glucose (mg/dL) 147 H 184 H 155 H (75-99) mg/dL Total Bilirubin (0.2-1.3) mg/dL AST (14-36) U/L Albumin (3.5-5.0) g/dL 08/08/17 08/08/17 08/08/17 Range/Units 00:00 06:02 06:31 WBC 19.4 H (3.8-10.6) k/uL Neutrophils # (Manual) 18.24 H (1.3-7.7) k/uL Lymphocytes # (Manual) 0.58 L (1.0-4.8) k/uL ABG pH 7.49 H (7.35-7.45) ABG pCO2 52 H (35-45) mmHg ABG pO2 53 L (83-108) mmHg ABG HCO3 40 H* (21-25) mmol/L ABG Total CO2 41 H (19-24) mmol/L ABG O2 Saturation 86.0 L (94-97) % Sodium (137-145) mmol/L Carbon Dioxide (22-30) mmol/L BUN (7-17) mg/dL Creatinine (0.52-1.04) mg/dL Glucose (74-99) mg/dL POC Glucose (mg/dL) 186 H (75-99) mg/dL Total Bilirubin (0.2-1.3) mg/dL AST (14-36) U/L Albumin (3.5-5.0) g/dL 08/08/17 Range/Units 06:31 WBC (3.8-10.6) k/uL Neutrophils # (Manual) (1.3-7.7) k/uL Lymphocytes # (Manual) (1.0-4.8) k/uL ABG pH (7.35-7.45) ABG pCO2 (35-45) mmHg ABG pO2 (83-108) mmHg ABG HCO3 (21-25) mmol/L ABG Total CO2 (19-24) mmol/L ABG O2 Saturation (94-97) % Sodium 156 H (137-145) mmol/L Carbon Dioxide 35 H (22-30) mmol/L BUN 126 H* (7-17) mg/dL Creatinine 1.61 H (0.52-1.04) mg/dL Glucose 207 H (74-99) mg/dL POC Glucose (mg/dL) (75-99) mg/dL Total Bilirubin 1.6 H (0.2-1.3) mg/dL AST 42 H (14-36) U/L Albumin 3.0 L (3.5-5.0) g/dL Microbiology - Last 24 Hours (Table) 08/06/17 22:00 Urine Culture - Final Urine,Catheterized Assessment and Plan Plan: 1. Acute on chronic hypoxemic respiratory failure due to a combination of acute exacerbation of COPD as well as acute systolic heart failure and gram negative pneumonia all present on admission. Continue the patient on Lasix 40 mg IV every day, labetalol discontinued and Coreg 25 mg twice daily, continue patient on DuoNeb 3 mg nebulization 4 times every day, Solu-Medrol 40 mg every 6 hours, Pulmicort nebulization twice every day, Perforomist, continue oxygen support, Unasyn, cardiology and pulmonary consultation. 2. Acute on chronic diastolic heart failure with ejection fraction of 55% in the past. Continue labetalol discontinued and Coreg 12.5 mg twice daily started , continue patient on Lasix 40 mg IVP every day. 3. Acute kidney injury with chronic kidney disease stage III. Nephrology consult appreciated. Avoid nephrotoxic agents. 4. History of obstructive proximal right ureteral calculus status post cystoscopy and insertion of a double-J stent in the right kidney. 5. History of CVA. history of with a large infarct involving the left hemisphere. Continue aspirin 81 mg orally once every day as well as Eliquis 2.5 mg orally twice every day for life. 6. History of vertebral fracture involving the C1 and C2 spine with chronic neck pain 7. Hypertension and hypertensive cardiovascular disease. Continue labetalol discontinued and Coreg 12.5 mg twice daily started, hydralazine 25 mg orally 2 times every day. 8. Diabetes mellitus type 2. Levemir 14 units in the morning and 28 units in the evening, NovoLog 5 units with meals and NovoLog scale. 9. Coronary artery disease with previous coronary intervention and stenting. Continue aspirin 81 mg orally once every day, labetalol 10. Paroxysmal atrial fibrillation with atrial fibrillation with RVR, currently on long-term and to coagulation with Eliquis. Patient is now on amiodarone drip. Continue Coreg 11. Severe pulmonary hypertension related to COPD and diastolic dysfunction. Continue Lasix and coreg. 12. Peptic ulcer disease. Continue patient on Protonix 40 mg orally once every day. 13. Colostomy for a previous history of perforated/gangrenous bowel. Patient does have small amount of bleeding from colostomy for which a consult will be placed with Dr. Yin. Hemoglobin is stable. 14. Anemia of chronic disease, current hemoglobin is stable. 15. Peripheral Vascular disease. Continue aspirin 81 mg once every day for secondary prevention. 16. Recurrent enterococcus urinary tract infection present on admission. Unasyn. 17. History of MRSA wound infection involving the sacral ulcers. 18. DVT and GI prophylaxis. Continue patient on Eliquis 2.5 mg orally twice every day as well as bilateral knee-high DOROTHY hose. Continue PPI. 19. Oral thrush. Start nystatin swish and swallow. Patient is no code. Discharge plan: Return to [facility] Impression and plan of care have been directed as dictated by the signing physician. Destiny Jones nurse practitioner acting as scribe for signing physician.
[2017-08-08] MEDS: FERROUS SULFATE 325 MG TAB PO SCH (15:13)
[2017-08-08] MEDS ORDERED: FUROSEMIDE 10 MG/ML 4 ML VIAL IV SCH (16:00)
[2017-08-08 16:54] LABS: Glucose,Whole Blood 213 mg/dL (75-99)
[2017-08-08 16:57] VITALS: BP 112/53; TEMP 97.8
[2017-08-08] MEDS ORDERED: MORPHINE SULFATE 4MG/4ML SYRG IV PRN (18:00)
[2017-08-08] MEDS ORDERED: ATROPINE OPHTH SOLN 1% 5ML BTL SUBLINGUAL PRN (18:00)
[2017-08-08] MEDS ORDERED: ARTIFICIAL TEARS-HYPROMELLOSE DROPS 15 ML BTL BOTH EYES PRN (18:00)
[2017-08-08] MEDS: LORazepam 2 MG/ML INJ IV PRN (18:24)
[2017-08-08] MEDS ORDERED: MORPHINE SULFATE (100 MG/2 ML) 100 MG in SODIUM CHLORIDE 0.9% 100 ML IV SCH (18:30)
[2017-08-08] MEDS: clonazePAM 0.5 MG TAB PO SCH (20:58)
[2017-08-08] MEDS ORDERED: FUROSEMIDE 10 MG/ML 4 ML VIAL IV STA (21:17)
[2017-08-09] MEDS: AMIODARONE 450 MG in DEXTROSE 5% IN WATER 250 ML IV SCH ×4 (03:24→07:31)
[2017-08-09] MEDS: LORazepam 2 MG/ML INJ IV PRN (03:25)
--- NOTE | 2017-08-09 04:59 | PN ---
PROGRESS NOTE Patient was seen this morning. She was quite short of breath and maintained on BiPAP. Family was present at bedside. The patient has had urine output. She had an indwelling Huynh catheter and she had high residuals of about 400. The patient had just received IV Lasix when she was seen this morning. PHYSICAL EXAMINATION: On examination, blood pressure was 157/62, heart rate about 126 to 130 per minute. Patient is afebrile. EXAMINATION OF THE HEART: S1, S2. EXAMINATION OF THE LUNGS: Decreased breath sounds at the bases. Abdomen is soft, nontender. Examination lower extremities shows no significant edema. COAL WEIGHER exam shows patient is moving all 4 extremities. LABS: Labs show sodium 156, potassium 4.5, chloride 104, BUN 126, serum creatinine 1.61. Albumin 3.0. Hemoglobin 13.6 g/dL. ASSESSMENT: 1. Acute kidney injury mainly cardiorenal. Patient had an element of obstructive uropathy as well. She has an indwelling Huynh catheter now. I will increase her IV Lasix and repeat labs in a.m. There are no nephrotoxic agents on board at this time. 2. Hypernatremia associated with free water deficit. We are not able to give large amounts of D5W. I will start 20 mL an hour and continue with the Lasix. 3. Congestive heart failure, acute on top of chronic. Ejection fraction 25% to 30%, currently. 4. Severely dilated left atrium. 5. Respiratory failure, maintained on BiPAP. 6. Urinary tract infection with Enterococcus faecalis, currently on ampicillin. 7. Atrial fibrillation with rapid ventricular response, started on amiodarone. PLAN: Increase Lasix. Continue indwelling Huynh catheter. Repeat labs in a.m. guarded. MMODL / IJN: [id number] /
[2017-08-09] MEDS: AMPICILLIN-SULBACTAM 1.5 GM in SODIUM CHLORIDE 0.9% 50 ML IVPB SCH (05:30)
[2017-08-09] MEDS: PANTOPRAZOLE 40 MG TABLET PO SCH (05:30)
[2017-08-09] MEDS: CARVEDILOL 12.5 MG TAB PO SCH (05:31)
[2017-08-09] MEDS: IPRATROPIUM-ALBUTEROL 3 ML NEB INHALATION SCH (07:21)
[2017-08-09] MEDS: INSULIN ASPART 100 UNIT/ML 1 ML 10 ML VIAL SQ SCH ×2 (07:30)
[2017-08-09] MEDS: ALLOPURINOL 100 MG TAB PO SCH (07:31)
[2017-08-09] MEDS: AMMONIUM LACTATE 12% LOTION 225 GM BTL TOPICAL SCH (08:06)
[2017-08-09] MEDS: LIDOCAINE 5% PATCH TOPICAL SCH (08:06)
--- NOTE | 2017-08-09 08:07 | P.DS ---
Providers Date of admission: 07/27/17 17:10 Expected date of discharge: 08/09/17 Attending physician: uKnal Alexander MD Primary care physician: Negin Sifuentes [facility] Course: This is a 72-year-old female one of Dr. Sifuentes with a previous medical history significant for CAD post-PCI with chronic diastolic heart failure, hypertension and hypertensive cardiovascular disease, history of CVA in the past in the left occipital area with significant balance issues requiring the use of a walker and wheelchair on and off, history of diabetes mellitus type 2, hyperlipidemia, history of chronic atrial fibrillation, remote history of ischemic bowel with gangrenous changes and perforated bowel post colectomy and colostomy placement that was done at [facility], patient apparently was in her usual state of health about 2 days ago when she was at [facility] and developed to have an increased shortness of breath and she became somewhat confused,and they ended up sending the patient to the ER for evaluation she was found to have hypoxemia with significant shortness of breath thought to be due to possible combination of COPD exacerbation as well as an acute diastolic heart failure, patient was started on IV diuretics as well as IV Solu-Medrol she was seen in consultation by pulmonary and by cardiology, underwent echocardiogram still pending at the time of dictation. 4/1: Patient is complaining of pain in the lower back and she is feeling itchy as well she denies any chest pain or any shortness breath she is having less she has no abdominal pain, her stoma is working very well. 4/2: Patient remains on IV Lasix. Her heart rate has been running high around 116 and hypertensive and cardiology has increased metipranolol, increased dose of lisinopril to 10 mg daily and added and labetalol 300 mg twice daily. IV Solu-Medrol will be switched over to oral. Pulmonary medicine has cleared patient for discharge. She had an abdominal x-ray done today for abdominal pain that revealed a right-sided ureteral stent. There is partial uncoiling of the proximal loop but appears to remain appropriately positioned. Moderate stool burden. No evidence of free air or bowel obstruction. Bowel gas projecting lateral to the right hip this could represent overhanging panniculus or abdominal wall hernia. 4/3: Patient's heart rate continues to be elevated at 116-124. She is complaining of some shortness of breath this morning and she is currently on Lasix 40 mg IV every 12 hours. Patient will be resumed back on Solu-Medrol at 40 mg. Her white count is at 12.2, hemoglobin 13.7, creatinine 1.1. Urine cultures are showing group D enterococcus. Patient is on Levaquin. Weight is down 2.5 kg since admission. 08/01: Heart rate is running 110s to 120s. We have increased her labetalol to 400 mg twice daily, change Lasix to oral and decreased hydralazine which could impact her tachycardia. Patient continues to have shortness of breath. She denies any choking with eating. Pulmicort increased 1 mg twice daily and perform a missed added. Blood sugars have been elevated so NovoLog increased to 7 units 3 times day and Levemir to 28 units at bedtime. Solu-Medrol remains at 40 mg every 12 hours 08/02: Last evening, patient had increasing difficulty with breathing and a chest x-ray was done that revealed new right lung consolidation obesity. Suspect developing bronchopneumonia. Patient did receive 60 of IV Lasix. Repeat chest x-ray this morning showed moderate cardiomegaly. Patchy right basilar density shows improvement. There may be residual mild pulmonary vascular congestion. Her BUN is 65 with creatinine 1.3. Patient states her shortness of breath is better today and that she was very scared yesterday. She is eating okay. Cardiology has recommended changing IV Lasix to oral and she has been cleared for discharge today. Patient's discharge plan is to return to [facility]. Pulmonary medicine is recommended prednisone taper, antibiotics and follow-[facility]. 08/03: Patient continues to have difficulty breathing and discharge most likely will occur on Sunday. She continues to have wheezing. She complains of headache. Solu-Medrol will remain the same. Lasix will be decreased to once daily as her BUN is 76 and creatinine 1.25. 08/04: Repeat BUN is increasing to 91 most likely due to steroids and creatinine 1.6. Hemoglobin is stable at 13.3. Patient had one blood sugar reading of 66 and otherwise improved. Her morning 70/30 will be decreased to 14 units and meals will be decreased to 5 units 3 times daily. No change in Solu-Medrol as patient continues to have some wheezing and difficulty breathing. Solu-Medrol is currently at 40 mg every 6 hours which was increased yesterday by Dr. Garcia. There is small amount of bleeding with a few clots from her colostomy for which a surgical evaluation will be requested. Patient had her colostomy surgery at [facility] but Dr. Yin is known to the patient. 08/05: Dr. Lazar saw the patient yesterday regarding bleeding from the stoma which is stopped. If she has continued bleeding patient may require scope done. Pulse ox is 91% on 3 L, heart rate is running 108-111. BUN 95 and creatinine is 1.2 which creatinine is improved from yesterday. Patient continues to have wheezing and difficulty breathing for which no changes will be made to Solu-Medrol. We will increase Lasix to 40 mg IV daily. 08/06: Patient had melena stool in her colostomy and surgery has been requested to reassess. There is concern for aspiration as patient has been coughing with eating and modified barium swallow is scheduled for today. Levaquin will be changed to 500 mg daily. Labetalol changed to Coreg his heart rate is been elevated. Heart rate is now running around 1:15. White count is 20, BUN 104 and creatinine 1.69. 08/07: Modified barium swallow done yesterday with recommendations for pured diet with thin liquids, chin tuck, no straws, liquids via spoon only with upright positioning and small bites and sips. Patient was reevaluated by general surgery with finding of no active bleeding, may continue anticoagulation. Dr. Yin will recheck the patient today for the melenic stools. Antibiotics were changed by Dr. Iniguez to Unasyn due to urine culture positive for Enterococcus faecalis and for pneumonia coverage. Heart rate is running 112-118. Coreg will be increased to 25 mg twice daily. Breathing seems to be about the same today. Patient denies any chest pain. Stool for occult blood will be sent. Noted the BUN is up to 126 and creatinine 1.73. Hemoglobin remained stable. 08/08: Dr. Yin has been reevaluated with no plan for any intervention. Patient 's hemoglobin remained stable at 13.6. BUN is 126 and creatinine 1.61. Sodium is up to 156 today. ABGs were done at midnight that showed a pH of 7.49, pCO2 52, pO2 53, bicarb 40, total CO2 41, O2 saturation 86, base excess 16.5. FiO2 was at 36. Heart rate is gone up into the 160s and patient started on amiodarone drip. Consult for nephrology was added yesterday and patient was seen by Dr. Syed acute kidney injury, mainly cardiorenal and possibly some obstructive uropathy. She recommended continuing Lasix but increase to 3 times daily and added and D5 at KVO. Repeat chest x-ray shows congestive heart failure and bilateral pulmonary infiltrates. Infiltrate is worse in the right upper lobe compared to last exam and unchanged and the other regions. Patient has had increased confusion and lethargy today. Patient becomes more dyspneic when BiPAP is removed. Discussed prognosis and CODE STATUS with the patient's and family have made her no code. Family meeting is to take place later today to discuss comfort care. 08/09: She had further decline in her respiratory status and became unresponsive except to painful stimuli. Blood pressure was dropping and amiodarone was discontinued. Family made the patient comfort care only morphine drip, Ativan and atropine drops were started. Patient will be transferred to the oncology unit. Consult with hospice to make patient GI PE. Discharge diagnoses: 1. Acute on chronic hypoxemic respiratory failure due to a combination of acute exacerbation of COPD as well as acute systolic heart failure and gram negative pneumonia all present on admission. 2. Acute on chronic diastolic heart failure with ejection fraction of 55% 3. Acute kidney injury with chronic kidney disease stage III. 4. History of obstructive proximal right ureteral calculus status post cystoscopy and insertion of a double-J stent in the right kidney. 5. History of CVA. history of with a large infarct involving the left hemisphere. 6. History of vertebral fracture involving the C1 and C2 spine with chronic neck pain 7. Hypertension and hypertensive cardiovascular disease. 8. Diabetes mellitus type 2. 9. Coronary artery disease with previous coronary intervention and stenting. 10. Paroxysmal atrial fibrillation with atrial fibrillation with RVR 11. Severe pulmonary hypertension related to COPD and diastolic dysfunction. 12. Peptic ulcer disease. 13. Colostomy for a previous history of perforated/gangrenous bowel. 14. Anemia of chronic disease, current hemoglobin is stable. 15. Peripheral Vascular disease. 16. Recurrent enterococcus urinary tract infection present on admission. 17. History of MRSA wound infection involving the sacral ulcers. 18. Oral thrush. Patient is no code. Plan: Comfort care measures only. All aggressive treatment to be stopped. Morphine drip, Ativan IV and atropine sublingual Ativan. Hospice referral for GIP. Impression and plan of care have been directed as dictated by the signing physician. Destiny Jones nurse practitioner acting as scribe for signing physician. Patient Condition at Discharge: Undetermined Plan - Discharge Summary Discharge Rx Participant: No New Discharge Prescriptions: No Action Omeprazole [PriLOSEC] 20 mg PO DAILY@0600 Docusate [Colace] 100 mg PO DAILY PRN PRN Reason: Constipation Ferrous Sulfate [Iron (65 MG Elemental)] 325 mg PO DAILY@1400 Sertraline HCl [Zoloft] 100 mg PO DAILY@0900 Aspirin 81 mg PO DAILY@0900 Furosemide [Lasix] 40 mg PO DAILY@0900 Allopurinol [Zyloprim] 100 mg PO DAILY@0900 hydrALAZINE HCL [Apresoline] 25 mg PO TID@0600,1400,2200 Ipratropium-Albuterol Nebulize [Duoneb 0.5 mg-3 mg/3 ml Soln] 3 ml INHALATION RT-TID PRN ampul.neb PRN Reason: Shortness Of Breath HYDROcodone/APAP 10-325MG [[place] 10-325] 1 tab PO Q8HR PRN #30 tab PRN Reason: Pain INSULIN LISPRO (HumaLOG) [HumaLOG] See Protocol SQ ACHS Potassium Chloride [Klor-Con 10] 10 meq PO MOWEFR@0900 levETIRAcetam [Keppra] 500 mg PO BID@0900,2100 clonazePAM [KlonoPIN] 0.5 mg PO HS@2100 Acetaminophen Tab [Tylenol Tab] 650 mg PO BID@0900,2100 Ammonium Lactate Lotion [Lac-Hydrin 12% Lotion] 1 applic TOPICAL DAILY predniSONE 10 mg PO HS@2100 buPROPion HCL [Wellbutrin SR] 100 mg PO DAILY@0900 Nystatin 100,000 Unit/gm Powd [Mycostatin Powder] 1 applic TOPICAL DAILY PRN PRN Reason: redness Nitroglycerin Sl Tabs [Nitrostat] 0.4 mg SUBLINGUAL Q5M PRN PRN Reason: Chest Pain Labetalol HCl 200 mg PO BID@0900,2100 Insulin Lispro [humaLOG Kwikpen] 5 unit SQ BID@0800,1100 Insulin Lispro [humaLOG Kwikpen] 2 unit SQ AC-SUPPER Insulin Glargine [Lantus] 44 unit SQ HS@2099 Glimepiride [Amaryl] 4 mg PO BID@0900,1700 Buprenorphine [Butrans 15 MCG/HR] 1 patch TRANSDERM WE Budesonide [Pulmicort] 0.5 mg INHALATION RT-BID@0900,2100 Discharge Medication List Docusate [Colace] 100 mg PO DAILY PRN 08/10/14 [History] Omeprazole [PriLOSEC] 20 mg PO DAILY@0600 08/10/14 [History] Ferrous Sulfate [Iron (65 MG Elemental)] 325 mg PO DAILY@1400 08/31/14 [History] Sertraline HCl [Zoloft] 100 mg PO DAILY@0900 08/31/14 [History] Aspirin 81 mg PO DAILY@0900 08/25/15 [History] Furosemide [Lasix] 40 mg PO DAILY@0900 02/02/16 [History] Allopurinol [Zyloprim] 100 mg PO DAILY@0900 04/23/16 [History] hydrALAZINE HCL [Apresoline] 25 mg PO TID@0600,1400,2200 05/12/16 [History] HYDROcodone/APAP 10-325MG [[place] 10-325] 1 tab PO Q8HR PRN #30 tab 05/18/16 [Rx] Ipratropium-Albuterol Nebulize [Duoneb 0.5 mg-3 mg/3 ml Soln] 3 ml INHALATION RT -TID PRN ampul.neb 05/18/16 [Rx] INSULIN LISPRO (HumaLOG) [HumaLOG] See Protocol SQ ACHS 05/28/16 [History] Potassium Chloride [Klor-Con 10] 10 meq PO MOWEFR@0900 05/28/16 [History] levETIRAcetam [Keppra] 500 mg PO BID@0900,209905/28/16 [History] Acetaminophen Tab [Tylenol Tab] 650 mg PO BID@0900,2100 12/25/16 [History] clonazePAM [KlonoPIN] 0.5 mg PO HS@2100 12/25/16 [History] Ammonium Lactate Lotion [Lac-Hydrin 12% Lotion] 1 applic TOPICAL DAILY 07/27/17 [History] Budesonide [Pulmicort] 0.5 mg INHALATION RT-BID@0900,209907/27/17 [History] Buprenorphine [Butrans 15 MCG/HR] 1 patch TRANSDERM WE 07/27/17 [History] Glimepiride [Amaryl] 4 mg PO BID@0900,1700 07/27/17 [History] Insulin Glargine [Lantus] 44 unit SQ HS@209907/27/17 [History] Insulin Lispro [humaLOG Kwikpen] 2 unit SQ AC-SUPPER 07/27/17 [History] Insulin Lispro [humaLOG Kwikpen] 5 unit SQ BID@0800,1100 07/27/17 [History] Labetalol HCl 200 mg PO BID@0900,209907/27/17 [History] Nitroglycerin Sl Tabs [Nitrostat] 0.4 mg SUBLINGUAL Q5M PRN 07/27/17 [History] Nystatin 100,000 Unit/gm Powd [Mycostatin Powder] 1 applic TOPICAL DAILY PRN [History] buPROPion HCL [Wellbutrin SR] 100 mg PO DAILY@0900 07/27/17 [History] predniSONE 10 mg PO HS@209907/27/17 [History] Follow up Appointment(s)/Referral(s): Negin Sifuentes MD [Primary Care Provider] - 1-2 days Patient Instructions/Handouts: Heart Failure (DC), Heart Healthy Diet (DC), COPD (Chronic Obstructive Pulmonary Disease) (DC), Chronic Lung Disease and Infection Prevention (DC) Activity/Diet/Wound Care/Special Instructions: ECF on D/C
[2017-08-09] MEDS ORDERED: FUROSEMIDE 10 MG/ML 4 ML VIAL IV SCH ×2 (09:00)
[2017-08-09 11:42] VITALS: PULSE 160; RESP 23
== END 2017-08-09 13:12 | disposition hospice, inpatient (51) | DRG 291 ==
LOC: EC 14:45 → 6SEL 17:10
PROVIDERS: ADMIT Internal Medicine; ATTEND Internal Medicine
DX: I13.0 Hypertensive heart and chronic kidney disease with heart failure and stage 1 through stage 4 chronic kidney disease, or unspecified chronic kidney disease (principal); J96.21 Acute and chronic respiratory failure with hypoxia; J15.6 Pneumonia due to other Gram-negative bacteria; N17.9 Acute kidney failure, unspecified; S12.000A Unspecified displaced fracture of first cervical vertebra, initial encounter for closed fracture; B37.0 Candidal stomatitis; E11.22 Type 2 diabetes mellitus with diabetic chronic kidney disease; N18.3 Chronic kidney disease, stage 3 (moderate); I50.43 Acute on chronic combined systolic (congestive) and diastolic (congestive) heart failure; J96.22 Acute and chronic respiratory failure with hypercapnia; E87.0 Hyperosmolality and hypernatremia; J44.0 Chronic obstructive pulmonary disease with (acute) lower respiratory infection; J44.1 Chronic obstructive pulmonary disease with (acute) exacerbation; N39.0 Urinary tract infection, site not specified; S12.100A Unspecified displaced fracture of second cervical vertebra, initial encounter for closed fracture; K92.1 Melena; E11.51 Type 2 diabetes mellitus with diabetic peripheral angiopathy without gangrene; E11.65 Type 2 diabetes mellitus with hyperglycemia; G40.909 Epilepsy, unspecified, not intractable, without status epilepticus; I27.20 Pulmonary hypertension, unspecified; I42.9 Cardiomyopathy, unspecified; I48.2 Chronic atrial fibrillation; D63.8 Anemia in other chronic diseases classified elsewhere; B95.2 Enterococcus as the cause of diseases classified elsewhere; E78.5 Hyperlipidemia, unspecified; G89.29 Other chronic pain; I25.10 Atherosclerotic heart disease of native coronary artery without angina pectoris; I25.2 Old myocardial infarction; J98.01 Acute bronchospasm; J98.09 Other diseases of bronchus, not elsewhere classified; K21.9 Gastro-esophageal reflux disease without esophagitis; K27.9 Peptic ulcer, site unspecified, unspecified as acute or chronic, without hemorrhage or perforation; K43.5 Parastomal hernia without obstruction or gangrene; N13.9 Obstructive and reflux uropathy, unspecified; T38.0X5A Adverse effect of glucocorticoids and synthetic analogues, initial encounter; Z51.5 Encounter for palliative care; Z79.01 Long term (current) use of anticoagulants; Z79.02 Long term (current) use of antithrombotics/antiplatelets; Z79.4 Long term (current) use of insulin; Z79.82 Long term (current) use of aspirin; Z79.899 Other long term (current) drug therapy; Z81.1 Family history of alcohol abuse and dependence; Z82.49 Family history of ischemic heart disease and other diseases of the circulatory system; Z86.14 Personal history of Methicillin resistant Staphylococcus aureus infection; Z86.73 Personal history of transient ischemic attack (TIA), and cerebral infarction without residual deficits; Z86.79 Personal history of other diseases of the circulatory system; Z87.01 Personal history of pneumonia (recurrent); Z87.440 Personal history of urinary (tract) infections; Z87.442 Personal history of urinary calculi; Z87.891 Personal history of nicotine dependence; Z90.710 Acquired absence of both cervix and uterus; Z93.3 Colostomy status; Z95.5 Presence of coronary angioplasty implant and graft; Z16.21 Resistance to vancomycin; Z80.9 Family history of malignant neoplasm, unspecified; Z79.891 Long term (current) use of opiate analgesic; Z88.0 Allergy status to penicillin; Z88.8 Allergy status to other drugs, medicaments and biological substances; Z88.1 Allergy status to other antibiotic agents; Z91.041 Radiographic dye allergy status; Z66 Do not resuscitate
CPT/HCPCS: 36415; 36600; 71045; 71046; 74019; 74230; 80048; 80053; 81001; 82550; 82553; 82805; 83036; 83690; 83735; 83880; 84484; 85025; 85027; 85610; 85730; 87040; 87077; 87086; 87186; 87502; 93306; 94640; 94660; 94760; 96374; 99285

== ENCOUNTER 2017-08-09 13:20 | Inpatient (IN) | payer MEDICAID ==
[2017-08-09] MEDS ORDERED: ACETAMINOPHEN SUPPOSITORY 650 MG SUPP RECTAL PRN (13:36)
[2017-08-09] MEDS ORDERED: SCOPOLAMINE 1.5MG/72HR PATCH TRANSDERM PRN (13:36)
[2017-08-09] MEDS ORDERED: ATROPINE OPHTH SOLN 1% 5ML BTL SUBLINGUAL PRN (13:36)
[2017-08-09] MEDS ORDERED: ARTIFICIAL TEARS-HYPROMELLOSE DROPS 15 ML BTL BOTH EYES PRN (13:36)
[2017-08-09] MEDS ORDERED: ONDANSETRON 4 MG/2 ML VIAL IVP PRN (13:36)
[2017-08-09] MEDS ORDERED: MORPHINE SULFATE 4MG/4ML SYRG IVP PRN (13:43)
[2017-08-09] MEDS ORDERED: LORazepam 2 MG/ML INJ IV PRN ×2 (13:45→13:46)
[2017-08-09] MEDS ORDERED: MORPHINE SULFATE (100 MG/2 ML) 100 MG in SODIUM CHLORIDE 0.9% 100 ML IV SCH (13:45)
[2017-08-09] MEDS ORDERED: MORPHINE SULF 5MG/10ML VL IVP PRN (17:21)
[2017-08-09 19:47] VITALS: RESP 8
== END 2017-08-09 21:34 | disposition expired | DRG 951 ==
LOC: 6SEL 13:20 → 4MS4W 16:05
PROVIDERS: ADMIT Internal Medicine; ATTEND Internal Medicine
DX: Z51.5 Encounter for palliative care (principal); I50.33 Acute on chronic diastolic (congestive) heart failure; J44.1 Chronic obstructive pulmonary disease with (acute) exacerbation; Z87.891 Personal history of nicotine dependence; I25.10 Atherosclerotic heart disease of native coronary artery without angina pectoris; I11.0 Hypertensive heart disease with heart failure; Z95.5 Presence of coronary angioplasty implant and graft; I48.2 Chronic atrial fibrillation; G40.909 Epilepsy, unspecified, not intractable, without status epilepticus; Z86.14 Personal history of Methicillin resistant Staphylococcus aureus infection; Z87.442 Personal history of urinary calculi; Z87.11 Personal history of peptic ulcer disease; H35.30 Unspecified macular degeneration; I69.398 Other sequelae of cerebral infarction; E78.5 Hyperlipidemia, unspecified; R09.02 Hypoxemia; Z99.81 Dependence on supplemental oxygen; K21.9 Gastro-esophageal reflux disease without esophagitis; I27.20 Pulmonary hypertension, unspecified; Z66 Do not resuscitate; M54.2 Cervicalgia; S12.100S Unspecified displaced fracture of second cervical vertebra, sequela; Z86.79 Personal history of other diseases of the circulatory system; H53.8 Other visual disturbances; I25.2 Old myocardial infarction; M19.90 Unspecified osteoarthritis, unspecified site; Z87.01 Personal history of pneumonia (recurrent); Z79.82 Long term (current) use of aspirin; Z79.4 Long term (current) use of insulin; Z79.899 Other long term (current) drug therapy; E11.51 Type 2 diabetes mellitus with diabetic peripheral angiopathy without gangrene; Z82.49 Family history of ischemic heart disease and other diseases of the circulatory system; Z93.3 Colostomy status